=== PATIENT | male | born 1965 | race Caucasian/White ===

== ENCOUNTER 2017-04-27 14:34 | Inpatient (IN) | payer OTHER ==
[~2017-04-27] VITALS: Ht 170.2 cm; Wt 139.7 kg
--- NOTE | 2017-04-27 14:49 | NUR ---
51 Y/O MALE C/O 2-3 WEEK HISTORY OF N/V AND INABILITY TO TOLERATE AN PO INTAKE. STATES HE CANNOT KEEP ANY FOOD OR LIQUIDS DOWN. DENIES ABDOMINAL PAIN. DENIES CHEST PAIN OR SOB. STATES HE HAS INTERMITTENT DIZZINESS, DIFFICULTY STANDING DUE TO DIZZINESS AT TIMES. STATES HIS B/P WAS LOW EARLIER TODAY, 121/70 IN TRIAGE. HOLDING CUP OF WATER, ADVISED TO REMAIN NPO UNTIL PROVIDED EVAL.
[2017-04-27 15:54] LABS: ABSOLUTE BASOPHIL COUNT 0 /CUMM (0.0-0.2); ABSOLUTE EOSINOPHIL COUNT 0.3 /CUMM (0.0-0.7); ABSOLUTE GRANULOCYTE CT 7.8 /CUMM (1.4-6.5); ABSOLUTE LYMPH COUNT 1.6 /CUMM (1.2-3.4); ABSOLUTE MONOCYTE COUNT 0.9 /CUMM (0.10-0.60); BASOPHIL % 0.4 % (0.0-2.0); EOSINOPHIL % 3.1 % (0-5); HEMATOCRIT 37.6 % (42-52); MEAN CORPUSCULAR HGB 30.5 PG (27.0-31.0); MEAN CORPUSCULAR HGB CONC 33.6 G/DL (33.0-37.0); MEAN CORPUSCULAR VOLUME 90.7 FL (80.0-94.0); MEAN PLATELET VOLUME 8.5 FL (7.4-10.4); PLATELET COUNT 345 /CUMM (130-400); RBC DISTRIBUTION WIDTH 13.7 % (11.5-14.5); RED BLOOD CELL CT 4.14 /CUMM (4.70-6.10); WHITE BLOOD CELL COUNT 10.6 /CUMM (4.8-10.8)
--- NOTE | 2017-04-27 16:30 | ED GENERAL ADULT ---
History of Present Illness General Chief Complaint: General Adult Stated Complaint: DIZZY, VOMITING, NAUSEA X FEW WEEKS Source: patient Exam Limitations: no limitations Vital Signs & Intake/Output Vital Signs & Intake/Output Vital Signs Date Time Temp Pulse Resp B/P B/P Pulse O2 O2 Flow FiO2 Mean Ox Delivery Rate 04/27 1902 98.9 90 20 152/83 95 04/27 1445 97.1 76 18 121/70 96 Room Air Allergies Coded Allergies: shellfish derived (SEAFOOD- NAUSEA AND DIZZINESS 04/27/17) Reconcile Medications Atorvastatin Calcium 40 MG TABLET 1 TAB PO DAILY CHOLESTEROL (Reported) Clonidine HCl 0.1 MG TABLET 1 TAB PO QHS BP (Reported) Dulaglutide (Trulicity) 1.5 MG/0.5 ML PEN.INJCTR 1.5 MG SC QMON DM (Reported) Ergocalciferol (Vitamin D2) (Vitamin D2) 50,000 UNIT CAPSULE 1 CAP PO QFRI SUPPLEMENT (Reported) Fenofibrate Nanocrystallized (Fenofibrate) 145 MG TABLET 1 TAB PO DAILY CHOLESTEROL/TRIGLYCERIDES (Reported) Glimepiride 2 MG TABLET 1 TAB PO BID DM (Reported) Hydrochlorothiazide 25 MG TABLET 1 TAB PO DAILY DIURETIC (Reported) Insulin Detemir (Levemir Flextouch) 100 UNIT/ML (3 ML) INSULN.PEN 50 UNITS SC 1500 DM (Reported) Insulin Lispro (Humalog Kwikpen U-100) 100 UNIT/ML INSULN.PEN DM (Reported) Levomefolate/B6/B12/Algal Oil (Metanx Capsule) 3 MG-35 MG-2 MG-90.314 MG CAPSULE 1 CAP PO BID FOOT NEUROPATHY (Reported) Lisinopril 40 MG TABLET 1 TAB PO DAILY BP (Reported) Tadalafil (Cialis) 5 MG TABLET 1 TAB PO DAILY ED (Reported) Tizanidine HCl 2 MG TABLET 1 TAB PO 4XDAILY MUSCLE RELAXER (Reported) Triage Note: 51 Y/O MALE C/O 2-3 WEEK HISTORY OF N/V AND INABILITY TO TOLERATE AN PO INTAKE. STATES HE CANNOT KEEP ANY FOOD OR LIQUIDS DOWN. DENIES ABDOMINAL PAIN. DENIES CHEST PAIN OR SOB. STATES HE HAS INTERMITTENT DIZZINESS, DIFFICULTY STANDING DUE TO DIZZINESS AT TIMES. STATES HIS B/P WAS LOW EARLIER TODAY, 121/70 IN TRIAGE. HOLDING CUP OF WATER, ADVISED TO REMAIN NPO UNTIL PROVIDED EVAL. Triage Nurses Notes Reviewed? yes HPI: Pt is coming in for >2 wks of N/V and limited intake of foods/water, and dizziness. His low appetite started abruptly around 3 weeks ago. Last monday during his visit to PCP, he noticed that his blood pressure DBP had dropped to 60-70mmhg compare to his normal DBP around 85. He felt lightheadedness and has limited intake of foods. He drank on average 6 600ml cups of water each day but stated that the more he drank the likey he wanted to vomit. He usually vomited by the end of a day, non-bloody. He denied any fever, CP, SOB, or ab pain. He is compliant with his medications, and last insulin shot was noon today with 25U humalog after a fingerstick glucose of 240s. He felt sick around 1330 today and collapsed without LOC after. Upon seeing the pt, he c/o of lightheadedness especially when sitting up and walk but relieved by lying down. He has otherwise no specific complaint. He denied recent liquor intake or any previous hx of liver disease. (TRE PALACIOS,MARIA ELENA WARD) Past History Travel History Traveled to [place] past 21 day No Medical History Any Pertinent Medical History? see below for history Neurological: NONE EENT: NONE Cardiovascular: hypertension Respiratory: NONE Gastrointestinal: NONE Hepatic: NONE Renal: NONE Musculoskeletal: NONE Psychiatric: NONE Endocrine: diabetes Blood Disorders: NONE Cancer(s): NONE FOOD SAFETY FIELD SPECIALIST/Reproductive: NONE Surgical History Surgical History: non-contributory Psychosocial History What is your primary language Bengali Tobacco Use: Quit >30 days ago Family History Hx Contributory? No (TRE PALACIOS,MARIA ELENA WARD) Review of Systems Review of Systems Constitutional: Reports: see HPI. Comments Constitutional: no significant weight gain or loss and no fever, night sweats, or exercise intolerance. Skin: no jaundice, hives, eczema, rashes, or abnormal moles. Respiratory: no cough, wheezing, shortness of breath, or coughing up blood. Cardiovascular: no SOB, no palpitations, chest pain, no arm pain on exertion, or leg swelling. Gastrointestinal: low appetite, daily vomiting and episodic constipation in last 2-3 wks, No abdominal pain, rectal bleeding. Genitourinary: no incontinence, hematuria, difficulty urinating, or increased frequency. Musculoskeletal: no muscle aches or weakness, no arthralgias/joint pain, and back pain; Neurologic: no weakness, numbness, seizures, or dizziness. Psych: no depression, anxiety, sleep disturbances, homicidal thoughts, or suicidal thoughts. (TRE PALACIOS,MARIA ELENA WARD) Physical Exam Physical Exam General Appearance: lethargic, mild distress, obese Comments: Head: normocephalic and atraumatic. Lungs: Respiratory effort: no dyspnea and good air movement. Auscultation: no wheezing, rales/crackles, or rhonchi and breath sounds normal and CTA except as noted. Cardiovascular: Apical Impulse: not displaced. normal S1 and S2; no murmurs, rubs, or gallops; and RRR. no carotid bruits. Abdomen: normal bowel sound. No masses, tenderness (no guarding, no rebound), or CVA tenderness and soft and non-distended. Liver: non-tender and no hepatomegaly. Musculoskeletal:: normal tone and strength (5/5 throughout) . Neurologic: normal gait and station. Skin: no rash, lesions, ulcer, induration, nodules, jaundice, or abnormal nevi and good turgor. Psychiatric: good judgement. Normal mood and affect and active and alert. Orientation to time, place, and person. Recent memory normal and remote memory normal. Core Measures ACS in differential dx? No CVA/TIA Diagnosis: No Severe Sepsis Present: No Septic Shock Present: No (TRE PALACIOS,MARIA ELENA WARD) Progress Differential Diagnoses I considered the following diagnoses in my evaluation of the patient: [CHANDANA, Dehydration, hepatorenal syndrome] Diagnostic Imaging: Discussed w/RAD: Radiology Read. Radiology Impression: no acute abnormality, PATIENT: HERNAN BUSH PRESENT AGE: 51 PATIENT ACCOUNT NO: [id number] : 67 LOCATION: [facility] ORDERING PHYSICIAN: MARIA ELENA TOLEDO MD SERVICE DATE: 04/27/17 EXAM TYPE: CAT - CT ABD & PELVIS W/O IV CONTRAS EXAMINATION: CT ABDOMEN AND PELVIS WITHOUT CONTRAST CLINICAL INFORMATION: Dehydration. Hypotension. COMPARISON: None. TECHNIQUE: Contiguous axial thin section helical images of the abdomen and pelvis were performed without oral or IV contrast. The data set was reformatted in the coronal and sagittal planes and reviewed on an independent workstation. DLP: 1579 mGy-cm. FINDINGS: The visualized lung bases are clear. The visualized portions of the heart are unremarkable. The liver is of normal size and attenuation without focal lesions nor intrahepatic biliary ductal dilation. A normal gallbladder is identified. There is no wall thickening or discernible pericholecystic fluid. The spleen, pancreas, adrenal glands are unremarkable. Both kidneys are of normal size and attenuation without hydronephrosis or nephrolithiasis. There is no abdominal free fluid. There is neither mesenteric nor retroperitoneal lymphadenopathy. Normal unopacified loops of small and large bowel are identified. A normal appendix is identified. There is no pelvic free fluid. The urinary bladder is only partially filled. There is moderate bladder wall thickening. There is neither pelvic nor inguinal lymphadenopathy. Bone windows: Neither sclerotic nor lytic bone lesions are identified. IMPRESSION: No evidence for acute abdominal or pelvic inflammatory or infectious processes. Partially filled urinary bladder with the appearance of moderate wall thickening. It is uncertain as to whether the appearance of wall thickening is solely related to bladder volume or there is underlying thickening. Correlate with physical exam and consider bladder ultrasound 18 clinically appropriate. DICTATED BY: LULY RADFORD MD DATE/TIME DICTATED:1811 TESTER ELECTRONIC SCALE:MARGARET DATE/TIME TRANSCRIBED:04/27/171811 CONFIDENTIAL, DO NOT COPY WITHOUT APPROPRIATE AUTHORIZATION. <Electronically signed in Other Vendor System> SIGNED BY: LULY RADFORD MD 04/27/171818 Initial ED EKG: none (TRE PALACIOS,MARAI ELENA WARD) Plan of Care: Orders Procedure Date/time Status Nothing by Mouth 04/27 D Active Admit to inpatient 04/27 1943 Active US-RENAL/KIDNEY 04/27 1909 Active Add-on Test (ER Only) 04/27 1909 Active PROSTATIC SPECIFIC ANTIGEN 04/27 190 Active Add-on Test (ER Only) 04/27 1730 Active ETHANOL 04/27 1541 Complete URINE DRUGS OF ABUSE 04/27 1508 Active URINALYSIS 04/27 1508 Active COMPREHENSIVE METABOLIC PANEL 04/27 1501 Complete CBC WITHOUT DIFFERENTIAL 04/27 1501 Complete Current Medications Sig/Buddy Start time Last Medication Dose Stop Time Status Admin Pantoprazole Sodium 40 MG ONCE ONE 04/27 2000 UNVr (Protonix) 04/27 2001 Promethazine HCl 25 MG ONCE ONE 04/27 2000 UNVr 04/27 (Phenergen) 04/27 Sodium Chloride 1,000 ML .Q5H 04/27 1915 UNVr 04/27 (Normal Saline 0.9%) 04/28 Ondansetron HCl 4 MG ONCE ONE 04/27 1845 CAN (Zofran) 04/27 1846 Laboratory Tests 04/27/17 1541: Anion Gap 10, Estimated GFR 11 L, BUN/Creatinine Ratio 10.9, Glucose 291 H, Calcium 9.3, Total Bilirubin 0.9, AST 400 H, ALT 712 H, Alkaline Phosphatase 85, Total Protein 6.1 L, Albumin 3.4 L, Globulin 2.7, Albumin/Globulin Ratio 1.3, CBC w Diff NO MAN DIFF REQ, RBC 4.14 L, MCV 90.7, MCH 30.5, RDW 13.7, MPV 8.5, Gran % 73.0, Lymphocytes % 15.1 L, Monocytes % 8.4, Eosinophils % 3.1, Basophils % 0.4, Absolute Granulocytes 7.8 H, Absolute Lymphocytes 1.6, Absolute Monocytes 0.9 H, Absolute Eosinophils 0.3, Absolute Basophils 0, PUBS MCHC 33.6, Serum Alcohol < 10.0 04/27/2017 1740 Pt's decreased renal function, and elevated BUN & Cr align with dehydration due to his recent low intake of foods/water and daily vomiting. We will rehydrate him and monitor. (TRE PALACIOS,MARIA ELENA WARD) Departure Departure Disposition: STILL A PATIENT Condition: Stable Clinical Impression Primary Impression: CHANDANA (acute kidney injury) Secondary Impressions: Dehydration, Elevated liver enzymes Referrals: TOLU HODGES MD (PCP/Family) Departure Forms: Customer Survey General Discharge Information Admission Note Spoke With: ESTELITA PALACIOS,SILVIA Box Documentation of Exam: Documentation of any treatments & extenuating circumstances including Concerns Regarding Discharge (functional status, medication knowledge or non-compliance, living conditions, etc.) that warrant an admission rather than observation: Pt came in today with signs of CHANDANA, dehydration with limited urine output, elevated liver enzymes, elevated blood glucose, and dizziness. He c/o 2-3 weeks of low appetite with limited intake of food/water, daily vomiting, w/o SOB/CP/Ab pain, or diarrhea. Pt is at risk of electrolyte disorders, hepatorenal syndrome, possible CHF, and acute renal failure. Pt is a poor candidate for outpatient management, and would likely return in worse clinical conditions. Pt should have renal and liver functions followed, IV fluids, renal consultation , GI consultation, and management of insulin-dependent diabetes (consider Endocrine consult). Given the number of acute medical problems, this patient will require multiple days of hospitalization. (TRE PALACIOS,MARIA ELENA WARD) Departure Additional Instructions: Please note that there might be incidental findings in your evaluation that are unrelated to the current emergency department visit. Please notify your primary care doctor about this emergency department visit in order to obtain and review all of the testing performed so that these incidental findings can be monitored as needed. If you had an x-ray performed, please understand that some fractures may not be seen on the initial set of x-rays. If your symptoms persist you might need a repeat set of x-rays to check for such a fracture. If you had a laceration evaluated, please understand that foreign bodies such as glass or wood may not be visible to the naked eye or on plain x-rays. If the wound becomes red, swollen, increasingly more painful or if there is any drainage from the wound, please have it reevaluated by a physician for the possibility of a retained foreign body. If you're unable to follow up as outlined in the discharge instructions please return to the emergency department. Thank you for choosing the [facility] Emergency Department for your care. It was a pleasure to serve you today. Olman Evangelista M.D. [facility] Admission Note Documentation of Exam: Documentation of any treatments & extenuating circumstances including Concerns Regarding Discharge (functional status, medication knowledge or non-compliance, living conditions, etc.) that warrant an admission rather than observation: (MANINDER PALACIOS,OLMAN Tamayo) Critical Care Note Critical Care Note Critical Care Time: non-applicable (TRE PALACIOS,MARIA ELENA WARD)
[2017-04-27] MEDS ORDERED: FENOFIBRATE145 M1 PO (16:46)
[2017-04-27] MEDS ORDERED: LISINOPRIL40 M1 PO (16:47)
[2017-04-27] MEDS ORDERED: CIALIS5 M1 PO (16:47)
[2017-04-27] MEDS ORDERED: CLONIDINE HCL0.1 MG PO (16:47)
[2017-04-27] MEDS ORDERED: HYDROCHLOROTHIA25 M1 PO (16:48)
[2017-04-27] MEDS ORDERED: TIZANIDINE HCL2 M1 PO (16:48)
[2017-04-27] MEDS ORDERED: VITAMIN D250000 UNIT PO (16:49)
[2017-04-27] MEDS ORDERED: LEVEMIR FL100 UNIT/1 SC (16:49)
[2017-04-27] MEDS ORDERED: ATORVASTATIN CA40 M1 PO (16:49)
[2017-04-27] MEDS ORDERED: GLIMEPIRIDE2 MG PO (16:50)
[2017-04-27] MEDS ORDERED: TRULICITY1.5 MG/0.5 SC (16:50)
[2017-04-27] MEDS ORDERED: HUMALOG KW100 UNIT/1 SC (16:51)
[2017-04-27] MEDS ORDERED: METANX CAPSULE1 EACH PO (16:52)
--- NOTE | 2017-04-27 17:16 | NUR ---
PT MOVED INTO ROOM 6 FOR EVAL RESIDENT AT THE BEDSIDE
--- NOTE | 2017-04-27 18:19 | CT SCAN REPORT ---
EXAMINATION: CT ABDOMEN AND PELVIS WITHOUT CONTRAST CLINICAL INFORMATION: Dehydration. Hypotension. COMPARISON: None. TECHNIQUE: Contiguous axial thin section helical images of the abdomen and pelvis were performed without oral or IV contrast. The data set was reformatted in the coronal and sagittal planes and reviewed on an independent workstation. DLP: 1579 mGy-cm. FINDINGS: The visualized lung bases are clear. The visualized portions of the heart are unremarkable. The liver is of normal size and attenuation without focal lesions nor intrahepatic biliary ductal dilation. A normal gallbladder is identified. There is no wall thickening or discernible pericholecystic fluid. The spleen, pancreas, adrenal glands are unremarkable. Both kidneys are of normal size and attenuation without hydronephrosis or nephrolithiasis. There is no abdominal free fluid. There is neither mesenteric nor retroperitoneal lymphadenopathy. Normal unopacified loops of small and large bowel are identified. A normal appendix is identified. There is no pelvic free fluid. The urinary bladder is only partially filled. There is moderate bladder wall thickening. There is neither pelvic nor inguinal lymphadenopathy. Bone windows: Neither sclerotic nor lytic bone lesions are identified. IMPRESSION: No evidence for acute abdominal or pelvic inflammatory or infectious processes. Partially filled urinary bladder with the appearance of moderate wall thickening. It is uncertain as to whether the appearance of wall thickening is solely related to bladder volume or there is underlying thickening. Correlate with physical exam and consider bladder ultrasound 18 clinically appropriate.
--- NOTE | 2017-04-27 18:32 | NUR ---
PT HAS BEEN TO/FROM CT SCAN NORMAL SALINE INFUSING AWAITING FURTHER DISPO
--- NOTE | 2017-04-27 18:44 | NUR ---
PT STATES HE WILL ATTEMPT TO VOID SHORTLY 2ND LITER INFUSING PER , 200 ML/HR. MED WITH LARRY PER MAR PT ASKING FOR WATER - PROVIDED WITH ICE CHIPS, OK WITH DR DICKENS.
--- NOTE | 2017-04-27 19:11 | NUR ---
REPORT GIVEN TO MILLICENT
--- NOTE | 2017-04-27 19:17 | NUR ---
PT TO XRAY VIA STRETCHER
--- NOTE | 2017-04-27 19:28 | NUR ---
PT RETURNED FROM XRAY. NOW TO US VIA STRETCHER.
--- NOTE | 2017-04-27 19:42 | RADIOLOGY REPORT ---
EXAMINATION: CHEST 2 VIEWS CLINICAL INFORMATION: Dizziness, vomiting. COMPARISON: None. TECHNIQUE: PA and lateral views of the chest were obtained. FINDINGS: The cardiac silhouette is not enlarged. The mediastinal and hilar contours are unremarkable. There are neither pleural effusions nor pneumothoraces. There are no consolidations. The osseous structures are unremarkable. IMPRESSION: No evidence for acute disease.
--- NOTE | 2017-04-27 19:54 | NUR ---
DR VICENTE AT BEDSIDE TO EVAL PT. PT ACTIVELY VOMITTING. MEDICATED WITH 25 MG PHENERGAN IV ORDERED
--- NOTE | 2017-04-27 20:02 | ULTRASOUND REPORT ---
EXAMINATION: US RETROPERITONEAL COMPLETE (RENAL) CLINICAL INFORMATION: CHANDANA, bladder obstruction COMPARISON: Renal ultrasound 10/28/2015. CT scan abdomen pelvis 04/27/2017 TECHNIQUE: Real-time imaging of the kidneys and bladder. Color Doppler exam utilized. FINDINGS: RIGHT KIDNEY: 11.6 x 7.4 x 6.2 cm (SAG x AP x TRV). The kidney is normal in size, contour, and echogenicity. Renal cortical thickness is normal. No calculi or focal parenchymal lesions. No hydronephrosis. LEFT KIDNEY: 12.9 x 7 x 6.2 cm (SAG x AP x TRV). The kidney is normal in size, contour, and echogenicity. Renal cortical thickness is normal. No calculi or focal parenchymal lesions. No hydronephrosis. BLADDER: Well-distended and normal. Bilateral ureteral jets are demonstrated. Prevoid bladder volume is 103 mL. IMPRESSION: Normal ultrasound of the kidneys..
--- NOTE | 2017-04-27 20:45 | NUR ---
PT EVALUATED BY HOUSE STAFF
--- NOTE | 2017-04-27 21:25 | NUR ---
EKG DONE AND SHOWN TO DR DEL RIO AND PLACED IN CHART FOR HOUSE STAFF. PT MEDICATED WITH 20 MG PEPCID IV ORDERED
--- NOTE | 2017-04-27 21:44 | NUR ---
PT HAS BED ASSIGNMENT [id number]
--- NOTE | 2017-04-27 22:02 | History & Physical ---
LUIS [place]ERNANDOGRI[place] 04/27/172200: General Information and HPI MD Statement: I have seen and personally examined HERNAN BUSH and documented this H&P. The patient is a 51 year old M who presented with a patient stated chief complaint of nausea, vomiting and lightheadedness for last 2 weeks. []. History of Present Illness: 51 YO M with PMH of uncontrolled type 2 DM with complications( retinopathy, neuropathy, CKD) on insulin, HTN, hyperlipidemia, H/o pelvic abscess( 2 years back) presented to ED with CC of nausea, vomiting, dry cough and light headedness for last 2-3 weeks. According to patient he was all right 3 weeks back when he started to cough that is dry cough in bouts 2-3 times a days along with that he noticed loss of appetite and feeling nauseaous. According to patient along with nausea he had vomiting mutiple times especially at the end of the day. The vomitus was watery, brownish in color, non bloody and non foul smelling. He tried to hydrate himself by drinking water but he couldn't hold it in. He also reported that he went to his pcp and he noted that his DBP was 60-70 -mmHg that was low for him. He also reported that he noticed that he sweat a lot after eating something. This afternoon around 13:30 he felt so sick that he collapsed without loss of consciousness. While interviewing the patient we noticed that he was continuously coughing and havig blood tinge in sputum. He vomited twice during the interview and that was brownish, watery and non bloody and non foul smelling. He also reported that his blood sugar level is always high especially in the evening its 400 and morning its 120-170. 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 He denied chest pain, palpitation, dyspnea, dysuria, headache, belly pain, rash, fever, joint pain,diarrhea and constipation. Examination: alert and oriented x3, obese patient HEENT atramatic, PERRLA, EOMI CVS: S1+S2+0 , R/R/R LUNGS: CTA Abdomen: soft, NBS, non tender Neurology:normal gait, normal speech, power 5/5 x B/L LABS: Creatinine 5.5 BUN 60, GLUCOSE 291, AST 400, ALT 712, ALP 85 URINE ANALYSIS URINE GLUCOSE >1000, URINE PROTEIN >300, AMYLASE 32, LIPASE 39 ASSESSMENT: NAUSEA AND VOMITING D/D Gastroenteritis CHANDANA GASTROPERESIS DKA PANCREATITIS H/O HTN H/O HYPERLIPIDEMIA H/O UNCINTROLLED DIABETES WITH COMPLICATION ACUTE ON CHRONIC CKD PLAN: Admit in tele NPO Iv ppi, zofran, consult GI consult Nephro Consult Endo BMP Amylase, lipase urine analysis Q6 accuchks EKG to check QCT Hold the oral meds. Full Code Allergies/Medications Allergies: Coded Allergies: shellfish derived (SEAFOOD- NAUSEA AND DIZZINESS 04/27/17) Home Med list Atorvastatin Calcium 40 MG TABLET 1 TAB PO DAILY CHOLESTEROL (Reported) Clonidine HCl 0.1 MG TABLET 1 TAB PO QHS BP (Reported) Dulaglutide (Trulicity) 1.5 MG/0.5 ML PEN.INJCTR 1.5 MG SC QMON DM (Reported) Ergocalciferol (Vitamin D2) (Vitamin D2) 50,000 UNIT CAPSULE 1 CAP PO QFRI SUPPLEMENT (Reported) Fenofibrate Nanocrystallized (Fenofibrate) 145 MG TABLET 1 TAB PO DAILY CHOLESTEROL/TRIGLYCERIDES (Reported) Glimepiride 2 MG TABLET 1 TAB PO BID DM (Reported) Hydrochlorothiazide 25 MG TABLET 1 TAB PO DAILY DIURETIC (Reported) Insulin Detemir (Levemir Flextouch) 100 UNIT/ML (3 ML) INSULN.PEN 50 UNITS SC 1500 DM (Reported) Insulin Lispro (Humalog Kwikpen U-100) 100 UNIT/ML INSULN.PEN DM (Reported) Levomefolate/B6/B12/Algal Oil (Metanx Capsule) 3 MG-35 MG-2 MG-90.314 MG CAPSULE 1 CAP PO BID FOOT NEUROPATHY (Reported) Lisinopril 40 MG TABLET 1 TAB PO DAILY BP (Reported) Tadalafil (Cialis) 5 MG TABLET 1 TAB PO DAILY ED (Reported) Tizanidine HCl 2 MG TABLET 1 TAB PO 4XDAILY MUSCLE RELAXER (Reported) Past History Travel History Traveled to [place] past 21 day No Medical History Neurological: NONE EENT: NONE Cardiovascular: hypertension Respiratory: NONE Gastrointestinal: NONE Hepatic: NONE Renal: NONE Musculoskeletal: NONE Psychiatric: NONE Endocrine: diabetes Blood Disorders: NONE Cancer(s): NONE [employer]/Reproductive: NONE Surgical History Surgical History: non-contributory Review of Systems Review of Systems Constitutional: Reports: no symptoms. EENTM: Reports: no symptoms. Cardiovascular: Reports: no symptoms. Respiratory: Reports: cough. GI: Reports: nausea, vomiting. Genitourinary: Reports: no symptoms. Musculoskeletal: Reports: no symptoms. Skin: Reports: no symptoms. Neurological/Psychological: Reports: no symptoms. Exam & Diagnostic Data Last 24 Hrs of Vital Signs/I&O Vital Signs Date Time Temp Pulse Resp B/P B/P Pulse O2 O2 Flow FiO2 Mean Ox Delivery Rate 04/27 2352 98.6 76 18 152/90 94 Room Air 04/27 2223 97.9 90 18 154/72 96 04/27 1902 98.9 90 20 152/83 95 04/27 1445 97.1 76 18 121/70 96 Room Air Intake & Output 04/28 0800 04/28 0000 04/27 1600 Intake Total 1000 Output Total 160 Balance 840 Intake, IV 1000 Output, Urine 160 Patient 308 lb Weight Weight Reported by Patient Measurement Method Physical Exam General Appearance Alert, Oriented X3, Cooperative, Mild Distress Skin No Rashes Skin Temp/Moisture Exam: Warm/Dry HEENT Atraumatic, PERRLA, EOMI Neck Supple Cardiovascular Regular Rate, Normal S1, Normal S2 Lungs Clear to Auscultation Abdomen Normal Bowel Sounds, Soft, No Tenderness Neurological Normal Gait, Normal Speech, Strength at 5/5 X4 Ext, Normal Tone Extremities No Clubbing Vascular Normal Pulses Assessment/Plan Assessment: ASSESSMENT: NAUSEA AND VOMITING D/D Gastroenteritis CHANDANA GASTROPERESIS DKA PANCREATITIS H/O HTN H/O HYPERLIPIDEMIA H/O UNCINTROLLED DIABETES WITH COMPLICATION ACUTE ON CHRONIC CKD PLAN: Admit in tele NPO Iv ppi, zofran, consult GI consult Nephro Consult Endo BMP Amylase, lipase urine analysis Q6 accuchks EKG to check QCT Hold the oral meds. Full Code Core Measures/Miscellaneous Acute Coronary Syndrome ACS Diagnosis: No Cerebrovascular Accident CVA/TIA Diagnosis: No Congestive Heart Failure CHF Diagnosis: No VTE (View Protocol) VTE Risk Factors: Age > 40 No [facility] VTE prophylaxis d/t: No contraindications No VTE Pharm Prophylaxis d/t: Medical contraindication (blood tinge vomit) VTE Diagnosis: No VTE Type: NONE VTE Confirmed by (Test): NONE Sepsis (View Protocol) Severe Sepsis Present: No Septic Shock Septic Shock Present: No Miscellaneous Documentation Attending Case Discussed With: ESTELITA PALACIOS,SILVIA NickJatinder PATIENCE,[facility] 04/27/17 5009: Assessment/Plan As Ranked By This Provider Problem List: 1. Elevated liver enzymes 2. CHANDANA (acute kidney injury) Core Measures/Miscellaneous Miscellaneous Documentation Primary Care Physician: TOLU TIJERINA MD Patient sees these Specialists dr burgess Level of Patient Care: Telemetry Resident Review Statement Resident Statement: examined this patient, discussed with international broadcast music librarian, agreed with international broadcast music librarian, discussed with family, amended to note Other Findings: 51-year-old gentleman with past medical history of diabetes type 2, on insulin, hypertension and hyperlipidemia, complication of diabetes with neuropathy and retinopathy and CKD, 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 Patient reports that he has been nauseous and had episode of vomiting for at least 2 weeks with solids and fluids which is getting worse during the day with episode of coughing accompanied with the vomiting. Patient does report that he has chest discomfort after the episode of vomiting but does not have any abdominal pain, fevers, chills, diarrhea, constipation, headaches, weakness, joint pain. She reports that he is trying to hydrate himself however according to patient life patient was audibly for couple of days and he fell down today. Patient last creatinine was 3.8 and he is being followed up with . Patient reports that he tries to hydrate himself by drinking a lot of water but sometimes he cannot hold it down to 2 vomiting. Patient's vomiting material was mostly nonbloody however during our conversation patient had another episode of vomiting which was blood tinged. According to patient patient saw Dr. Tijerina 1 week about his blood pressure at that time was 11 7/70 which is low for him. Patient is blood sugars in the morning on between 110 and 170 and sometimes at night are around 400. Patient has been following with Dr. hdz as well.as hemoglobin A1c 9.9 . Upon visiting patient vital signs were stable , alert and oriented 3 morbidly obese HEENT Atraumatic, PERRLA, EOMI Cardiovascular Regular Rate, Normal S1, Normal S2 Lungs mildly decreased breath sounds bilaterally, Normal Air Movement Abdomen Normal Bowel Sounds, Soft, distended with no tenderness Neurological Normal Gait, Normal Speech, Strength at 5/5 X4 Ext, Extremities No Clubbing, No Cyanosis, trace Edema,Normal Pulses Labs were significant for hg 12.6, Creatinine 5.5, BUN 60, glucose 291, Ast 400, ALT 712, ALP 85 UA and toxicology pending Abdominal CT was unremarkable for any acute pathology, chest x-ray was unremarkable, kidney ultrasound was unremarkable for any obstruction, but showed bladder wall thickening no EKG Assessment -Nausea vomiting: DDx gastroenteritis, gastroparesis due to diabetes, chronic pancreatitis, elevated BUN due to ATN secondary,Intermittent DKA due to poor controlled diabetes -History of hypertension -hx of hyperlipidemia -History of Dang's gangrene -Dibateic Neuropathy -CHANDANA on CKD -mild anemia Plan -Admit to telemetry and get EKG -The patient on IV PPI, NPO, GI consult for the morning, Check CBC in AM -Check hemoglobin A1c, NPO sliding scale insulin R, fluids of D5 normal saline 100 mL/h, check CBC BEP in the morning , Q6 accuchkes -Check amylase and lipase -Check UA and urine tox -Keep the patient on IV Zofran and check QTC -Hold off on any oral medication for now -Nephrology consult and endocrinology consult tomorrow -Full code, Tylenol when necessary for pain, NPO, DVT prophylaxis is GIOVANI CAPONE MD,[facility] 04/28/17 1344: Attending MD Review Statement Attending Statement Attending MD Statement: examined this patient, discuss w/resident/PA/LINEN MANAGER, agreed w/resident/PA/LINEN MANAGER, discussed with family, reviewed EMR data (avail), discussed with nursing, discussed with case mgmt, reviewed images, amended to note Attending Assessment/Plan: Seen and examined independently PT with CHANDANA with stage 4 ckd DM HTN Intractable vomiting Mild hemetemesis due to sig retching Dehydration stable VIt d def HTNsig REC Admit IVF Iv ppi GI and renal to see DC all po meds and resume slowly when stable WIll follow
--- NOTE | 2017-04-27 22:15 | NUR ---
PT VOIDED 160 CC'S CONCENTRATED URINE
--- NOTE | 2017-04-27 22:49 | NUR ---
ATTEMPTED TO CALL REPORT, RN WILL CALL BACK
--- NOTE | 2017-04-27 23:04 | NUR ---
REPORT GIVEN TO MANJINDER ELI.
[2017-04-27 23:52] VITALS: BP 152/90
[2017-04-28 07:38] VITALS: BP 152/78
--- NOTE | 2017-04-28 08:04 | Cons- Endocrinology ---
General Information and HPI Consulting Request Date of Consult: 04/28/17 Requested By: medical team Reason for Consult: Uncontrolled diabetes Source of Information: patient, old records Exam Limitations: no limitations History of Present Illness: This 51-year-old male has a past history of diabetes mellitus type 2 associated with morbid obesity. He has severe complications from his diabetes including retinopathy neuropathy and has chronic kidney disease. He has been seeing Maldonado Zambrano MD every 3 months. With regard to his diabetes the patient is on Trulicity 1.5 mg daily, glimeperide 2 mg twice a day, detemir 50 units daily and lispro before meals. The patient states that his usually gives him his medications. He thinks he took the Trulicity on Monday this week which is 3 days ago. The patient has been sick for about 3 weeks. He has had decreased appetite and nausea and vomiting. He eventually got so weak that he could not stand up and came to the emergency room. His labs show acute on chronic renal insufficiency with a creatinine now 5.5 and also elevated liver function tests. Allergies/Medications Allergies: Coded Allergies: shellfish derived (SEAFOOD- NAUSEA AND DIZZINESS 04/27/17) Home Med List: Atorvastatin Calcium 40 MG TABLET 1 TAB PO DAILY CHOLESTEROL (Reported) Clonidine HCl 0.1 MG TABLET 1 TAB PO QHS BP (Reported) Dulaglutide (Trulicity) 1.5 MG/0.5 ML PEN.INJCTR 1.5 MG SC QMON DM (Reported) Ergocalciferol (Vitamin D2) (Vitamin D2) 50,000 UNIT CAPSULE 1 CAP PO QFRI SUPPLEMENT (Reported) Fenofibrate Nanocrystallized (Fenofibrate) 145 MG TABLET 1 TAB PO DAILY CHOLESTEROL/TRIGLYCERIDES (Reported) Glimepiride 2 MG TABLET 1 TAB PO BID DM (Reported) Hydrochlorothiazide 25 MG TABLET 1 TAB PO DAILY DIURETIC (Reported) Insulin Detemir (Levemir Flextouch) 100 UNIT/ML (3 ML) INSULN.PEN 50 UNITS SC 1500 DM (Reported) Insulin Lispro (Humalog Kwikpen U-100) 100 UNIT/ML INSULN.PEN DM (Reported) Levomefolate/B6/B12/Algal Oil (Metanx Capsule) 3 MG-35 MG-2 MG-90.314 MG CAPSULE 1 CAP PO BID FOOT NEUROPATHY (Reported) Lisinopril 40 MG TABLET 1 TAB PO DAILY BP (Reported) Tadalafil (Cialis) 5 MG TABLET 1 TAB PO DAILY ED (Reported) Tizanidine HCl 2 MG TABLET 1 TAB PO 4XDAILY MUSCLE RELAXER (Reported) Review of Systems Review of Systems Constitutional: Reports: malaise, weakness. Denies: chills, fever. Cardiovascular: Denies: chest pain. Respiratory: Denies: short of breath. GI: Denies: nausea, vomiting. Genitourinary: Denies: dysuria. Skin: Reports: no symptoms. Past History Travel History Traveled to [place] past 21 day No Medical History Neurological: neuropathy EENT: NONE Cardiovascular: hypertension Respiratory: NONE Gastrointestinal: NONE Hepatic: NONE Renal: chronic kidney disease Musculoskeletal: NONE Psychiatric: NONE Endocrine: diabetes Blood Disorders: NONE Cancer(s): NONE PERSONAL FITNESS TRAINER/Reproductive: NONE Surgical History Surgical History: non-contributory Psychosocial History Where Do You Live? Home Smoking Status: Unknown If Ever Smoked Exam & Diagnostic Data Last 24 Hrs of Vital Signs/I&O Vital Signs Date Time Temp Pulse Resp B/P B/P Pulse O2 O2 Flow FiO2 Mean Ox Delivery Rate 04/28 1500 98.5 73 20 164/80 97 Room Air 04/28 0800 Room Air 04/28 0738 152/78 04/28 0718 98.6 61 20 94 Room Air 04/27 2352 98.6 76 18 152/90 94 Room Air 04/27 2223 97.9 90 18 154/72 96 04/27 1902 98.9 90 20 152/83 95 Intake & Output 04/28 1600 04/28 0800 04/28 0000 Intake Total 5605 189 5724 Output Total 850 160 Balance 714 700 840 Intake, IV 025 960 4416 Intake, Oral 744 Output, Urine 850 160 Vital Signs Date Time Temp Pulse Resp B/P B/P Pulse O2 O2 Flow FiO2 Mean Ox Delivery Rate 04/28 1500 98.5 73 20 164/80 97 Room Air 04/28 0800 Room Air 04/28 0738 152/78 04/28 0718 98.6 61 20 94 Room Air 04/27 2352 98.6 76 18 152/90 94 Room Air 04/27 2223 97.9 90 18 154/72 96 04/27 1902 98.9 90 20 152/83 95 Intake & Output 04/28 1600 04/28 0800 04/28 0000 Intake Total 2572 244 3525 Output Total 850 160 Balance 714 700 840 Intake, IV 740 698 2010 Intake, Oral 744 Output, Urine 850 160 Physical Exam General Appearance: alert, awake, lethargic Head: normal appearance Neck: normal inspection Respiratory: normal breath sounds Cardiovascular: regular rate/rhythm Gastrointestinal: normal bowel sounds, soft Extremities: normal inspection Labs/Haseeb Results: Laboratory Tests 04/28 04/27 04/27 0700 2220 2220 Chemistry Hemoglobin A1c Pending Urines Urinalysis LIGHT H Urine Color (YEL,AMB,STR) YEL Urine Clarity (CLEAR) HAZY H Urine pH (5.0 - 8.0) 6.0 Ur Specific [place] (1.001 - 1.035) 1.020 Urine Protein (NEG,<30 MG/DL) >=300 H Urine Ketones (NEG) NEG Urine Nitrite (NEG) NEG Urine Bilirubin (NEG) NEG Urine Urobilinogen (0.1 - 1.0 EU/dl) 0.2 Ur Leukocyte Esterase (NEG) NEG Ur Microscopic SEDIMENT EXAMINED Urine RBC (0 - 5 /HPF) 5-10 H Urine WBC (0 - 2 /HPF) 3-5 H Ur Epithelial Cells (NONE,FEW) FEW Urine Bacteria (NEG/NONE) MOD H Granular Casts (NONE /LPF) 5-10 H Urine Hemoglobin (NEG) LARGE H Ur Random Creatinine Cancelled Ur Random Sodium Cancelled Ur Random Potassium Cancelled Fraction Sodium Excret Cancelled Urine Glucose (N MG/DL) >=1000 H 04/27 04/27 04/27 2220 1909 1541 Chemistry Sodium (137 - 145 mmol/L) 135 L Potassium (3.5 - 5.1 mmol/L) 4.9 Chloride (98 - 107 mmol/L) 100 Carbon Dioxide (22 - 30 mmol/L) 24 Anion Gap (5 - 16) 10 BUN (9 - 20 mg/dL) 60 H Creatinine (0.7 - 1.2 mg/dL) 5.5 *H Estimated GFR (>60 ml/min) 11 L BUN/Creatinine Ratio (7 - 25 %) 10.9 Glucose (65 - 99 mg/dL) 291 H Calcium (8.4 - 10.2 mg/dL) 9.3 Total Bilirubin (0.2 - 1.3 mg/dL) 0.9 AST (17 - 59 U/L) 400 H ALT (21 - 72 U/L) 712 H Alkaline Phosphatase (< 127 U/L) 85 Total Protein (6.3 - 8.2 g/dL) 6.1 L Albumin (3.5 - 5.0 g/dL) 3.4 L Globulin (1.9 - 4.2 gm/dL) 2.7 Albumin/Globulin Ratio (1.1 - 2.2 %) 1.3 Amylase (30 - 110 U/L) 32 Lipase (23 - 300 U/L) 39 Total PSA (0.00 - 4.00 ng/mL) Cancelled 0.37 Hematology CBC w Diff NO MAN DIFF REQ WBC (4.8 - 10.8 /CUMM) 10.6 RBC (4.70 - 6.10 /CUMM) 4.14 L Hgb (14.0 - 18.0 G/DL) 12.6 L Hct (42 - 52 %) 37.6 L MCV (80.0 - 94.0 FL) 90.7 MCH (27.0 - 31.0 PG) 30.5 RDW (11.5 - 14.5 %) 13.7 Plt Count (130 - 400 /CUMM) 345 MPV (7.4 - 10.4 FL) 8.5 Gran % (42.2 - 75.2 %) 73.0 Lymphocytes % (20.5 - 51.1 %) 15.1 L Monocytes % (1.7 - 9.3 %) 8.4 Eosinophils % (0 - 5 %) 3.1 Basophils % (0.0 - 2.0 %) 0.4 Absolute Granulocytes (1.4 - 6.5 /CUMM) 7.8 H Absolute Lymphocytes (1.2 - 3.4 /CUMM) 1.6 Absolute Monocytes (0.10 - 0.60 /CUMM) 0.9 H Absolute Eosinophils (0.0 - 0.7 /CUMM) 0.3 Absolute Basophils (0.0 - 0.2 /CUMM) 0 PUBS MCHC (33.0 - 37.0 G/DL) 33.6 Toxicology Urine Opiates Screen (>2000 NG/ML) < 100.00 Methadone Screen (>300 NG/ML) < 40 Barbiturate Screen (>200 NG/ML) < 60 Ur Phencyclidine Scrn (>25 NG/ML) < 6.00 Amphetamines Screen (>1000 NG/ML) < 100 U Benzodiazepines Scrn (>200 NG/ML) < 85 Urine Cocaine Screen (>300 NG/ML) < 50 Urine Cannabis Screen (>50 NG/ML) < 5.00 Serum Alcohol (<10 MG/DL) < 10.0 Urines Ur Random Creatinine (mg/dL) 103.7 Ur Random Sodium (30 - 90 mmol/L) 33 Ur Random Potassium (mmol/L) 35.3 Fraction Sodium Excret (<1% %) 1.3 H Assessment/Plan Assessment/Plan This 51-year-old male has a known history of diabetes mellitus type 2 with severe complications. He has chronic kidney disease. He now presents with acute on chronic renal failure. He has had nausea and vomiting. He has been on multiple medications to control his diabetes including Trulicity. Trulicity can be a cause of nausea and vomiting. Of note however his liver function tests are also elevated. Studies so far reveal that his creatinine is elevated at 5.5 sodium 135 potassium 4.9. Liver functions revealed she'll T4 100 SGPT 712 with a normal bilirubin. The patient denies drinking alcohol or taking any drugs or even over -the-counter medications. Renal ultrasound reveals no obstruction. CT scan of the abdomen reveals a normal-looking liver and gallbladder without any dilatation of the bile ducts. With regard to the patient's present management I agree that he needs to be hydrated carefully. We should keep glucose in the IV. Today's labs are pending. Now that his blood pressure is improved we can probably change him to D5 half-normal saline at 100 mL per hour. The patient's blood sugars are in the 200s. We can place him on NovoLog coverage every 4 hours. NovoLog coverage every 4 hours should be less than 150 give no insulin, 151-200 give 4 units NovoLog, 201-250 give 6 units NovoLog, 251 -300 give 7 units NovoLog, 301-350 give 8 units NovoLog, 351-400 give 9 units NovoLog. I would not give any basal insulin for now. Renal consult to be obtained. Consult Acknowledgment - Thank you for your consult request.
--- NOTE | 2017-04-28 08:06 | Cons- Gastroenterology ---
General Information and HPI Consulting Request Date of Consult: 04/28/17 Requested By: ESTELITA PALACIOS,SILVIA Box Reason for Consult: Nausea and vomiting/hematemesis; increased LFTs. Source of Information: patient Exam Limitations: no limitations History of Present Illness: Mr. Viera is a 51 year old with a PMH of uncontrolled DM, HTN, inc chol, and CRI who presented to yesterday for nausea and vomiting that he has been having for the past 3 weeks. The patient notes that he has had a dry cough and after coughing he will develop some bilious vomiting. He had similar symptoms one year ago that he didn't seek medical attention and the symptoms ultimately resolved on it's own. He is currently without any abdominal pain with eating, heartburn or dysphagia. Last night he noted some blood streaks in his vomitus which he hadn't previously had. He has not vomited up any clots. He has normal bowel movements without any brbpr, melena, diarrhea or constipation. He has not tried anything at home for the vomiting such as an antacid. He has also note been taking tylenol or nsaids. He ultimately came to the ED last night because he was not able to hold down any PO intake and he was feeling dizzy. In the ED he was found to be in acute renal failure and also to have a moderate transaminitis in the 4-500 range. He denies any jaundice, lena colored stool or dark urine and he is without any significant RUQ pain after eating. He had a non-contrast ct scan of the abd/pelvis which was unremarkable. He was given IV protonix and IV zofran in the ED with some improvement in his vomiting and he was admitted to the medical service for further management. Today he was able to eat lunch without any signficant vomiting and he has been hemodynamically stable and afebrile since admission. Allergies/Medications Allergies: Coded Allergies: shellfish derived (SEAFOOD- NAUSEA AND DIZZINESS 04/27/17) Home Med List: Clonidine HCl 0.1 MG TABLET 1 TAB PO QHS BP (Reported) Dulaglutide (Trulicity) 1.5 MG/0.5 ML PEN.INJCTR 1.5 MG SC QMON DM (Reported) Ergocalciferol (Vitamin D2) (Vitamin D2) 50,000 UNIT CAPSULE 1 CAP PO QFRI SUPPLEMENT (Reported) Fenofibrate Nanocrystallized (Fenofibrate) 145 MG TABLET 1 TAB PO DAILY CHOLESTEROL/TRIGLYCERIDES (Reported) Hydrochlorothiazide 25 MG TABLET 1 TAB PO DAILY DIURETIC (Reported) Insulin Aspart (Novolog) 100 UNIT/ML VIAL 1 UNIT SC AC & AT BEDTIME DM Insulin Detemir (Levemir Flextouch) 100 UNIT/ML (3 ML) INSULN.PEN 18 UNITS SC DAILY PRN DM Levomefolate/B6/B12/Algal Oil (Metanx Capsule) 3 MG-35 MG-2 MG-90.314 MG CAPSULE 1 CAP PO BID FOOT NEUROPATHY (Reported) Lisinopril 40 MG TABLET 1 TAB PO DAILY BP (Reported) Tadalafil (Cialis) 5 MG TABLET 1 TAB PO DAILY ED (Reported) Tizanidine HCl 2 MG TABLET 1 TAB PO 4XDAILY MUSCLE RELAXER (Reported) Current Medications: Current Medications Sig/Buddy Start time Last Medication Dose Route Stop Time Status Admin Acetaminophen 650 MG Q6P PRN 04/27 2115 AC PO Dextrose/Sodium 1,000 ML Q10H 04/27 2130 AC 04/28 Chloride IV 0000 Ergocalciferol 50,000 IU QFRI 04/28 0700 CAN PO Famotidine 20 MG BID 04/27 220 DC 04/27 IV 04/29 1001 2123 Famotidine 0 .STK-MED ONE 04/27 2129 DC IV Insulin Human Regular 0 Q6 04/27 2359 AC 04/28 SC 0600 Ondansetron HCl 4 MG Q6P PRN 04/27 2200 DC IV Ondansetron HCl 0 .STK-MED ONE 04/27 2048 DC .ROUTE Ondansetron HCl 4 MG ONCE ONE 04/27 2045 DC 04/27 IV 04/27 2046 204 Ondansetron HCl 4 MG ONCE ONE 04/27 1900 DC 04/27 IV 04/27 190 1856 Ondansetron HCl 0 .STK-MED ONE 04/27 184 DC .ROUTE Ondansetron HCl 4 MG ONCE ONE 04/27 1845 CAN PO 04/27 184 Pantoprazole Sodium 40 MG BID 04/28 1000 AC IV 04/28 1001 Pantoprazole Sodium 40 MG ONCE ONE 04/27 2000 DC IV 04/27 2001 Promethazine HCl 25 MG ONCE ONE 04/27 2000 DC 04/27 IV 04/27 Promethazine HCl 0 .STK-MED ONE 04/27 1955 DC .ROUTE Sodium Chloride 1,000 ML .Q5H 04/27 1915 DC 04/27 IV 04/28 Sodium Chloride 1,000 ML BOLUS ONE 04/27 1730 DC 04/27 IV 04/27 1829 1829 Trimethobenzamide HCl 200 MG 4 TIMES/DAY PRN 04/27 2330 AC IM Past History Travel History Traveled to [place] past 21 day No Medical History Neurological: neuropathy EENT: NONE Cardiovascular: hypertension Respiratory: NONE Gastrointestinal: NONE Hepatic: NONE Renal: chronic kidney disease Musculoskeletal: NONE Psychiatric: NONE Endocrine: diabetes Blood Disorders: NONE Cancer(s): NONE WATCH COMMANDER/Reproductive: NONE Surgical History Surgical History: non-contributory Psychosocial History Where Do You Live? Home Smoking Status: Unknown If Ever Smoked Review of Systems Review of Systems Constitutional: Reports: malaise, weakness. Denies: chills, diaphoresis, fever, unexplained weight loss. EENTM: Denies: no symptoms. Cardiovascular: Denies: no symptoms. Respiratory: Reports: cough. Denies: hemoptysis, orthopnea, short of breath. GI: Reports: see HPI. Genitourinary: Denies: no symptoms. Musculoskeletal: Denies: joint pain, joint swelling, muscle pain. Skin: Denies: no symptoms. Neurological/Psychological: Reports: headache, other (dizzyness). Hematologic/Endocrine: Reports: bleeding. Immunologic/Allergic: Denies: no symptoms. All Other Systems: Reviewed and Negative Exam & Diagnostic Data Vital Signs and I&O Vital Signs Date Time Temp Pulse Resp B/P B/P Pulse O2 O2 Flow FiO2 Mean Ox Delivery Rate 04/28 0738 152/78 04/28 0718 98.6 61 20 94 Room Air 04/27 2352 98.6 76 18 152/90 94 Room Air 04/27 2223 97.9 90 18 154/72 96 04/27 1902 98.9 90 20 152/83 95 04/27 1445 97.1 76 18 121/70 96 Room Air Intake & Output 04/28 1600 04/28 0400 04/27 1600 04/27 0400 04/26 1600 04/26 0400 Intake Total 1000 Output Total 160 Balance 840 Intake, IV 1000 Output, Urine 160 Patient 308 lb Weight Weight Reported by Patient Measurement Method Physical Exam General Appearance: well developed/nourished, no apparent distress, alert, awake , comfortable, obese Head: atraumatic, normal appearance Eyes: Bilateral: normal appearance. Ears, Nose, Throat: normal pharynx, normal ENT inspection, hearing grossly normal Neck: normal inspection, supple, full range of motion Respiratory: normal breath sounds, chest non-tender, no respiratory distress Cardiovascular: regular rate/rhythm Gastrointestinal: normal bowel sounds, soft, non-tender, no organomegaly Rectal: deferred Back: normal inspection Extremities: normal inspection, normal range of motion, no edema Neurologic/Psych: no motor/sensory deficits, awake, alert, oriented x 3 Skin: intact, normal color, warm/dry Results Pertinent Lab Results: Laboratory Tests 04/28 04/27 04/27 0700 222 222 Chemistry Hemoglobin A1c Pending Urines Urinalysis LIGHT H Urine Color (YEL,AMB,STR) YEL Urine Clarity (CLEAR) HAZY H Urine pH (5.0 - 8.0) 6.0 Ur Specific [place] (1.001 - 1.035) 1.020 Urine Protein (NEG,<30 MG/DL) >=300 H Urine Ketones (NEG) NEG Urine Nitrite (NEG) NEG Urine Bilirubin (NEG) NEG Urine Urobilinogen (0.1 - 1.0 EU/dl) 0.2 Ur Leukocyte Esterase (NEG) NEG Ur Microscopic SEDIMENT EXAMINED Urine RBC (0 - 5 /HPF) 5-10 H Urine WBC (0 - 2 /HPF) 3-5 H Ur Epithelial Cells (NONE,FEW) FEW Urine Bacteria (NEG/NONE) MOD H Granular Casts (NONE /LPF) 5-10 H Urine Hemoglobin (NEG) LARGE H Ur Random Creatinine Cancelled Ur Random Sodium Cancelled Ur Random Potassium Cancelled Fraction Sodium Excret Cancelled Urine Glucose (N MG/DL) >=1000 H 04/27 04/27 04/27 2220 1909 1541 Chemistry Sodium (137 - 145 mmol/L) 135 L Potassium (3.5 - 5.1 mmol/L) 4.9 Chloride (98 - 107 mmol/L) 100 Carbon Dioxide (22 - 30 mmol/L) 24 Anion Gap (5 - 16) 10 BUN (9 - 20 mg/dL) 60 H Creatinine (0.7 - 1.2 mg/dL) 5.5 *H Estimated GFR (>60 ml/min) 11 L BUN/Creatinine Ratio (7 - 25 %) 10.9 Glucose (65 - 99 mg/dL) 291 H Calcium (8.4 - 10.2 mg/dL) 9.3 Total Bilirubin (0.2 - 1.3 mg/dL) 0.9 AST (17 - 59 U/L) 400 H ALT (21 - 72 U/L) 712 H Alkaline Phosphatase (< 127 U/L) 85 Total Protein (6.3 - 8.2 g/dL) 6.1 L Albumin (3.5 - 5.0 g/dL) 3.4 L Globulin (1.9 - 4.2 gm/dL) 2.7 Albumin/Globulin Ratio (1.1 - 2.2 %) 1.3 Amylase (30 - 110 U/L) 32 Lipase (23 - 300 U/L) 39 Total PSA (0.00 - 4.00 ng/mL) Cancelled 0.37 Hematology CBC w Diff NO MAN DIFF REQ WBC (4.8 - 10.8 /CUMM) 10.6 RBC (4.70 - 6.10 /CUMM) 4.14 L Hgb (14.0 - 18.0 G/DL) 12.6 L Hct (42 - 52 %) 37.6 L MCV (80.0 - 94.0 FL) 90.7 MCH (27.0 - 31.0 PG) 30.5 RDW (11.5 - 14.5 %) 13.7 Plt Count (130 - 400 /CUMM) 345 MPV (7.4 - 10.4 FL) 8.5 Gran % (42.2 - 75.2 %) 73.0 Lymphocytes % (20.5 - 51.1 %) 15.1 L Monocytes % (1.7 - 9.3 %) 8.4 Eosinophils % (0 - 5 %) 3.1 Basophils % (0.0 - 2.0 %) 0.4 Absolute Granulocytes (1.4 - 6.5 /CUMM) 7.8 H Absolute Lymphocytes (1.2 - 3.4 /CUMM) 1.6 Absolute Monocytes (0.10 - 0.60 /CUMM) 0.9 H Absolute Eosinophils (0.0 - 0.7 /CUMM) 0.3 Absolute Basophils (0.0 - 0.2 /CUMM) 0 PUBS MCHC (33.0 - 37.0 G/DL) 33.6 Toxicology Urine Opiates Screen (>2000 NG/ML) < 100.00 Methadone Screen (>300 NG/ML) < 40 Barbiturate Screen (>200 NG/ML) < 60 Ur Phencyclidine Scrn (>25 NG/ML) < 6.00 Amphetamines Screen (>1000 NG/ML) < 100 U Benzodiazepines Scrn (>200 NG/ML) < 85 Urine Cocaine Screen (>300 NG/ML) < 50 Urine Cannabis Screen (>50 NG/ML) < 5.00 Serum Alcohol (<10 MG/DL) < 10.0 Urines Ur Random Creatinine (mg/dL) 103.7 Ur Random Sodium (30 - 90 mmol/L) 33 Ur Random Potassium (mmol/L) 35.3 Fraction Sodium Excret (<1% %) 1.3 H Imaging/Other Studies: SERVICE DATE: 04/27/17 EXAM TYPE: CAT - CT ABD & PELVIS W/O IV CONTRAS EXAMINATION: CT ABDOMEN AND PELVIS WITHOUT CONTRAST CLINICAL INFORMATION: Dehydration. Hypotension. COMPARISON: None. TECHNIQUE: Contiguous axial thin section helical images of the abdomen and pelvis were performed without oral or IV contrast. The data set was reformatted in the coronal and sagittal planes and reviewed on an independent workstation. DLP: 1579 mGy-cm. FINDINGS: The visualized lung bases are clear. The visualized portions of the heart are unremarkable. The liver is of normal size and attenuation without focal lesions nor intrahepatic biliary ductal dilation. A normal gallbladder is identified. There is no wall thickening or discernible pericholecystic fluid. The spleen, pancreas, adrenal glands are unremarkable. Both kidneys are of normal size and attenuation without hydronephrosis or nephrolithiasis. There is no abdominal free fluid. There is neither mesenteric nor retroperitoneal lymphadenopathy. Normal unopacified loops of small and large bowel are identified. A normal appendix is identified. There is no pelvic free fluid. The urinary bladder is only partially filled. There is moderate bladder wall thickening. There is neither pelvic nor inguinal lymphadenopathy. Bone windows: Neither sclerotic nor lytic bone lesions are identified. IMPRESSION: No evidence for acute abdominal or pelvic inflammatory or infectious processes. Partially filled urinary bladder with the appearance of moderate wall thickening. It is uncertain as to whether the appearance of wall thickening is solely related to bladder volume or there is underlying thickening. Correlate with physical exam and consider bladder ultrasound 18 clinically appropriate. Assessment/Plan Assessment/Recommendations: Assessment: Mr. Viera is a 51 year old male with a history of poorly controlled DM, HTN and renal insufficiency who presents with intractable nausea and vomiting with a scant amount of hematemesis, worsening renal failure and increased LFTs of uncertain etiology. His vomiting is post tussive so it may be related to a URI, but it is also possible he could have GERD and while he doesn' t have typical reflux symptoms the non-productive cough may be a manifiestation of that. His vomiting may also be related to worsening uremia or underlying PUD , albeit he doesn't have any dyspeptic symptoms to sugget PUD. Considering the amount of vomiting he has been having the hematemesis is likely secondary to a eric garcia tear and while an EGD will ultimately be helpful diagnostically it isn't urgent as he is without ongoing GI blood loss/bleeding (no melena, hgb stable). I am uncertain if his increased transaminases, which is new from a year and a half ago, are related to his current symptoms. As only his transaminases are elevated it suggests some type of toxic injury such as a drug reaction (tylenol or a statin if this is new). It is also possible he could have underlying/worsenign fatty liver disease although I wouldn't of expected his LFTs to be normal a year ago if it was from [facility]. Viral hepatitis is also possible as are other causes of liver disease such as hemochrmoatosis, auto- immune liver disease, PBC/PSC (very unlikely with normal bili and alk phos), alpha 1 anti trypsin def etc. He is without evidence of liver failure or cirrhosis(nl bili and albumin) so if necessary further work up of this can be pursued as an outpatient if they don't normalize with supportive care. Etoh induced transaminitis is unlikely based on the ast/alt ratio and he also denies etoh abuse. Ischemic hepatitis is also possible considering the dehyration, but this generally gives lfts elevations to a much higher level. Recommendations: 1. Advance diet as tolearted 2. Follow up viral hepatitis profile, but would hold off on checking other serologies for now as it will not change acute management and I don't feel they are necessary if the LFTs improve 3. Hold atorvastatin and would not give tylenol for now either 4. Administer anti-emetics as needed 5. Follow daily LFTs for now 6. Follow up renal recommendations 7. Notify GI for signs of hemodynamically significant overt GI bleeding. 8. If his diet is not able to be advanced consideration will be given for an inpatient EGD otherwise will plan to pursue it as an outpatient. 9. If he is tolerating oral intake would change the PPI to oral once a day dosing. 10. Would check a RUQ US of the liver which can also be pursued as an outpatient if US is not available over the weekend. I will continue to follow this patient and make further recommendations based on his clinical course and results of repeat blood work. Problem List: 1. Elevated liver enzymes 2. Dehydration 3. Nausea & vomiting Copies To: ESTELITA PALACIOS,SILVIA Box; TRACIE PALACIOS,TOLU Consult Acknowledgment - Thank you for your consult request. - Thank you for your consult request.
--- NOTE | 2017-04-28 09:21 | PN- Housestaff ---
DAVID PALACIOS,AGGIE 04/28/17 0916: Subjective Follow-up For: NAUSEA, VOMITING CHANDANA ON CKD DM Complaints: NAUSEAS AND VOMITING Tele-Events Since Last Visit: NSR, 65-74 QTc 469 Subjective: I have personally examined the patient at bedside and he was lying down comfortably in no acute distress breathing room air, he reported feeling nauseous. Review of Systems Constitutional: Denies: see HPI. EENTM: Denies: no symptoms. Cardiovascular: Denies: no symptoms. Respiratory: Denies: no symptoms. Gastrointestinal: Reports: nausea, vomiting. Genitourinary: Denies: no symptoms. Objective Last 24 Hrs of Vital Signs/I&O Vital Signs Date Time Temp Pulse Resp B/P B/P Pulse O2 O2 Flow FiO2 Mean Ox Delivery Rate 04/28 0738 152/78 04/28 0718 98.6 61 20 94 Room Air 04/27 2352 98.6 76 18 152/90 94 Room Air 04/27 2223 97.9 90 18 154/72 96 04/27 1902 98.9 90 20 152/83 95 04/27 1445 97.1 76 18 121/70 96 Room Air Intake & Output 04/28 1600 04/28 0800 04/28 0000 Intake Total 700 1000 Output Total 160 Balance 700 840 Intake, IV 700 1000 Output, Urine 160 Physical Exam General Appearance: Alert, Oriented X3, Cooperative, No Acute Distress Skin: No Rashes, No Breakdown, No Significant Lesion Skin Temp/Moisture Exam: Warm/Dry Sepsis Skin Exam (color): Normal for Ethnicity HEENT: Atraumatic, PERRLA, EOMI, Mucous Membr. moist/pink Neck: Supple, No JVD Cardiovascular: Regular Rate, Normal S1, Normal S2, No Murmurs Lungs: Clear to Auscultation, Normal Air Movement Abdomen: Normal Bowel Sounds, Soft, No Tenderness Neurological: Normal Speech, Strength at 5/5 X4 Ext, Normal Tone, Sensation Intact Extremities: No Clubbing, No Cyanosis, No Edema Current Medications: Current Medications Sig/Buddy Start time Last Medication Dose Route Stop Time Status Admin Acetaminophen 650 MG Q6P PRN 04/27 2115 AC PO Dextrose/Sodium 1,000 ML Q10H 04/27 2130 AC 04/28 Chloride IV 0000 Ergocalciferol 50,000 IU QFRI 04/28 0700 CAN PO Famotidine 20 MG BID 04/27 2200 DC 04/27 IV 04/29 1001 2124 Famotidine 0 .STK-MED ONE 04/27 2129 DC IV Insulin Aspart 0 Q4 04/28 1000 AC SC Insulin Human Regular 0 Q4 04/28 1000 CAN SC Insulin Human Regular 0 Q6 04/27 2359 DC 04/28 SC 0600 Ondansetron HCl 4 MG Q6P PRN 04/27 2200 DC IV Ondansetron HCl 0 .STK-MED ONE 04/27 204 DC .ROUTE Ondansetron HCl 4 MG ONCE ONE 04/27 2045 DC 04/27 IV 04/27 Ondansetron HCl 4 MG ONCE ONE 04/27 1900 DC 04/27 IV 04/27 190 1856 Ondansetron HCl 0 .STK-MED ONE 04/27 184 DC .ROUTE Ondansetron HCl 4 MG ONCE ONE 04/27 1845 CAN PO 04/27 184 Pantoprazole Sodium 40 MG BID 04/28 1000 AC IV 04/28 1001 Pantoprazole Sodium 40 MG ONCE ONE 04/27 2000 DC IV 04/27 2001 Promethazine HCl 25 MG ONCE ONE 04/27 2000 DC 04/27 IV 04/27 Promethazine HCl 0 .STK-MED ONE 04/27 1955 DC .ROUTE Sodium Chloride 1,000 ML .Q5H 04/27 1915 DC 04/27 IV 04/28 0014 1915 Sodium Chloride 1,000 ML BOLUS ONE 04/27 1730 DC 04/27 IV 04/27 1829 1829 Trimethobenzamide HCl 200 MG 4 TIMES/DAY PRN 04/27 2330 AC IM Last 24 Hrs of Lab/Haseeb Results Last 24 Hrs of Labs/Mics: Laboratory Tests 04/28/17 0700: Hemoglobin A1c 9.5 H 04/27/17 2220: Urinalysis LIGHT H, Urine Color YEL, Urine Clarity HAZY H, Urine pH 6.0, Ur Specific [place] 1.020, Urine Protein >=300 H, Urine Ketones NEG, Urine Nitrite NEG, Urine Bilirubin NEG, Urine Urobilinogen 0.2, Ur Leukocyte Esterase NEG, Ur Microscopic SEDIMENT EXAMINED, Urine RBC 5-10 H, Urine WBC 3-5 H, Ur Epithelial Cells FEW, Urine Bacteria MOD H, Granular Casts 5-10 H, Urine Hemoglobin LARGE H, Urine Glucose >=1000 H 04/27/172219: Ur Random Creatinine Cancelled, Ur Random Sodium Cancelled, Ur Random Potassium Cancelled, Fraction Sodium Excret Cancelled 04/27/172219: Urine Opiates Screen < 100.00, Methadone Screen < 40, Barbiturate Screen < 60, Ur Phencyclidine Scrn < 6.00, Amphetamines Screen < 100, U Benzodiazepines Scrn < 85, Urine Cocaine Screen < 50, Urine Cannabis Screen < 5.00, Ur Random Creatinine 103.7, Ur Random Sodium 33, Ur Random Potassium 35.3, Fraction Sodium Excret 1.3 H 04/27/17 190: Total PSA Cancelled 04/27/17 1541: Anion Gap 10, Estimated GFR 11 L, BUN/Creatinine Ratio 10.9, Glucose 291 H, Calcium 9.3, Total Bilirubin 0.9, AST 400 H, ALT 712 H, Alkaline Phosphatase 85, Total Protein 6.1 L, Albumin 3.4 L, Globulin 2.7, Albumin/Globulin Ratio 1.3, Amylase 32, Lipase 39, Total PSA 0.37, CBC w Diff NO MAN DIFF REQ, RBC 4.14 L, MCV 90.7, MCH 30.5, RDW 13.7, MPV 8.5, Gran % 73.0, Lymphocytes % 15.1 L, Monocytes % 8.4, Eosinophils % 3.1, Basophils % 0.4, Absolute Granulocytes 7.8 H, Absolute Lymphocytes 1.6, Absolute Monocytes 0.9 H, Absolute Eosinophils 0.3 , Absolute Basophils 0, PUBS MCHC 33.6, Serum Alcohol < 10.0 Orders Radiology Findings: CT ABDOMEN: No evidence for acute abdominal or pelvic inflammatory or infectious processes. Partially filled urinary bladder with the appearance of moderate wall thickening. It is uncertain as to whether the appearance of wall thickening is solely related to bladder volume or there is underlying thickening. Correlate with physical exam and consider bladder ultrasound 18 clinically appropriate. Assessment/Plan Assessment: 51-year-old male with PMH of DM type II, treated with insulin, complicated with neuropathy, retinopathy and CKD, HTN, HLD, DINORA gangrene 2 years ago. He presents to the ED complaining of nausea and vomiting for 3 weeks. The patient had multiple episodes of vomiting for the past 2 weeks it was nonbloody, worse during the day, sometimes provoked by coughing. It was associated with nausea, and some chest discomfort. The patient denies any abdominal pain, fever, diarrhea, constipation, weakness or headaches. He reports trying to rehydrate himself by drinking water but he was not able to keep it down due to the vomiting. Yesterday in the ED he had an episode of vomiting which was blood tinged. The patient has chronic kidney disease and has been following with , also he is following with Dr. Menon for his blood pressure. Vitals on admission temperature 98.6, pulse 76, RR 18, BP 152/90. Labs were significant for hg 12.6, Creatinine 5.5, BUN 60, glucose 291, Ast 400, ALT 712, ALP 85 UA and toxicology pending Abdominal CT: was unremarkable for any acute pathology, chest x-ray was unremarkable, kidney ultrasound was unremarkable for any obstruction, but showed bladder wall thickening. # Nausea and vomiting: -Might be secondary to gastroenteritis versus gastroparesis due to diabetes versus chronic pancreatitis. - continue IV PPI, nothing by mouth. -Check amylase and lipase -Continue IV Zofran and check QTC (this morning QTC= 469) -GIT consult -Hold off any oral medications for now -Continue to monitor on telemetry #CHANDANA ON CKD: -Patient has long history of renal impairment most likely due to diabetes complication -Nephrology consult -Avoid nephrotoxic medications -Continue D5 normal saline -Monitor BEP -I's and O's and daily weights #Diabetes mellitus type 2 -Continue NovoLog scale every [address] Harman's recommendation -Accu-Chek -Dr Harman onboard Full code DVT prophylaxis: Mechanical Diet: Nothing by mouth Problem List: 1. Elevated liver enzymes 2. Dehydration 3. Diabetes mellitus 4. Nausea & vomiting Pain Ratin Pain Location: N/A Pain Goal: Remain pain free Pain Plan: TYLENOL Tomorrow's Labs & Rationales: BEP DVT/Prophylaxis: mechanical ESTELITA PALACIOS,[facility] 04/28/17 1347: Attending MD Review Statement Attending Statement Attending MD Statement: examined this patient, discuss w/resident/PA/INCOME AUDITOR, agreed w/resident/PA/INCOME AUDITOR, discussed with family, reviewed EMR data (avail), discussed with nursing, discussed with case mgmt, reviewed images, amended to note Attending Assessment/Plan: Seen and examined independently PT with CHANDANA with stage 4 ckd due to multiple factors - vomiting dehdration with meds causing some effects DM HTN Intractable vomiting Mild hemetemesis due to sig retching Dehydration stable VIt d def HTNsig REC IVF Iv ppi GI and renal to follow DC all po meds and resume slowly when stable WIll follow
--- NOTE | 2017-04-28 11:29 | Cons- Nephrology ---
General Information and HPI Consulting Request Date of Consult: 04/28/17 Requested By: ESTELITA PALACIOS,SILVIA Box Reason for Consult: Acute kidney injury superimposed upon chronic kidney disease Source of Information: patient, old records Exam Limitations: no limitations History of Present Illness: This 51-year-old gentleman has a history of diabetes, hypertension, and chronic kidney disease. He is followed by Dr. Zambrano for his chronic kidney disease. He had seen Dr. Zambrano on 03/22/2017. At that time, he was on a medication called tizanidine and had clonidine, at the dose of 0.1 mg at daily at bedtime. 3 weeks ago he developed dizziness and lightheadedness particularly when standing. He had called Dr. Lancaster who was covering in Maldonado Zambrano MD's absence. At that time, both the clonidine and tizanidine were stopped. In spite of that he has had persistence of his nausea vomiting and dizziness. He had obtained a home blood pressure machine his blood pressure was ranging 110 to 1:30 systolic. He was to check it when he was dizzy. Otherwise, he is a history of chronic kidney disease which was proteinuric in nature and attributed to his long-standing diabetes. His diabetes was diagnosed in 1998. Upon admission, his creatinine was 5.5. He has not been on any new medications. He' s not changed any medications aside from the 2 which were stopped. He has been vomiting 3-4 times a week in complaining of persistent nausea. He feels better having received some fluids. Allergies/Medications Allergies: Coded Allergies: shellfish derived (SEAFOOD- NAUSEA AND DIZZINESS 04/27/17) Home Med List: Atorvastatin Calcium 40 MG TABLET 1 TAB PO DAILY CHOLESTEROL (Reported) Clonidine HCl 0.1 MG TABLET 1 TAB PO QHS BP (Reported) Dulaglutide (Trulicity) 1.5 MG/0.5 ML PEN.INJCTR 1.5 MG SC QMON DM (Reported) Ergocalciferol (Vitamin D2) (Vitamin D2) 50,000 UNIT CAPSULE 1 CAP PO QFRI SUPPLEMENT (Reported) Fenofibrate Nanocrystallized (Fenofibrate) 145 MG TABLET 1 TAB PO DAILY CHOLESTEROL/TRIGLYCERIDES (Reported) Glimepiride 2 MG TABLET 1 TAB PO BID DM (Reported) Hydrochlorothiazide 25 MG TABLET 1 TAB PO DAILY DIURETIC (Reported) Insulin Detemir (Levemir Flextouch) 100 UNIT/ML (3 ML) INSULN.PEN 50 UNITS SC 1500 DM (Reported) Insulin Lispro (Humalog Kwikpen U-100) 100 UNIT/ML INSULN.PEN DM (Reported) Levomefolate/B6/B12/Algal Oil (Metanx Capsule) 3 MG-35 MG-2 MG-90.314 MG CAPSULE 1 CAP PO BID FOOT NEUROPATHY (Reported) Lisinopril 40 MG TABLET 1 TAB PO DAILY BP (Reported) Tadalafil (Cialis) 5 MG TABLET 1 TAB PO DAILY ED (Reported) Tizanidine HCl 2 MG TABLET 1 TAB PO 4XDAILY MUSCLE RELAXER (Reported) Current Medications: Current Medications Sig/Buddy Start time Last Medication Dose Route Stop Time Status Admin Acetaminophen 650 MG Q6P PRN 04/27 211 AC PO Dextrose/Sodium 1,000 ML Q10H 04/27 2130 AC 04/28 Chloride IV 0000 Ergocalciferol 50,000 IU QFRI 04/28 0700 CAN PO Famotidine 20 MG BID 04/27 220 DC 04/27 IV 04/29 1001 2124 Famotidine 0 .STK-MED ONE 04/27 2129 DC IV Insulin Aspart 0 Q4 04/28 1000 AC SC Insulin Human Regular 0 Q4 04/28 1000 CAN SC Insulin Human Regular 0 Q6 04/27 2359 DC 04/28 SC 0600 Ondansetron HCl 4 MG Q6P PRN 04/27 2200 DC IV Ondansetron HCl 0 .STK-MED ONE 04/27 2048 DC .ROUTE Ondansetron HCl 4 MG ONCE ONE 04/27 2045 DC 04/27 IV 04/276 2044 Ondansetron HCl 4 MG ONCE ONE 04/27 1900 DC 04/27 IV 04/27 1901 1856 Ondansetron HCl 0 .STK-MED ONE 04/27 1847 DC .ROUTE Ondansetron HCl 4 MG ONCE ONE 04/27 184 CAN PO 04/27 184 Pantoprazole Sodium 40 MG BID 04/28 1000 DC 04/28 IV 04/28 1001 1039 Pantoprazole Sodium 40 MG ONCE ONE 04/27 2000 DC IV 04/27 2001 Promethazine HCl 25 MG ONCE ONE 04/27 2000 DC 04/27 IV 07/20 2001 1953 Promethazine HCl 0 .STK-MED ONE 04/27 1955 DC .ROUTE Sodium Chloride 1,000 ML .Q5H 04/27 1915 DC 04/27 IV 04/28 Sodium Chloride 1,000 ML BOLUS ONE 04/27 1730 DC 04/27 IV 04/27 1829 1829 Trimethobenzamide HCl 200 MG 4 TIMES/DAY PRN 04/27 2330 AC IM Review of Systems Review of Systems Constitutional: Reports: malaise, weakness. Denies: chills, diaphoresis, fever. EENTM: Reports: blurred vision, epistaxis (with vomiting). Denies: double vision. Cardiovascular: Denies: chest pain, edema, orthopena, palpitations. GI: Reports: vomiting. Denies: bloating, constipation, diarrhea, distention, bowel incontinence, melena. Genitourinary: Denies: discharge, dysuria, frequency, hematuria, hesitation. Musculoskeletal: Denies: back pain, joint pain, joint swelling, muscle pain, muscle stiffness. Neurological/Psychological: Reports: paresthesia. Denies: anxiety, headache. Hematologic/Endocrine: Denies: bruising, bleeding, polyuria. Past History Travel History Traveled to [place] past 21 day No Medical History Neurological: neuropathy EENT: NONE Cardiovascular: hypertension Respiratory: NONE Gastrointestinal: NONE Hepatic: NONE Renal: chronic kidney disease Musculoskeletal: NONE Psychiatric: NONE Endocrine: diabetes Blood Disorders: NONE Cancer(s): NONE BIOLOGICAL SCIENCE TECHNICIAN/Reproductive: NONE Surgical History Surgical History: non-contributory Psychosocial History Where Do You Live? Home Smoking Status: Unknown If Ever Smoked Exam & Diagnostic Data Vital Signs and I&O Vital Signs Date Time Temp Pulse Resp B/P B/P Pulse O2 O2 Flow FiO2 Mean Ox Delivery Rate 04/28 0800 Room Air 04/28 0738 152/78 04/28 0718 98.6 61 20 94 Room Air 04/27 2352 98.6 76 18 152/90 94 Room Air 04/27 2223 97.9 90 18 154/72 96 04/27 1902 98.9 90 20 152/83 95 04/27 1445 97.1 76 18 121/70 96 Room Air Intake & Output 04/28 1600 04/28 0400 04/27 1600 04/27 0400 04/26 1600 04/26 0400 Intake Total 700 1000 Output Total 160 Balance 700 840 Intake, IV 700 1000 Output, Urine 160 Patient 308 lb Weight Weight Reported by Patient Measurement Method Physical Exam General Appearance: well developed/nourished, no apparent distress, alert, awake , comfortable, obese Head: atraumatic, normal appearance, active bleeding Eyes: Bilateral: normal appearance, PERRL, EOMI. Ears, Nose, Throat: normal pharynx, normal ENT inspection, hearing grossly normal Neck: normal inspection, supple, full range of motion, trachea mid line, no midline tenderness Respiratory: normal breath sounds, chest non-tender, no respiratory distress, lungs clear Cardiovascular: regular rate/rhythm, norml femoral pulses equa Peripheral Pulses: 3+ popliteal (R), 3+ popliteal (L), 3+ tibialis posterior (R), 3+ tibialis posterior (L), 3+ dorsalis pedis (R), 3+ dorsalis pedis (L) Gastrointestinal: normal bowel sounds, soft, non-tender, no organomegaly, no bruits Back: normal inspection, no vertebral or CVA tenderness Extremities: normal inspection, normal capillary refill, normal range of motion Neurologic/Psych: no motor/sensory deficits, awake, alert, oriented x 3 Cranial Nerves: normal hearing, normal speech, PERRL, grossly intact Skin: intact, normal color, warm/dry Results Pertinent Lab Results: Laboratory Tests 04/28 04/27 04/27 0700 2220 2220 Chemistry Hemoglobin A1c (4.2 - 5.8 %) 9.5 H Urines Urinalysis LIGHT H Urine Color (YEL,AMB,STR) YEL Urine Clarity (CLEAR) HAZY H Urine pH (5.0 - 8.0) 6.0 Ur Specific [place] (1.001 - 1.035) 1.020 Urine Protein (NEG,<30 MG/DL) >=300 H Urine Ketones (NEG) NEG Urine Nitrite (NEG) NEG Urine Bilirubin (NEG) NEG Urine Urobilinogen (0.1 - 1.0 EU/dl) 0.2 Ur Leukocyte Esterase (NEG) NEG Ur Microscopic SEDIMENT EXAMINED Urine RBC (0 - 5 /HPF) 5-10 H Urine WBC (0 - 2 /HPF) 3-5 H Ur Epithelial Cells (NONE,FEW) FEW Urine Bacteria (NEG/NONE) MOD H Granular Casts (NONE /LPF) 5-10 H Urine Hemoglobin (NEG) LARGE H Ur Random Creatinine Cancelled Ur Random Sodium Cancelled Ur Random Potassium Cancelled Fraction Sodium Excret Cancelled Urine Glucose (N MG/DL) >=1000 H 04/27 04/27 04/27 2220 1909 1541 Chemistry Sodium (137 - 145 mmol/L) 135 L Potassium (3.5 - 5.1 mmol/L) 4.9 Chloride (98 - 107 mmol/L) 100 Carbon Dioxide (22 - 30 mmol/L) 24 Anion Gap (5 - 16) 10 BUN (9 - 20 mg/dL) 60 H Creatinine (0.7 - 1.2 mg/dL) 5.5 *H Estimated GFR (>60 ml/min) 11 L BUN/Creatinine Ratio (7 - 25 %) 10.9 Glucose (65 - 99 mg/dL) 291 H Calcium (8.4 - 10.2 mg/dL) 9.3 Total Bilirubin (0.2 - 1.3 mg/dL) 0.9 AST (17 - 59 U/L) 400 H ALT (21 - 72 U/L) 712 H Alkaline Phosphatase (< 127 U/L) 85 Total Protein (6.3 - 8.2 g/dL) 6.1 L Albumin (3.5 - 5.0 g/dL) 3.4 L Globulin (1.9 - 4.2 gm/dL) 2.7 Albumin/Globulin Ratio (1.1 - 2.2 %) 1.3 Amylase (30 - 110 U/L) 32 Lipase (23 - 300 U/L) 39 Total PSA (0.00 - 4.00 ng/mL) Cancelled 0.37 Hematology CBC w Diff NO MAN DIFF REQ WBC (4.8 - 10.8 /CUMM) 10.6 RBC (4.70 - 6.10 /CUMM) 4.14 L Hgb (14.0 - 18.0 G/DL) 12.6 L Hct (42 - 52 %) 37.6 L MCV (80.0 - 94.0 FL) 90.7 MCH (27.0 - 31.0 PG) 30.5 RDW (11.5 - 14.5 %) 13.7 Plt Count (130 - 400 /CUMM) 345 MPV (7.4 - 10.4 FL) 8.5 Gran % (42.2 - 75.2 %) 73.0 Lymphocytes % (20.5 - 51.1 %) 15.1 L Monocytes % (1.7 - 9.3 %) 8.4 Eosinophils % (0 - 5 %) 3.1 Basophils % (0.0 - 2.0 %) 0.4 Absolute Granulocytes (1.4 - 6.5 /CUMM) 7.8 H Absolute Lymphocytes (1.2 - 3.4 /CUMM) 1.6 Absolute Monocytes (0.10 - 0.60 /CUMM) 0.9 H Absolute Eosinophils (0.0 - 0.7 /CUMM) 0.3 Absolute Basophils (0.0 - 0.2 /CUMM) 0 PUBS MCHC (33.0 - 37.0 G/DL) 33.6 Toxicology Urine Opiates Screen (>2000 NG/ML) < 100.00 Methadone Screen (>300 NG/ML) < 40 Barbiturate Screen (>200 NG/ML) < 60 Ur Phencyclidine Scrn (>25 NG/ML) < 6.00 Amphetamines Screen (>1000 NG/ML) < 100 U Benzodiazepines Scrn (>200 NG/ML) < 85 Urine Cocaine Screen (>300 NG/ML) < 50 Urine Cannabis Screen (>50 NG/ML) < 5.00 Serum Alcohol (<10 MG/DL) < 10.0 Urines Ur Random Creatinine (mg/dL) 103.7 Ur Random Sodium (30 - 90 mmol/L) 33 Ur Random Potassium (mmol/L) 35.3 Fraction Sodium Excret (<1% %) 1.3 H Assessment/Plan Assessment/Recommendations Assessment: 1. Acute kidney injury?. This seems to be a volume related pain. He gives a history of taking hydrochlorothiazide coupled with poor intake. He was taking his hydrochlorothiazide through this episode. Otherwise is no history of any contrast or any other issues. He does feel better with a little bit of fluid administered. 2. Chronic kidney disease. Be very unusual to see his creatinine go from 4- 5.52-3 weeks. This points to an acute component of his current situation which may be reversible. I did not discuss dialysis or dialysis options. It is hoped that with the administration of fluids to creatinine will be better and the concern would not be as great. 3. Diabetes mellitus. He's had diabetes since 1998. He likewise has had a detached retina is mention in the records of his having undergone laser therapy for proliferative diabetic retinopathy 5. Vitamin D deficiency 6. History of metabolic acidosis 7. Hypertension. Maldonado Zambrano MD mentions that the patient's blood pressure control has been variable. Recommendations: 1. Continue with daily labs 2. Strict intakes and outputs and daily weights 3. Continue with IV fluids. 4. I do not see any urgent dialytic need. 5. With blood work tomorrow, it may be helpful to obtain a hepatitis B surface antigen and antibody as well as a hepatitis C. The hepatitis B studies are necessary if the patient requires dialytic intervention on this hospital stay. 6. Note well, I did not discuss the possibility of dialysis with the patient yet.
[2017-04-28 11:50] LABS: ABSOLUTE BASOPHIL COUNT 0 /CUMM (0.0-0.2); ABSOLUTE EOSINOPHIL COUNT 0.5 /CUMM (0.0-0.7); ABSOLUTE MONOCYTE COUNT 0.8 /CUMM (0.10-0.60); BASOPHIL % 0.5 % (0.0-2.0); EOSINOPHIL % 5.7 % (0-5); GRANULOCYTE % 60.3 % (42.2-75.2); HEMATOCRIT 33.9 % (42-52); MEAN CORPUSCULAR HGB 30.4 PG (27.0-31.0); MEAN CORPUSCULAR HGB CONC 33.3 G/DL (33.0-37.0); MEAN CORPUSCULAR VOLUME 91.1 FL (80.0-94.0); MEAN PLATELET VOLUME 8.1 FL (7.4-10.4); PLATELET COUNT 236 /CUMM (130-400); RBC DISTRIBUTION WIDTH 13.9 % (11.5-14.5); RED BLOOD CELL CT 3.72 /CUMM (4.70-6.10); WHITE BLOOD CELL COUNT 8.3 /CUMM (4.8-10.8)
[2017-04-28 15:00] VITALS: BP 164/80
--- NOTE | 2017-04-28 18:30 | Patient Discharge Instructions ---
Discharge Instructions General Discharge Information You were seen/treated for: 1-NAUSEA, VOMITING 2-CHANDANA ON CKD 3-DM Special Instructions: 1-Please follow-up with your PCP in 1 week of discharge sign 2please follow-up with your methods study analyst in 1 week of discharge 3-please follow-up with your motor vehicle dispatcher in 1 week of discharge Diet Continue normal diet: Yes Recommended Diet: Diabetic, Renal Non Dialysis Activity Full Activity/No Limits: Yes Acute Coronary Syndrome Inclusion Criteria At DC or during hospital stay patient has or had the following: ACS DIAGNOSIS No Discharge Core Measures Meds if any: Prescribed or Continued at Discharge Meds if any: NOT Prescribed or Continued at Discharge Congestive Heart Failure Inclusion Criteria At DC or during hospital stay patient has or had the following: CHF DIAGNOSIS No Discharge Core Measures Meds if any: Prescribed or Continued at Discharge Meds if any: NOT Prescribed or Continued at Discharge Cerebrovascular accident Inclusion Criteria At DC or during hospital stay patient has or had the following: CVA/TIA Diagnosis No Discharge Core Measures Meds if any: Prescribed or Continued at Discharge Meds if any: NOT Prescribed or Continued at Discharge Venous thromboembolism Inclusion Criteria VTE Diagnosis No VTE Type NONE VTE Confirmed by (Test) NONE Discharge Core Measures - Per Current guidelines, there needs to be overlap - treatment for the first 5 days of Warfarin therapy. - If discharged on Warfarin prior to 5 days of - overlap therapy, the patient will need to be - assessed for post discharge needs including - *Post discharge parental anticoagulation - *Warfarin and/or parental anticoagulation education - *Follow up date to check INR post discharge At least 5 days overlap therapy as Inpatient No Meds if any: Prescribed or Continued at Discharge Note: Overlap Therapy is Warfarin and Anticoagulant Meds if any: NOT Prescribed or Continued at Discharge
--- NOTE | 2017-04-28 18:33 | Discharge Summary ---
Visit Information Visit Dates Admission Date: 04/27/17 Discharge Date: 05/01/17 Hospital Course Course Attending Physician: ESTELITA PALACIOS,SILVIA Box Primary Care Physician: TRACIE PALACIOS,[place] Hospital Course: 51-year-old male with PMH of DM type II, treated with insulin, complicated with neuropathy, retinopathy and CKD, HTN, HLD, DINORA gangrene 2 years ago. He presents to the ED complaining of nausea and vomiting for 3 weeks. The patient had multiple episodes of vomiting for the past 2 weeks it was nonbloody, worse during the day, sometimes provoked by coughing. Vitals on admission temperature 98.6, pulse 76, RR 18, BP 152/90. Labs were significant for hg 12.6, Creatinine 5.5, BUN 60, glucose 291, Ast 400, ALT 712, ALP 85 UA and toxicology pending. Abdominal CT: was unremarkable for any acute pathology, chest x-ray was unremarkable, kidney ultrasound was unremarkable for any obstruction, but showed bladder wall thickening. # Nausea and vomiting: Most likely secondary to gastroenteritis with the possibility of gastroparesis due to diabetes. The patient was treated with IV PPI, nothing by mouth, And IV Zofran .GIT was on board.He was monitor on telemetry #CHANDANA ON CKD: -Patient had long history of renal impairment most likely due to diabetes complication -Nephrology consult -Avoid nephrotoxic medications -Continue D5 normal saline -Monitor BEP -I's and O's and daily weights #Diabetes mellitus type 2 -Continue NovoLog scale every [address] Harman's recommendation -Accu-Chek -Dr Harman onboard Full code DVT prophylaxis: Mechanical Diet: Nothing by mouth Allergies: Coded Allergies: shellfish derived (SEAFOOD- NAUSEA AND DIZZINESS 04/27/17) Disposition Summary Disposition Principal Diagnosis: -Nausea and vomiting -CHANDANA ON CKD Additional Diagnosis: -DM Discharge Disposition: home or self care Discharge Instructions General Discharge Information Code Status: Full Code Patient's Diet: Consistent carbohydrate Patient's Activity: As tolerated Follow-Up Instructions/Appts: 1-Please follow-up with your PCP in 1 week of discharge sign 2please follow-up with your neurological physiotherapist in 1 week of discharge 3-please follow-up with your cash applications analyst in 1 week of discharge Medications at Discharge Discharge Medications: Stop taking the following medications: Atorvastatin Calcium (Atorvastatin Calcium) 40 MG TABLET ORAL DAILY Qty = 90 Insulin Detemir (Levemir Flextouch) 100 UNIT/ML (3 ML) INSULN.PEN Inject into fatty tissue 1500 Qty = 30 Glimepiride (Glimepiride) 2 MG TABLET ORAL TWICE DAILY Qty = 180 Insulin Lispro (Humalog Kwikpen U-100) 100 UNIT/ML INSULN.PEN Inject into fatty tissue TWICE DAILY as needed for DM Qty = 45 Continue taking these medications: Fenofibrate Nanocrystallized (Fenofibrate) 145 MG TABLET 1 Tablet ORAL DAILY Qty = 30 Comments: NOT GIVEN IN HOSPITAL Clonidine HCl (Clonidine HCl) 0.1 MG TABLET 1 Tablet ORAL TAKE AT BEDTIME Qty = 30 Comments: NOT GIVEN IN HOSPITAL Lisinopril (Lisinopril) 40 MG TABLET 1 Tablet ORAL DAILY Qty = 30 Comments: NOT GIVEN IN HOSPITAL Tadalafil (Cialis) 5 MG TABLET 1 Tablet ORAL DAILY Qty = 30 Comments: NOT GIVEN Tizanidine HCl (Tizanidine HCl) 2 MG TABLET 1 Tablet ORAL 4XDAILY Qty = 120 Comments: NOT GIVEN Hydrochlorothiazide (Hydrochlorothiazide) 25 MG TABLET 1 Tablet ORAL DAILY Qty = 30 Comments: NOT GIVEN IN HOSPITAL Ergocalciferol (Vitamin D2) (Vitamin D2) 50,000 UNIT CAPSULE 1 Capsule ORAL EVERY MONDAY Qty = 12 Comments: NOT GIVEN IN HOSPITAL Dulaglutide (Trulicity) 1.5 MG/0.5 ML PEN.INJCTR 1.5 Milligram Inject into fatty tissue EVERY MONDAY Qty = 4 Comments: NOT GIVEN IN HOSPITAL Levomefolate/B6/B12/Algal Oil (Metanx Capsule) 3 MG-35 MG-2 MG-90.314 MG CAPSULE 1 Capsule ORAL TWICE DAILY Comments: NOT GIVEN IN HOSPITAL Start taking the following new medications: Insulin Detemir (Levemir Flextouch) 100 UNIT/ML (3 ML) INSULN.PEN 18 Units Inject into fatty tissue DAILY as needed for DM Qty = 1 No Refills Comments: PLEASE TAKE 18 UNITS SC AT BED TIME Insulin Aspart (Novolog) 100 UNIT/ML VIAL 1 Unit Inject into fatty tissue BEFORE MEALS AND AT BEDTIME Qty = 1 No Refills Comments: BLOOD SUGAT < 80 MG INITIATE HYPOGLYCEMIA REGIMN BLOOD SUGAR 80-150 PLEASE GIVE 7 UNITS SC BLOOD SUGER 151-200 PLEASE TAKE 9 UNITS SC BLOOD SUGAT 201-250 PLEASE TAKE 11 UNITS SC BLOOD SUGAR 251-300 PLEASE TAKE 13 UNITS SC BLOOD SUGAR 301-350 PLEASE TAKE 14 UNITS BLOOD SUGAR 351-400 PLEASE TAKE 15 UNITS BLOOD SUGAR MORE THAN 400 PLEASE TAKE 16 UNITS AND CALL MD Copies To: TRACIE PALACIOS,[place]
[2017-04-28 22:44] VITALS: BP 152/68
[2017-04-29 07:21] VITALS: BP 132/78
--- NOTE | 2017-04-29 12:28 | PN- Att Addend ---
Attending Addendum Attending Brief Note Mr. Viera was interviewed, examined, and his EHR chart reviewed. His spouse was present. His most prominent complaint is that of increased symptoms from his peripheral neuropathy now that his maintenance vitamin preparation is not being given. He is afebrile with stable vital signs specifically with maximum systolic BPs in the low 150s. His Accu-Cheks are consistently above the 200. His physical exam is benign. Renal function is essentially unchanged to minimally improved today with a creatinine of 5.4. I have discussed management of his diabetes with Dr. hdz and at this time he will be restarted on a long-acting insulin and continued on sliding scale coverage. He has been changed from D5 half-normal saline to normal saline for his IV fluids and we will continue to monitor his renal function. At this point it is reasonable to continue to withhold his lisinopril as his blood pressure is at reasonable levels. We should allow him to bring in his Metanx(vitamin supplement for his peripheral neuropathy) from home and allow it to be given here.
--- NOTE | 2017-04-29 13:16 | PN- Diabetes ---
Assessment/Plan Assessment: 51-year-old male has a known history of diabetes mellitus type 2 with chronic kidney disease. He was admitted for nausea, vomiting and acute on chronic renal failure. Nausea and vomiting resolved. He is on NS at 100 ml/hour. He was put on Novolog coverage every 4 hours and his FSGs were 259, 199, 347, 322, 227 and 254. Am lab Cr was 5.4. Plan: 1. start Levemir 15 units daily at bedtime (snack if FSG is less than 150 at bedtime); 2. stop Novolog coverage every 4 hours; 3. start Novolog coverage before meals and Novolog coverage at bedtime---detail see the inpatient DM orders; 4. monitor FSGs. will follow. Inpatient Diabetes Orders Before Each Meal: Bolus Insulin: Novolog < 80 mg/dl: no coverage 80-100 mg/dl: 4 units 101-120 mg/dl: 4 units 121-150 mg/dl: 4 units 151-200 mg/dl: 6 units 201-250 mg/dl: 8 units 251-300 mg/dl: 10 units 301-350 mg/dl: 12 units 351-400 mg/dl: 14 units > 400 mg/dl: 15 units Bedtime: Bolus Insulin: Novolog < 80 mg/dl: no coverage 80-100 mg/dl: no coverage 101-120 mg/dl: no coverage 121-150 mg/dl: no coverage 151-200 mg/dl: no coverage 201-250 mg/dl: no coverage 251-300 mg/dl: no coverage 301-350 mg/dl: 3 units 351-400 mg/dl: 4 units > 400 mg/dl: 5 units Subjective Subjective: He feels better this morning and has tolerated meals. Objective Last 24 Hrs of Vital Signs/I&O Vital Signs Date Time Temp Pulse Resp B/P B/P Pulse O2 O2 Flow FiO2 Mean Ox Delivery Rate 04/29 0721 98.2 67 18 132/78 94 Room Air 04/28 2244 98.1 70 18 152/68 96 Room Air 04/28 1500 98.5 73 20 164/80 97 Room Air Intake & Output 04/29 1600 04/29 0800 04/29 0000 Intake Total 1050 844 Output Total 1350 300 Balance -300 544 Intake, IV 800 400 Intake, Oral 250 444 Output, Urine 1350 300 Findings Pertinent Lab/Haseeb Results: Laboratory Tests 04/29 0655 Chemistry Sodium (137 - 145 mmol/L) 139 Potassium (3.5 - 5.1 mmol/L) 4.1 Chloride (98 - 107 mmol/L) 109 H Carbon Dioxide (22 - 30 mmol/L) 21 L Anion Gap (5 - 16) 9 BUN (9 - 20 mg/dL) 54 H Creatinine (0.7 - 1.2 mg/dL) 5.4 *H Estimated GFR (>60 ml/min) 11 L BUN/Creatinine Ratio (7 - 25 %) 10.0 Total Bilirubin (0.2 - 1.3 mg/dL) 0.7 Direct Bilirubin (< 0.4 mg/dL) 0.5 H AST (17 - 59 U/L) 193 H ALT (21 - 72 U/L) 441 H Alkaline Phosphatase (< 127 U/L) 70 Total Protein (6.3 - 8.2 g/dL) 5.0 L Albumin (3.5 - 5.0 g/dL) 2.5 L
[2017-04-29 14:58] VITALS: BP 150/92
--- NOTE | 2017-04-29 15:28 | PN- Housestaff ---
Subjective Follow-up For: NAUSEA, VOMITING CHANDANA ON CKD DM Subjective: Patient has no complaints. No acute event ovrnight Review of Systems Constitutional: Reports: see HPI. Objective Last 24 Hrs of Vital Signs/I&O Vital Signs Date Time Temp Pulse Resp B/P B/P Pulse O2 O2 Flow FiO2 Mean Ox Delivery Rate 04/29 1458 98.3 76 18 150/92 97 Room Air 04/29 0721 98.2 67 18 132/78 94 Room Air 04/28 2244 98.1 70 18 152/68 96 Room Air Intake & Output 04/29 1600 04/29 0800 04/29 0000 Intake Total 1440 1050 844 Output Total 1200 1350 300 Balance 240 -300 544 Intake, IV 800 800 400 Intake, Oral 640 250 444 Output, Urine 1200 1350 300 Physical Exam General Appearance: Alert, Oriented X3, Cooperative, No Acute Distress HEENT: Atraumatic, PERRLA Cardiovascular: Regular Rate, Normal S1, Normal S2 Lungs: Clear to Auscultation, Normal Air Movement Abdomen: Normal Bowel Sounds, Soft, No Tenderness Extremities: No Cyanosis, No Edema, No Tenderness/Swelling Current Medications: Current Medications Sig/Buddy Start time Last Medication Dose Route Stop Time Status Admin Acetaminophen 650 MG Q6P PRN 04/27 2115 AC PO Dextrose/Sodium 1,000 ML Q10H 04/28 1530 DC 04/29 Chloride IV 0218 Insulin Aspart 0 AC & AT BEDTIME 04/29 1700 AC SC Insulin Aspart 0 Q4 04/28 1000 DC 04/29 SC 1039 Insulin Detemir 15 UNITS AT BEDTIME 04/29 2200 AC SC Omeprazole 40 MG DAILY 04/29 1000 AC 04/29 PO 1040 Sodium Chloride 1,000 ML Q10H 04/29 1045 AC 04/29 IV 1037 Trimethobenzamide HCl 200 MG 4 TIMES/DAY PRN 04/27 2330 AC IM Last 24 Hrs of Lab/Haseeb Results Last 24 Hrs of Labs/Mics: Laboratory Tests 04/29/17 0655: Anion Gap 9, Estimated GFR 11 L, BUN/Creatinine Ratio 10.0, Total Bilirubin 0.7 , Direct Bilirubin 0.5 H, AST 193 H, ALT 441 H, Alkaline Phosphatase 70, Total Protein 5.0 L, Albumin 2.5 L Assessment/Plan Assessment: 51-year-old male with PMH of DM type II, treated with insulin, complicated with neuropathy, retinopathy and CKD, HTN, HLD, DINORA gangrene 2 years ago. He presents to the ED complaining of nausea and vomiting for 3 weeks. The patient had multiple episodes of vomiting for the past 2 weeks it was nonbloody, worse during the day, sometimes provoked by coughing. It was associated with nausea, and some chest discomfort. The patient denies any abdominal pain, fever, diarrhea, constipation, weakness or headaches. He reports trying to rehydrate himself by drinking water but he was not able to keep it down due to the vomiting. Yesterday in the ED he had an episode of vomiting which was blood tinged. The patient has chronic kidney disease and has been following with , also he is following with Dr. Menon for his blood pressure. Vitals on admission temperature 98.6, pulse 76, RR 18, BP 152/90. Labs were significant for hg 12.6, Creatinine 5.5, BUN 60, glucose 291, Ast 400, ALT 712, ALP 85 UA and toxicology pending Abdominal CT: was unremarkable for any acute pathology, chest x-ray was unremarkable, kidney ultrasound was unremarkable for any obstruction, but showed bladder wall thickening. # Nausea and vomiting: -Might be secondary to gastroenteritis versus gastroparesis due to diabetes versus chronic pancreatitis. - continue IV PPI, nothing by mouth. -Check amylase and lipase -Continue IV Zofran and check QTC (this morning QTC= 469) -GIT consult -Hold off any oral medications for now -Continue to monitor on telemetry -Cleared from GI 04/29 #CHANDANA ON CKD: -Patient has long history of renal impairment most likely due to diabetes complication -Nephrology consult -Avoid nephrotoxic medications -Continue D5 normal saline -Monitor BEP -I's and O's and daily weights #Diabetes mellitus type 2 -Discontinued NovoLog scale every [address] Harman's recommendation, started Novolog SC AC & HS -Started Levemir 15U daily AC (snack if FSG is less than 150 at bedtime) -Accu-Chek -Dr Harman onboard Full code DVT prophylaxis: Mechanical Diet: Nothing by mouth Problem List: 1. Diabetes mellitus 2. Nausea & vomiting 3. Dehydration 4. Elevated liver enzymes 5. CHANDANA (acute kidney injury) Pain Ratin Pain Location: N/A Pain Goal: Remain pain free Pain Plan: N/A Tomorrow's Labs & Rationales: CBC BEP
[2017-04-29 22:44] VITALS: BP 162/90
[2017-04-30 06:49] VITALS: BP 142/64
[2017-04-30 08:29] LABS: ABSOLUTE BASOPHIL COUNT 0 /CUMM (0.0-0.2); ABSOLUTE EOSINOPHIL COUNT 0.7 /CUMM (0.0-0.7); ABSOLUTE GRANULOCYTE CT 3.5 /CUMM (1.4-6.5); ABSOLUTE LYMPH COUNT 2.2 /CUMM (1.2-3.4); ABSOLUTE MONOCYTE COUNT 0.6 /CUMM (0.10-0.60); BASOPHIL % 0.6 % (0.0-2.0); EOSINOPHIL % 10.2 % (0-5); GRANULOCYTE % 49.8 % (42.2-75.2); HEMATOCRIT 32.2 % (42-52); MEAN CORPUSCULAR HGB 30.5 PG (27.0-31.0); MEAN CORPUSCULAR HGB CONC 33.5 G/DL (33.0-37.0); MEAN CORPUSCULAR VOLUME 91.2 FL (80.0-94.0); MEAN PLATELET VOLUME 8.4 FL (7.4-10.4); PLATELET COUNT 196 /CUMM (130-400); RED BLOOD CELL CT 3.54 /CUMM (4.70-6.10); WHITE BLOOD CELL COUNT 6.9 /CUMM (4.8-10.8)
--- NOTE | 2017-04-30 10:00 | PN- Housestaff ---
DAVID PALACIOS,AGGIE 04/30/17 0959: Subjective Follow-up For: NAUSEA, VOMITING CHANDANA ON CKD DM Complaints: no complaints Subjective: Have personally examined the patient at bedside he is lying comfortably on bed in no acute distress and has no complaints Review of Systems Constitutional: Denies: no symptoms. EENTM: Denies: no symptoms. Cardiovascular: Denies: no symptoms. Respiratory: Reports: cough. Denies: short of breath, sputum production. Gastrointestinal: Denies: no symptoms. Genitourinary: Denies: no symptoms. Objective Last 24 Hrs of Vital Signs/I&O Vital Signs Date Time Temp Pulse Resp B/P B/P Pulse O2 O2 Flow FiO2 Mean Ox Delivery Rate 04/30 1433 98.0 82 20 144/80 97 04/30 0649 98.5 64 18 142/64 96 Room Air 04/29 2244 97.9 76 18 162/90 97 Room Air 04/29 2206 Room Air Intake & Output 04/30 1600 04/30 0800 04/30 0000 Intake Total 1250 420 Output Total 1250 700 Balance 0 -280 Intake, IV 800 300 Intake, Oral 450 120 Output, Urine 1250 700 Physical Exam General Appearance: Alert, Oriented X3, Cooperative, No Acute Distress Skin: No Rashes, No Breakdown, No Significant Lesion Skin Temp/Moisture Exam: Warm/Dry Sepsis Skin Exam (color): Normal for Ethnicity HEENT: Atraumatic, PERRLA, EOMI, Mucous Membr. moist/pink Neck: Supple, No JVD Cardiovascular: Regular Rate, Normal S1, Normal S2, No Murmurs Lungs: Clear to Auscultation, Normal Air Movement Abdomen: Normal Bowel Sounds, Soft, No Tenderness Neurological: Normal Speech, Strength at 5/5 X4 Ext, Normal Tone, Sensation Intact, Cranial Nerves 3-12 NL Extremities: BILATERAL 2 + EDEMA Vascular: Normal Pulses, Pulses Symmetrical Assessment/Plan Assessment: 51-year-old male with PMH of DM type II, treated with insulin, complicated with neuropathy, retinopathy and CKD, HTN, HLD, DINORA gangrene 2 years ago. He presents to the ED complaining of nausea and vomiting for 3 weeks. The patient had multiple episodes of vomiting for the past 2 weeks it was nonbloody, worse during the day, sometimes provoked by coughing. It was associated with nausea, and some chest discomfort. The patient denies any abdominal pain, fever, diarrhea, constipation, weakness or headaches. He reports trying to rehydrate himself by drinking water but he was not able to keep it down due to the vomiting. Yesterday in the ED he had an episode of vomiting which was blood tinged. The patient has chronic kidney disease and has been following with , also he is following with Dr. Menon for his blood pressure. Vitals on admission temperature 98.6, pulse 76, RR 18, BP 152/90. Labs were significant for hg 12.6, Creatinine 5.5, BUN 60, glucose 291, Ast 400, ALT 712, ALP 85 UA and toxicology pending Abdominal CT: was unremarkable for any acute pathology, chest x-ray was unremarkable, kidney ultrasound was unremarkable for any obstruction, but showed bladder wall thickening. # Nausea and vomiting: -Might be secondary to gastroenteritis versus gastroparesis due to diabetes versus chronic pancreatitis. - continue IV PPI, nothing by mouth. -Check amylase and lipase -Continue IV Zofran and check QTC (this morning QTC= 469) -GIT consult -Hold off any oral medications for now -Continue to monitor on telemetry -Cleared from GI 04/29 #CHANDANA ON CKD: cR DECREASED TO 4.6 TODAY -Patient has long history of renal impairment most likely due to diabetes complication -Nephrology consult -Avoid nephrotoxic medications -Continue D5 normal saline -Monitor BEP -I's and O's and daily weights #Diabetes mellitus type 2 -adjust Novolog coverage before meals--detail see the inpatient DM orders 5. continue the current Novolog coverage at bedtime; -Started Levemir 18U daily AC (snack if FSG is less than 150 at bedtime) -Accu-Chek -Dr GARCIA onboard Full code DVT prophylaxis: Mechanical Diet: Nothing by mouth Problem List: 1. CHANDANA (acute kidney injury) 2. Diabetes mellitus 3. Elevated liver enzymes 4. Dehydration 5. Nausea & vomiting Pain Ratin Pain Location: N/A Pain Goal: Remain pain free Pain Plan: N/A Tomorrow's Labs & Rationales: CBC BEP AST, ALT DVT/Prophylaxis: ANGELICA Ramos MD 04/30/17 1156: Attending Review Statement Attending Statement Attending MD Statement: examined this patient, discuss w/resident/PA/SCREED OPERATOR, discussed with family, reviewed EMR data (avail), discussed with nursing, amended to note Attending Assessment/Plan: Mr. Viera appears comfortable today. He does note some discomfort at the site had IV catheter. He denies further nausea and vomiting. He states his peripheral neuropathy is improved as he has been restarted on his maintenance medication. He is afebrile with stable vital signs. His physical exam is benign. His creatinine has decreased to 4.6 today. His liver functions have also continued to decrease. Accu-Chek this morning was 189. We are continuing to treat his acute on chronic renal failure with intravenous normal saline solution. We are monitoring his renal function on a daily basis. Adjustments have been made to his insulin regimen with a goal of achieving Accu- Cheks of less than 150 chronically. There continuing to monitor his liver functions as they continue to improve.
--- NOTE | 2017-04-30 11:50 | PN- Diabetes ---
Assessment/Plan Assessment: 51-year-old male has a known history of diabetes mellitus type 2 with chronic kidney disease. He was admitted for nausea, vomiting and acute on chronic renal failure. Nausea and vomiting resolved. He is on NS at 100 ml/hour. He was put on Levemir 15 units daily at bedtime, Novolog coverage before meals and Novolog coverage at bedtime. His FSGs were 254, 313, 304 and 189. Am lab showed Cr was 4.6 which is improving. Plan: 1. continue NS 100 ml/hour for now; 2. I will recommend keeping patient today and monitoring his renal function tomorrow morning ( his baseline creaninine level was in the 3s); 3. increase Levemir to 18 units daily at bedtime; 4. adjust Novolog coverage before meals--detail see the inpatient DM orders 5. continue the current Novolog coverage at bedtime; 6. monitor FSGs. will follow. Inpatient Diabetes Orders Before Each Meal: Bolus Insulin: Novolog < 80 mg/dl: no coverage 80-100 mg/dl: 7 units 101-120 mg/dl: 7 units 121-150 mg/dl: 7 units 151-200 mg/dl: 9 units 201-250 mg/dl: 11 units 251-300 mg/dl: 13 units 301-350 mg/dl: 14 units 351-400 mg/dl: 15 units > 400 mg/dl: 16 units Subjective Subjective: clinically he has been feeling better. Objective Last 24 Hrs of Vital Signs/I&O Vital Signs Date Time Temp Pulse Resp B/P B/P Pulse O2 O2 Flow FiO2 Mean Ox Delivery Rate 04/30 0649 98.5 64 18 142/64 96 Room Air 04/29 2244 97.9 76 18 162/90 97 Room Air 04/29 2206 Room Air 04/29 1458 98.3 76 18 150/92 97 Room Air Intake & Output 04/30 1600 04/30 0800 04/30 0000 Intake Total 1250 420 Output Total 1250 700 Balance 0 -280 Intake, IV 800 300 Intake, Oral 450 120 Output, Urine 1250 700 Findings Pertinent Lab/Haseeb Results: Laboratory Tests 04/30 0635 Chemistry Sodium (137 - 145 mmol/L) 137 Potassium (3.5 - 5.1 mmol/L) 4.3 Chloride (98 - 107 mmol/L) 109 H Carbon Dioxide (22 - 30 mmol/L) 20 L Anion Gap (5 - 16) 8 BUN (9 - 20 mg/dL) 51 H Creatinine (0.7 - 1.2 mg/dL) 4.6 H Estimated GFR (>60 ml/min) 14 L BUN/Creatinine Ratio (7 - 25 %) 11.1 Hematology CBC w Diff NO MAN DIFF REQ WBC (4.8 - 10.8 /CUMM) 6.9 RBC (4.70 - 6.10 /CUMM) 3.54 L Hgb (14.0 - 18.0 G/DL) 10.8 L Hct (42 - 52 %) 32.2 L MCV (80.0 - 94.0 FL) 91.2 MCH (27.0 - 31.0 PG) 30.5 RDW (11.5 - 14.5 %) 14.0 Plt Count (130 - 400 /CUMM) 196 MPV (7.4 - 10.4 FL) 8.4 Gran % (42.2 - 75.2 %) 49.8 Lymphocytes % (20.5 - 51.1 %) 31.2 Monocytes % (1.7 - 9.3 %) 8.2 Eosinophils % (0 - 5 %) 10.2 H Basophils % (0.0 - 2.0 %) 0.6 Absolute Granulocytes (1.4 - 6.5 /CUMM) 3.5 Absolute Lymphocytes (1.2 - 3.4 /CUMM) 2.2 Absolute Monocytes (0.10 - 0.60 /CUMM) 0.6 Absolute Eosinophils (0.0 - 0.7 /CUMM) 0.7 Absolute Basophils (0.0 - 0.2 /CUMM) 0 PUBS MCHC (33.0 - 37.0 G/DL) 33.5
[2017-04-30 14:33] VITALS: BP 144/80
[2017-04-30 23:09] VITALS: BP 150/80
[2017-05-01 06:51] VITALS: BP 150/90
--- NOTE | 2017-05-01 08:01 | PN- Diabetes ---
Assessment/Plan Assessment: 51-year-old male has a known history of diabetes mellitus type 2 with chronic kidney disease. He was admitted for nausea, vomiting and acute on chronic renal failure. Nausea and vomiting resolved. He is on NS at 100 ml/hour. The patient is on Levemir 18 units at bedtime. His NovoLog sliding scale was adjusted late in the day yesterday. Fingerstick blood sugars yesterday were 189 fasting to 234 before lunch, 289 before dinner, and 289 at bedtime. The patient's renal function is improving slowly. Plan: Suggest continue the present insulin. The NovoLog sliding scale was adjusted late in the day yesterday. We will see the effects of this adjustment today Subjective Subjective: Feels okay Review of Systems Constitutional: Denies: chills, fever. Cardiovascular: Denies: chest pain. Respiratory: Denies: cough, short of breath. Gastrointestinal: Denies: abdominal pain. Skin: Reports: no symptoms. Objective Last 24 Hrs of Vital Signs/I&O Vital Signs Date Time Temp Pulse Resp B/P B/P Pulse O2 O2 Flow FiO2 Mean Ox Delivery Rate 05/01 0651 97.8 74 20 150/90 96 Room Air 04/30 2309 98.9 74 20 150/80 95 04/30 1433 98.0 82 20 144/80 97 Intake & Output 05/01 0805/01 0000 04/30 1600 Intake Total 1280 700 Output Total 1350 1850 Balance -70 -1150 Intake, IV 800 Intake, Oral 480 700 Output, Urine 1350 1850 Vital Signs Date Time Temp Pulse Resp B/P B/P Pulse O2 O2 Flow FiO2 Mean Ox Delivery Rate 05/01 0651 97.8 74 20 150/90 96 Room Air 04/30 2309 98.9 74 20 150/80 95 04/30 1433 98.0 82 20 144/80 97 Intake & Output 05/01 0000 04/30 1600 Intake Total 1280 700 Output Total 1350 1850 Balance -70 -1150 Intake, IV 800 Intake, Oral 480 700 Output, Urine 1350 1850 Physical Exam General Appearance: alert, awake, comfortable Head: normal appearance Respiratory: normal breath sounds Cardiovascular: regular rate/rhythm Abdomen: normal bowel sounds Current Medications: Current Medications Sig/Buddy Start time Last Medication Dose Route Stop Time Status Admin Acetaminophen 650 MG Q6P PRN 04/27 2115 AC PO Insulin Aspart 0 AC & AT BEDTIME 04/29 1700 AC 04/30 SC 1716 Insulin Detemir 18 UNITS AT BEDTIME 04/30 2200 AC 04/30 SC 2226 Insulin Detemir 15 UNITS AT BEDTIME 04/29 2200 DC 04/29 DE 2113 Omeprazole 40 MG DAILY 04/29 1000 AC 04/30 PO 0818 Sodium Chloride 1,000 ML Q10H 04/29 1045 AC 05/01 IV 0522 Trimethobenzamide HCl 200 MG 4 TIMES/DAY PRN 04/27 2330 AC IM Findings Pertinent Lab/Haseeb Results: Laboratory Tests 05/01 04/30 0700 UNK Chemistry Sodium Pending Potassium Pending Chloride Pending Carbon Dioxide Pending Anion Gap Pending BUN Pending Creatinine Pending BUN/Creatinine Ratio Pending Total Bilirubin Pending Direct Bilirubin Pending AST Pending Cancelled ALT Pending Cancelled Alkaline Phosphatase Pending Total Protein Pending Albumin Pending Hematology CBC w Diff Pending WBC Pending RBC Pending Hgb Pending Hct Pending MCV Pending MCH Pending RDW Pending Plt Count Pending MPV Pending PUBS MCHC Pending
[2017-05-01 08:34] LABS: ABSOLUTE BASOPHIL COUNT 0.1 /CUMM (0.0-0.2); ABSOLUTE EOSINOPHIL COUNT 0.8 /CUMM (0.0-0.7); ABSOLUTE LYMPH COUNT 1.8 /CUMM (1.2-3.4); ABSOLUTE MONOCYTE COUNT 0.6 /CUMM (0.10-0.60); BASOPHIL % 0.8 % (0.0-2.0); EOSINOPHIL % 9.1 % (0-5); GRANULOCYTE % 60.3 % (42.2-75.2); HEMATOCRIT 33.2 % (42-52); MEAN CORPUSCULAR HGB 30.4 PG (27.0-31.0); MEAN CORPUSCULAR HGB CONC 33.2 G/DL (33.0-37.0); MEAN CORPUSCULAR VOLUME 91.4 FL (80.0-94.0); MEAN PLATELET VOLUME 8.6 FL (7.4-10.4); PLATELET COUNT 204 /CUMM (130-400); RED BLOOD CELL CT 3.64 /CUMM (4.70-6.10); WHITE BLOOD CELL COUNT 8.3 /CUMM (4.8-10.8)
--- NOTE | 2017-05-01 08:46 | PN- Housestaff ---
Subjective Follow-up For: 1-nausea and vomiting. 2-CHANDANA on CKD 3-DM type 2 Complaints: no complaints Subjective: I have personally examined the patient at bedside , he was sittnig comfortable in bed in no acute distress, no complains Review of Systems Constitutional: Denies: see HPI. Cardiovascular: Denies: no symptoms. Respiratory: Denies: no symptoms. Gastrointestinal: Denies: no symptoms. Skin: Denies: no symptoms. Objective Physical Exam General Appearance: Alert, Oriented X3, Cooperative, No Acute Distress Skin: No Rashes, No Breakdown, No Significant Lesion Skin Temp/Moisture Exam: Warm/Dry Sepsis Skin Exam (color): Normal for Ethnicity HEENT: Atraumatic, PERRLA, EOMI, Mucous Membr. moist/pink Neck: Supple, No JVD Cardiovascular: Regular Rate, Normal S1, Normal S2, No Murmurs Lungs: Clear to Auscultation, Normal Air Movement Abdomen: Normal Bowel Sounds, Soft Neurological: Normal Speech, Strength at 5/5 X4 Ext, Normal Tone Extremities: bilateral pitting edema in LL Vascular: Normal Pulses, Pulses Symmetrical Assessment/Plan Assessment: 51-year-old male with PMH of DM type II, treated with insulin, complicated with neuropathy, retinopathy and CKD, HTN, HLD, DINORA gangrene 2 years ago. He presents to the ED complaining of nausea and vomiting for 3 weeks. The patient had multiple episodes of vomiting for the past 2 weeks it was nonbloody, worse during the day, sometimes provoked by coughing. It was associated with nausea, and some chest discomfort. The patient denies any abdominal pain, fever, diarrhea, constipation, weakness or headaches. He reports trying to rehydrate himself by drinking water but he was not able to keep it down due to the vomiting. Yesterday in the ED he had an episode of vomiting which was blood tinged. The patient has chronic kidney disease and has been following with , also he is following with Dr. Menon for his blood pressure. Vitals on admission temperature 98.6, pulse 76, RR 18, BP 152/90. Labs were significant for hg 12.6, Creatinine 5.5, BUN 60, glucose 291, Ast 400, ALT 712, ALP 85 UA and toxicology pending Abdominal CT: was unremarkable for any acute pathology, chest x-ray was unremarkable, kidney ultrasound was unremarkable for any obstruction, but showed bladder wall thickening. # Nausea and vomiting: -Might be secondary to gastroenteritis versus gastroparesis due to diabetes versus chronic pancreatitis. - continue IV PPI, nothing by mouth. -Check amylase and lipase -Continue IV Zofran and check QTC (this morning QTC= 469) -Hold off any oral medications for now -Continue to monitor on telemetry -Cleared from GI 04/29 #CHANDANA ON CKD: Cr DECREASED -Patient has long history of renal impairment most likely due to diabetes complication -Nephrology consult -Avoid nephrotoxic medications -Continue D5 normal saline -Monitor BEP -I's and O's and daily weights #Diabetes mellitus type 2 -adjust Novolog coverage before meals--detail see the inpatient DM orders 5. continue the current Novolog coverage at bedtime; -Started Levemir 18U daily AC (snack if FSG is less than 150 at bedtime) -Accu-Chek -Dr GARCIA onboard the patient is stable for discharge today Full code DVT prophylaxis: Mechanical Diet: Nothing by mouth Problem List: 1. CKD (chronic kidney disease) 2. Nausea & vomiting 3. CHANDANA (acute kidney injury) 4. Diabetes mellitus 5. Elevated liver enzymes 6. Dehydration Pain Ratin Pain Location: n/a Pain Goal: Remain pain free Pain Plan: n/a Tomorrow's Labs & Rationales: n/a DVT/Prophylaxis: pharmacological
[2017-05-01] MEDS ORDERED: NOVOLOG100 UNIT/2 SC (12:25)
[2017-05-01] MEDS ORDERED: LEVEMIR FL100 UNIT/1 SC (12:25)
== END 2017-05-01 12:22 | DRG 683 ==
LOC: ERH 14:34 → 1NO 19:43 → ERHI 19:43 → ENRESERV 21:36 → 1NO 23:13 → ENPENDDIS 05-01 11:34 → 1NO 05-01 12:22
PROVIDERS: Emergency Medicine; Internal Medicine; ADMIT Internal Medicine Pulmonary Disease
DX: N17.9 Acute kidney failure, unspecified (principal); K92.0 Hematemesis; K86.1 Other chronic pancreatitis; E11.22 Type 2 diabetes mellitus with diabetic chronic kidney disease; E11.43 Type 2 diabetes mellitus with diabetic autonomic (poly)neuropathy; E11.42 Type 2 diabetes mellitus with diabetic polyneuropathy; E11.3599 Type 2 diabetes mellitus with proliferative diabetic retinopathy without macular edema, unspecified eye; K31.84 Gastroparesis; E66.01 Morbid (severe) obesity due to excess calories; E11.65 Type 2 diabetes mellitus with hyperglycemia; I12.9 Hypertensive chronic kidney disease with stage 1 through stage 4 chronic kidney disease, or unspecified chronic kidney disease; N18.4 Chronic kidney disease, stage 4 (severe); K52.9 Noninfective gastroenteritis and colitis, unspecified; D64.9 Anemia, unspecified; E86.0 Dehydration; E55.9 Vitamin D deficiency, unspecified; E78.5 Hyperlipidemia, unspecified; Z79.4 Long term (current) use of insulin
CPT/HCPCS: 1NSP; 84133; 84300; 36415; 74176; 76775; 80307; 81001; 82436; 82570; 86803; 93005; 93010; G0480; J2405; J2550; J7042

== ENCOUNTER 2017-11-29 16:40 | Inpatient (IN) | payer OTHER ==
[~2017-11-29] VITALS: Ht 170.2 cm; Wt 138.3 kg
[~2017-11-29 16:40] MED LIST: ATORVASTATIN CA40 M1 PO; CIALIS5 M1 PO; CLONIDINE HCL0.1 MG PO; FENOFIBRATE145 M1 PO; GLIMEPIRIDE2 MG PO; HUMALOG KW100 UNIT/1 SC; HYDROCHLOROTHIA25 M1 PO; LEVEMIR FL100 UNIT/1 SC; LISINOPRIL40 M1 PO; METANX CAPSULE1 EACH PO; NOVOLOG100 UNIT/2 SC; TIZANIDINE HCL2 M1 PO; TRULICITY1.5 MG/0.5 SC; VITAMIN D250000 UNIT PO
[2017-11-29 17:07] LABS: ABSOLUTE BASOPHIL COUNT 0.1 /CUMM (0.0-0.2); ABSOLUTE EOSINOPHIL COUNT 0.7 /CUMM (0.0-0.7); ABSOLUTE GRANULOCYTE CT 11.1 /CUMM (1.4-6.5); ABSOLUTE LYMPH COUNT 1.5 /CUMM (1.2-3.4); ABSOLUTE MONOCYTE COUNT 0.8 /CUMM (0.10-0.60); BASOPHIL % 0.8 % (0.0-2.0); EOSINOPHIL % 5.1 % (0-5); GRANULOCYTE % 78.3 % (42.2-75.2); HEMATOCRIT 35.2 % (42-52); MEAN CORPUSCULAR HGB 30.1 PG (27.0-31.0); MEAN CORPUSCULAR HGB CONC 33.2 G/DL (33.0-37.0); MEAN CORPUSCULAR VOLUME 90.7 FL (80.0-94.0); MEAN PLATELET VOLUME 6.5 FL (7.4-10.4); PLATELET COUNT 408 /CUMM (130-400); RBC DISTRIBUTION WIDTH 14.3 % (11.5-14.5); RED BLOOD CELL CT 3.88 /CUMM (4.70-6.10); WHITE BLOOD CELL COUNT 14.2 /CUMM (4.8-10.8)
--- NOTE | 2017-11-29 18:35 | ED GENERAL ADULT ---
History of Present Illness General Chief Complaint: General Adult Stated Complaint: DEHYRDATION Source: patient, family, old records, PCP Exam Limitations: no limitations Vital Signs & Intake/Output Vital Signs & Intake/Output Vital Signs Date Time Temp Pulse Resp B/P B/P Pulse O2 O2 Flow FiO2 Mean Ox Delivery Rate 11/29 1858 Room Air Room Air 11/29 1645 98.6 78 18 123/70 98 Room Air Allergies Coded Allergies: shellfish derived (SEAFOOD- NAUSEA AND DIZZINESS 04/27/17) Reconcile Medications Clonidine HCl 0.1 MG TABLET 1 TAB PO QHS BP (Reported) Ergocalciferol (Vitamin D2) (Vitamin D2) 50,000 UNIT CAPSULE 1 CAP PO QFRI SUPPLEMENT (Reported) Fenofibrate Nanocrystallized (Fenofibrate) 145 MG TABLET 1 TAB PO DAILY CHOLESTEROL/TRIGLYCERIDES (Reported) Insulin Detemir (Levemir) 100 UNIT/ML VIAL 40 UNITS SC QHS DM (Reported) Insulin Lispro (Humalog Kwikpen U-100) 100 UNIT/ML INSULN.PEN DM (Reported) Levothyroxine Sodium 50 MCG TABLET 1 TAB PO DAILY THYROID (Reported) Lisinopril 40 MG TABLET 1 TAB PO DAILY BP (Reported) Moxifloxacin Hydrochloride (Vigamox) 0.5 % DROPS 1 GTT OS 4XDAILY LEFT EYE ( Reported) Prednisolone Acetate 1 % DROPS.SUSP 1 GTT OS 4 TIMES/DAY LEFT EYE (Reported) Rosuvastatin Calcium (Crestor) 5 MG TABLET 1 TAB PO Monday CHOLESTEROL (Reported) Tadalafil (Cialis) 5 MG TABLET 1 TAB PO DAILY ED (Reported) Triage Note: 52 YO MALE SENT TO ER FOR DEHYDRATION. PMH OF DIABETES, CKD. 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 STATES HE HASNT BEEN EATING WELL OR DRINKING. DENIES PAIN. Triage Nurses Notes Reviewed? yes HPI: Patient sent in by his web consultant for evaluation of acute on chronic renal failure. Patient states that he has been having nausea with intermittent vomiting over the past few weeks and has had a decreased appetite. Patient has been having increasing weakness and fatigue. He denies any chest pain or palpitations. There is no shortness of breath. There is no fevers or chills. Patient was found to be dehydrated and in acute on chronic renal failure. Past History Travel History Traveled to [place] past 21 day No Medical History Any Pertinent Medical History? 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 No Review of Systems Review of Systems Constitutional: Reports: see HPI, weakness. EENTM: Reports: no symptoms. Respiratory: Reports: no symptoms. Cardiovascular: Reports: no symptoms. GI: Reports: see HPI, nausea, vomiting. Genitourinary: Reports: no symptoms. Musculoskeletal: Reports: no symptoms. Skin: Reports: no symptoms. Neurological/Psychological: Reports: no symptoms. Hematologic/Endocrine: Reports: no symptoms. Immunologic/Allergic: Reports: no symptoms. All Other Systems: Reviewed and Negative Physical Exam Physical Exam General Appearance: well developed/nourished, alert, awake, anxious, moderate distress Head: atraumatic, normal appearance Eyes: Bilateral: PERRL, EOMI. Ears, Nose, Throat: normal pharynx, DRY MUCOSA Neck: normal inspection, supple, full range of motion Respiratory: normal breath sounds, chest non-tender, no respiratory distress, lungs clear Cardiovascular: regular rate/rhythm, normal peripheral pulses Gastrointestinal: normal bowel sounds, soft, non-tender, no organomegaly Back: normal inspection, normal range of motion Extremities: normal inspection, no edema Neurologic/Psych: no motor/sensory deficits, awake, alert, oriented x 3, normal mood/affect Skin: intact, normal color, warm/dry Lymphatic: no anterior cervical sahil Core Measures ACS in differential dx? No CVA/TIA Diagnosis: No Sepsis Present: No Sepsis Focused Exam Completed? No Progress Differential Diagnoses I considered the following diagnoses in my evaluation of the patient: [ARF, ELECTROLYTE ABNORMALITY] Plan of Care: Orders Procedure Date/time Status Heart Healthy Diet 11/30 B Active Intake & Output 11/29 185 Active EKG 11/29 184 Active Patient Data 11/29 184 Active ED Holding Orders 11/29 183 Active Admit to inpatient 11/29 183 Active Vital Signs 11/29 183 Active Code Status 11/29 183 Active FingerStick- Glucose 11/29 165 Active URINALYSIS 11/29 164 Active TROPONIN LEVEL 11/29 164 Complete COMPREHENSIVE METABOLIC PANEL 11/29 164 Complete CBC WITHOUT DIFFERENTIAL 11/29 164 Complete Current Medications Sig/Buddy Start time Last Medication Dose Stop Time Status Admin Ofloxacin 1 GTT Q4 11/29 2199 UNVr (Ocuflox) Prednisolone 1 GTT 4 TIMES/DAY 11/29 2199 UNVr (Pred Forte) Sodium Chloride 1,000 ML BOLUS ONE 11/29 1829 AC 11/29 (Normal Saline 0.9%) 11/29 1928 185 Sodium Chloride 1,000 ML BOLUS ONE 11/29 1829 AC (Normal Saline 0.9%) 11/29 1928 Laboratory Tests 11/29/17 1654: Anion Gap 12, Estimated GFR 9 L, BUN/Creatinine Ratio 6.6 L, Glucose 257 H, Calcium 7.2 L, Total Bilirubin 0.2, AST 22, ALT 26, Alkaline Phosphatase 142 H , Troponin I 0.04, Total Protein 5.0 L, Albumin 2.2 L, Globulin 2.8, Albumin/ Globulin Ratio 0.8 L, CBC w Diff NO MAN DIFF REQ, RBC 3.88 L, MCV 90.7, MCH 30.1, MCHC 33.2, RDW 14.3, MPV 6.5 L, Gran % 78.3 H, Lymphocytes % 10.4 L, Monocytes % 5.4, Eosinophils % 5.1 H, Basophils % 0.8, Absolute Granulocytes 11.1 H, Absolute Lymphocytes 1.5, Absolute Monocytes 0.8 H, Absolute Eosinophils 0.7, Absolute Basophils 0.1 Initial ED EKG: PENDING Departure Departure Disposition: STILL A PATIENT Condition: Stable Clinical Impression Primary Impression: Acute on chronic renal failure Secondary Impressions: Dehydration Referrals: Ar Tijerina MD (PCP/Family) Departure Forms: Customer Survey General Discharge Information Admission Note Spoke With: Ar Tijerina MD Documentation of Exam: Documentation of any treatments & extenuating circumstances including Concerns Regarding Discharge (functional status, medication knowledge or non-compliance, living conditions, etc.) that warrant an admission rather than observation: [IV FLUIDFS, NEPHROLOGY CONSULTATION, MAY REQUIRE DAILYSIS] Critical Care Note Critical Care Note Critical Care Time: non-applicable
[2017-11-29] MEDS ORDERED: VIGAMOX3 ML OS (18:43)
[2017-11-29] MEDS ORDERED: PREDNISOLONE ACE5 ML OS (18:44)
[2017-11-29] MEDS ORDERED: LEVOTHYROXINE50 MCG PO (18:44)
[2017-11-29] MEDS ORDERED: CRESTOR5 M1 PO (18:45)
[2017-11-29] MEDS ORDERED: HUMALOG KW100 UNIT/1 SC (18:45)
--- NOTE | 2017-11-29 18:57 | Admission Certification ---
Admission Certification Certification Statement - As attending physician, I certify that at the time of - admission, based on clinical presentation, severity of - symptoms, need for further diagnostic testing and - therapeutic interventions, and risk of adverse outcomes - without in-hospital treatment, in my clinical assessment, - this patient requires an acute hospital stay for a minimum - of two nights or longer. I have also considered psychsocial - factors such as support system, advanced age, financial - issues, cognitive issues, and failed out-patient treatments, - past re-admission history, safety of patient, and lack of - compliance as applicable. Specific rationale supporting this admission is: dehydration, weakness acute renal insuficiency on chronic renal failure, uncontrolled diabetes.
--- NOTE | 2017-11-29 19:01 | PN- Att Addend ---
Attending Addendum Attending Brief Note 52 year old male with diabetes CRF followed by endocrine and neprology has not been feeling well for days weak nausea vomiting low sugars in Am, had blood work and saw Dr Zambrano who found him dehydrated with worsening renal function, Sent in for IV fluids and monitoring labs also to be followed by nephrology and endocrine Dr. Lewis. Laboratory Tests 11/29/17 1654: Anion Gap 12, Estimated GFR 9 L, BUN/Creatinine Ratio 6.6 L, Glucose 257 H, Calcium 7.2 L, Total Bilirubin 0.2, AST 22, ALT 26, Alkaline Phosphatase 142 H , Troponin I 0.04, Total Protein 5.0 L, Albumin 2.2 L, Globulin 2.8, Albumin/ Globulin Ratio 0.8 L, CBC w Diff NO MAN DIFF REQ, RBC 3.88 L, MCV 90.7, MCH 30.1, MCHC 33.2, RDW 14.3, MPV 6.5 L, Gran % 78.3 H, Lymphocytes % 10.4 L, Monocytes % 5.4, Eosinophils % 5.1 H, Basophils % 0.8, Absolute Granulocytes 11.1 H, Absolute Lymphocytes 1.5, Absolute Monocytes 0.8 H, Absolute Eosinophils 0.7, Absolute Basophils 0.1 Vital Signs Date Time Temp Pulse Resp B/P B/P Pulse O2 O2 Flow FiO2 Mean Ox Delivery Rate 11/29 1858 Room Air Room Air 11/29 1645 98.6 78 18 123/70 98 Room Air also continue special eye drops after recent eye surgery.
[2017-11-29 23:01] VITALS: BP 140/80
--- NOTE | 2017-11-29 23:22 | History & Physical ---
See Addendum Autumn Dye MD 11/29/17 2321: General Information and HPI MD Statement: I have seen and personally examined HERNAN BUSH and documented this H&P. The patient is a 52 year old M who presented with a patient stated chief complaint of [weakness, elevated creatinine and dehydration]. Source of Information: patient, family, old records Exam Limitations: no limitations History of Present Illness: 52 years old male with past medical history of uncontrolled type 2 DM with complications( retinopathy, neuropathy, CKD) on insulin, HTN, hyperlipidemia, H/ o pelvic abscess( 2 years back) presented to ED with CC of dehydration, weakness , vomiting several times of nonbloody contents almost once every week for the past a few weeks, diarrhea almost 3 episodes of loose bowel movement every week for the past 3 weeks ,body aches which started back on October. The patient was in an regular visit to Dr. Andujar office today when he was found to have increased the creatinine and was advised to come to the ED. Patient also noticed mild intermittent swelling of his left lower extremity for the past few months. He also reports having shooting pain feet due to diabetic neuropathy. Patient measured his blood sugar at home and noticed that it's very low in the morning and arrange for 40 and he had to stop taking Levemir at night for that. In addition the patient reports having a nonproductive cough for the past few days, denies fever, chills, shortness of breath, chest pain. He has a history CKD and didn't have any Hemodialysis in the past, patient denies any recent changes in his urine output or the color of urine, he also denies any dysuria, hesitancy, nocturia. Denies recent travel or sick contacts, occasional alcohol use, no smoking or recreational drug use, who lives at home with his who helps him with his activities of daily living ED course: Blood pressure 194/81, pulse 71, respiratory rate 18, temperature 97.9, pulse ox 96 on room air labs pertinent for: WBC 14.2, no bands, hemoglobin 11.7, MCV 90.7, platelets 408 , sodium 138, potassium 3.5, BUN 43, creatinine 6.5, glucose 257, calcium 7.2, alkaline phosphatase 142 Allergies/Medications Allergies: Coded Allergies: shellfish derived (SEAFOOD- NAUSEA AND DIZZINESS 04/27/17) Home Med list Clonidine HCl 0.1 MG TABLET 1 TAB PO QHS BP (Reported) Ergocalciferol (Vitamin D2) (Vitamin D2) 50,000 UNIT CAPSULE 1 CAP PO QFRI SUPPLEMENT (Reported) Fenofibrate Nanocrystallized (Fenofibrate) 145 MG TABLET 1 TAB PO DAILY CHOLESTEROL/TRIGLYCERIDES (Reported) Insulin Detemir (Levemir) 100 UNIT/ML VIAL 40 UNITS SC QHS DM (Reported) Insulin Lispro (Humalog Kwikpen U-100) 100 UNIT/ML INSULN.PEN DM (Reported) Levothyroxine Sodium 50 MCG TABLET 1 TAB PO DAILY THYROID (Reported) Lisinopril 40 MG TABLET 1 TAB PO DAILY BP (Reported) Moxifloxacin Hydrochloride (Vigamox) 0.5 % DROPS 1 GTT OS 4XDAILY LEFT EYE ( Reported) Prednisolone Acetate 1 % DROPS.SUSP 1 GTT OS 4 TIMES/DAY LEFT EYE (Reported) Rosuvastatin Calcium (Crestor) 5 MG TABLET 1 TAB PO Monday CHOLESTEROL (Reported) Tadalafil (Cialis) 5 MG TABLET 1 TAB PO DAILY ED (Reported) Past History Travel History Traveled to [place] past 21 day No Medical History Blood Transfusion Hx: No Neurological: neuropathy EENT: NONE Cardiovascular: hypertension Respiratory: NONE Gastrointestinal: NONE Hepatic: NONE Renal: chronic kidney disease Musculoskeletal: NONE Psychiatric: NONE Endocrine: diabetes Blood Disorders: NONE Cancer(s): NONE 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 Home Services at Home: None Smoking Status: Never Smoked ETOH Use: denies use Illicit Drug Use: denies illicit drug use Review of Systems Review of Systems Constitutional: Reports: malaise, weakness. Denies: chills, diaphoresis, fever. Cardiovascular: Reports: edema, peripheral edema. Denies: chest pain, orthopena, palpitations. Respiratory: Reports: cough. Denies: hemoptysis, orthopnea, short of breath, sputum production. GI: Reports: diarrhea, nausea, vomiting. Denies: abdominal pain, bloating, constipation, distention, bloody stool. Genitourinary: Denies: discharge, dysuria, frequency, hematuria, hesitation, nocturia. Musculoskeletal: Denies: no symptoms. Skin: Denies: no symptoms. Exam & Diagnostic Data Last 24 Hrs of Vital Signs/I&O Vital Signs Date Time Temp Pulse Resp B/P B/P Pulse O2 O2 Flow FiO2 Mean Ox Delivery Rate 11/29 2301 97.4 80 18 140/80 95 Room Air 11/29 2236 97.9 80 18 152/90 95 Room Air 11/29 1938 71 18 194/81 96 11/29 1858 Room Air Room Air 11/29 1645 98.6 78 18 123/70 98 Room Air Intake & Output 11/30 0800 11/30 0000 11/29 1600 Intake Total 1000 Output Total Balance 1000 Intake, IV 1000 Intake, Oral 0 Patient 284 lb Weight Weight Reported by Patient Measurement Method Physical Exam General Appearance Alert, Oriented X3, Cooperative, No Acute Distress, Pale and tired Skin No Rashes, No Breakdown, No Significant Lesion HEENT Atraumatic, PERRLA, EOMI, pale MM Neck Supple, No JVD, No thryomegaly Cardiovascular Normal S1, Normal S2, No Murmurs Lungs Clear to Auscultation Abdomen Normal Bowel Sounds, Soft, No Tenderness Neurological Normal Speech, Strength at 5/5 X4 Ext, Normal Tone Extremities Bilateral 2 + pitting edema Vascular Normal Pulses Last 24 Hrs of Labs/Haseeb: Laboratory Tests 11/29/17 1654: Anion Gap 12, Estimated GFR 9 L, BUN/Creatinine Ratio 6.6 L, Glucose 257 H, Calcium 7.2 L, Total Bilirubin 0.2, AST 22, ALT 26, Alkaline Phosphatase 142 H , Troponin I 0.04, Total Protein 5.0 L, Albumin 2.2 L, Globulin 2.8, Albumin/ Globulin Ratio 0.8 L, CBC w Diff NO MAN DIFF REQ, RBC 3.88 L, MCV 90.7, MCH 30.1, MCHC 33.2, RDW 14.3, MPV 6.5 L, Gran % 78.3 H, Lymphocytes % 10.4 L, Monocytes % 5.4, Eosinophils % 5.1 H, Basophils % 0.8, Absolute Granulocytes 11.1 H, Absolute Lymphocytes 1.5, Absolute Monocytes 0.8 H, Absolute Eosinophils 0.7, Absolute Basophils 0.1 Assessment/Plan Assessment: 2 years old male with past medical history of uncontrolled type 2 DM with complications( retinopathy, neuropathy, CKD) on insulin, HTN, hyperlipidemia, H/ o pelvic abscess( 2 years back) presented to ED with CC of dehydration, weakness , nausea, vomiting, elevated creatinine #CHANDANA on CKD/dehydration Most likely due to high dehydration secondary to nausea and vomiting Admit to general medicine floor Nephrology consult appreciated Gentle IV hydration with normal saline 100 mL/h Close monitoring of renal functions Avoid nephrotoxic Vital signs every Shift #Nausea and vomiting Differential diagnosis includes diabetic gastroparesis,CKD Zofran when necessary for nausea Gentle IV hydration #History of diabetes, diabetic neuropathy Accu-Cheks Insulin sliding scale #Mild anemia Most likely secondary to CKD Monitor CBC #History of hypertension and hyperlipidemia Continue home meds Full code Consistent carbohydrate diet. DVT prophylaxis with subcutaneous heparin As Ranked By This Provider Problem List: 1. Acute on chronic renal failure 2. Nausea & vomiting 3. Diabetes mellitus Core Measures/Misc (06/25) Acute Coronary Syndrome ACS Diagnosis: No Congestive Heart Failure Congestive Heart Failure Diagnosis No Cerebrovascular Accident CVA/TIA Diagnosis: No VTE (View Protocol) VTE Risk Factors Age>40 No Mechanical VTE Prophylaxis d/t N/A MechProphylax Ordered No VTE Pharm Prophylaxis d/t NA PharmProphylax ordered Sepsis (View protocol) Sepsis Present: No Chalo Ramirez 11/30/17 0245: Resident Review Statement Resident Statement: examined this patient, discussed with editing internship, agreed with editing internship, discussed with family, reviewed EMR data (avail), discussed with nursing , discussed with case mgmt, reviewed images, amended to note Other Findings: This is 52 years old male with medical history of uncontrolled type 2 DM with complications( retinopathy, neuropathy, CKD stage IV) on insulin, HTN, hyperlipidemia, H/o pelvic abscess. He presented to ED after been send by Dr. Andujar from the office today due to worsen renal function. He stated that he feel tired, fatigued and weak. Also he report vomiting several times almost once every week for the past a few weeks that is also associated with diarrhea almost 3 episodes of loose bowel movement every week for the past 3 weeks. Patient stated that he stated making urine, he denies any hematuria, dysuria, hesitancy, frequency. He denies any chest pain or palpitations. There is no shortness of breath. There is no fevers or chills. Physical examination, lab and imaging as above. Problem list: -CHANDANA on CKD stage IV most likely secondary to dehydration. -Leukocytosis -Generalized weakness -Hyperglycemia Plan: -Admit patient to general medicine floor -Vitals every shift -Gentle IV fluid hydration of normal saline at 75 mL per hour -Nephrology consultation in a.m. -Repeat CBC and basic electrolyte in a.m. -Endocrinology consultation in a.m. -Carbohydrate consistent diet, insulin sliding scale -Hold of home medication off lisinopril, continue REST of home medication. -Pain pathway -DVT prophylaxis subcutaneous heparin -Full code
[2017-11-30 07:12] VITALS: BP 180/100
[2017-11-30 07:20] VITALS: BP 218/110
--- NOTE | 2017-11-30 07:34 | PN- Housestaff ---
Subjective Follow-up For: Weakness AK I Subjective: Patient visited today, was lying in bed comfortably in no acute distress, was alert and oriented. reported to still have weakness. No fever or chills, no shortness of breathing, no chest pain, no other events. Review of Systems Constitutional: Reports: see HPI. Objective Last 24 Hrs of Vital Signs/I&O Vital Signs Date Time Temp Pulse Resp B/P B/P Pulse O2 O2 Flow FiO2 Mean Ox Delivery Rate 11/30 1354 97.8 74 20 142/60 97 Room Air 11/30 1033 170/80 11/30 0922 74 200/98 11/30 0915 200/98 11/30 0800 Room Air 11/30 0720 218/110 11/30 0712 98.1 74 20 180/100 95 Room Air 11/29 2301 97.4 80 18 140/80 95 Room Air 11/29 2236 97.9 80 18 152/90 95 Room Air 11/29 1938 71 18 194/81 96 11/29 1858 Room Air Room Air 11/29 1645 98.6 78 18 123/70 98 Room Air Intake & Output 11/30 1600 11/30 0800 11/30 0000 Intake Total 1280 1280 1000 Output Total 1000 730 Balance 390 430 3672 Intake, IV 073 128 0146 Intake, Oral 480 480 0 Number 0 Bowel Movements Output, Urine 1000 730 Patient 284 lb Weight Weight Reported by Patient Measurement Method Physical Exam General Appearance: Alert, Oriented X3, Cooperative, No Acute Distress Skin: No Significant Lesion Skin Temp/Moisture Exam: Warm/Dry Sepsis Skin Exam (color): Normal for Ethnicity HEENT: Atraumatic, EOMI, Mucous Membr. moist/pink Cardiovascular: Normal S1, Normal S2 Lungs: Clear to Auscultation Abdomen: Soft, No Tenderness Neurological: Normal Speech Extremities: +1-2 edema bilateral Current Medications: Current Medications Sig/Buddy Start time Last Medication Dose Route Stop Time Status Admin Acetaminophen 650 MG Q6P PRN 11/29 2144 AC PO Amlodipine Besylate 2.5 MG ONCE ONE 11/30 0645 DC 11/30 PO 11/30 0646 0922 Atorvastatin Calcium 20 MG 1700 11/30 1700 AC PO Clonidine 0 .STK-MED ONE 11/294 DC PO Clonidine 0.1 MG AT BEDTIME 11/29 2199 AC 11/29 PO 2243 Fenofibrate 145 MG DAILY 11/30 1000 AC 11/30 PO 0917 Heparin Sodium 0 .STK-MED ONE 11/29 2244 DC (Porcine) .ROUTE Heparin Sodium 5,000 UNIT Q8 11/29 2200 AC 11/30 (Porcine) SC 1405 Hydrocodone Bitart/ 1 TAB Q6P PRN 11/29 2145 AC Acetaminophen PO Insulin Aspart 0 TIDAC 11/30 0800 DC SC Insulin Aspart 0 TIDAC 11/30 0245 AC 11/30 SC 1405 Insulin Detemir 40 UNITS AT BEDTIME 11/30 2200 CAN SC Levothyroxine Sodium 0.05 MG DAILY AC 11/30 0700 AC 11/30 PO 0610 Ofloxacin 1 GTT 4 TIMES/DAY 11/30 1000 AC 11/30 OPH 1406 Ofloxacin 1 GTT Q4 11/29 2200 DC 11/29 OPH 2244 Oxycodone/ 2 TAB Q6P PRN 11/29 2145 AC Acetaminophen PO Patient Medication 1 ED ONE ONE 11/30 1000 NH 11/30 Teaching ED 11/30 1001 1406 Prednisolone 1 GTT 4 TIMES/DAY 11/29 2200 AC 11/30 OPH 1406 Sodium Bicarbonate 650 MG TID 11/30 1600 AC PO Sodium Chloride 1,000 ML Q10H 11/29 2300 AC 11/30 IV 1126 Sodium Chloride 1,000 ML Q10H 11/29 2145 CAN IV Sodium Chloride 1,000 ML BOLUS ONE 11/29 1830 DC 11/29 IV 11/29 192 1859 Sodium Chloride 1,000 ML BOLUS ONE 11/29 1830 DC 11/29 IV 11/29 [id number] Last 24 Hrs of Lab/Haseeb Results Last 24 Hrs of Labs/Mics: Laboratory Tests 11/30/17 0735: Anion Gap 11, Estimated GFR 9 L, BUN/Creatinine Ratio 6.8 L, TSH 1.660, Thyroxine (T4) 5.2, CBC w Diff NO MAN DIFF REQ, RBC 3.83 L, MCV 90.1, MCH 30.3, MCHC 33.7, RDW 14.1, MPV 7.2 L, Gran % 72.4, Lymphocytes % 14.9 L, Monocytes % 6.8, Eosinophils % 5.2 H, Basophils % 0.7, Absolute Granulocytes 9.7 H, Absolute Lymphocytes 2.0, Absolute Monocytes 0.9 H, Absolute Eosinophils 0.7, Absolute Basophils 0.1 11/30/17 0620: Urinalysis MANY H, Urine Color YEL, Urine Clarity HAZY H, Urine pH 6.0, Ur Specific [place] 1.020, Urine Protein >=300 H, Urine Ketones NEG, Urine Nitrite POS H, Urine Bilirubin NEG, Urine Urobilinogen 0.2, Ur Leukocyte Esterase SMALL H, Ur Microscopic SEDIMENT EXAMINED, Urine RBC 15-25 H, Urine WBC > 75 H, Ur Epithelial Cells FEW, Hyaline Casts 5-10 H, Urine Mucus FEW, Urine Hemoglobin MOD H, Urine Glucose >=1000 H 11/30/17 0620: Ur Random Creatinine 52.2, Ur Random Sodium 49, Ur Random Potassium 14.3, Fraction Sodium Excret 4.4 H 11/29/17 1654: Anion Gap 12, Estimated GFR 9 L, BUN/Creatinine Ratio 6.6 L, Glucose 257 H, Calcium 7.2 L, Total Bilirubin 0.2, AST 22, ALT 26, Alkaline Phosphatase 142 H , Troponin I 0.04, Total Protein 5.0 L, Albumin 2.2 L, Globulin 2.8, Albumin/ Globulin Ratio 0.8 L, CBC w Diff NO MAN DIFF REQ, RBC 3.88 L, MCV 90.7, MCH 30.1, MCHC 33.2, RDW 14.3, MPV 6.5 L, Gran % 78.3 H, Lymphocytes % 10.4 L, Monocytes % 5.4, Eosinophils % 5.1 H, Basophils % 0.8, Absolute Granulocytes 11.1 H, Absolute Lymphocytes 1.5, Absolute Monocytes 0.8 H, Absolute Eosinophils 0.7, Absolute Basophils 0.1 Assessment/Plan Assessment: 52 years old male with referred from Dr Zambrano's office complaints of: weakness, vomiting several times of nonbloody contents almost once every week for the past a few weeks, diarrhea almost 3 episodes of loose bowel movement every week for the past 3 weeks ,body aches which started back on October PMH: uncontrolled type 2 DM with complications( retinopathy, neuropathy, CKD) on insulin, HTN, hyperlipidemia, H/o pelvic abscess( 2 years back) VS, Ph Ex at admission: Blood pressure 194/81, pulse 71, respiratory rate 18, temperature 97.9, pulse ox 96 on room air Labs at admission: WBC 14.2, no bands, hemoglobin 11.7, MCV 90.7, platelets 408, sodium 138, potassium 3.5, BUN 43, creatinine 6.5, glucose 257, calcium 7.2, alkaline phosphatase 142 Imagings at admission: No imaging, CXR ordered #CHANDANA on CKD/dehydration Most likely due to high dehydration secondary to nausea and vomiting - Admit to general medicine floor - added Nahco3 PO TID - follow Nephrology - continue Gentle IV hydration with normal saline 100 mL/h - Close monitoring of renal functions - Avoid nephrotoxic - Vital signs every Shift #Nausea and vomiting Differential diagnosis includes diabetic gastroparesis,CKD - Zofran when necessary for nausea - Gentle IV hydration #History of diabetes, diabetic neuropathy - Accu-Cheks - Insulin sliding scale #Mild anemia Most likely secondary to CKD Monitor CBC #History of hypertension and hyperlipidemia Continue home meds Full code Consistent carbohydrate diet. DVT prophylaxis with subcutaneous heparin Patient was admitted to GM floor for management of following conditions: Problem List: 1. CKD (chronic kidney disease) 2. CHANDANA (acute kidney injury) Pain Ratin Pain Location: None Pain Goal: Pain 4 or less Pain Plan: Continue current plan Tomorrow's Labs & Rationales: CBC BEP
[2017-11-30 08:44] LABS: ABSOLUTE BASOPHIL COUNT 0.1 /CUMM (0.0-0.2); ABSOLUTE EOSINOPHIL COUNT 0.7 /CUMM (0.0-0.7); ABSOLUTE GRANULOCYTE CT 9.7 /CUMM (1.4-6.5); ABSOLUTE MONOCYTE COUNT 0.9 /CUMM (0.10-0.60); BASOPHIL % 0.7 % (0.0-2.0); EOSINOPHIL % 5.2 % (0-5); GRANULOCYTE % 72.4 % (42.2-75.2); HEMATOCRIT 34.5 % (42-52); MEAN CORPUSCULAR HGB 30.3 PG (27.0-31.0); MEAN CORPUSCULAR HGB CONC 33.7 G/DL (33.0-37.0); MEAN CORPUSCULAR VOLUME 90.1 FL (80.0-94.0); MEAN PLATELET VOLUME 7.2 FL (7.4-10.4); PLATELET COUNT 377 /CUMM (130-400); RBC DISTRIBUTION WIDTH 14.1 % (11.5-14.5); RED BLOOD CELL CT 3.83 /CUMM (4.70-6.10); WHITE BLOOD CELL COUNT 13.3 /CUMM (4.8-10.8)
[2017-11-30 09:15] VITALS: BP 200/98
--- NOTE | 2017-11-30 10:11 | Cons- Nephrology ---
General Information and HPI Consulting Request Date of Consult: 11/30/17 Requested By: Ar Tijerina MD History of Present Illness: 52 yo male with DM, htn , ckd with baseline creatiine in the 4s. He may have gastroparesis but this is unclear. He states for the past few weeks he had had diarrhea. He also has had a chronic cough and vomting, although he states no vomiting in the last few days. He follow with Dr. Pedraza in office and although approaching ESRD he has not yet made a modality decision. He has been taking lisinopril, and continued to take it despite diarrhea. Yesterday in office it was noted his creatinin was in 6s, he appeared volume depleted and was sent to ED. PMH: DM2, diabetic foot ulcers, retinopahty, neuropathy, hypertension, hyperlipidemia, pelvic abcess FH: Positive for DM. Negative for ESRD. SH: No excessive EtOH, never smoked. No longer working. Allergies/Medications Allergies: Coded Allergies: shellfish derived (SEAFOOD- NAUSEA AND DIZZINESS 04/27/17) Home Med List: Clonidine HCl 0.1 MG TABLET 1 TAB PO QHS BP (Reported) Ergocalciferol (Vitamin D2) (Vitamin D2) 50,000 UNIT CAPSULE 1 CAP PO QFRI SUPPLEMENT (Reported) Fenofibrate Nanocrystallized (Fenofibrate) 145 MG TABLET 1 TAB PO DAILY CHOLESTEROL/TRIGLYCERIDES (Reported) Insulin Detemir (Levemir) 100 UNIT/ML VIAL 40 UNITS SC QHS DM (Reported) Insulin Lispro (Humalog Kwikpen U-100) 100 UNIT/ML INSULN.PEN DM (Reported) Levothyroxine Sodium 50 MCG TABLET 1 TAB PO DAILY THYROID (Reported) Lisinopril 40 MG TABLET 1 TAB PO DAILY BP (Reported) Moxifloxacin Hydrochloride (Vigamox) 0.5 % DROPS 1 GTT OS 4XDAILY LEFT EYE ( Reported) Prednisolone Acetate 1 % DROPS.SUSP 1 GTT OS 4 TIMES/DAY LEFT EYE (Reported) Rosuvastatin Calcium (Crestor) 5 MG TABLET 1 TAB PO Monday CHOLESTEROL (Reported) Tadalafil (Cialis) 5 MG TABLET 1 TAB PO DAILY ED (Reported) Current Medications: Current Medications Sig/Buddy Start time Last Medication Dose Route Stop Time Status Admin Acetaminophen 650 MG Q6P PRN 11/29 2145 AC PO Amlodipine Besylate 2.5 MG ONCE ONE 11/30 0645 DC 11/30 PO 11/30 0646 0922 Atorvastatin Calcium 20 MG 1700 11/30 1700 AC PO Clonidine 0 .STK-MED ONE 11/29 2244 DC PO Clonidine 0.1 MG AT BEDTIME 11/29 2200 AC 11/29 PO 2243 Fenofibrate 145 MG DAILY 11/30 1000 AC 11/30 PO 0917 Heparin Sodium 0 .STK-MED ONE 11/29 2244 DC (Porcine) .ROUTE Heparin Sodium 5,000 UNIT Q8 11/29 2200 AC 11/30 (Porcine) SC 0609 Hydrocodone Bitart/ 1 TAB Q6P PRN 11/29 2145 AC Acetaminophen PO Insulin Aspart 0 TIDAC 11/30 0800 DC SC Insulin Aspart 0 TIDAC 11/30 0245 AC 11/30 SC 0916 Insulin Detemir 40 UNITS AT BEDTIME 11/300 AC SC Levothyroxine Sodium 0.05 MG DAILY AC 11/30 0700 AC 11/30 PO 0610 Ofloxacin 1 GTT 4 TIMES/DAY 11/30 1000 AC 11/30 OPH 0623 Ofloxacin 1 GTT Q4 11/29 2200 DC 11/29 OPH 2244 Oxycodone/ 2 TAB Q6P PRN 11/29 2145 AC Acetaminophen PO Patient Medication 1 ED ONE ONE 11/30 1000 Teaching ED 11/30 1001 Prednisolone 1 GTT 4 TIMES/DAY 11/29 2200 AC 11/30 OPH 0922 Sodium Chloride 1,000 ML Q10H 11/29 2300 AC 11/30 IV 0113 Sodium Chloride 1,000 ML Q10H 11/29 2145 CAN IV Sodium Chloride 1,000 ML BOLUS ONE 11/29 1830 DC 11/29 IV 11/29 192 1859 Sodium Chloride 1,000 ML BOLUS ONE 11/29 1830 DC 11/29 IV 11/29 Review of Systems Review of Systems: Negative except as noted above. 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 Home Services at Home: None Smoking Status: Never Smoked ETOH Use: denies use Illicit Drug Use: denies illicit drug use Exam & Diagnostic Data Vital Signs and I&O Vital Signs Date Time Temp Pulse Resp B/P B/P Pulse O2 O2 Flow FiO2 Mean Ox Delivery Rate 11/30 09 74 200/98 11/30 0720 218/110 11/30 0712 98.1 74 20 180/100 95 Room Air 11/29 2301 97.4 80 18 140/80 95 Room Air 11/29 2236 97.9 80 18 152/90 95 Room Air 11/29 1938 71 18 194/81 96 11/29 1858 Room Air Room Air 11/29 1645 98.6 78 18 123/70 98 Room Air Intake & Output 11/30 1600 11/30 0400 11/29 1600 11/29 0400 11/28 1600 11/28 0400 Intake Total 1280 1000 Output Total 730 Balance 550 1000 Intake, IV 800 1000 Intake, Oral 480 0 Output, Urine 730 Patient 284 lb Weight Weight Reported by Patient Measurement Method Physical Exam: NAD VS as above. Eyes: anicteric, PERRLA Neck: no mass or thryomegaly Nodes: negative cervical/inguinal Skin: no rash or induration Lungs: clear P&A CV: no rub or murmur Abd: nontender, bs positive no organomegaly Exts:trace edema , absent pedal pulses Neuro: A&O, no asterixis. Results Pertinent Lab Results: Laboratory Tests 11/30 11/30 0735 0620 Chemistry Sodium (137 - 145 mmol/L) 139 Potassium (3.5 - 5.1 mmol/L) 3.3 L Chloride (98 - 107 mmol/L) 111 H Carbon Dioxide (22 - 30 mmol/L) 17 L Anion Gap (5 - 16) 11 BUN (9 - 20 mg/dL) 43 H Creatinine (0.7 - 1.2 mg/dL) 6.3 *H Estimated GFR (>60 ml/min) 9 L BUN/Creatinine Ratio (7 - 25 %) 6.8 L Hematology CBC w Diff NO MAN DIFF REQ WBC (4.8 - 10.8 /CUMM) 13.3 H RBC (4.70 - 6.10 /CUMM) 3.83 L Hgb (14.0 - 18.0 G/DL) 11.6 L Hct (42 - 52 %) 34.5 L MCV (80.0 - 94.0 FL) 90.1 MCH (27.0 - 31.0 PG) 30.3 MCHC (33.0 - 37.0 G/DL) 33.7 RDW (11.5 - 14.5 %) 14.1 Plt Count (130 - 400 /CUMM) 377 MPV (7.4 - 10.4 FL) 7.2 L Gran % (42.2 - 75.2 %) 72.4 Lymphocytes % (20.5 - 51.1 %) 14.9 L Monocytes % (1.7 - 9.3 %) 6.8 Eosinophils % (0 - 5 %) 5.2 H Basophils % (0.0 - 2.0 %) 0.7 Absolute Granulocytes (1.4 - 6.5 /CUMM) 9.7 H Absolute Lymphocytes (1.2 - 3.4 /CUMM) 2.0 Absolute Monocytes (0.10 - 0.60 /CUMM) 0.9 H Absolute Eosinophils (0.0 - 0.7 /CUMM) 0.7 Absolute Basophils (0.0 - 0.2 /CUMM) 0.1 Urines Urinalysis MANY H Urine Color (YEL,AMB,STR) YEL Urine Clarity (CLEAR) HAZY H Urine pH (5.0 - 8.0) 6.0 Ur Specific [place] (1.001 - 1.035) 1.020 Urine Protein (NEG,<30 MG/DL) >=300 H Urine Ketones (NEG) NEG Urine Nitrite (NEG) POS H Urine Bilirubin (NEG) NEG Urine Urobilinogen (0.1 - 1.0 EU/dl) 0.2 Ur Leukocyte Esterase (NEG) SMALL H Ur Microscopic SEDIMENT EXAMINED Urine RBC (0 - 5 /HPF) 15-25 H Urine WBC (0 - 2 /HPF) > 75 H Ur Epithelial Cells (NONE,FEW) FEW Hyaline Casts (0/LPF) 5-10 H Urine Mucus (FEW,NONE) FEW Urine Hemoglobin (NEG) MOD H Urine Glucose (N MG/DL) >=1000 H 11/30 11/29 0620 1654 Chemistry Sodium (137 - 145 mmol/L) 138 Potassium (3.5 - 5.1 mmol/L) 3.5 Chloride (98 - 107 mmol/L) 107 Carbon Dioxide (22 - 30 mmol/L) 19 L Anion Gap (5 - 16) 12 BUN (9 - 20 mg/dL) 43 H Creatinine (0.7 - 1.2 mg/dL) 6.5 *H Estimated GFR (>60 ml/min) 9 L BUN/Creatinine Ratio (7 - 25 %) 6.6 L Glucose (65 - 99 mg/dL) 257 H Calcium (8.4 - 10.2 mg/dL) 7.2 L Total Bilirubin (0.2 - 1.3 mg/dL) 0.2 AST (17 - 59 U/L) 22 ALT (21 - 72 U/L) 26 Alkaline Phosphatase (< 127 U/L) 142 H Troponin I (<0.11 ng/ml) 0.04 Total Protein (6.3 - 8.2 g/dL) 5.0 L Albumin (3.5 - 5.0 g/dL) 2.2 L Globulin (1.9 - 4.2 gm/dL) 2.8 Albumin/Globulin Ratio (1.1 - 2.2 %) 0.8 L Hematology CBC w Diff NO MAN DIFF REQ WBC (4.8 - 10.8 /CUMM) 14.2 H RBC (4.70 - 6.10 /CUMM) 3.88 L Hgb (14.0 - 18.0 G/DL) 11.7 L Hct (42 - 52 %) 35.2 L MCV (80.0 - 94.0 FL) 90.7 MCH (27.0 - 31.0 PG) 30.1 MCHC (33.0 - 37.0 G/DL) 33.2 RDW (11.5 - 14.5 %) 14.3 Plt Count (130 - 400 /CUMM) 408 H MPV (7.4 - 10.4 FL) 6.5 L Gran % (42.2 - 75.2 %) 78.3 H Lymphocytes % (20.5 - 51.1 %) 10.4 L Monocytes % (1.7 - 9.3 %) 5.4 Eosinophils % (0 - 5 %) 5.1 H Basophils % (0.0 - 2.0 %) 0.8 Absolute Granulocytes (1.4 - 6.5 /CUMM) 11.1 H Absolute Lymphocytes (1.2 - 3.4 /CUMM) 1.5 Absolute Monocytes (0.10 - 0.60 /CUMM) 0.8 H Absolute Eosinophils (0.0 - 0.7 /CUMM) 0.7 Absolute Basophils (0.0 - 0.2 /CUMM) 0.1 Urines Ur Random Creatinine (mg/dL) 52.2 Ur Random Sodium (30 - 90 mmol/L) 49 Ur Random Potassium (mmol/L) 14.3 Fraction Sodium Excret (<1% %) 4.4 H Assessment/Plan Assessment/Recommendations Assessment: CHANDANA from volume depletion superimposed on RAAS inhibition. He has stage IV ckd and unclear how much of rise is due to progression of disease. No uremic symptoms and cause of diarrhea unclear. He has a chronic cough which he states triggers his vomiting and possible this is due to ACEI. Recommendations: Would continue NS for now to see how good renal function can get. Would start NaHCO3 650 mg tabs, 2 tid for worsening metabolic acidosis. Keep him off lisinopril for now. Once renal function reaches baseline would restart ARB and see if this improves cough. He does need a CXR as I don't see a recent one on chart. Discussed dialysis options with patient but he is still considering them.
[2017-11-30 10:33] VITALS: BP 170/80
--- NOTE | 2017-11-30 12:54 | Cons- Endocrinology ---
General Information and HPI Consulting Request Date of Consult: 11/30/17 Requested By: MEDICAL TEAM Reason for Consult: UNCONTROLLED DIABETES Source of Information: patient, old records Exam Limitations: no limitations History of Present Illness: This 52-year-old male has a known history of diabetes mellitus type 2 associated with morbid obesity. He also has chronic kidney disease stage IV. He came into the hospital with diarrhea and dehydration. He has developed worsening of his creatinine. In speaking with the patient he had one time was on 40 units of Levemir at bedtime. However at home he noticed he was able to eliminate the insulin and his sugars stayed in a good range. When he took the Levemir he was getting hypoglycemia. The patient also tapered himself off the female fast acting insulin. In the hospital the patient's blood sugar this morning was 164 and he did not receive Levemir last night and before lunch it is now 212. Yesterday his sugars were higher at 313 and 263. Allergies/Medications Allergies: Coded Allergies: shellfish derived (SEAFOOD- NAUSEA AND DIZZINESS 04/27/17) Home Med List: Clonidine HCl 0.1 MG TABLET 1 TAB PO QHS BP (Reported) Ergocalciferol (Vitamin D2) (Vitamin D2) 50,000 UNIT CAPSULE 1 CAP PO QFRI SUPPLEMENT (Reported) Fenofibrate Nanocrystallized (Fenofibrate) 145 MG TABLET 1 TAB PO DAILY CHOLESTEROL/TRIGLYCERIDES (Reported) Insulin Detemir (Levemir) 100 UNIT/ML VIAL 40 UNITS SC QHS DM (Reported) Insulin Lispro (Humalog Kwikpen U-100) 100 UNIT/ML INSULN.PEN DM (Reported) Levothyroxine Sodium 50 MCG TABLET 1 TAB PO DAILY THYROID (Reported) Lisinopril 40 MG TABLET 1 TAB PO DAILY BP (Reported) Moxifloxacin Hydrochloride (Vigamox) 0.5 % DROPS 1 GTT OS 4XDAILY LEFT EYE ( Reported) Prednisolone Acetate 1 % DROPS.SUSP 1 GTT OS 4 TIMES/DAY LEFT EYE (Reported) Rosuvastatin Calcium (Crestor) 5 MG TABLET 1 TAB PO Monday CHOLESTEROL (Reported) Tadalafil (Cialis) 5 MG TABLET 1 TAB PO DAILY ED (Reported) Current Medications: Current Medications Sig/Buddy Start time Last Medication Dose Route Stop Time Status Admin Acetaminophen 650 MG Q6P PRN 11/29 2145 AC PO Amlodipine Besylate 2.5 MG ONCE ONE 11/30 0645 DC 11/30 PO 11/30 0646 0922 Atorvastatin Calcium 20 MG 1700 11/30 1700 AC PO Clonidine 0 .STK-MED ONE 11/29 2244 DC PO Clonidine 0.1 MG AT BEDTIME 11/29 2200 AC 11/29 PO 2243 Fenofibrate 145 MG DAILY 11/30 1000 AC 11/30 PO 0917 Heparin Sodium 0 .STK-MED ONE 11/29 2244 DC (Porcine) .ROUTE Heparin Sodium 5,000 UNIT Q8 11/29 2200 AC 11/30 (Porcine) SC 0609 Hydrocodone Bitart/ 1 TAB Q6P PRN 11/29 2145 AC Acetaminophen PO Insulin Aspart 0 TIDAC 11/30 0800 DC SC Insulin Aspart 0 TIDAC 11/30 0245 AC 11/30 SC 0916 Insulin Detemir 40 UNITS AT BEDTIME 11/30 2200 AC SC Levothyroxine Sodium 0.05 MG DAILY AC 11/30 0700 AC 11/30 PO 0610 Ofloxacin 1 GTT 4 TIMES/DAY 11/30 1000 AC 11/30 OPH 0623 Ofloxacin 1 GTT Q4 11/29 2200 DC 11/29 OPH 2244 Oxycodone/ 2 TAB Q6P PRN 11/29 2145 AC Acetaminophen PO Patient Medication 1 ED ONE ONE 11/30 1000 DC Teaching ED 11/30 1001 Prednisolone 1 GTT 4 TIMES/DAY 11/29 2200 AC 11/30 OPH 0922 Sodium Chloride 1,000 ML Q10H 11/29 2300 AC 11/30 IV 1126 Sodium Chloride 1,000 ML Q10H 11/29 2145 CAN IV Sodium Chloride 1,000 ML BOLUS ONE 11/29 1830 DC 11/29 IV 11/29 1928 1859 Sodium Chloride 1,000 ML BOLUS ONE 11/29 1830 DC 11/29 IV 11/29 Past History Travel History Traveled to [place] past 21 day No Medical History Blood Transfusion Hx: No Neurological: neuropathy EENT: NONE Cardiovascular: hypertension Respiratory: NONE Gastrointestinal: NONE Hepatic: NONE Renal: chronic kidney disease Musculoskeletal: NONE Psychiatric: NONE Endocrine: diabetes Blood Disorders: NONE Cancer(s): NONE SERVICE MANAGER/Reproductive: NONE Surgical History Surgical History: non-contributory Family History Relations & Conditions If Any: Relation not specified for: *No pertinent family history Psychosocial History Where Do You Live? Home Services at Home: None Smoking Status: Never Smoked ETOH Use: denies use Illicit Drug Use: denies illicit drug use Exam & Diagnostic Data Last 24 Hrs of Vital Signs/I&O Vital Signs Date Time Temp Pulse Resp B/P B/P Pulse O2 O2 Flow FiO2 Mean Ox Delivery Rate 11/30 1033 170/80 11/30 0922 74 200/98 11/30 0915 200/98 11/30 0800 Room Air 11/30 0720 218/110 11/30 0712 98.1 74 20 180/100 95 Room Air 11/29 2301 97.4 80 18 140/80 95 Room Air 11/29 2236 97.9 80 18 152/90 95 Room Air 11/29 1938 71 18 194/81 96 11/29 1858 Room Air Room Air 11/29 1645 98.6 78 18 123/70 98 Room Air Intake & Output 11/30 1600 11/30 0800 11/30 0000 Intake Total 1280 1000 Output Total 400 730 Balance -250 576 3892 Intake, IV 800 1000 Intake, Oral 480 0 Output, Urine 400 730 Patient 284 lb Weight Weight Reported by Patient Measurement Method Vital Signs Date Time Temp Pulse Resp B/P B/P Pulse O2 O2 Flow FiO2 Mean Ox Delivery Rate 11/30 1033 170/80 11/30 0922 74 200/98 11/30 0915 200/98 11/30 0800 Room Air 11/30 0720 218/110 11/30 0712 98.1 74 20 180/100 95 Room Air 11/29 2301 97.4 80 18 140/80 95 Room Air 11/29 2236 97.9 80 18 152/90 95 Room Air 11/29 1938 71 18 194/81 96 11/29 1858 Room Air Room Air 11/29 1645 98.6 78 18 123/70 98 Room Air Intake & Output 11/30 1600 11/30 0800 11/30 0000 Intake Total 1280 1000 Output Total 400 730 Balance -870 019 7369 Intake, IV 800 1000 Intake, Oral 480 0 Output, Urine 400 730 Patient 284 lb Weight Weight Reported by Patient Measurement Method Physical Exam General Appearance: alert, awake, comfortable Head: normal appearance Neck: normal inspection Cardiovascular: regular rate/rhythm Gastrointestinal: normal bowel sounds Extremities: normal inspection Labs/Haseeb Results: Laboratory Tests 11/30 11/30 0735 0620 Chemistry Sodium (137 - 145 mmol/L) 139 Potassium (3.5 - 5.1 mmol/L) 3.3 L Chloride (98 - 107 mmol/L) 111 H Carbon Dioxide (22 - 30 mmol/L) 17 L Anion Gap (5 - 16) 11 BUN (9 - 20 mg/dL) 43 H Creatinine (0.7 - 1.2 mg/dL) 6.3 *H Estimated GFR (>60 ml/min) 9 L BUN/Creatinine Ratio (7 - 25 %) 6.8 L Hematology CBC w Diff NO MAN DIFF REQ WBC (4.8 - 10.8 /CUMM) 13.3 H RBC (4.70 - 6.10 /CUMM) 3.83 L Hgb (14.0 - 18.0 G/DL) 11.6 L Hct (42 - 52 %) 34.5 L MCV (80.0 - 94.0 FL) 90.1 MCH (27.0 - 31.0 PG) 30.3 MCHC (33.0 - 37.0 G/DL) 33.7 RDW (11.5 - 14.5 %) 14.1 Plt Count (130 - 400 /CUMM) 377 MPV (7.4 - 10.4 FL) 7.2 L Gran % (42.2 - 75.2 %) 72.4 Lymphocytes % (20.5 - 51.1 %) 14.9 L Monocytes % (1.7 - 9.3 %) 6.8 Eosinophils % (0 - 5 %) 5.2 H Basophils % (0.0 - 2.0 %) 0.7 Absolute Granulocytes (1.4 - 6.5 /CUMM) 9.7 H Absolute Lymphocytes (1.2 - 3.4 /CUMM) 2.0 Absolute Monocytes (0.10 - 0.60 /CUMM) 0.9 H Absolute Eosinophils (0.0 - 0.7 /CUMM) 0.7 Absolute Basophils (0.0 - 0.2 /CUMM) 0.1 Urines Urinalysis MANY H Urine Color (YEL,AMB,STR) YEL Urine Clarity (CLEAR) HAZY H Urine pH (5.0 - 8.0) 6.0 Ur Specific [place] (1.001 - 1.035) 1.020 Urine Protein (NEG,<30 MG/DL) >=300 H Urine Ketones (NEG) NEG Urine Nitrite (NEG) POS H Urine Bilirubin (NEG) NEG Urine Urobilinogen (0.1 - 1.0 EU/dl) 0.2 Ur Leukocyte Esterase (NEG) SMALL H Ur Microscopic SEDIMENT EXAMINED Urine RBC (0 - 5 /HPF) 15-25 H Urine WBC (0 - 2 /HPF) > 75 H Ur Epithelial Cells (NONE,FEW) FEW Hyaline Casts (0/LPF) 5-10 H Urine Mucus (FEW,NONE) FEW Urine Hemoglobin (NEG) MOD H Urine Glucose (N MG/DL) >=1000 H 11/30 11/29 0620 1654 Chemistry Sodium (137 - 145 mmol/L) 138 Potassium (3.5 - 5.1 mmol/L) 3.5 Chloride (98 - 107 mmol/L) 107 Carbon Dioxide (22 - 30 mmol/L) 19 L Anion Gap (5 - 16) 12 BUN (9 - 20 mg/dL) 43 H Creatinine (0.7 - 1.2 mg/dL) 6.5 *H Estimated GFR (>60 ml/min) 9 L BUN/Creatinine Ratio (7 - 25 %) 6.6 L Glucose (65 - 99 mg/dL) 257 H Calcium (8.4 - 10.2 mg/dL) 7.2 L Total Bilirubin (0.2 - 1.3 mg/dL) 0.2 AST (17 - 59 U/L) 22 ALT (21 - 72 U/L) 26 Alkaline Phosphatase (< 127 U/L) 142 H Troponin I (<0.11 ng/ml) 0.04 Total Protein (6.3 - 8.2 g/dL) 5.0 L Albumin (3.5 - 5.0 g/dL) 2.2 L Globulin (1.9 - 4.2 gm/dL) 2.8 Albumin/Globulin Ratio (1.1 - 2.2 %) 0.8 L Hematology CBC w Diff NO MAN DIFF REQ WBC (4.8 - 10.8 /CUMM) 14.2 H RBC (4.70 - 6.10 /CUMM) 3.88 L Hgb (14.0 - 18.0 G/DL) 11.7 L Hct (42 - 52 %) 35.2 L MCV (80.0 - 94.0 FL) 90.7 MCH (27.0 - 31.0 PG) 30.1 MCHC (33.0 - 37.0 G/DL) 33.2 RDW (11.5 - 14.5 %) 14.3 Plt Count (130 - 400 /CUMM) 408 H MPV (7.4 - 10.4 FL) 6.5 L Gran % (42.2 - 75.2 %) 78.3 H Lymphocytes % (20.5 - 51.1 %) 10.4 L Monocytes % (1.7 - 9.3 %) 5.4 Eosinophils % (0 - 5 %) 5.1 H Basophils % (0.0 - 2.0 %) 0.8 Absolute Granulocytes (1.4 - 6.5 /CUMM) 11.1 H Absolute Lymphocytes (1.2 - 3.4 /CUMM) 1.5 Absolute Monocytes (0.10 - 0.60 /CUMM) 0.8 H Absolute Eosinophils (0.0 - 0.7 /CUMM) 0.7 Absolute Basophils (0.0 - 0.2 /CUMM) 0.1 Urines Ur Random Creatinine (mg/dL) 52.2 Ur Random Sodium (30 - 90 mmol/L) 49 Ur Random Potassium (mmol/L) 14.3 Fraction Sodium Excret (<1% %) 4.4 H Assessment/Plan Assessment/Plan This 52-year-old male has a known history of diabetes mellitus type 2 uncontrolled associated with molrbid obesity. The patient states he essentially eliminated the Levemir at home because of hypoglycemia during the night whenever he took his Levemir. He was taking only small doses of fast acting insulin before meals. The patient also has evidence of acute kidney injury. He is being hydrated with saline. This morning before breakfast the patient sugar was 164. Suggest we can discontinue the Levemir. We will adjust his sliding scale NovoLog before meals. Sliding scale NovoLog before meals should be 80-150 give 4 units NovoLog, 151-200 give 5 units NovoLog , 201-250 give 6 units NovoLog, 251-300 give 7 units NovoLog, 301-350 give 8 units NovoLog, 351-400 give 9 units NovoLog. We should continue to check his fingerstick blood sugars 4 times a day. In addition we shall order a thyroid function tests including a free T4 and TSH as the patient has a previous history of hypothyroidism and is presently on levothyroxine 50 mcg daily. Further management of his kidney disease as per the renal fitness consultant. Consult Acknowledgment - Thank you for your consult request.
--- NOTE | 2017-11-30 13:05 | PN- Att Addend ---
Attending Addendum Attending Brief Note No new complaints blood pressure little bit higher after hydration. No other changes. Monitoring blood work carefully Paddy Harman MD saw the patient to regulate his blood sugars the patient was having low sugars so the Levemir was put on hold and he will be on insulin coverage with meals and also will continue carefully monitoring his kidney function and follow Dr. Anderson recommendations. 24 TOTALS 11/30 0000 11/29 0000 Intake Total 1000 Output Total Balance 1000 Intake, IV 1000 Intake, Oral 0 Patient 284 lb Weight Weight Reported by Patient Measurement Method Current Medications Sig/Buddy Start time Last Medication Dose Route Stop Time Status Admin Acetaminophen 650 MG Q6P PRN 11/29 2145 AC PO Amlodipine Besylate 2.5 MG ONCE ONE 11/30 0645 DC 11/30 PO 11/30 0646 0922 Atorvastatin Calcium 20 MG 1700 11/30 1700 AC PO Clonidine 0 .STK-MED ONE 11/29 2244 DC PO Clonidine 0.1 MG AT BEDTIME 11/29 2200 AC 11/29 PO 2243 Fenofibrate 145 MG DAILY 11/30 1000 AC 11/30 PO 0917 Heparin Sodium 0 .STK-MED ONE 11/29 2244 DC (Porcine) .ROUTE Heparin Sodium 5,000 UNIT Q8 11/29 2200 AC 11/30 (Porcine) SC 0609 Hydrocodone Bitart/ 1 TAB Q6P PRN 11/29 2145 AC Acetaminophen PO Insulin Aspart 0 TIDAC 11/30 0800 DC SC Insulin Aspart 0 TIDAC 11/30 0245 AC 11/30 SC 0916 Insulin Detemir 40 UNITS AT BEDTIME 11/30 2200 AC SC Levothyroxine Sodium 0.05 MG DAILY AC 11/30 0700 AC 11/30 PO 0610 Ofloxacin 1 GTT 4 TIMES/DAY 11/30 1000 AC 11/30 OPH 0623 Ofloxacin 1 GTT Q4 11/29 2200 DC 11/29 OPH 2244 Oxycodone/ 2 TAB Q6P PRN 11/29 2145 AC Acetaminophen PO Patient Medication 1 ED ONE ONE 11/30 1000 DC Teaching ED 11/30 1001 Prednisolone 1 GTT 4 TIMES/DAY 11/29 2200 AC 11/30 OPH 0922 Sodium Chloride 1,000 ML Q10H 11/29 2300 AC 11/30 IV 1126 Sodium Chloride 1,000 ML Q10H 11/29 2145 CAN IV Sodium Chloride 1,000 ML BOLUS ONE 11/29 183 DC 11/29 IV 11/29 1928 185 Sodium Chloride 1,000 ML BOLUS ONE 11/29 183 DC 11/29 IV 11/29 Laboratory Tests 11/30/17 0735: Anion Gap 11, Estimated GFR 9 L, BUN/Creatinine Ratio 6.8 L, CBC w Diff NO MAN DIFF REQ, RBC 3.83 L, MCV 90.1, MCH 30.3, MCHC 33.7, RDW 14.1, MPV 7.2 L, Gran % 72.4, Lymphocytes % 14.9 L, Monocytes % 6.8, Eosinophils % 5.2 H, Basophils % 0.7, Absolute Granulocytes 9.7 H, Absolute Lymphocytes 2.0, Absolute Monocytes 0.9 H, Absolute Eosinophils 0.7, Absolute Basophils 0.1 11/30/17 0620: Urinalysis MANY H, Urine Color YEL, Urine Clarity HAZY H, Urine pH 6.0, Ur Specific [place] 1.020, Urine Protein >=300 H, Urine Ketones NEG, Urine Nitrite POS H, Urine Bilirubin NEG, Urine Urobilinogen 0.2, Ur Leukocyte Esterase SMALL H, Ur Microscopic SEDIMENT EXAMINED, Urine RBC 15-25 H, Urine WBC > 75 H, Ur Epithelial Cells FEW, Hyaline Casts 5-10 H, Urine Mucus FEW, Urine Hemoglobin MOD H, Urine Glucose >=1000 H 11/30/17 0620: Ur Random Creatinine 52.2, Ur Random Sodium 49, Ur Random Potassium 14.3, Fraction Sodium Excret 4.4 H 11/29/17 1654: Anion Gap 12, Estimated GFR 9 L, BUN/Creatinine Ratio 6.6 L, Glucose 257 H, Calcium 7.2 L, Total Bilirubin 0.2, AST 22, ALT 26, Alkaline Phosphatase 142 H , Troponin I 0.04, Total Protein 5.0 L, Albumin 2.2 L, Globulin 2.8, Albumin/ Globulin Ratio 0.8 L, CBC w Diff NO MAN DIFF REQ, RBC 3.88 L, MCV 90.7, MCH 30.1, MCHC 33.2, RDW 14.3, MPV 6.5 L, Gran % 78.3 H, Lymphocytes % 10.4 L, Monocytes % 5.4, Eosinophils % 5.1 H, Basophils % 0.8, Absolute Granulocytes 11.1 H, Absolute Lymphocytes 1.5, Absolute Monocytes 0.8 H, Absolute Eosinophils 0.7, Absolute Basophils 0.1 Vital Signs Date Time Temp Pulse Resp B/P B/P Pulse O2 O2 Flow FiO2 Mean Ox Delivery Rate 11/30 1033 170/80 11/30 0922 74 200/98 11/30 0915 200/98 11/30 0800 Room Air 11/30 0720 218/110 11/30 0712 98.1 74 20 180/100 95 Room Air 11/29 2301 97.4 80 18 140/80 95 Room Air 11/29 2236 97.9 80 18 152/90 95 Room Air 11/29 1938 71 18 194/81 96 11/29 1858 Room Air Room Air 11/29 1645 98.6 78 18 123/70 98 Room Air
[2017-11-30 13:54] VITALS: BP 142/60
--- NOTE | 2017-11-30 15:48 | RADIOLOGY REPORT ---
EXAMINATION: XR PORTABLE CHEST CLINICAL INFORMATION: Follow-up, no acute symptoms. COMPARISON: Chest x-ray dated 04/27/2017. TECHNIQUE: Portable frontal view of the chest was obtained. FINDINGS: The lung volumes are low bilaterally. No focal areas of airspace opacification are noted. There is no evidence of pleural effusion or pneumothorax. The cardiac silhouette is not enlarged. Stable appearance of the bony structures and soft tissues. IMPRESSION: No acute cardiopulmonary findings.
[2017-11-30 22:21] VITALS: BP 180/98
[2017-12-01 06:58] VITALS: BP 140/80
--- NOTE | 2017-12-01 07:48 | PN- Diabetes ---
Assessment/Plan Diabetes Assessment: This patient has type 2 diabetes associated with morbid obesity. He was complaining of low blood sugars during the night when he was taking Levemir at home. Yesterday we stopped his Levemir and placed him just on sliding scale NovoLog before meals. Yesterday his blood sugar was 175 before dinner and 147 at bedtime. His blood sugar this morning is 195. Plan: Suggest resume Levemir at a dosage of 10 units at bedtime daily. Continue present sliding scale NovoLog. Patient is continuing hydration in view of his renal disease. Further management as per renal consult. Subjective Subjective: Has no appetite Review of Systems Constitutional: Denies: chills, fever. Cardiovascular: Denies: chest pain. Respiratory: Denies: cough, short of breath. Gastrointestinal: Denies: abdominal pain, vomiting. Skin: Reports: no symptoms. Objective Last 24 Hrs of Vital Signs/I&O Vital Signs Date Time Temp Pulse Resp B/P B/P Pulse O2 O2 Flow FiO2 Mean Ox Delivery Rate 12/01 0658 98.4 74 20 140/80 96 Room Air 11/30 2220 98.6 74 20 180/98 96 Room Air 11/30 180/98 11/30 1354 97.8 74 20 142/60 97 Room Air 11/30 1033 170/80 11/30 09 74 200/98 11/30 0915 200/98 11/30 0800 Room Air Intake & Output 12/01 0000 11/30 1600 Intake Total 1080 1280 Output Total 0101 928 5483 Balance -1125 580 280 Intake, IV 800 800 Intake, Oral 280 480 Number 0 Bowel Movements Output, Urine 8395 026 2107 Vital Signs Date Time Temp Pulse Resp B/P B/P Pulse O2 O2 Flow FiO2 Mean Ox Delivery Rate 12/01 0658 98.4 74 20 140/80 96 Room Air 11/301 98.6 74 20 180/98 96 Room Air 11/30 180/98 11/30 1354 97.8 74 20 142/60 97 Room Air 11/30 1033 170/80 11/30 0922 74 200/98 11/30 0915 200/98 11/30 0800 Room Air Intake & Output 12/01 0800 12/01 0000 11/30 1600 Intake Total 1080 1280 Output Total 6025 039 2781 Balance -1125 580 280 Intake, IV 800 800 Intake, Oral 280 480 Number 0 Bowel Movements Output, Urine 8420 543 5451 Physical Exam General Appearance: alert, awake, comfortable Head: normal appearance Neck: normal inspection Respiratory: normal breath sounds Cardiovascular: regular rate/rhythm Abdomen: normal bowel sounds, soft Extremities: normal inspection Current Medications: Current Medications Sig/Buddy Start time Last Medication Dose Route Stop Time Status Admin Acetaminophen 650 MG Q6P PRN 11/29 2145 AC PO Atorvastatin Calcium 20 MG 1700 11/30 1700 AC 11/30 PO 1724 Benzonatate 100 MG TID PRN 11/30 2100 AC PO Clonidine 0.1 MG AT BEDTIME 11/29 2200 AC 11/30 PO 2011 Fenofibrate 145 MG DAILY 11/30 1000 AC 11/30 PO 0917 Heparin Sodium 5,000 UNIT Q8 11/29 2200 AC 12/01 (Porcine) SC 0607 Hydrocodone Bitart/ 1 TAB Q6P PRN 11/29 2145 AC Acetaminophen PO Insulin Aspart 0 TIDAC 11/30 0245 AC 11/30 SC 1723 Insulin Detemir 40 UNITS AT BEDTIME 11/30 2200 CAN SC Levothyroxine Sodium 0.05 MG DAILY AC 11/30 0700 AC 12/01 PO 0607 Ofloxacin 1 GTT 4 TIMES/DAY 11/30 1000 AC 11/30 OPH 2011 Oxycodone/ 2 TAB Q6P PRN 11/29 2145 AC Acetaminophen PO Patient Medication 1 ED ONE ONE 11/30 1000 DC 11/30 Teaching ED 11/30 1001 1406 Prednisolone 1 GTT 4 TIMES/DAY 11/29 2200 AC 11/30 OPH 2012 Sodium Bicarbonate 650 MG TID 11/30 1600 AC 11/30 PO 2012 Sodium Chloride 1,000 ML Q10H 11/29 2300 AC 12/01 IV 0614
[2017-12-01 08:58] LABS: ABSOLUTE BASOPHIL COUNT 0.1 /CUMM (0.0-0.2); ABSOLUTE EOSINOPHIL COUNT 0.7 /CUMM (0.0-0.7); ABSOLUTE GRANULOCYTE CT 8.5 /CUMM (1.4-6.5); ABSOLUTE LYMPH COUNT 2.2 /CUMM (1.2-3.4); ABSOLUTE MONOCYTE COUNT 0.9 /CUMM (0.10-0.60); BASOPHIL % 0.5 % (0.0-2.0); EOSINOPHIL % 5.8 % (0-5); GRANULOCYTE % 69.1 % (42.2-75.2); HEMATOCRIT 34.7 % (42-52); MEAN CORPUSCULAR HGB 30.7 PG (27.0-31.0); MEAN CORPUSCULAR HGB CONC 34.1 G/DL (33.0-37.0); MEAN CORPUSCULAR VOLUME 90.1 FL (80.0-94.0); MEAN PLATELET VOLUME 7.2 FL (7.4-10.4); PLATELET COUNT 410 /CUMM (130-400); RBC DISTRIBUTION WIDTH 14.4 % (11.5-14.5); RED BLOOD CELL CT 3.84 /CUMM (4.70-6.10); WHITE BLOOD CELL COUNT 12.4 /CUMM (4.8-10.8)
--- NOTE | 2017-12-01 10:48 | PN- Att Addend ---
Attending Addendum Attending Brief Note Patient feeling a little better sitting in the chair still getting IV fluids. Systolic blood pressure was 170 diastolic was okay. No new changes on physical and appreciate endocrinology and nephrology inputs and recommendations. His BUN has been 55, 43, 43 and 40. Creatinines of 6.5 , 6.3 , and 6.0 potassium was 3.5 will continue treatment as per consultants recommendations. Intake & Output 12/01 1600 12/01 0400 11/30 1600 11/30 0400 11/29 1600 11/29 0400 Intake Total 1300 1080 2560 1000 Output Total 5851 760 5553 Balance -125 758 039 0547 Intake, IV 869 527 8051 1000 Intake, Oral 500 280 960 0 Number 0 Bowel Movements Output, Urine 0392 210 0983 Patient 284 lb Weight Weight Reported by Patient Measurement Method Current Medications Sig/Buddy Start time Last Medication Dose Route Stop Time Status Admin Acetaminophen 650 MG Q6P PRN 11/29 214 AC PO Atorvastatin Calcium 20 MG 1700 11/30 1700 AC 11/30 PO 1724 Benzonatate 100 MG TID PRN 11/30 2100 AC PO Clonidine 0.1 MG AT BEDTIME 11/29 220 AC 11/30 PO 2011 Fenofibrate 145 MG DAILY 11/30 1000 AC 12/01 PO 1004 Heparin Sodium 5,000 UNIT Q8 11/29 2199 AC 12/01 (Porcine) SC 0607 Hydrocodone Bitart/ 1 TAB Q6P PRN 11/29 214 AC Acetaminophen PO Insulin Aspart 0 TIDAC 11/30 0245 AC 12/01 SC 0815 Insulin Detemir 40 UNITS AT BEDTIME 11/30 2199 CAN SC Levothyroxine Sodium 0.05 MG DAILY AC 11/30 0700 AC 12/01 PO 0607 Ofloxacin 1 GTT 4 TIMES/DAY 11/30 1000 AC 12/01 OPH 1005 Oxycodone/ 2 TAB Q6P PRN 11/29 214 AC Acetaminophen PO Prednisolone 1 GTT 4 TIMES/DAY 11/29 2199 AC 12/01 OPH 1005 Sodium Bicarbonate 650 MG TID 11/30 1600 AC 12/01 PO 1003 Sodium Chloride 1,000 ML Q10H 11/29 2300 AC 12/01 IV 0614 Laboratory Tests 12/01/17 0756: Anion Gap 11, Estimated GFR 9 L, BUN/Creatinine Ratio 6.3 L, CBC w Diff NO MAN DIFF REQ, RBC 3.84 L, MCV 90.1, MCH 30.7, MCHC 34.1, RDW 14.4, MPV 7.2 L, Gran % 69.1, Lymphocytes % 17.7 L, Monocytes % 6.9, Eosinophils % 5.8 H, Basophils % 0.5, Absolute Granulocytes 8.5 H, Absolute Lymphocytes 2.2, Absolute Monocytes 0.9 H, Absolute Eosinophils 0.7, Absolute Basophils 0.1 11/30/17 0735: Anion Gap 11, Estimated GFR 9 L, BUN/Creatinine Ratio 6.8 L, TSH 1.660, Thyroxine (T4) 5.2, CBC w Diff NO MAN DIFF REQ, RBC 3.83 L, MCV 90.1, MCH 30.3, MCHC 33.7, RDW 14.1, MPV 7.2 L, Gran % 72.4, Lymphocytes % 14.9 L, Monocytes % 6.8, Eosinophils % 5.2 H, Basophils % 0.7, Absolute Granulocytes 9.7 H, Absolute Lymphocytes 2.0, Absolute Monocytes 0.9 H, Absolute Eosinophils 0.7, Absolute Basophils 0.1 11/30/17 0620: Urinalysis MANY H, Urine Color YEL, Urine Clarity HAZY H, Urine pH 6.0, Ur Specific [place] 1.020, Urine Protein >=300 H, Urine Ketones NEG, Urine Nitrite POS H, Urine Bilirubin NEG, Urine Urobilinogen 0.2, Ur Leukocyte Esterase SMALL H, Ur Microscopic SEDIMENT EXAMINED, Urine RBC 15-25 H, Urine WBC > 75 H, Ur Epithelial Cells FEW, Hyaline Casts 5-10 H, Urine Mucus FEW, Urine Hemoglobin MOD H, Urine Glucose >=1000 H 11/30/17 0620: Ur Random Creatinine 52.2, Ur Random Sodium 49, Ur Random Potassium 14.3, Fraction Sodium Excret 4.4 H 11/29/17 1654: Anion Gap 12, Estimated GFR 9 L, BUN/Creatinine Ratio 6.6 L, Glucose 257 H, Calcium 7.2 L, Total Bilirubin 0.2, AST 22, ALT 26, Alkaline Phosphatase 142 H , Troponin I 0.04, Total Protein 5.0 L, Albumin 2.2 L, Globulin 2.8, Albumin/ Globulin Ratio 0.8 L, CBC w Diff NO MAN DIFF REQ, RBC 3.88 L, MCV 90.7, MCH 30.1, MCHC 33.2, RDW 14.3, MPV 6.5 L, Gran % 78.3 H, Lymphocytes % 10.4 L, Monocytes % 5.4, Eosinophils % 5.1 H, Basophils % 0.8, Absolute Granulocytes 11.1 H, Absolute Lymphocytes 1.5, Absolute Monocytes 0.8 H, Absolute Eosinophils 0.7, Absolute Basophils 0.1 Vital Signs Date Time Temp Pulse Resp B/P B/P Pulse O2 O2 Flow FiO2 Mean Ox Delivery Rate 12/01 0658 98.4 74 20 140/80 96 Room Air 11/30 2221 98.6 74 20 180/98 96 Room Air 11/30 2010 88 180/98 11/30 1354 97.8 74 20 142/60 97 Room Air
--- NOTE | 2017-12-01 11:04 | PN- Housestaff ---
Subjective Follow-up For: weakness, N and V CHANDANA on CKD Review of Systems Constitutional: Reports: see HPI. Objective Last 24 Hrs of Vital Signs/I&O Vital Signs Date Time Temp Pulse Resp B/P B/P Pulse O2 O2 Flow FiO2 Mean Ox Delivery Rate 12/01 0658 98.4 74 20 140/80 96 Room Air 11/30 2221 98.6 74 20 180/98 96 Room Air 11/30 2010 88 180/98 11/30 1354 97.8 74 20 142/60 97 Room Air Intake & Output 12/01 1600 12/01 0800 12/01 0000 Intake Total 1300 1080 Output Total 700 1125 500 Balance -700 175 580 Intake, IV 800 800 Intake, Oral 500 280 Output, Urine 700 1125 500 Physical Exam General Appearance: Alert, Oriented X3, Cooperative, No Acute Distress Skin: No Significant Lesion Skin Temp/Moisture Exam: Warm/Dry Sepsis Skin Exam (color): Normal for Ethnicity HEENT: Atraumatic, EOMI, Mucous Membr. moist/pink Cardiovascular: Normal S1, Normal S2 Lungs: Normal Air Movement Abdomen: Soft, No Tenderness Neurological: Normal Speech Extremities: +1-2 edema Current Medications: Current Medications Sig/Buddy Start time Last Medication Dose Route Stop Time Status Admin Acetaminophen 650 MG Q6P PRN 11/29 2144 AC PO Atorvastatin Calcium 20 MG 1700 11/30 1700 AC 11/30 PO 1724 Benzonatate 100 MG TID PRN 11/30 2100 AC PO Clonidine 0.1 MG AT BEDTIME 11/29 2199 AC 11/30 PO 2011 Fenofibrate 145 MG DAILY 11/30 1000 AC 12/01 PO 1004 Heparin Sodium 5,000 UNIT Q8 11/29 2200 AC 12/01 (Porcine) SC 0607 Hydrocodone Bitart/ 1 TAB Q6P PRN 11/29 2144 AC Acetaminophen PO Insulin Aspart 0 TIDAC 11/30 0245 AC 12/01 SC 1210 Insulin Detemir 40 UNITS AT BEDTIME 11/30 2199 CAN SC Levothyroxine Sodium 0.05 MG DAILY AC 11/30 0700 AC 12/01 PO 0607 Ofloxacin 1 GTT 4 TIMES/DAY 11/30 1000 AC 12/01 OPH 1005 Oxycodone/ 2 TAB Q6P PRN 11/29 2144 AC Acetaminophen PO Prednisolone 1 GTT 4 TIMES/DAY 11/290 AC 12/01 OPH 1005 Sodium Bicarbonate 650 MG TID 11/30 1600 AC 12/01 PO 1003 Sodium Chloride 1,000 ML Q10H 11/29 2300 AC 12/01 IV 0614 Last 24 Hrs of Lab/Haseeb Results Last 24 Hrs of Labs/Mics: Laboratory Tests 12/01/17 0756: Anion Gap 11, Estimated GFR 9 L, BUN/Creatinine Ratio 6.3 L, CBC w Diff NO MAN DIFF REQ, RBC 3.84 L, MCV 90.1, MCH 30.7, MCHC 34.1, RDW 14.4, MPV 7.2 L, Gran % 69.1, Lymphocytes % 17.7 L, Monocytes % 6.9, Eosinophils % 5.8 H, Basophils % 0.5, Absolute Granulocytes 8.5 H, Absolute Lymphocytes 2.2, Absolute Monocytes 0.9 H, Absolute Eosinophils 0.7, Absolute Basophils 0.1 Assessment/Plan Assessment: 52 years old male with referred from Dr Zambrano's office complaints of: weakness, vomiting several times of nonbloody contents almost once every week for the past a few weeks, diarrhea almost 3 episodes of loose bowel movement every week for the past 3 weeks ,body aches which started back on October PMH: uncontrolled type 2 DM with complications( retinopathy, neuropathy, CKD) on insulin, HTN, hyperlipidemia, H/o pelvic abscess( 2 years back) VS, Ph Ex at admission: Blood pressure 194/81, pulse 71, respiratory rate 18, temperature 97.9, pulse ox 96 on room air Labs at admission: WBC 14.2, no bands, hemoglobin 11.7, MCV 90.7, platelets 408, sodium 138, potassium 3.5, BUN 43, creatinine 6.5, glucose 257, calcium 7.2, alkaline phosphatase 142 Imagings at admission: No imaging, CXR ordered Patient was admitted to GM floor for management of following conditions: #CHANDANA on CKD/dehydration Most likely due to high dehydration secondary to nausea and vomiting Cr today 6.3, comparable to yesterday Patient is a candidate for dialysis, nephro disscussed options. - Admit to general medicine floor - added Nahco3 PO TID - follow Nephrology - we will continue Gentle IV hydration with normal saline 100 mL/h - Close monitoring of renal functions over weekend - Avoid nephrotoxic - Vital signs every Shift #Nausea and vomiting Differential diagnosis includes diabetic gastroparesis,CKD - Zofran when necessary for nausea - Gentle IV hydration #History of diabetes, diabetic neuropathy - Accu-Cheks - Insulin sliding scale #Mild anemia Most likely secondary to CKD Monitor CBC #History of hypertension and hyperlipidemia Continue home meds Full code Consistent carbohydrate diet. DVT prophylaxis with subcutaneous heparin Problem List: 1. Acute on chronic renal failure 2. CKD (chronic kidney disease) 3. Nausea & vomiting Pain Ratin Pain Location: None Pain Goal: Pain 4 or less Pain Plan: Continue current plan Tomorrow's Labs & Rationales: CBC, BEP
--- NOTE | 2017-12-01 13:06 | PN- Nephrology ---
Assessment/Plan Nephrology Assessment: CHANDANA from volume depletion, advanced CKD. So far not much improvment in creatinine with volume expansion. Suggestion: Continue IV saline for now. Discussed dialysis options with patient again but he is going to need more information for decision. Recheck creatinine over weekend. May need pulmonary evaluation for chronic cough as cxr negative. Subjective Subjective: Patient still complains of cough. He denies vomiting, diarrhea. Objective Vital Signs and I&Os Vital Signs Date Time Temp Pulse Resp B/P B/P Pulse O2 O2 Flow FiO2 Mean Ox Delivery Rate 12/01 0658 98.4 74 20 140/80 96 Room Air 11/30 2221 98.6 74 20 180/98 96 Room Air 11/30 2010 88 180/98 11/30 1354 97.8 74 20 142/60 97 Room Air Intake & Output 12/01 1600 12/01 0400 11/30 1600 11/30 0400 11/29 1600 11/29 0400 Intake Total 1300 1080 2560 1000 Output Total 6162 251 9500 Balance -525 723 025 8608 Intake, IV 539 009 8396 1000 Intake, Oral 500 280 960 0 Number 0 Bowel Movements Output, Urine [phone] Patient 284 lb Weight Weight Reported by Patient Measurement Method Physical Exam: NAD VS as above Lungs: clear CV: no rub Abd: nontender Exts: no edema Neuro : A&O Current Medications: Current Medications Sig/Buddy Start time Last Medication Dose Route Stop Time Status Admin Acetaminophen 650 MG Q6P PRN 11/29 2145 AC PO Atorvastatin Calcium 20 MG 1700 11/30 1700 AC 11/30 PO 1724 Benzonatate 100 MG TID PRN 11/30 2100 AC PO Clonidine 0.1 MG AT BEDTIME 11/29 2200 AC 11/30 PO 2011 Fenofibrate 145 MG DAILY 11/30 1000 AC 12/01 PO 1004 Heparin Sodium 5,000 UNIT Q8 11/29 2200 AC 12/01 (Porcine) SC 0607 Hydrocodone Bitart/ 1 TAB Q6P PRN 11/29 2145 AC Acetaminophen PO Insulin Aspart 0 TIDAC 11/30 0245 AC 12/01 SC 1210 Insulin Detemir 40 UNITS AT BEDTIME 11/30 2200 CAN SC Levothyroxine Sodium 0.05 MG DAILY AC 11/30 0700 AC 12/01 PO 0607 Ofloxacin 1 GTT 4 TIMES/DAY 11/30 1000 AC 12/01 OPH 1005 Oxycodone/ 2 TAB Q6P PRN 11/29 2145 AC Acetaminophen PO Prednisolone 1 GTT 4 TIMES/DAY 11/29 2200 AC 12/01 OPH 1005 Sodium Bicarbonate 650 MG TID 11/30 1600 AC 12/01 PO 1003 Sodium Chloride 1,000 ML Q10H 11/29 2300 AC 12/01 IV 0614 Results Pertinent Lab Results: Laboratory Tests 12/01 11/30 0756 0735 Chemistry Sodium (137 - 145 mmol/L) 139 139 Potassium (3.5 - 5.1 mmol/L) 3.5 3.3 L Chloride (98 - 107 mmol/L) 110 H 111 H Carbon Dioxide (22 - 30 mmol/L) 18 L 17 L Anion Gap (5 - 16) 11 11 BUN (9 - 20 mg/dL) 40 H 43 H Creatinine (0.7 - 1.2 mg/dL) 6.3 *H 6.3 *H Estimated GFR (>60 ml/min) 9 L 9 L BUN/Creatinine Ratio (7 - 25 %) 6.3 L 6.8 L TSH (0.270 - 4.200 uIU/mL) 1.660 Thyroxine (T4) (4.5 - 10.9 ug/dL) 5.2 Hematology CBC w Diff NO MAN DIFF REQ NO MAN DIFF REQ WBC (4.8 - 10.8 /CUMM) 12.4 H 13.3 H RBC (4.70 - 6.10 /CUMM) 3.84 L 3.83 L Hgb (14.0 - 18.0 G/DL) 11.8 L 11.6 L Hct (42 - 52 %) 34.7 L 34.5 L MCV (80.0 - 94.0 FL) 90.1 90.1 MCH (27.0 - 31.0 PG) 30.7 30.3 MCHC (33.0 - 37.0 G/DL) 34.1 33.7 RDW (11.5 - 14.5 %) 14.4 14.1 Plt Count (130 - 400 /CUMM) 410 H 377 MPV (7.4 - 10.4 FL) 7.2 L 7.2 L Gran % (42.2 - 75.2 %) 69.1 72.4 Lymphocytes % (20.5 - 51.1 %) 17.7 L 14.9 L Monocytes % (1.7 - 9.3 %) 6.9 6.8 Eosinophils % (0 - 5 %) 5.8 H 5.2 H Basophils % (0.0 - 2.0 %) 0.5 0.7 Absolute Granulocytes (1.4 - 6.5 /CUMM) 8.5 H 9.7 H Absolute Lymphocytes (1.2 - 3.4 /CUMM) 2.2 2.0 Absolute Monocytes (0.10 - 0.60 /CUMM) 0.9 H 0.9 H Absolute Eosinophils (0.0 - 0.7 /CUMM) 0.7 0.7 Absolute Basophils (0.0 - 0.2 /CUMM) 0.1 0.1 11/30 11/30 0620 0620 Urines Urinalysis MANY H Urine Color (YEL,AMB,STR) YEL Urine Clarity (CLEAR) HAZY H Urine pH (5.0 - 8.0) 6.0 Ur Specific [place] (1.001 - 1.035) 1.020 Urine Protein (NEG,<30 MG/DL) >=300 H Urine Ketones (NEG) NEG Urine Nitrite (NEG) POS H Urine Bilirubin (NEG) NEG Urine Urobilinogen (0.1 - 1.0 EU/dl) 0.2 Ur Leukocyte Esterase (NEG) SMALL H Ur Microscopic SEDIMENT EXAMINED Urine RBC (0 - 5 /HPF) 15-25 H Urine WBC (0 - 2 /HPF) > 75 H Ur Epithelial Cells (NONE,FEW) FEW Hyaline Casts (0/LPF) 5-10 H Urine Mucus (FEW,NONE) FEW Urine Hemoglobin (NEG) MOD H Ur Random Creatinine (mg/dL) 52.2 Ur Random Sodium (30 - 90 mmol/L) 49 Ur Random Potassium (mmol/L) 14.3 Fraction Sodium Excret (<1% %) 4.4 H Urine Glucose (N MG/DL) >=1000 H 11/29 1654 Chemistry Sodium (137 - 145 mmol/L) 138 Potassium (3.5 - 5.1 mmol/L) 3.5 Chloride (98 - 107 mmol/L) 107 Carbon Dioxide (22 - 30 mmol/L) 19 L Anion Gap (5 - 16) 12 BUN (9 - 20 mg/dL) 43 H Creatinine (0.7 - 1.2 mg/dL) 6.5 *H Estimated GFR (>60 ml/min) 9 L BUN/Creatinine Ratio (7 - 25 %) 6.6 L Glucose (65 - 99 mg/dL) 257 H Calcium (8.4 - 10.2 mg/dL) 7.2 L Total Bilirubin (0.2 - 1.3 mg/dL) 0.2 AST (17 - 59 U/L) 22 ALT (21 - 72 U/L) 26 Alkaline Phosphatase (< 127 U/L) 142 H Troponin I (<0.11 ng/ml) 0.04 Total Protein (6.3 - 8.2 g/dL) 5.0 L Albumin (3.5 - 5.0 g/dL) 2.2 L Globulin (1.9 - 4.2 gm/dL) 2.8 Albumin/Globulin Ratio (1.1 - 2.2 %) 0.8 L Hematology CBC w Diff NO MAN DIFF REQ WBC (4.8 - 10.8 /CUMM) 14.2 H RBC (4.70 - 6.10 /CUMM) 3.88 L Hgb (14.0 - 18.0 G/DL) 11.7 L Hct (42 - 52 %) 35.2 L MCV (80.0 - 94.0 FL) 90.7 MCH (27.0 - 31.0 PG) 30.1 MCHC (33.0 - 37.0 G/DL) 33.2 RDW (11.5 - 14.5 %) 14.3 Plt Count (130 - 400 /CUMM) 408 H MPV (7.4 - 10.4 FL) 6.5 L Gran % (42.2 - 75.2 %) 78.3 H Lymphocytes % (20.5 - 51.1 %) 10.4 L Monocytes % (1.7 - 9.3 %) 5.4 Eosinophils % (0 - 5 %) 5.1 H Basophils % (0.0 - 2.0 %) 0.8 Absolute Granulocytes (1.4 - 6.5 /CUMM) 11.1 H Absolute Lymphocytes (1.2 - 3.4 /CUMM) 1.5 Absolute Monocytes (0.10 - 0.60 /CUMM) 0.8 H Absolute Eosinophils (0.0 - 0.7 /CUMM) 0.7 Absolute Basophils (0.0 - 0.2 /CUMM) 0.1
[2017-12-01 14:06] VITALS: BP 140/90
[2017-12-01 21:40] VITALS: BP 174/100
[2017-12-01 22:17] VITALS: BP 160/70
[2017-12-01 23:54] VITALS: BP 156/78
--- NOTE | 2017-12-02 01:24 | PN- Housestaff ---
See Addendum Subjective Follow-up For: weakness, N and V CHANDANA on CKD Subjective: Patient visited today, was lying in bed comfortably in no acute distress, was alert and oriented. No fever or chills, no shortness of breathing, no chest pain. Patient was consulted regarding HD management Ovenight Bp was high and one dose amlodipine was administered. Insuling dosing were updated per Dr Lewis. Review of Systems Constitutional: Reports: see HPI. Objective Last 24 Hrs of Vital Signs/I&O Vital Signs Date Time Temp Pulse Resp B/P B/P Pulse O2 O2 Flow FiO2 Mean Ox Delivery Rate 12/01 2354 72 156/78 12/01 2258 82 174/100 12/01 2217 97.9 74 20 160/70 95 Room Air 12/01 2139 82 174/100 94 Room Air 12/01 2125 82 174/100 12/01 1406 97.9 79 20 140/90 965 Room Air 12/01 0658 98.4 74 20 140/80 96 Room Air Intake & Output 12/02 0800 12/02 0000 12/01 1600 Intake Total 540 1600 Output Total 731 050 8096 Balance -425 140 300 Intake, IV 300 800 Intake, Oral 240 800 Output, Urine 630 448 5017 Physical Exam General Appearance: Alert, Oriented X3, Cooperative, No Acute Distress Skin Temp/Moisture Exam: Warm/Dry Sepsis Skin Exam (color): Normal for Ethnicity HEENT: Atraumatic, EOMI, Mucous Membr. moist/pink Cardiovascular: Normal S1, Normal S2 Lungs: Normal Air Movement Abdomen: Soft, No Tenderness Neurological: Normal Speech Extremities: edema Current Medications: Current Medications Sig/Buddy Start time Last Medication Dose Route Stop Time Status Admin Acetaminophen 650 MG Q6P PRN 11/29 2144 AC PO Amlodipine Besylate 5 MG ONCE ONE 12/01 2214 DC 12/01 PO 12/01 2215 225 Atorvastatin Calcium 20 MG 1700 11/30 1700 AC 12/01 PO 1642 Benzonatate 100 MG TID PRN 11/30 2100 AC 12/01 PO 1430 Clonidine 0.1 MG AT BEDTIME 11/29 2199 AC 12/01 PO 2126 Fenofibrate 145 MG DAILY 11/30 1000 AC 12/01 PO 1004 Heparin Sodium 5,000 UNIT Q8 11/29 2199 AC 12/01 (Porcine) SC 2127 Hydrocodone Bitart/ 1 TAB Q6P PRN 11/29 2145 AC Acetaminophen PO Insulin Aspart 0 TIDAC 11/30 0245 AC 12/01 SC 1746 Insulin Detemir 10 UNITS AT BEDTIME 12/01 220 AC 12/01 SC 2127 Levothyroxine Sodium 0.05 MG DAILY AC 11/30 0700 AC 12/01 PO 0607 Ofloxacin 1 GTT 4 TIMES/DAY 11/30 1000 AC 12/01 OPH 2127 Oxycodone/ 2 TAB Q6P PRN 11/29 2145 AC Acetaminophen PO Patient Medication 1 ED ONE ONE 12/01 1645 DC 12/01 Teaching ED 12/01 1646 1642 Prednisolone 1 GTT 4 TIMES/DAY 11/29 220 AC 12/01 OPH 2127 Sodium Bicarbonate 650 MG TID 11/30 1600 AC 12/01 PO 2126 Sodium Chloride 1,000 ML Q10H 11/29 2300 AC 12/01 IV 1642 Last 24 Hrs of Lab/Haseeb Results Last 24 Hrs of Labs/Mics: Laboratory Tests 12/01/17 0756: Anion Gap 11, Estimated GFR 9 L, BUN/Creatinine Ratio 6.3 L, CBC w Diff NO MAN DIFF REQ, RBC 3.84 L, MCV 90.1, MCH 30.7, MCHC 34.1, RDW 14.4, MPV 7.2 L, Gran % 69.1, Lymphocytes % 17.7 L, Monocytes % 6.9, Eosinophils % 5.8 H, Basophils % 0.5, Absolute Granulocytes 8.5 H, Absolute Lymphocytes 2.2, Absolute Monocytes 0.9 H, Absolute Eosinophils 0.7, Absolute Basophils 0.1 Assessment/Plan Assessment: 52 years old male with referred from Dr Zambrano's office complaints of: weakness, vomiting several times of nonbloody contents almost once every week for the past a few weeks, diarrhea almost 3 episodes of loose bowel movement every week for the past 3 weeks ,body aches which started back on OctoberH: uncontrolled type 2 DM with complications( retinopathy, neuropathy, CKD) on insulin, HTN, hyperlipidemia, H/o pelvic abscess( 2 years back) VS, Ph Ex at admission: Blood pressure 194/81, pulse 71, respiratory rate 18, temperature 97.9, pulse ox 96 on room air Labs at admission: WBC 14.2, no bands, hemoglobin 11.7, MCV 90.7, platelets 408, sodium 138, potassium 3.5, BUN 43, creatinine 6.5, glucose 257, calcium 7.2, alkaline phosphatase 142 Imagings at admission: No imaging, CXR ordered Patient was admitted to GM floor for management of following conditions: #CHANDANA on CKD/dehydration Most likely due to high dehydration secondary to nausea and vomiting Cr today 6.3, comparable to yesterday Patient is a candidate for dialysis, nephro disscussed options. - Admit to general medicine floor - added Nahco3 PO TID - follow Nephrology - we will continue Gentle IV hydration with normal saline 100 mL/h - Close monitoring of renal functions over weekend - Avoid nephrotoxic - Vital signs every Shift #Nausea and vomiting Differential diagnosis includes diabetic gastroparesis,CKD - Zofran when necessary for nausea - Gentle IV hydration #History of diabetes, diabetic neuropathy - Accu-Cheks - Insulin sliding scale #Mild anemia Most likely secondary to CKD Monitor CBC #History of hypertension and hyperlipidemia Continue home meds Full code Consistent carbohydrate diet. DVT prophylaxis with subcutaneous heparin Problem List: 1. Acute on chronic renal failure Pain Ratin Pain Location: None Pain Goal: Pain 4 or less Pain Plan: continue current plan Tomorrow's Labs & Rationales: CBC BEP
[2017-12-02 06:58] VITALS: BP 180/100
[2017-12-02 08:32] VITALS: BP 150/88
[2017-12-02 09:29] LABS: ABSOLUTE BASOPHIL COUNT 0.1 /CUMM (0.0-0.2); ABSOLUTE EOSINOPHIL COUNT 0.7 /CUMM (0.0-0.7); ABSOLUTE GRANULOCYTE CT 7.2 /CUMM (1.4-6.5); ABSOLUTE LYMPH COUNT 1.9 /CUMM (1.2-3.4); ABSOLUTE MONOCYTE COUNT 0.6 /CUMM (0.10-0.60); BASOPHIL % 0.5 % (0.0-2.0); EOSINOPHIL % 6.9 % (0-5); GRANULOCYTE % 68.1 % (42.2-75.2); HEMATOCRIT 31.7 % (42-52); MEAN CORPUSCULAR HGB 30.7 PG (27.0-31.0); MEAN CORPUSCULAR HGB CONC 34.1 G/DL (33.0-37.0); MEAN PLATELET VOLUME 7.2 FL (7.4-10.4); PLATELET COUNT 358 /CUMM (130-400); RBC DISTRIBUTION WIDTH 14.2 % (11.5-14.5); RED BLOOD CELL CT 3.53 /CUMM (4.70-6.10); WHITE BLOOD CELL COUNT 10.5 /CUMM (4.8-10.8)
--- NOTE | 2017-12-02 13:20 | PN- Diabetes ---
Assessment/Plan Diabetes Assessment: 52 y/o male has type 2 diabetes associated with morbid obesity which is complicated with proteinuria and chronic renal insufficiency. He was admitted for nausea and vomiting. His Cr was found to be 6.5. In addition, he has had hypoglycemia at home lately. In hospital, he was put on Levemir 10 units at bedtime daily and Novolog coverage before meals. His FSGs were 195, 240, 235, 169 and 137. He is receiving NS at 100 ml/hour. Plan: 1. continue Levemir 10 units daily; 2. adjust Novolog coverage before meals; detail see the inpatient DM order; 3. monitor FSGs and renal function. will follow. Inpatient Diabetes Orders Before Each Meal: Bolus Insulin: Novolog < 80 mg/dl: no coverage 80-100 mg/dl: 6 units 101-120 mg/dl: 6 units 121-150 mg/dl: 6 units 151-200 mg/dl: 7 units 201-250 mg/dl: 8 units 251-300 mg/dl: 9 units 301-350 mg/dl: 10 units 351-400 mg/dl: 11 units > 400 mg/dl: 12 units Subjective Subjective: He still has dry cough. Lisinopril was discontinued on 11/29/2017. Objective Last 24 Hrs of Vital Signs/I&O Vital Signs Date Time Temp Pulse Resp B/P B/P Pulse O2 O2 Flow FiO2 Mean Ox Delivery Rate 12/02 0832 150/88 12/02 0658 98.0 74 20 180/100 94 Room Air 12/01 2354 72 156/78 12/01 2259 82 174/100 12/01 2217 97.9 74 20 160/70 95 Room Air 12/01 2140 82 174/100 94 Room Air 12/01 2126 82 174/100 12/01 1406 97.9 79 20 140/90 965 Room Air Intake & Output 12/02 1600 12/02 0800 12/02 0000 Intake Total 1120 540 Output Total 1675 400 Balance -555 140 Intake, IV 800 300 Intake, Oral 320 240 Number 0 Bowel Movements Output, Urine 1675 400 Findings Pertinent Lab/Haseeb Results: Laboratory Tests 12/02 0740 Chemistry Sodium (137 - 145 mmol/L) 138 Potassium (3.5 - 5.1 mmol/L) 3.5 Chloride (98 - 107 mmol/L) 111 H Carbon Dioxide (22 - 30 mmol/L) 17 L Anion Gap (5 - 16) 10 BUN (9 - 20 mg/dL) 38 H Creatinine (0.7 - 1.2 mg/dL) 5.8 *H Estimated GFR (>60 ml/min) 10 L BUN/Creatinine Ratio (7 - 25 %) 6.6 L Hematology CBC w Diff NO MAN DIFF REQ WBC (4.8 - 10.8 /CUMM) 10.5 RBC (4.70 - 6.10 /CUMM) 3.53 L Hgb (14.0 - 18.0 G/DL) 10.8 L Hct (42 - 52 %) 31.7 L MCV (80.0 - 94.0 FL) 90.0 MCH (27.0 - 31.0 PG) 30.7 MCHC (33.0 - 37.0 G/DL) 34.1 RDW (11.5 - 14.5 %) 14.2 Plt Count (130 - 400 /CUMM) 358 MPV (7.4 - 10.4 FL) 7.2 L Gran % (42.2 - 75.2 %) 68.1 Lymphocytes % (20.5 - 51.1 %) 18.3 L Monocytes % (1.7 - 9.3 %) 6.2 Eosinophils % (0 - 5 %) 6.9 H Basophils % (0.0 - 2.0 %) 0.5 Absolute Granulocytes (1.4 - 6.5 /CUMM) 7.2 H Absolute Lymphocytes (1.2 - 3.4 /CUMM) 1.9 Absolute Monocytes (0.10 - 0.60 /CUMM) 0.6 Absolute Eosinophils (0.0 - 0.7 /CUMM) 0.7 Absolute Basophils (0.0 - 0.2 /CUMM) 0.1
[2017-12-02 14:38] VITALS: BP 174/90
--- NOTE | 2017-12-02 15:22 | PN- Nephrology ---
Assessment/Plan Nephrology Assessment: 1. Acute on chronic kidney disease. His serum creatinine is finally coming down. He reminds me that he had a 20 pound weight loss between his visit with Dr. Tijerina and Maldonado Zambrano MD. This presentation is similar to that which he had during the summer. The possibility of imminent dialysis has been a cause of grave concern and worry for this gentleman. This is understandable. 2. Cough. He reports a cough all day after eating. The explanation of this is not obvious. His chest x-ray upon admission was clear. Likewise, his exam is unremarkable. 3. Diabetes mellitus 4. Known chronic kidney disease stage IV 5. Diarrhea leading to hypovolemia. Cause not clear. Suggestion: 1. Continue with IV fluids. 2. No urgent dialytic need. Subjective Subjective: Patient is only complaining of a cough after eating. He eats at the side of the bed sitting up for erect. Apparently this is been happening even at home. He says that since he has been sitting here being appropriately concerned about the imminent need dialytic intervention, he has been focusing on the symptoms. He apparently had episodes of sweating after eating. This became less after Dr. hdz had adjusted the timing of his insulin. Objective Vital Signs and I&Os Vital Signs Date Time Temp Pulse Resp B/P B/P Pulse O2 O2 Flow FiO2 Mean Ox Delivery Rate 12/02 1438 98.6 77 20 174/90 97 12/02 0832 150/88 12/02 0658 98.0 74 20 180/100 94 Room Air 12/01 2354 72 156/78 12/01 2259 82 174/100 12/01 2217 97.9 74 20 160/70 95 Room Air 12/01 2140 82 174/100 94 Room Air 12/01 2126 82 174/100 Intake & Output 12/02 1600 12/02 0400 12/01 1600 12/01 0400 11/30 1600 11/30 0400 Intake Total 3120 540 2900 1080 2560 1000 Output Total 3075 1300 2425 500 1730 Balance 45 -760 475 492 732 8370 Intake, IV 1001 761 0202 800 1600 1000 Intake, Oral 7653 095 5188 280 960 0 Number 0 0 Bowel Movements Output, Urine 3075 1300 2425 500 1730 Patient 284 lb Weight Weight Reported by Patient Measurement Method Physical Exam General Appearance: well developed/nourished, no apparent distress, alert, awake , obese Head: atraumatic, normal appearance Ears, Nose, Throat: normal pharynx, normal ENT inspection Neck: normal inspection, supple, trachea mid line Respiratory: normal breath sounds, chest non-tender, no respiratory distress, lungs clear Cardiovascular: regular rate/rhythm, edema Abdomen: normal bowel sounds, soft, non-tender, no organomegaly Back: normal inspection, normal range of motion, no vertebral tenderness Extremities: normal inspection, positive edema Neurologic/Psychiatric: no motor/sensory deficits, awake, alert, oriented x 3 Skin: intact, normal color, warm/dry Current Medications: Current Medications Sig/Buddy Start time Last Medication Dose Route Stop Time Status Admin Acetaminophen 650 MG Q6P PRN 11/29 214 AC PO Amlodipine Besylate 5 MG ONCE ONE 12/01 2214 DC 12/01 PO 12/01 221 2259 Atorvastatin Calcium 20 MG 1700 11/30 1700 AC 12/01 PO 1642 Benzonatate 100 MG TID PRN 11/30 2100 AC 12/02 PO 1414 Clonidine 0.1 MG AT BEDTIME 11/29 2200 AC 12/01 PO 2126 Fenofibrate 145 MG DAILY 11/30 1000 AC 12/02 PO 0828 Heparin Sodium 5,000 UNIT Q8 11/29 2199 AC 12/02 (Porcine) SC 1349 Hydrocodone Bitart/ 1 TAB Q6P PRN 11/29 2145 AC Acetaminophen PO Insulin Aspart 0 TIDAC 11/30 0245 AC 12/02 SC 1202 Insulin Detemir 10 UNITS AT BEDTIME 12/01 2200 AC 12/01 SC 2127 Levothyroxine Sodium 0.05 MG DAILY AC 11/30 0700 AC 12/02 PO 0616 Ofloxacin 1 GTT 4 TIMES/DAY 11/30 1000 AC 12/02 OPH 1349 Oxycodone/ 2 TAB Q6P PRN 11/29 2145 AC Acetaminophen PO Patient Medication 1 ED ONE ONE 12/01 1645 DC 12/01 Teaching ED 12/01 1646 1642 Prednisolone 1 GTT 4 TIMES/DAY 11/29 220 AC 12/02 OPH 1348 Sodium Bicarbonate 650 MG TID 11/30 1600 AC 12/02 PO 0828 Sodium Chloride 1,000 ML Q10H 11/29 2300 AC 12/02 IV 1351 Results Pertinent Lab Results: Laboratory Tests 12/02 12/01 0740 0756 Chemistry Sodium (137 - 145 mmol/L) 138 139 Potassium (3.5 - 5.1 mmol/L) 3.5 3.5 Chloride (98 - 107 mmol/L) 111 H 110 H Carbon Dioxide (22 - 30 mmol/L) 17 L 18 L Anion Gap (5 - 16) 10 11 BUN (9 - 20 mg/dL) 38 H 40 H Creatinine (0.7 - 1.2 mg/dL) 5.8 *H 6.3 *H Estimated GFR (>60 ml/min) 10 L 9 L BUN/Creatinine Ratio (7 - 25 %) 6.6 L 6.3 L Hematology CBC w Diff NO MAN DIFF REQ NO MAN DIFF REQ WBC (4.8 - 10.8 /CUMM) 10.5 12.4 H RBC (4.70 - 6.10 /CUMM) 3.53 L 3.84 L Hgb (14.0 - 18.0 G/DL) 10.8 L 11.8 L Hct (42 - 52 %) 31.7 L 34.7 L MCV (80.0 - 94.0 FL) 90.0 90.1 MCH (27.0 - 31.0 PG) 30.7 30.7 MCHC (33.0 - 37.0 G/DL) 34.1 34.1 RDW (11.5 - 14.5 %) 14.2 14.4 Plt Count (130 - 400 /CUMM) 358 410 H MPV (7.4 - 10.4 FL) 7.2 L 7.2 L Gran % (42.2 - 75.2 %) 68.1 69.1 Lymphocytes % (20.5 - 51.1 %) 18.3 L 17.7 L Monocytes % (1.7 - 9.3 %) 6.2 6.9 Eosinophils % (0 - 5 %) 6.9 H 5.8 H Basophils % (0.0 - 2.0 %) 0.5 0.5 Absolute Granulocytes (1.4 - 6.5 /CUMM) 7.2 H 8.5 H Absolute Lymphocytes (1.2 - 3.4 /CUMM) 1.9 2.2 Absolute Monocytes (0.10 - 0.60 /CUMM) 0.6 0.9 H Absolute Eosinophils (0.0 - 0.7 /CUMM) 0.7 0.7 Absolute Basophils (0.0 - 0.2 /CUMM) 0.1 0.1 11/30 11/30 0735 0620 Chemistry Sodium (137 - 145 mmol/L) 139 Potassium (3.5 - 5.1 mmol/L) 3.3 L Chloride (98 - 107 mmol/L) 111 H Carbon Dioxide (22 - 30 mmol/L) 17 L Anion Gap (5 - 16) 11 BUN (9 - 20 mg/dL) 43 H Creatinine (0.7 - 1.2 mg/dL) 6.3 *H Estimated GFR (>60 ml/min) 9 L BUN/Creatinine Ratio (7 - 25 %) 6.8 L TSH (0.270 - 4.200 uIU/mL) 1.660 Thyroxine (T4) (4.5 - 10.9 ug/dL) 5.2 Hematology CBC w Diff NO MAN DIFF REQ WBC (4.8 - 10.8 /CUMM) 13.3 H RBC (4.70 - 6.10 /CUMM) 3.83 L Hgb (14.0 - 18.0 G/DL) 11.6 L Hct (42 - 52 %) 34.5 L MCV (80.0 - 94.0 FL) 90.1 MCH (27.0 - 31.0 PG) 30.3 MCHC (33.0 - 37.0 G/DL) 33.7 RDW (11.5 - 14.5 %) 14.1 Plt Count (130 - 400 /CUMM) 377 MPV (7.4 - 10.4 FL) 7.2 L Gran % (42.2 - 75.2 %) 72.4 Lymphocytes % (20.5 - 51.1 %) 14.9 L Monocytes % (1.7 - 9.3 %) 6.8 Eosinophils % (0 - 5 %) 5.2 H Basophils % (0.0 - 2.0 %) 0.7 Absolute Granulocytes (1.4 - 6.5 /CUMM) 9.7 H Absolute Lymphocytes (1.2 - 3.4 /CUMM) 2.0 Absolute Monocytes (0.10 - 0.60 /CUMM) 0.9 H Absolute Eosinophils (0.0 - 0.7 /CUMM) 0.7 Absolute Basophils (0.0 - 0.2 /CUMM) 0.1 Urines Urinalysis MANY H Urine Color (YEL,AMB,STR) YEL Urine Clarity (CLEAR) HAZY H Urine pH (5.0 - 8.0) 6.0 Ur Specific [place] (1.001 - 1.035) 1.020 Urine Protein (NEG,<30 MG/DL) >=300 H Urine Ketones (NEG) NEG Urine Nitrite (NEG) POS H Urine Bilirubin (NEG) NEG Urine Urobilinogen (0.1 - 1.0 EU/dl) 0.2 Ur Leukocyte Esterase (NEG) SMALL H Ur Microscopic SEDIMENT EXAMINED Urine RBC (0 - 5 /HPF) 15-25 H Urine WBC (0 - 2 /HPF) > 75 H Ur Epithelial Cells (NONE,FEW) FEW Hyaline Casts (0/LPF) 5-10 H Urine Mucus (FEW,NONE) FEW Urine Hemoglobin (NEG) MOD H Urine Glucose (N MG/DL) >=1000 H 11/30 11/29 0620 1654 Chemistry Sodium (137 - 145 mmol/L) 138 Potassium (3.5 - 5.1 mmol/L) 3.5 Chloride (98 - 107 mmol/L) 107 Carbon Dioxide (22 - 30 mmol/L) 19 L Anion Gap (5 - 16) 12 BUN (9 - 20 mg/dL) 43 H Creatinine (0.7 - 1.2 mg/dL) 6.5 *H Estimated GFR (>60 ml/min) 9 L BUN/Creatinine Ratio (7 - 25 %) 6.6 L Glucose (65 - 99 mg/dL) 257 H Calcium (8.4 - 10.2 mg/dL) 7.2 L Total Bilirubin (0.2 - 1.3 mg/dL) 0.2 AST (17 - 59 U/L) 22 ALT (21 - 72 U/L) 26 Alkaline Phosphatase (< 127 U/L) 142 H Troponin I (<0.11 ng/ml) 0.04 Total Protein (6.3 - 8.2 g/dL) 5.0 L Albumin (3.5 - 5.0 g/dL) 2.2 L Globulin (1.9 - 4.2 gm/dL) 2.8 Albumin/Globulin Ratio (1.1 - 2.2 %) 0.8 L Hematology CBC w Diff NO MAN DIFF REQ WBC (4.8 - 10.8 /CUMM) 14.2 H RBC (4.70 - 6.10 /CUMM) 3.88 L Hgb (14.0 - 18.0 G/DL) 11.7 L Hct (42 - 52 %) 35.2 L MCV (80.0 - 94.0 FL) 90.7 MCH (27.0 - 31.0 PG) 30.1 MCHC (33.0 - 37.0 G/DL) 33.2 RDW (11.5 - 14.5 %) 14.3 Plt Count (130 - 400 /CUMM) 408 H MPV (7.4 - 10.4 FL) 6.5 L Gran % (42.2 - 75.2 %) 78.3 H Lymphocytes % (20.5 - 51.1 %) 10.4 L Monocytes % (1.7 - 9.3 %) 5.4 Eosinophils % (0 - 5 %) 5.1 H Basophils % (0.0 - 2.0 %) 0.8 Absolute Granulocytes (1.4 - 6.5 /CUMM) 11.1 H Absolute Lymphocytes (1.2 - 3.4 /CUMM) 1.5 Absolute Monocytes (0.10 - 0.60 /CUMM) 0.8 H Absolute Eosinophils (0.0 - 0.7 /CUMM) 0.7 Absolute Basophils (0.0 - 0.2 /CUMM) 0.1 Urines Ur Random Creatinine (mg/dL) 52.2 Ur Random Sodium (30 - 90 mmol/L) 49 Ur Random Potassium (mmol/L) 14.3 Fraction Sodium Excret (<1% %) 4.4 H
--- NOTE | 2017-12-02 17:26 | PN- Att Addend ---
Attending Addendum Attending Brief Note 62-year-old white male in bed, still complaining of cough after eating despite negative chest x-rays. Vital signs are stable no fever. Patient states he has gained some weight still on IV fluids appreciate nephrology and the criminologist consult patient's Levemir insulin is now 10 units a day at the NovoLog insulin was adjusted before meals kidney function continues to be monitored closely the creatinine finally started coming down a little Intake & Output 12/02 1600 12/02 0400 12/01 1600 12/01 0400 11/30 1600 11/30 0400 Intake Total 3120 540 2900 1080 2560 1000 Output Total 3075 1300 2425 500 1730 Balance 45 -760 475 856 018 5481 Intake, IV 2992 590 1550 800 1600 1000 Intake, Oral 6576 493 7340 280 960 0 Number 0 0 Bowel Movements Output, Urine 3075 1300 2425 500 1730 Patient 295 lb 284 lb Weight Weight Reported by Patient Measurement Method Current Medications Sig/Buddy Start time Last Medication Dose Route Stop Time Status Admin Acetaminophen 650 MG Q6P PRN 11/29 2144 AC PO Amlodipine Besylate 5 MG DAILY 12/02 1615 AC 12/02 PO 1724 Amlodipine Besylate 5 MG ONCE ONE 12/01 2214 DC 12/01 PO 12/01 221 2259 Atorvastatin Calcium 20 MG 1700 11/30 1700 AC 12/02 PO 1624 Benzonatate 100 MG TID PRN 11/30 2100 AC 12/02 PO 1414 Clonidine 0.1 MG AT BEDTIME 11/29 220 AC 12/01 PO 2126 Fenofibrate 145 MG DAILY 11/30 1000 AC 12/02 PO 0828 Heparin Sodium 5,000 UNIT Q8 11/29 2199 AC 12/02 (Porcine) SC 1349 Hydrocodone Bitart/ 1 TAB Q6P PRN 11/29 2144 AC Acetaminophen PO Insulin Aspart 0 TIDAC 11/30 0245 AC 12/02 SC 1700 Insulin Detemir 10 UNITS AT BEDTIME 12/01 2199 AC 12/01 SC 2127 Levothyroxine Sodium 0.05 MG DAILY AC 11/30 0700 AC 12/02 PO 0616 Ofloxacin 1 GTT 4 TIMES/DAY 11/30 1000 AC 12/02 OPH 1724 Oxycodone/ 2 TAB Q6P PRN 11/29 2144 AC Acetaminophen PO Prednisolone 1 GTT 4 TIMES/DAY 11/29 2199 AC 12/02 OPH 1724 Sodium Bicarbonate 650 MG TID 11/30 1600 AC 12/02 PO 1624 Sodium Chloride 1,000 ML Q10H 11/29 2300 AC 12/02 IV 1351 Laboratory Tests 12/02/17 0740: Anion Gap 10, Estimated GFR 10 L, BUN/Creatinine Ratio 6.6 L, CBC w Diff NO MAN DIFF REQ, RBC 3.53 L, MCV 90.0, MCH 30.7, MCHC 34.1, RDW 14.2, MPV 7.2 L, Gran % 68.1, Lymphocytes % 18.3 L, Monocytes % 6.2, Eosinophils % 6.9 H, Basophils % 0.5, Absolute Granulocytes 7.2 H, Absolute Lymphocytes 1.9, Absolute Monocytes 0.6, Absolute Eosinophils 0.7, Absolute Basophils 0.1 12/01/17 0756: Anion Gap 11, Estimated GFR 9 L, BUN/Creatinine Ratio 6.3 L, CBC w Diff NO MAN DIFF REQ, RBC 3.84 L, MCV 90.1, MCH 30.7, MCHC 34.1, RDW 14.4, MPV 7.2 L, Gran % 69.1, Lymphocytes % 17.7 L, Monocytes % 6.9, Eosinophils % 5.8 H, Basophils % 0.5, Absolute Granulocytes 8.5 H, Absolute Lymphocytes 2.2, Absolute Monocytes 0.9 H, Absolute Eosinophils 0.7, Absolute Basophils 0.1 11/30/17 0735: Anion Gap 11, Estimated GFR 9 L, BUN/Creatinine Ratio 6.8 L, TSH 1.660, Thyroxine (T4) 5.2, CBC w Diff NO MAN DIFF REQ, RBC 3.83 L, MCV 90.1, MCH 30.3, MCHC 33.7, RDW 14.1, MPV 7.2 L, Gran % 72.4, Lymphocytes % 14.9 L, Monocytes % 6.8, Eosinophils % 5.2 H, Basophils % 0.7, Absolute Granulocytes 9.7 H, Absolute Lymphocytes 2.0, Absolute Monocytes 0.9 H, Absolute Eosinophils 0.7, Absolute Basophils 0.1 11/30/17 0620: Urinalysis MANY H, Urine Color YEL, Urine Clarity HAZY H, Urine pH 6.0, Ur Specific [place] 1.020, Urine Protein >=300 H, Urine Ketones NEG, Urine Nitrite POS H, Urine Bilirubin NEG, Urine Urobilinogen 0.2, Ur Leukocyte Esterase SMALL H, Ur Microscopic SEDIMENT EXAMINED, Urine RBC 15-25 H, Urine WBC > 75 H, Ur Epithelial Cells FEW, Hyaline Casts 5-10 H, Urine Mucus FEW, Urine Hemoglobin MOD H, Urine Glucose >=1000 H 11/30/17 0620: Ur Random Creatinine 52.2, Ur Random Sodium 49, Ur Random Potassium 14.3, Fraction Sodium Excret 4.4 H Vital Signs Date Time Temp Pulse Resp B/P B/P Pulse O2 O2 Flow FiO2 Mean Ox Delivery Rate 12/02 1724 90 174/80 12/02 1600 Room Air 12/02 1438 98.6 77 20 174/90 97 12/02 0832 150/88 12/02 0658 98.0 74 20 180/100 94 Room Air 12/01 2354 72 156/78 12/01 2259 82 174/100 12/01 2217 97.9 74 20 160/70 95 Room Air 12/01 2140 82 174/100 94 Room Air 12/01 2126 82 174/100
[2017-12-02 22:07] VITALS: BP 168/92
[2017-12-03 06:33] VITALS: BP 164/88
[2017-12-03 08:17] LABS: ABSOLUTE BASOPHIL COUNT 0.1 /CUMM (0.0-0.2); ABSOLUTE EOSINOPHIL COUNT 0.8 /CUMM (0.0-0.7); ABSOLUTE GRANULOCYTE CT 8.5 /CUMM (1.4-6.5); ABSOLUTE LYMPH COUNT 1.6 /CUMM (1.2-3.4); ABSOLUTE MONOCYTE COUNT 0.7 /CUMM (0.10-0.60); BASOPHIL % 0.8 % (0.0-2.0); EOSINOPHIL % 6.6 % (0-5); GRANULOCYTE % 72.8 % (42.2-75.2); MEAN CORPUSCULAR HGB 30.5 PG (27.0-31.0); MEAN CORPUSCULAR HGB CONC 33.6 G/DL (33.0-37.0); MEAN CORPUSCULAR VOLUME 90.6 FL (80.0-94.0); PLATELET COUNT 407 /CUMM (130-400); RBC DISTRIBUTION WIDTH 14.1 % (11.5-14.5); RED BLOOD CELL CT 3.64 /CUMM (4.70-6.10); WHITE BLOOD CELL COUNT 11.6 /CUMM (4.8-10.8)
--- NOTE | 2017-12-03 08:19 | PN- Housestaff ---
Subjective Follow-up For: weakness, N and V CHANDANA on CKD Subjective: Patient visited today, was lying in bed comfortably in no acute distress, was alert and oriented. No fever or chills, no shortness of breathing, no chest pain. Patient was consulted regarding HD management which is currently concerning for him. Was coplaining of cough after food, started on PPI after confirming with attending and pharmacy. Insuling dosing were updated per [employer]. Review of Systems Constitutional: Reports: see HPI. Objective Last 24 Hrs of Vital Signs/I&O Vital Signs Date Time Temp Pulse Resp B/P B/P Pulse O2 O2 Flow FiO2 Mean Ox Delivery Rate 12/030 98.2 80 20 184/80 96 Room Air 12/03 2116 88 180/70 12/03 1600 Room Air 12/03 1400 98.1 71 20 160/95 94 Room Air 12/03 0810 84 164/88 12/03 0800 Room Air 12/03 0633 97.8 84 18 164/88 95 Room Air Intake & Output 12/04 0800 12/04 0000 12/03 1600 Intake Total 1080 1600 Output Total 500 450 Balance 580 1150 Intake, IV 800 800 Intake, Oral 280 800 Number 1 Bowel Movements Output, Urine 500 450 Physical Exam General Appearance: Alert, Oriented X3, Cooperative, No Acute Distress Skin: No Significant Lesion Skin Temp/Moisture Exam: Warm/Dry Sepsis Skin Exam (color): Normal for Ethnicity HEENT: Atraumatic, EOMI, Mucous Membr. moist/pink Cardiovascular: Normal S1, Normal S2 Lungs: Clear to Auscultation, Normal Air Movement Abdomen: Soft, No Tenderness Extremities: improved edema Current Medications: Current Medications Sig/Buddy Start time Last Medication Dose Route Stop Time Status Admin Acetaminophen 650 MG Q6P PRN 11/295 AC PO Amlodipine Besylate 5 MG DAILY 12/02 1615 AC 12/03 PO 0810 Atorvastatin Calcium 20 MG 1700 11/30 1700 AC 12/03 PO 1649 Benzonatate 100 MG TID PRN 11/30 2100 AC 12/03 PO 1653 Clonidine 0.1 MG AT BEDTIME 11/29 2199 AC 12/03 PO 211 Fenofibrate 145 MG DAILY 11/30 1000 AC 12/03 PO 0810 Guaifenesin 600 MG Q12 12/02 2199 AC 12/03 PO 211 Heparin Sodium 5,000 UNIT Q8 11/29 2199 AC 12/03 (Porcine) SC 2114 Hydrocodone Bitart/ 1 TAB Q6P PRN 11/29 2144 AC Acetaminophen PO Insulin Aspart 0 TIDAC 11/30 0245 AC 12/03 SC 1649 Insulin Detemir 10 UNITS AT BEDTIME 12/01 2199 AC 12/03 SC 211 Levothyroxine Sodium 0.05 MG DAILY AC 11/30 0700 AC 12/03 PO 0537 Ofloxacin 1 GTT 4 TIMES/DAY 11/30 1000 AC 12/03 OPH 2116 Omeprazole 20 MG DAILY AC 12/03 1515 AC 12/03 PO 1648 Oxycodone/ 2 TAB Q6P PRN 11/29 2144 AC Acetaminophen PO Prednisolone 1 GTT 4 TIMES/DAY 11/29 2199 AC 12/03 OPH 211 Sodium Bicarbonate 650 MG TID 11/30 1600 AC 12/03 PO 2117 Sodium Chloride 1,000 ML Q10H 11/29 230 AC 12/03 IV 211 Last 24 Hrs of Lab/Haseeb Results Last 24 Hrs of Labs/Mics: Laboratory Tests 12/03/17 0705: Anion Gap 11, Estimated GFR 10 L, BUN/Creatinine Ratio 7.1, CBC w Diff NO MAN DIFF REQ, RBC 3.64 L, MCV 90.6, MCH 30.5, MCHC 33.6, RDW 14.1, MPV 7.0 L, Gran % 72.8, Lymphocytes % 13.9 L, Monocytes % 5.9, Eosinophils % 6.6 H, Basophils % 0.8, Absolute Granulocytes 8.5 H, Absolute Lymphocytes 1.6, Absolute Monocytes 0.7 H, Absolute Eosinophils 0.8, Absolute Basophils 0.1 Assessment/Plan Assessment: 52 years old male with referred from Dr Zambrano's office complaints of: weakness, vomiting several times of nonbloody contents almost once every week for the past a few weeks, diarrhea almost 3 episodes of loose bowel movement every week for the past 3 weeks ,body aches which started back on OctoberH: uncontrolled type 2 DM with complications( retinopathy, neuropathy, CKD) on insulin, HTN, hyperlipidemia, H/o pelvic abscess( 2 years back) VS, Ph Ex at admission: Blood pressure 194/81, pulse 71, respiratory rate 18, temperature 97.9, pulse ox 96 on room air Labs at admission: WBC 14.2, no bands, hemoglobin 11.7, MCV 90.7, platelets 408, sodium 138, potassium 3.5, BUN 43, creatinine 6.5, glucose 257, calcium 7.2, alkaline phosphatase 142 Imagings at admission: No imaging, CXR ordered Patient was admitted to [facility] floor for management of following conditions: #CHANDANA on CKD/dehydration Most likely due to high dehydration secondary to nausea and vomiting Cr today 6.3, comparable to yesterday Patient is a candidate for dialysis, nephro disscussed options. - Admit to general medicine floor - added Nahco3 PO TID - follow Nephrology - we will continue Gentle IV hydration with normal saline 100 mL/h - Close monitoring of renal functions over weekend - Avoid nephrotoxic - Vital signs every Shift #Nausea and vomiting Differential diagnosis includes diabetic gastroparesis,CKD - Zofran when necessary for nausea - Gentle IV hydration #History of diabetes, diabetic neuropathy - Accu-Cheks - Insulin sliding scale #Mild anemia Most likely secondary to CKD Monitor CBC #History of hypertension and hyperlipidemia Continue home meds # Cough happens after cough started on PPI Full code Consistent carbohydrate diet. DVT prophylaxis with subcutaneous heparin Problem List: 1. CHANDANA (acute kidney injury) 2. Acute on chronic renal failure Pain Ratin Pain Location: nONE Pain Goal: Pain 4 or less Pain Plan: cONTINUE CURRENT PLAN Tomorrow's Labs & Rationales: cbc bep
[2017-12-03 14:00] VITALS: BP 160/95
--- NOTE | 2017-12-03 14:05 | PN- Diabetes ---
Assessment/Plan Diabetes Assessment: 52 y/o male has type 2 diabetes associated with morbid obesity which is complicated with proteinuria and chronic renal insufficiency. He was admitted for nausea and vomiting. His Cr was found to be 6.5. In addition, he has had hypoglycemia at home lately. In hospital, he was put on Levemir 10 units at bedtime daily. Novolog coverage before meals was adjustedon 12/02/2017. His FSGs were 137, 200, 189, 105 and 153. He is still receiving NS at 100 ml/hour. Repeat Cr 5.9. Plan: 1. continue Levemir 10 units daily; 2. continue Novolog coverage before meals 3. monitor FSGs and renal function. will follow. Plan: detail see the above. Subjective Subjective: He still has cough after eating food which might be related GERD. Objective Last 24 Hrs of Vital Signs/I&O Vital Signs Date Time Temp Pulse Resp B/P B/P Pulse O2 O2 Flow FiO2 Mean Ox Delivery Rate 12/03 0810 84 164/88 12/03 0800 Room Air 12/03 0633 97.8 84 18 164/88 95 Room Air 12/03 0000 Room Air 12/02 2207 97.7 80 24 168/92 95 Room Air 12/02 2043 168/92 12/02 1724 90 174/80 12/02 1600 Room Air 12/02 1438 98.6 77 20 174/90 97 Intake & Output 12/03 1600 12/03 0800 12/03 0000 Intake Total 1400 900 Output Total 1025 1250 Balance 375 -350 Intake, IV 800 300 Intake, Oral 600 600 Output, Urine 1025 1250 Patient 296 lb Weight Weight Bed scale Measurement Method Findings Pertinent Lab/Haseeb Results: Laboratory Tests 12/03 0705 Chemistry Sodium (137 - 145 mmol/L) 140 Potassium (3.5 - 5.1 mmol/L) 3.6 Chloride (98 - 107 mmol/L) 113 H Carbon Dioxide (22 - 30 mmol/L) 16 L Anion Gap (5 - 16) 11 BUN (9 - 20 mg/dL) 42 H Creatinine (0.7 - 1.2 mg/dL) 5.9 *H Estimated GFR (>60 ml/min) 10 L BUN/Creatinine Ratio (7 - 25 %) 7.1 Hematology CBC w Diff NO MAN DIFF REQ WBC (4.8 - 10.8 /CUMM) 11.6 H RBC (4.70 - 6.10 /CUMM) 3.64 L Hgb (14.0 - 18.0 G/DL) 11.1 L Hct (42 - 52 %) 33.0 L MCV (80.0 - 94.0 FL) 90.6 MCH (27.0 - 31.0 PG) 30.5 MCHC (33.0 - 37.0 G/DL) 33.6 RDW (11.5 - 14.5 %) 14.1 Plt Count (130 - 400 /CUMM) 407 H MPV (7.4 - 10.4 FL) 7.0 L Gran % (42.2 - 75.2 %) 72.8 Lymphocytes % (20.5 - 51.1 %) 13.9 L Monocytes % (1.7 - 9.3 %) 5.9 Eosinophils % (0 - 5 %) 6.6 H Basophils % (0.0 - 2.0 %) 0.8 Absolute Granulocytes (1.4 - 6.5 /CUMM) 8.5 H Absolute Lymphocytes (1.2 - 3.4 /CUMM) 1.6 Absolute Monocytes (0.10 - 0.60 /CUMM) 0.7 H Absolute Eosinophils (0.0 - 0.7 /CUMM) 0.8 Absolute Basophils (0.0 - 0.2 /CUMM) 0.1
--- NOTE | 2017-12-03 16:07 | PN- Att Addend ---
Attending Addendum Attending Brief Note Patient sitting at the bedside with the visiting no new complaints there has had cough after eating, possible reflux which check with pharmacy to see which agent can be use Edward compromise with his kidney abnormalities Vital signs are stable, blood pressure little bit on the high side. No changes on physical. BUN today 42, creatinine 5.9, potassium 3.6 which check with nephrology see what the next step is to continue following the labs closely and make sure patient is hydrated Intake & Output 12/03 1600 12/03 0400 12/02 1600 12/02 04012/01 1600 12/01 040 Intake Total 3000 900 3120 540 2900 1080 Output Total 750 1974 3075 1300 2425 500 Balance 2250 -1075 45 -760 475 580 Intake, IV 0893 760 6578 300 1600 800 Intake, Oral 6959 919 2315 240 1300 280 Number 1 0 Bowel Movements Output, Urine 750 1974 3075 1300 2425 500 Patient 296 lb 295 lb Weight Weight Bed scale Measurement Method Current Medications Sig/Buddy Start time Last Medication Dose Route Stop Time Status Admin Acetaminophen 650 MG Q6P PRN 11/29 2144 AC PO Amlodipine Besylate 5 MG DAILY 12/02 1615 AC 12/03 PO 0810 Atorvastatin Calcium 20 MG 1700 11/30 1700 12/02 PO 1624 Benzonatate 100 MG TID PRN 11/30 2100 AC 12/02 PO 1414 Clonidine 0.1 MG AT BEDTIME 11/29 2199 AC 12/02 PO 2043 Fenofibrate 145 MG DAILY 11/30 1000 AC 12/03 PO 0810 Guaifenesin 600 MG Q12 12/02 220 AC 12/03 PO 0810 Heparin Sodium 5,000 UNIT Q8 11/29 220 AC 12/03 (Porcine) SC 1334 Hydrocodone Bitart/ 1 TAB Q6P PRN 11/29 2144 AC Acetaminophen PO Insulin Aspart 0 TIDAC 11/30 0245 AC 12/03 SC 1205 Insulin Detemir 10 UNITS AT BEDTIME 12/01 2199 AC 12/02 SC 2046 Levothyroxine Sodium 0.05 MG DAILY AC 11/30 0700 AC 12/03 PO 0537 Ofloxacin 1 GTT 4 TIMES/DAY 11/30 1000 AC 12/03 OPH 1334 Omeprazole 20 MG DAILY AC 12/03 1515 AC PO Oxycodone/ 2 TAB Q6P PRN 11/29 2144 AC Acetaminophen PO Prednisolone 1 GTT 4 TIMES/DAY 11/29 2199 AC 12/03 OPH 1334 Sodium Bicarbonate 650 MG TID 11/30 1600 AC 12/03 PO 0810 Sodium Chloride 1,000 ML Q10H 11/29 2300 AC 12/03 IV 1022 Laboratory Tests 12/03/17 0705: Anion Gap 11, Estimated GFR 10 L, BUN/Creatinine Ratio 7.1, CBC w Diff NO MAN DIFF REQ, RBC 3.64 L, MCV 90.6, MCH 30.5, MCHC 33.6, RDW 14.1, MPV 7.0 L, Gran % 72.8, Lymphocytes % 13.9 L, Monocytes % 5.9, Eosinophils % 6.6 H, Basophils % 0.8, Absolute Granulocytes 8.5 H, Absolute Lymphocytes 1.6, Absolute Monocytes 0.7 H, Absolute Eosinophils 0.8, Absolute Basophils 0.1 12/02/17 0740: Anion Gap 10, Estimated GFR 10 L, BUN/Creatinine Ratio 6.6 L, CBC w Diff NO MAN DIFF REQ, RBC 3.53 L, MCV 90.0, MCH 30.7, MCHC 34.1, RDW 14.2, MPV 7.2 L, Gran % 68.1, Lymphocytes % 18.3 L, Monocytes % 6.2, Eosinophils % 6.9 H, Basophils % 0.5, Absolute Granulocytes 7.2 H, Absolute Lymphocytes 1.9, Absolute Monocytes 0.6, Absolute Eosinophils 0.7, Absolute Basophils 0.1 12/01/17 0756: Anion Gap 11, Estimated GFR 9 L, BUN/Creatinine Ratio 6.3 L, CBC w Diff NO MAN DIFF REQ, RBC 3.84 L, MCV 90.1, MCH 30.7, MCHC 34.1, RDW 14.4, MPV 7.2 L, Gran % 69.1, Lymphocytes % 17.7 L, Monocytes % 6.9, Eosinophils % 5.8 H, Basophils % 0.5, Absolute Granulocytes 8.5 H, Absolute Lymphocytes 2.2, Absolute Monocytes 0.9 H, Absolute Eosinophils 0.7, Absolute Basophils 0.1 Vital Signs Date Time Temp Pulse Resp B/P B/P Pulse O2 O2 Flow FiO2 Mean Ox Delivery Rate 12/03 1400 98.1 71 20 160/95 94 Room Air 12/03 0810 84 164/88 12/03 0800 Room Air 12/03 0633 97.8 84 18 164/88 95 Room Air 12/03 0000 Room Air 12/02 2207 97.7 80 24 168/ 95 Room Air 12/02 2043 168/92 12/02 1724 90 174/80
[2017-12-03 22:30] VITALS: BP 184/80
--- NOTE | 2017-12-04 06:38 | PN- Housestaff ---
Subjective Follow-up For: CHANDANA and CK D Chronic cough Subjective: Patient visited today, was lying in bed comfortably in no acute distress, was alert and oriented. Reported improve cough after taking PPI. Cr level decreased to 5.4 today, still continuing IV fluids. No fever or chills, no shortness of breathing, no chest pain, no other events. Review of Systems Constitutional: Reports: see HPI. Objective Last 24 Hrs of Vital Signs/I&O Vital Signs Date Time Temp Pulse Resp B/P B/P Pulse O2 O2 Flow FiO2 Mean Ox Delivery Rate 12/04 1427 98.1 79 20 150/90 95 Room Air 12/04 1046 75 157/70 12/04 0800 Room Air 12/04 0704 97.6 75 20 157/70 95 12/04 0000 96 Room Air 12/03 2230 98.2 80 20 184/80 96 Room Air 12/03 2116 88 180/70 Intake & Output 12/04 1600 12/04 0800 12/04 0000 Intake Total 1160 1400 1080 Output Total 1250 425 900 Balance -90 975 180 Intake, IV 800 800 800 Intake, Oral 360 600 280 Number 0 0 0 Bowel Movements Output, Urine 1250 425 900 Patient 301 lb 303 lb Weight Weight Standing Scale Measurement Method Physical Exam General Appearance: Alert, Oriented X3, Cooperative, No Acute Distress Skin: No Significant Lesion Skin Temp/Moisture Exam: Warm/Dry HEENT: Atraumatic, EOMI, Mucous Membr. moist/pink Cardiovascular: Regular Rate, Normal S1, Normal S2 Lungs: Normal Air Movement Abdomen: Soft, No Tenderness Extremities: edema +2 Current Medications: Current Medications Sig/Buddy Start time Last Medication Dose Route Stop Time Status Admin Acetaminophen 650 MG Q6P PRN 11/29 2145 AC PO Amlodipine Besylate 5 MG DAILY 12/02 1615 AC 12/04 PO 1046 Atorvastatin Calcium 20 MG 1700 11/30 1700 AC 12/04 PO 1627 Benzonatate 100 MG TID PRN 11/30 2100 12/04 PO 1415 Clonidine 0.1 MG AT BEDTIME 11/29 2199 AC 12/03 PO 211 Fenofibrate 145 MG DAILY 11/30 1000 AC 12/04 PO 1046 Guaifenesin 600 MG Q12 12/020 AC 12/03 PO 211 Heparin Sodium 5,000 UNIT Q8 11/29 2199 AC 12/04 (Porcine) SC 1413 Hydrocodone Bitart/ 1 TAB Q6P PRN 11/29 2145 AC Acetaminophen PO Insulin Aspart 0 TIDAC 11/30 0245 AC 12/04 SC 1706 Insulin Detemir 10 UNITS AT BEDTIME 12/01 220 AC 12/03 SC 2116 Levothyroxine Sodium 0.05 MG DAILY AC 11/30 0700 AC 12/04 PO 0625 Ofloxacin 1 GTT 4 TIMES/DAY 11/30 1000 AC 12/04 OPH 1706 Omeprazole 20 MG DAILY AC 12/03 1515 AC 12/04 PO 0625 Oxycodone/ 2 TAB Q6P PRN 11/29 2145 AC Acetaminophen PO Prednisolone 1 GTT 4 TIMES/DAY 11/29 220 AC 12/04 OPH 1706 Sodium Bicarbonate 650 MG TID 11/30 1600 AC 12/04 PO 1627 Sodium Chloride 1,000 ML Q10H 11/29 2300 AC 12/04 IV 0630 Last 24 Hrs of Lab/Haseeb Results Last 24 Hrs of Labs/Mics: Laboratory Tests 12/04/17 0852: Anion Gap 8, Estimated GFR 11 L, BUN/Creatinine Ratio 7.2 Assessment/Plan Assessment: 52 years old male with referred from Dr Zambrano's office complaints of: weakness, vomiting several times of nonbloody contents almost once every week for the past a few weeks, diarrhea almost 3 episodes of loose bowel movement every week for the past 3 weeks ,body aches which started back on October PMH: uncontrolled type 2 DM with complications( retinopathy, neuropathy, CKD) on insulin, HTN, hyperlipidemia, H/o pelvic abscess( 2 years back) VS, Ph Ex at admission: Blood pressure 194/81, pulse 71, respiratory rate 18, temperature 97.9, pulse ox 96 on room air Labs at admission: WBC 14.2, no bands, hemoglobin 11.7, MCV 90.7, platelets 408, sodium 138, potassium 3.5, BUN 43, creatinine 6.5, glucose 257, calcium 7.2, alkaline phosphatase 142 Imagings at admission: No imaging, CXR ordered Patient was admitted to [facility] floor for management of following conditions: #CHANDANA on CKD/dehydration Most likely due to high dehydration secondary to nausea and vomiting Cr today 6.3, comparable to yesterday Patient is a candidate for dialysis, nephro disscussed options. - Admit to general medicine floor - added Nahco3 PO TID - follow Nephrology - we will continue Gentle IV hydration with normal saline 100 mL/h - Close monitoring of renal functions over weekend - Avoid nephrotoxic - Vital signs every Shift - continue hydration and will follow Cr with target of 5 before discharge #Nausea and vomiting Differential diagnosis includes diabetic gastroparesis,CKD - Zofran when necessary for nausea - Gentle IV hydration #History of diabetes, diabetic neuropathy - Accu-Cheks - Insulin sliding scale #Mild anemia Most likely secondary to CKD Monitor CBC #History of hypertension and hyperlipidemia Continue home meds # Cough happens after food, responded well to trial of PPI, most likely related to atypical presnetation of GERD - Continue PPI Full code Consistent carbohydrate diet. DVT prophylaxis with subcutaneous heparin Problem List: 1. Acute on chronic renal failure Pain Ratin Pain Location: None Pain Goal: Pain 4 or less Pain Plan: Continue Tomorrow's Labs & Rationales: CBC BEP
[2017-12-04 07:04] VITALS: BP 157/70
--- NOTE | 2017-12-04 07:41 | PN- Diabetes ---
Assessment/Plan Diabetes Assessment: The patient states his appetite is improved. He does not like the diet in the hospital because he wants more carbohydrate. The patient's fasting blood sugar this morning by fingerstick is 123. His sugars were good yesterday. His creatinine is still 5.9 as of yesterday. Plan: Suggest continue the present insulin. The patient needs to maintain a careful diet. Await today's labs. Renal consult to see again. Subjective Subjective: Feels a little better Review of Systems Constitutional: Denies: chills, fever. Cardiovascular: Denies: chest pain. Respiratory: Denies: cough, short of breath. Gastrointestinal: Denies: abdominal pain, vomiting. Skin: Reports: no symptoms. Objective Last 24 Hrs of Vital Signs/I&O Vital Signs Date Time Temp Pulse Resp B/P B/P Pulse O2 O2 Flow FiO2 Mean Ox Delivery Rate 12/04 0704 97.6 75 20 157/70 12/03 2230 98.2 80 20 184/80 96 Room Air 12/03 180/12/03 1600 Room Air 12/03 1400 98.1 71 20 160/95 94 Room Air 12/03 0810 84 164/12/03 0800 Room Air Intake & Output 12/04 0000 12/03 1600 Intake Total 1080 1600 Output Total 500 450 Balance 580 1150 Intake, IV 800 800 Intake, Oral 280 800 Number 1 Bowel Movements Output, Urine 500 450 Patient 303 lb Weight Weight Standing Scale Measurement Method Vital Signs Date Time Temp Pulse Resp B/P B/P Pulse O2 O2 Flow FiO2 Mean Ox Delivery Rate 12/04 0704 97.6 75 20 157/70 95 12/03 2230 98.2 80 20 184/80 96 Room Air 12/03 2115 88 180/12/03 1600 Room Air 12/03 1400 98.1 71 20 160/95 94 Room Air 12/03 0810 84 164/12/03 0800 Room Air Intake & Output 12/04 0812/04 0000 12/03 1600 Intake Total 1080 1600 Output Total 500 450 Balance 580 1150 Intake, IV 800 800 Intake, Oral 280 800 Number 1 Bowel Movements Output, Urine 500 450 Patient 303 lb Weight Weight Standing Scale Measurement Method Physical Exam General Appearance: alert, awake, comfortable Head: normal appearance Respiratory: normal breath sounds Cardiovascular: regular rate/rhythm Abdomen: normal bowel sounds Current Medications: Current Medications Sig/Buddy Start time Last Medication Dose Route Stop Time Status Admin Acetaminophen 650 MG Q6P PRN 11/29 214 AC PO Amlodipine Besylate 5 MG DAILY 12/02 1615 AC 12/03 PO 0810 Atorvastatin Calcium 20 MG 1700 11/30 1700 AC 12/03 PO 1649 Benzonatate 100 MG TID PRN 11/30 2100 AC 12/03 PO 1653 Clonidine 0.1 MG AT BEDTIME 11/29 220 AC 12/03 PO 2116 Fenofibrate 145 MG DAILY 11/30 1000 AC 12/03 PO 0810 Guaifenesin 600 MG Q12 12/02 220 AC 12/03 PO 2116 Heparin Sodium 5,000 UNIT Q8 11/29 2199 AC 12/04 (Porcine) SC 0625 Hydrocodone Bitart/ 1 TAB Q6P PRN 11/29 2144 AC Acetaminophen PO Insulin Aspart 0 TIDAC 11/30 0245 AC 12/04 SC 0738 Insulin Detemir 10 UNITS AT BEDTIME 12/01 2199 AC 12/03 SC 2116 Levothyroxine Sodium 0.05 MG DAILY AC 11/30 0700 AC 12/04 PO 0625 Ofloxacin 1 GTT 4 TIMES/DAY 11/30 1000 AC 12/03 OPH 2116 Omeprazole 20 MG DAILY AC 12/03 1515 AC 12/04 PO 0625 Oxycodone/ 2 TAB Q6P PRN 11/29 2144 AC Acetaminophen PO Prednisolone 1 GTT 4 TIMES/DAY 11/29 2199 AC 12/03 OPH 2116 Sodium Bicarbonate 650 MG TID 11/30 1600 AC 12/03 PO 2117 Sodium Chloride 1,000 ML Q10H 11/29 2300 AC 12/04 IV 0630
--- NOTE | 2017-12-04 10:37 | PN- Nephrology ---
Assessment/Plan Nephrology Assessment: 1. Acute on chronic kidney disease. Patient's serum creatinine is now 5.4. He is on IV fluids. I do not think that he will require dialytic intervention on this admission. It may be better as the patient would prefer to wait until tomorrow if his creatinine is finally less than 5.0. That is before considering discharge 2. Cough. I am told that with his dose of Prilosec the cough abated 3. Diabetes mellitus 4. Known chronic kidney disease stage IV Suggestion: 1. Continue IV fluids. 2. Consider discharge only if the serum creatinine is less than 5.0 tomorrow Subjective Subjective: Patient feels better. A bit anxious about leaving the hospital. We did not discuss specifics with regards to renal replacement therapy. He remains completely without uremic symptoms. Objective Vital Signs and I&Os Vital Signs Date Time Temp Pulse Resp B/P B/P Pulse O2 O2 Flow FiO2 Mean Ox Delivery Rate 12/04 0704 97.6 75 20 157/70 95 12/03 2230 98.2 80 20 184/80 96 Room Air 12/03 2116 88 180/70 12/03 1600 Room Air 12/03 1400 98.1 71 20 160/95 94 Room Air Intake & Output 12/04 1600 12/04 0400 12/03 1600 12/03 0400 12/02 1600 12/02 0400 Intake Total 1400 1080 3000 900 3120 540 Output Total 600 5690 895 8374 3075 1300 Balance 800 -245 2250 -1075 45 -760 Intake, IV 796 348 7987 300 1800 300 Intake, Oral 495 297 4520 600 1320 240 Number 0 0 1 0 Bowel Movements Output, Urine 600 3544 109 7529 307 1300 Patient 303 lb 296 lb 295 lb Weight Weight Standing Scale Bed scale Measurement Method Physical Exam: General Appearance: well developed/nourished, no apparent distress, alert, awake , obese Head: atraumatic, normal appearance Ears, Nose, Throat: normal pharynx, normal ENT inspection Neck: normal inspection, supple, trachea mid line Respiratory: normal breath sounds, chest non-tender, no respiratory distress, lungs clear Cardiovascular: regular rate/rhythm, edema Abdomen: normal bowel sounds, soft, non-tender, no organomegaly Back: normal inspection, normal range of motion, no vertebral tenderness Extremities: normal inspection, positive edema Neurologic/Psychiatric: no motor/sensory deficits, awake, alert, oriented x 3 Skin: intact, normal color, warm/dry Current Medications: Current Medications Sig/Buddy Start time Last Medication Dose Route Stop Time Status Admin Acetaminophen 650 MG Q6P PRN 11/29 214 AC PO Amlodipine Besylate 5 MG DAILY 12/02 1615 AC 12/03 PO 0810 Atorvastatin Calcium 20 MG 1700 11/30 1700 AC 12/03 PO 1649 Benzonatate 100 MG TID PRN 11/30 2100 AC 12/03 PO 1653 Clonidine 0.1 MG AT BEDTIME 11/29 220 AC 12/03 PO 2116 Fenofibrate 145 MG DAILY 11/30 1000 AC 12/03 PO 0810 Guaifenesin 600 MG Q12 12/02 2200 AC 12/03 PO 2116 Heparin Sodium 5,000 UNIT Q8 11/29 2199 AC 12/04 (Porcine) SC 0625 Hydrocodone Bitart/ 1 TAB Q6P PRN 11/29 2144 AC Acetaminophen PO Insulin Aspart 0 TIDAC 11/30 0245 AC 12/04 SC 0738 Insulin Detemir 10 UNITS AT BEDTIME 12/01 2199 AC 12/03 SC 2116 Levothyroxine Sodium 0.05 MG DAILY AC 11/30 0700 AC 12/04 PO 0625 Ofloxacin 1 GTT 4 TIMES/DAY 11/30 1000 AC 12/03 OPH 2116 Omeprazole 20 MG DAILY AC 12/03 1515 AC 12/04 PO 0625 Oxycodone/ 2 TAB Q6P PRN 11/29 2144 AC Acetaminophen PO Prednisolone 1 GTT 4 TIMES/DAY 11/29 2199 AC 12/03 OPH 2116 Sodium Bicarbonate 650 MG TID 11/30 1600 AC 12/03 PO 2117 Sodium Chloride 1,000 ML Q10H 11/29 2300 AC 12/04 IV 0630 Results Pertinent Lab Results: Laboratory Tests 12/04 12/03 0852 0705 Chemistry Sodium (137 - 145 mmol/L) 139 140 Potassium (3.5 - 5.1 mmol/L) 3.5 3.6 Chloride (98 - 107 mmol/L) 114 H 113 H Carbon Dioxide (22 - 30 mmol/L) 17 L 16 L Anion Gap (5 - 16) 8 11 BUN (9 - 20 mg/dL) 39 H 42 H Creatinine (0.7 - 1.2 mg/dL) 5.4 *H 5.9 *H Estimated GFR (>60 ml/min) 11 L 10 L BUN/Creatinine Ratio (7 - 25 %) 7.2 7.1 Hematology CBC w Diff NO MAN DIFF REQ WBC (4.8 - 10.8 /CUMM) 11.6 H RBC (4.70 - 6.10 /CUMM) 3.64 L Hgb (14.0 - 18.0 G/DL) 11.1 L Hct (42 - 52 %) 33.0 L MCV (80.0 - 94.0 FL) 90.6 MCH (27.0 - 31.0 PG) 30.5 MCHC (33.0 - 37.0 G/DL) 33.6 RDW (11.5 - 14.5 %) 14.1 Plt Count (130 - 400 /CUMM) 407 H MPV (7.4 - 10.4 FL) 7.0 L Gran % (42.2 - 75.2 %) 72.8 Lymphocytes % (20.5 - 51.1 %) 13.9 L Monocytes % (1.7 - 9.3 %) 5.9 Eosinophils % (0 - 5 %) 6.6 H Basophils % (0.0 - 2.0 %) 0.8 Absolute Granulocytes (1.4 - 6.5 /CUMM) 8.5 H Absolute Lymphocytes (1.2 - 3.4 /CUMM) 1.6 Absolute Monocytes (0.10 - 0.60 /CUMM) 0.7 H Absolute Eosinophils (0.0 - 0.7 /CUMM) 0.8 Absolute Basophils (0.0 - 0.2 /CUMM) 0.1 12/02 0740 Chemistry Sodium (137 - 145 mmol/L) 138 Potassium (3.5 - 5.1 mmol/L) 3.5 Chloride (98 - 107 mmol/L) 111 H Carbon Dioxide (22 - 30 mmol/L) 17 L Anion Gap (5 - 16) 10 BUN (9 - 20 mg/dL) 38 H Creatinine (0.7 - 1.2 mg/dL) 5.8 *H Estimated GFR (>60 ml/min) 10 L BUN/Creatinine Ratio (7 - 25 %) 6.6 L Hematology CBC w Diff NO MAN DIFF REQ WBC (4.8 - 10.8 /CUMM) 10.5 RBC (4.70 - 6.10 /CUMM) 3.53 L Hgb (14.0 - 18.0 G/DL) 10.8 L Hct (42 - 52 %) 31.7 L MCV (80.0 - 94.0 FL) 90.0 MCH (27.0 - 31.0 PG) 30.7 MCHC (33.0 - 37.0 G/DL) 34.1 RDW (11.5 - 14.5 %) 14.2 Plt Count (130 - 400 /CUMM) 358 MPV (7.4 - 10.4 FL) 7.2 L Gran % (42.2 - 75.2 %) 68.1 Lymphocytes % (20.5 - 51.1 %) 18.3 L Monocytes % (1.7 - 9.3 %) 6.2 Eosinophils % (0 - 5 %) 6.9 H Basophils % (0.0 - 2.0 %) 0.5 Absolute Granulocytes (1.4 - 6.5 /CUMM) 7.2 H Absolute Lymphocytes (1.2 - 3.4 /CUMM) 1.9 Absolute Monocytes (0.10 - 0.60 /CUMM) 0.6 Absolute Eosinophils (0.0 - 0.7 /CUMM) 0.7 Absolute Basophils (0.0 - 0.2 /CUMM) 0.1
--- NOTE | 2017-12-04 10:57 | PN- Att Addend ---
Attending Addendum Attending Brief Note Patient feeling better. After the antireflux medication was started the cough diminished Vital signs are stable no fever. He has a little trace edema in his lower extremities are major changes and his BUN today is 39 creatinine 5.4, potassium 3.5 will check with nephrology to see if we can start disposition plans for the patient to go home continue to be monitored as an outpatient. Also follow endocrine recommendations. Intake & Output 12/04 1600 12/04 0400 12/03 1600 12/03 0400 12/02 1600 12/02 0400 Intake Total 1400 1080 3000 900 3120 540 Output Total 600 9101 952 6080 307 1300 Balance 800 -245 2250 -1075 45 -760 Intake, IV 893 457 1341 300 1800 300 Intake, Oral 185 952 0715 600 1320 240 Number 0 0 1 0 Bowel Movements Output, Urine 600 0379 324 9705 3075 1300 Patient 303 lb 296 lb 295 lb Weight Weight Standing Scale Bed scale Measurement Method Current Medications Sig/Buddy Start time Last Medication Dose Route Stop Time Status Admin Acetaminophen 650 MG Q6P PRN 11/29 2144 AC PO Amlodipine Besylate 5 MG DAILY 12/02 1615 12/04 PO 1046 Atorvastatin Calcium 20 MG 1700 11/30 1700 AC 12/03 PO 1649 Benzonatate 100 MG TID PRN 11/30 2100 AC 12/03 PO 1653 Clonidine 0.1 MG AT BEDTIME 11/29 2199 AC 12/03 PO 2116 Fenofibrate 145 MG DAILY 11/30 1000 AC 12/04 PO 1046 Guaifenesin 600 MG Q12 12/02 2200 AC 12/03 PO 2116 Heparin Sodium 5,000 UNIT Q8 11/29 220 AC 12/04 (Porcine) SC 0625 Hydrocodone Bitart/ 1 TAB Q6P PRN 11/29 2144 AC Acetaminophen PO Insulin Aspart 0 TIDAC 11/30 0245 AC 12/04 SC 0738 Insulin Detemir 10 UNITS AT BEDTIME 12/01 220 AC 12/03 SC 2116 Levothyroxine Sodium 0.05 MG DAILY AC 11/30 0700 AC 12/04 PO 0625 Ofloxacin 1 GTT 4 TIMES/DAY 11/30 1000 AC 12/04 OPH 1047 Omeprazole 20 MG DAILY AC 12/03 1515 12/04 PO 0625 Oxycodone/ 2 TAB Q6P PRN 11/29 2144 AC Acetaminophen PO Prednisolone 1 GTT 4 TIMES/DAY 11/29 2199 AC 12/04 OPH 1046 Sodium Bicarbonate 650 MG TID 11/30 1599 AC 12/04 PO 1046 Sodium Chloride 1,000 ML Q10H 11/29 2299 AC 12/04 IV 0630 Laboratory Tests 12/04/17 0852: Anion Gap 8, Estimated GFR 11 L, BUN/Creatinine Ratio 7.2 12/03/17 0705: Anion Gap 11, Estimated GFR 10 L, BUN/Creatinine Ratio 7.1, CBC w Diff NO MAN DIFF REQ, RBC 3.64 L, MCV 90.6, MCH 30.5, MCHC 33.6, RDW 14.1, MPV 7.0 L, Gran % 72.8, Lymphocytes % 13.9 L, Monocytes % 5.9, Eosinophils % 6.6 H, Basophils % 0.8, Absolute Granulocytes 8.5 H, Absolute Lymphocytes 1.6, Absolute Monocytes 0.7 H, Absolute Eosinophils 0.8, Absolute Basophils 0.1 12/02/17 0740: Anion Gap 10, Estimated GFR 10 L, BUN/Creatinine Ratio 6.6 L, CBC w Diff NO MAN DIFF REQ, RBC 3.53 L, MCV 90.0, MCH 30.7, MCHC 34.1, RDW 14.2, MPV 7.2 L, Gran % 68.1, Lymphocytes % 18.3 L, Monocytes % 6.2, Eosinophils % 6.9 H, Basophils % 0.5, Absolute Granulocytes 7.2 H, Absolute Lymphocytes 1.9, Absolute Monocytes 0.6, Absolute Eosinophils 0.7, Absolute Basophils 0.1 Vital Signs Date Time Temp Pulse Resp B/P B/P Pulse O2 O2 Flow FiO2 Mean Ox Delivery Rate 12/04 1046 75 157/70 12/04 0704 97.6 75 20 157/70 95 12/04 0000 96 Room Air 12/03 2230 98.2 80 20 184/80 96 Room Air 12/03 2116 88 180/70 12/03 1600 Room Air 12/03 1400 98.1 71 20 160/95 94 Room Air
[2017-12-04 14:27] VITALS: BP 150/90
[2017-12-04 22:21] VITALS: BP 144/90
[2017-12-05 07:15] VITALS: BP 174/94
[2017-12-05 07:57] VITALS: BP 166/88
--- NOTE | 2017-12-05 07:57 | PN- Diabetes ---
Assessment/Plan Diabetes Assessment: The patient feels improved. His creatinine was down to 5.4 yesterday. He states he is going to be going home today after the results of his this morning' s blood work. The patient fingerstick sugar this morning is 117. Blood sugars yesterday were 123 before breakfast, 161 before lunch, 179 before dinner, and 125 at bedtime. Plan: Suggest that if the patient goes home today he can go home on his present insulin regimen. He should check his sugars 4 times a day at home. If he begins to get any low sugars he should call the office for further adjustment of his insulin regimen. Subjective Subjective: Feels improved Review of Systems Constitutional: Denies: chills, fever. Cardiovascular: Denies: chest pain. Respiratory: Denies: cough, short of breath. Gastrointestinal: Denies: abdominal pain, nausea. Skin: Reports: no symptoms. Objective Last 24 Hrs of Vital Signs/I&O Vital Signs Date Time Temp Pulse Resp B/P B/P Pulse O2 O2 Flow FiO2 Mean Ox Delivery Rate 12/05 0615 97.5 82 18 174/94 94 Room Air 12/04 2221 97.9 78 18 144/90 95 Room Air 12/04 2153 78 144/90 12/04 1427 98.1 79 20 150/90 95 Room Air 12/04 1046 75 157/70 12/04 0800 Room Air Intake & Output 12/05 0812/05 0000 12/04 1600 Intake Total 3046 246 3183 Output Total 650 1250 Balance 350 500 -90 Intake, IV 800 400 800 Intake, Oral 200 100 360 Number 0 Bowel Movements Output, Urine 650 1250 Patient 305 lb 301 lb Weight Vital Signs Date Time Temp Pulse Resp B/P B/P Pulse O2 O2 Flow FiO2 Mean Ox Delivery Rate 12/05 0615 97.5 82 18 174/94 94 Room Air 12/04 2221 97.9 78 18 144/90 95 Room Air 12/04 2153 78 144/12/04 1427 98.1 79 20 150/90 95 Room Air 12/04 1046 75 157/70 12/04 0800 Room Air Intake & Output 12/05 0800 12/05 0000 12/04 1600 Intake Total 4712 758 7046 Output Total 650 1250 Balance 350 500 -90 Intake, IV 800 400 800 Intake, Oral 200 100 360 Number 0 Bowel Movements Output, Urine 650 1250 Patient 305 lb 301 lb Weight Physical Exam General Appearance: alert, awake, comfortable Head: normal appearance Neck: normal inspection Respiratory: lungs clear Abdomen: normal bowel sounds Current Medications: Current Medications Sig/Buddy Start time Last Medication Dose Route Stop Time Status Admin Acetaminophen 650 MG Q6P PRN 11/29 2145 AC PO Amlodipine Besylate 5 MG DAILY 12/02 1615 AC 12/04 PO 1046 Atorvastatin Calcium 20 MG 1700 11/30 1700 AC 12/04 PO 1627 Benzonatate 100 MG TID PRN 11/30 2100 AC 12/04 PO 1415 Clonidine 0.1 MG AT BEDTIME 11/29 2200 AC 12/04 PO 2153 Fenofibrate 145 MG DAILY 11/30 1000 AC 12/04 PO 1046 Guaifenesin 600 MG Q12 12/02 2200 AC 12/04 PO 2153 Heparin Sodium 5,000 UNIT Q8 11/29 2200 AC 12/05 (Porcine) SC 0537 Hydrocodone Bitart/ 1 TAB Q6P PRN 11/29 214 AC Acetaminophen PO Insulin Aspart 0 TIDAC 11/30 0245 AC 12/04 SC 1706 Insulin Detemir 10 UNITS AT BEDTIME 12/01 2200 AC 12/04 SC 2200 Levothyroxine Sodium 0.05 MG DAILY AC 11/30 0700 AC 12/05 PO 0537 Ofloxacin 1 GTT 4 TIMES/DAY 11/30 1000 AC 12/04 OPH 2153 Omeprazole 20 MG DAILY AC 12/03 1515 AC 12/05 PO 0537 Oxycodone/ 2 TAB Q6P PRN 11/29 214 AC Acetaminophen PO Prednisolone 1 GTT 4 TIMES/DAY 11/29 2200 AC 12/04 OPH 2153 Sodium Bicarbonate 650 MG TID 11/30 1600 AC 12/04 PO 2153 Sodium Chloride 1,000 ML Q10H 11/29 2300 AC 12/05 IV 0252 Findings Pertinent Lab/Haseeb Results: Laboratory Tests 12/05 12/04 0710 0852 Chemistry Sodium (137 - 145 mmol/L) Pending 139 Potassium (3.5 - 5.1 mmol/L) Pending 3.5 Chloride (98 - 107 mmol/L) Pending 114 H Carbon Dioxide (22 - 30 mmol/L) Pending 17 L Anion Gap (5 - 16) Pending 8 BUN (9 - 20 mg/dL) Pending 39 H Creatinine (0.7 - 1.2 mg/dL) Pending 5.4 *H Estimated GFR (>60 ml/min) 11 L BUN/Creatinine Ratio (7 - 25 %) Pending 7.2
[2017-12-05 07:59] VITALS: BP 166/88
--- NOTE | 2017-12-05 08:02 | PN- Housestaff ---
Subjective Follow-up For: CHANDANA on CKD cough Subjective: Patient visited today, was lying in bed comfortably in no acute distress, was alert and oriented. reported improved cough. Was requesting to be discharged. No fever or chills, no shortness of breathing, no chest pain, no other events. Communicated with Dr. Mccoy director of communications, noted to stop lisinopril, continue amlodipine, and also bicarbonate. Patient is to follow with Maldonado Zambrano MD on December 19. Patient is stable to be discharged Review of Systems Constitutional: Reports: see HPI. Objective Last 24 Hrs of Vital Signs/I&O Vital Signs Date Time Temp Pulse Resp B/P B/P Pulse O2 O2 Flow FiO2 Mean Ox Delivery Rate 12/05 0759 82 166/88 12/05 0757 16612/05 0715 97.5 82 18 174/94 94 Room Air 12/04 2221 97.9 78 18 144/90 95 Room Air 12/04 2153 78 144/90 12/04 1427 98.1 79 20 150/90 95 Room Air Intake & Output 12/05 1600 12/05 0800 12/05 0000 Intake Total 1000 500 Output Total 650 Balance 350 500 Intake, IV 800 400 Intake, Oral 200 100 Output, Urine 650 Patient 305 lb Weight Physical Exam General Appearance: Alert, Oriented X3, Cooperative, No Acute Distress Skin: No Significant Lesion Skin Temp/Moisture Exam: Warm/Dry Sepsis Skin Exam (color): Normal for Ethnicity HEENT: Atraumatic, EOMI, Mucous Membr. moist/pink Cardiovascular: Normal S1, Normal S2 Lungs: Clear to Auscultation, Normal Air Movement Abdomen: Soft, No Tenderness Neurological: Normal Speech Extremities: edema Current Medications: Current Medications Sig/Buddy Start time Last Medication Dose Route Stop Time Status Admin Acetaminophen 650 MG Q6P PRN 11/29 2145 AC PO Amlodipine Besylate 5 MG DAILY 12/02 1615 AC 12/05 PO 0759 Atorvastatin Calcium 20 MG 1700 11/30 1700 AC 12/04 PO 1627 Benzonatate 100 MG TID PRN 11/30 2100 AC 12/04 PO 1415 Clonidine 0.1 MG AT BEDTIME 11/29 2200 AC 12/04 PO 2153 Fenofibrate 145 MG DAILY 11/30 1000 AC 12/05 PO 0759 Guaifenesin 600 MG Q12 12/02 2200 AC 12/04 PO 2153 Heparin Sodium 5,000 UNIT Q8 11/29 220 AC 12/05 (Porcine) SC 0537 Hydrocodone Bitart/ 1 TAB Q6P PRN 11/29 2145 AC Acetaminophen PO Insulin Aspart 0 TIDAC 11/30 0245 AC 12/05 SC 1154 Insulin Detemir 10 UNITS AT BEDTIME 12/01 2199 AC 12/04 SC 2200 Levothyroxine Sodium 0.05 MG DAILY AC 11/30 0700 AC 12/05 PO 0537 Ofloxacin 1 GTT 4 TIMES/DAY 11/30 1000 AC 12/05 OPH 1306 Omeprazole 20 MG DAILY AC 12/03 1515 AC 12/05 PO 0537 Oxycodone/ 2 TAB Q6P PRN 11/29 214 AC Acetaminophen PO Prednisolone 1 GTT 4 TIMES/DAY 11/29 2199 AC 12/05 OPH 1305 Sodium Bicarbonate 650 MG TID 11/30 1600 AC 12/05 PO 0759 Sodium Chloride 1,000 ML Q10H 11/29 2300 AC 12/05 IV 0252 Last 24 Hrs of Lab/Haseeb Results Last 24 Hrs of Labs/Mics: Laboratory Tests 12/05/17 0710: Anion Gap 8, Estimated GFR 11 L, BUN/Creatinine Ratio 7.3 Assessment/Plan Assessment: 52 years old male with referred from Dr Zambrano's office complaints of: weakness, vomiting several times of nonbloody contents almost once every week for the past a few weeks, diarrhea almost 3 episodes of loose bowel movement every week for the past 3 weeks ,body aches which started back on OctoberH: uncontrolled type 2 DM with complications( retinopathy, neuropathy, CKD) on insulin, HTN, hyperlipidemia, H/o pelvic abscess( 2 years back) VS, Ph Ex at admission: Blood pressure 194/81, pulse 71, respiratory rate 18, temperature 97.9, pulse ox 96 on room air Labs at admission: WBC 14.2, no bands, hemoglobin 11.7, MCV 90.7, platelets 408, sodium 138, potassium 3.5, BUN 43, creatinine 6.5, glucose 257, calcium 7.2, alkaline phosphatase 142 Imagings at admission: No imaging, CXR ordered Patient was admitted to floor for management of following conditions: #CHANDANA on CKD/dehydration Most likely due to high dehydration secondary to nausea and vomiting. During the admission patient recieved NS. - added Nahco3 PO TID - continued Gentle IV hydration with normal saline 100 mL/h - Avoid nephrotoxic - Vital signs every Shift with improvement of Cr patient requested to be discharged. #Nausea and vomiting Differential diagnosis includes diabetic gastroparesis,CKD - Zofran when necessary for nausea - Gentle IV hydration #History of diabetes, diabetic neuropathy - Accu-Cheks - Insulin sliding scale #Mild anemia Most likely secondary to CKD Monitor CBC #History of hypertension and hyperlipidemia Continue home meds # Cough happens after food, responded well to trial of PPI, most likely related to atypical presnetation of GERD - Continue PPI Full code Consistent carbohydrate diet. DVT prophylaxis with subcutaneous heparin Problem List: 1. Acute on chronic renal failure Pain Ratin Pain Location: None Pain Goal: Pain 4 or less Pain Plan: Continue current plan Tomorrow's Labs & Rationales: NA, patient would be discharged. Discharge Plan Discharge Disposition: home Stable for Discharge? Yes
--- NOTE | 2017-12-05 09:04 | Patient Discharge Instructions ---
Discharge Instructions General Discharge Information You were seen/treated for: CHANDANA on CKD Chronic cough You had these procedures: Severe weakness, swelling, shortness of breathing, chest pain, palpitation or for worsening of any other symptoms. Special Instructions: Please follow-up with your PCP within one week of discharge. Please do your blood work before going to PCP. Please follow with your insurance advisor on 19 December. Please follow with enterprise infrastructure architect, Dr. Wang regarding your chronic cough. Please take your medications as ordered. Please come back to hospital if symptoms worsen. Please note several of your medications changed, you would need to follow with your nephorologist regarding the update on the schedualed date. Diet Continue normal diet: No Recommended Diet: Diabetic Activity Full Activity/No Limits: No Activity Self Limited: Yes Acute Coronary Syndrome Inclusion Criteria At DC or during hospital stay patient has or had the following: ACS DIAGNOSIS No Discharge Core Measures Meds if any: Prescribed or Continued at Discharge Meds if any: NOT Prescribed or Continued at Discharge Congestive Heart Failure Inclusion Criteria At DC or during hospital stay patient has or had the following: CHF DIAGNOSIS No Discharge Core Measures Meds if any: Prescribed or Continued at Discharge Meds if any: NOT Prescribed or Continued at Discharge Cerebrovascular accident Inclusion Criteria At DC or during hospital stay patient has or had the following: CVA/TIA Diagnosis No Discharge Core Measures Meds if any: Prescribed or Continued at Discharge Meds if any: NOT Prescribed or Continued at Discharge Venous thromboembolism Inclusion Criteria VTE Diagnosis No VTE Type NONE VTE Confirmed by (Test) NONE Discharge Core Measures - Per Current guidelines, there needs to be overlap - treatment for the first 5 days of Warfarin therapy. - If discharged on Warfarin prior to 5 days of - overlap therapy, the patient will need to be - assessed for post discharge needs including - *Post discharge parental anticoagulation - *Warfarin and/or parental anticoagulation education - *Follow up date to check INR post discharge At least 5 days overlap therapy as Inpatient No Meds if any: Prescribed or Continued at Discharge Note: Overlap Therapy is Warfarin and Anticoagulant Meds if any: NOT Prescribed or Continued at Discharge
--- NOTE | 2017-12-05 10:09 | PN- Att Addend ---
Attending Addendum Attending Brief Note No new issues. Patient hydrating himself patient is afebrile his vital signs are stable and will check his kidney function today if it continues to slowly decline to his baseline then will check with nephrology to see if we can discharge the patient to be followed closely as an outpatient. Intake & Output 12/05 1600 12/05 0400 12/04 1600 12/04 0400 12/03 1600 12/03 0400 Intake Total 6261 638 7260 1080 3000 900 Output Total 650 1250 9127 344 6380 Balance 112 287 8635 -245 2250 -1075 Intake, IV 666 782 4203 800 1600 300 Intake, Oral 200 100 523 113 6255 600 Number 0 0 1 Bowel Movements Output, Urine 650 1250 3243 461 0662 Patient 305 lb 301 lb 296 lb Weight Weight Standing Scale Bed scale Measurement Method Current Medications Sig/Buddy Start time Last Medication Dose Route Stop Time Status Admin Acetaminophen 650 MG Q6P PRN 11/29 2144 AC PO Amlodipine Besylate 5 MG DAILY 12/02 1615 AC 12/05 PO 0759 Atorvastatin Calcium 20 MG 1700 11/30 1700 AC 12/04 PO 1627 Benzonatate 100 MG TID PRN 11/30 2100 AC 12/04 PO 1415 Clonidine 0.1 MG AT BEDTIME 11/29 2200 AC 12/04 PO 2153 Fenofibrate 145 MG DAILY 11/30 1000 AC 12/05 PO 0759 Guaifenesin 600 MG Q12 12/02 2200 AC 12/04 PO 2153 Heparin Sodium 5,000 UNIT Q8 11/29 2199 AC 12/05 (Porcine) SC 0537 Hydrocodone Bitart/ 1 TAB Q6P PRN 11/29 2144 AC Acetaminophen PO Insulin Aspart 0 TIDAC 11/30 0245 AC 12/05 SC 0800 Insulin Detemir 10 UNITS AT BEDTIME 12/01 2200 AC 12/04 SC 2200 Levothyroxine Sodium 0.05 MG DAILY AC 11/30 0700 AC 12/05 PO 0537 Ofloxacin 1 GTT 4 TIMES/DAY 11/30 1000 AC 12/05 OPH 0800 Omeprazole 20 MG DAILY AC 12/03 1515 AC 12/05 PO 0537 Oxycodone/ 2 TAB Q6P PRN 11/29 2144 AC Acetaminophen PO Prednisolone 1 GTT 4 TIMES/DAY 11/29 2200 AC 12/05 OPH 0800 Sodium Bicarbonate 650 MG TID 11/30 1600 AC 12/05 PO 0759 Sodium Chloride 1,000 ML Q10H 11/29 2300 AC 12/05 IV 0252 Laboratory Tests 12/05/17 0710: Anion Gap 8, Estimated GFR 11 L, BUN/Creatinine Ratio 7.3 12/04/17 0852: Anion Gap 8, Estimated GFR 11 L, BUN/Creatinine Ratio 7.2 12/03/17 0705: Anion Gap 11, Estimated GFR 10 L, BUN/Creatinine Ratio 7.1, CBC w Diff NO MAN DIFF REQ, RBC 3.64 L, MCV 90.6, MCH 30.5, MCHC 33.6, RDW 14.1, MPV 7.0 L, Gran % 72.8, Lymphocytes % 13.9 L, Monocytes % 5.9, Eosinophils % 6.6 H, Basophils % 0.8, Absolute Granulocytes 8.5 H, Absolute Lymphocytes 1.6, Absolute Monocytes 0.7 H, Absolute Eosinophils 0.8, Absolute Basophils 0.1 Vital Signs Date Time Temp Pulse Resp B/P B/P Pulse O2 O2 Flow FiO2 Mean Ox Delivery Rate 12/05 0759 82 166/88 12/05 0757 166/88 12/05 0715 97.5 82 18 174/94 94 Room Air 12/04 2221 97.9 78 18 144/90 95 Room Air 12/04 2153 78 144/90 12/04 1427 98.1 79 20 150/90 95 Room Air 12/04 1046 75 157/70
[2017-12-05] MEDS ORDERED: AMLODIPINE BESYL5 M1 PO ×2 (13:12→13:39)
--- NOTE | 2017-12-05 13:15 | PN- Nephrology ---
Assessment/Plan Nephrology Assessment: 1. Acute on chronic kidney disease. Patient's serum creatinine is now 5.6. In terms of discharge planning, he has an appointment this afternoon at 4:00. I do not see any further benefit to be derived by remaining here. Discussed with housestaff, on a separate conversation, will hold the AMADA inhibitor for now 2. Cough. 3. Diabetes mellitus 4. Known chronic kidney disease stage IV Suggestion: 1. patient is safe for discharge 2. He has an appointment with Maldonado Zambrano MD at [address] [place] [address], [address], [place], [place]. The appointment is 12/19/2017 at 10:30 AM Subjective Subjective: Patient feels well anxious to go home. Objective Vital Signs and I&Os Vital Signs Date Time Temp Pulse Resp B/P B/P Pulse O2 O2 Flow FiO2 Mean Ox Delivery Rate 12/05 0759 82 166/88 12/05 0757 166/88 12/05 0715 97.5 82 18 174/94 94 Room Air 12/04 2221 97.9 78 18 144/90 95 Room Air 12/04 2153 78 144/90 Intake & Output 12/05 1600 12/05 0400 12/04 1600 12/04 0400 12/03 1600 12/03 0400 Intake Total 2040 500 2560 1080 3000 900 Output Total 650 1250 1251 629 6800 Balance 2184 502 0862 -245 2250 -1075 Intake, IV 7826 775 6249 800 1600 300 Intake, Oral 440 100 975 646 0324 600 Number 0 0 1 Bowel Movements Output, Urine 650 1250 8237 686 2260 Patient 305 lb 301 lb 296 lb Weight Weight Standing Scale Bed scale Measurement Method Physical Exam: General Appearance: well developed/nourished, no apparent distress, alert, awake , obese Head: atraumatic, normal appearance Neck: normal inspection, supple, trachea mid line Respiratory: normal breath sounds, chest non-tender, no respiratory distress, lungs clear Cardiovascular: regular rate/rhythm, edema Abdomen: normal bowel sounds, soft, non-tender, no organomegaly Back: normal inspection, normal range of motion, no vertebral tenderness Extremities: normal inspection, positive edema Neurologic/Psychiatric: no motor/sensory deficits, awake, alert, oriented x 3 Skin: intact, normal color, warm/dry Results Pertinent Lab Results: Laboratory Tests 12/05 12/04 12/03 0710 0852 0705 Chemistry Sodium (137 - 145 mmol/L) 139 139 140 Potassium (3.5 - 5.1 mmol/L) 3.8 3.5 3.6 Chloride (98 - 107 mmol/L) 114 H 114 H 113 H Carbon Dioxide (22 - 30 mmol/L) 18 L 17 L 16 L Anion Gap (5 - 16) 8 8 11 BUN (9 - 20 mg/dL) 41 H 39 H 42 H Creatinine (0.7 - 1.2 mg/dL) 5.6 *H 5.4 *H 5.9 *H Estimated GFR (>60 ml/min) 11 L 11 L 10 L BUN/Creatinine Ratio (7 - 25 %) 7.3 7.2 7.1 Hematology CBC w Diff NO MAN DIFF REQ WBC (4.8 - 10.8 /CUMM) 11.6 H RBC (4.70 - 6.10 /CUMM) 3.64 L Hgb (14.0 - 18.0 G/DL) 11.1 L Hct (42 - 52 %) 33.0 L MCV (80.0 - 94.0 FL) 90.6 MCH (27.0 - 31.0 PG) 30.5 MCHC (33.0 - 37.0 G/DL) 33.6 RDW (11.5 - 14.5 %) 14.1 Plt Count (130 - 400 /CUMM) 407 H MPV (7.4 - 10.4 FL) 7.0 L Gran % (42.2 - 75.2 %) 72.8 Lymphocytes % (20.5 - 51.1 %) 13.9 L Monocytes % (1.7 - 9.3 %) 5.9 Eosinophils % (0 - 5 %) 6.6 H Basophils % (0.0 - 2.0 %) 0.8 Absolute Granulocytes (1.4 - 6.5 /CUMM) 8.5 H Absolute Lymphocytes (1.2 - 3.4 /CUMM) 1.6 Absolute Monocytes (0.10 - 0.60 /CUMM) 0.7 H Absolute Eosinophils (0.0 - 0.7 /CUMM) 0.8 Absolute Basophils (0.0 - 0.2 /CUMM) 0.1
[2017-12-05] MEDS ORDERED: OMEPRAZOLE20 M2 PO (13:39)
[2017-12-05] MEDS ORDERED: LEVEMIR100 UNIT/1 SC ×2 (13:39→14:09)
[2017-12-05] MEDS ORDERED: NOVOLOG100 UNIT/2 SC (13:39)
[2017-12-05] MEDS ORDERED: SODIUM BICARBO325 M1 PO (13:39)
== END 2017-12-05 15:00 | DRG 683 ==
LOC: ERH 16:40 → 2NA 18:34 → ERHI 18:34 → ENRESERV 22:07 → ENTRNSPT 22:32 → EDTRNSPTSTS 22:38 → CMPTRNSPT 22:55 → 2NA 22:57 → ENPENDDIS 12-05 13:44 → 2NA 12-05 15:00
PROVIDERS: Internal Medicine Hematology & Oncology; Physician Assistant Medical; Radiology Vascular & Interventional Radiology
DX: N17.9 Acute kidney failure, unspecified (principal); Z68.41 Body mass index [BMI] 40.0-44.9, adult; E11.40 Type 2 diabetes mellitus with diabetic neuropathy, unspecified; E11.319 Type 2 diabetes mellitus with unspecified diabetic retinopathy without macular edema; E11.621 Type 2 diabetes mellitus with foot ulcer; I12.9 Hypertensive chronic kidney disease with stage 1 through stage 4 chronic kidney disease, or unspecified chronic kidney disease; N18.4 Chronic kidney disease, stage 4 (severe); E11.65 Type 2 diabetes mellitus with hyperglycemia; Z79.4 Long term (current) use of insulin; E78.5 Hyperlipidemia, unspecified; E86.0 Dehydration; D64.9 Anemia, unspecified; D72.829 Elevated white blood cell count, unspecified; R19.7 Diarrhea, unspecified; E66.01 Morbid (severe) obesity due to excess calories; R05 Cough; E86.1 Hypovolemia; K21.9 Gastro-esophageal reflux disease without esophagitis
CPT/HCPCS: 2NASP; 84133; 84300; 36415; 36592; 71045; 81001; 82436; 82570; 93005; 93010; 96360; 96361; J1644

== ENCOUNTER 2017-12-21 13:08 | Inpatient (IN) | payer OTHER ==
[~2017-12-21] VITALS: Ht 172.7 cm; Wt 115.2 kg
[~2017-12-21 13:08] MED LIST changes: +AMLODIPINE BESYL5 M1 PO; +CRESTOR5 M1 PO; +LEVEMIR100 UNIT/1 SC; +LEVOTHYROXINE50 MCG PO; +OMEPRAZOLE20 M2 PO; +PREDNISOLONE ACE5 ML OS; +SODIUM BICARBO325 M1 PO; +VIGAMOX3 ML OS
--- NOTE | 2017-12-21 13:51 | ED GENERAL ADULT ---
History of Present Illness General Chief Complaint: Upper Extremity Problem Stated Complaint: RIGHT ARM SWELLING Source: patient, family, old records Exam Limitations: no limitations Vital Signs & Intake/Output Vital Signs & Intake/Output Vital Signs Date Time Temp Pulse Resp B/P B/P Pulse O2 O2 Flow FiO2 Mean Ox Delivery Rate 12/23 1600 97.9 80 20 148/88 95 Room Air 12/23 1250 78 163/90 12/23 1240 98.9 78 20 163/90 95 Room Air 12/23 0600 98.0 77 20 164/80 91 12/22 2350 142/70 12/22 2204 97.8 80 20 186/95 93 Room Air 12/22 2156 80 171/106 ED Intake and Output 12/23 0000 12/22 1200 Intake Total 380 60 Output Total Balance 380 60 Intake, IV 0 Intake, Oral 380 60 Number 0 Bowel Movements Patient 316 lb Weight Weight Bed scale Measurement Method Allergies Coded Allergies: shellfish derived (SEAFOOD- NAUSEA AND DIZZINESS 04/27/17) Triage Nurses Notes Reviewed? 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 he had blood work performed week and since then has had swelling to his right arm where the blood was drawn from. Patient also reports 2 recent weight gain, he denies chest pain shortness of breath fever chills. He noticed small area of erythema at the site of the blood draw however denies any streaking up the skin and no fever no chills (Reagan Godinez) Reconcile Medications Amlodipine Besylate 5 MG TABLET 1 TAB PO DAILY HTN . Clonidine HCl 0.1 MG TABLET 1 TAB PO QHS BP (Reported) Ergocalciferol (Vitamin D2) (Vitamin D2) 50,000 UNIT CAPSULE 1 CAP PO QFRI SUPPLEMENT (Reported) Fenofibrate Nanocrystallized (Fenofibrate) 145 MG TABLET 1 TAB PO DAILY CHOLESTEROL/TRIGLYCERIDES (Reported) Insulin Aspart (Novolog) 100 UNIT/ML VIAL 0 UNITS SC TIDAC BLOOD SUGAR PLEASE TAKE FOLLOW: BLOOD SUGAR 80-150 MG/DL: 6 UNITS 151-200 MG/DL: 7 UNITS 201-250 MG/DL: 8 UNITS 251-300 MG/DL: 9 UNITS 301-350 MG/DL: 10 UNITS 351-400 MG/DL: 11 UNITS MORE THAN 400 MG/DL: 12 UNITS, CALL Insulin Detemir (Levemir) 100 UNIT/ML VIAL 10 UNITS SC QHS DM (Reported) Levothyroxine Sodium 50 MCG TABLET 1 TAB PO DAILY THYROID (Reported) Omeprazole 20 MG CAPSULE.DR 20 MG PO DAILY AC STOMACH HEALTH Rosuvastatin Calcium (Crestor) 5 MG TABLET 1 TAB PO Monday CHOLESTEROL (Reported) Sodium Bicarbonate 325 MG TABLET 650 MG PO TID BONE STRENGTH Tadalafil (Cialis) 5 MG TABLET 1 TAB PO DAILY ED (Reported) (Rebeca PALACIOS,Paddy Aguila) Past History Travel History Traveled to [place] past 21 day No Medical History Any Pertinent Medical History? 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 No (Reagan Godinez) Review of Systems Review of Systems Constitutional: Reports: see HPI. Comments Review of systems: See HPI, All other systems negativeg general: no fever HEENT: no sore throat no congestion, no ear pain Cardiovascular: No chest pain , no palpitation Skin: no rashes, no change in skin Respiratory: No dyspnea no cough no sputum GI: No nausea no vomiting, no diarrhea, no bloating/constipation : No dysuria No hematuria, no frequency Muscle skeletal: No joint pain, no back pain, Neurologic: , no headache Heme/endocrine: No bruising Immunology: No lymphadenopathy (Reagan Godinez) Physical Exam Physical Exam General Appearance: well developed/nourished Comments: Well-developed well-nourished person in no acute distress HEENT: Normal EENT exam; PERRL, EOMI. HEAD is atraumatic. moist mucous membranes. Neck: normal range of motion Back: Full range of motion Cardiovascular: Regular rate and rhythms no murmurs rubs Respiratory: No respiratory distress. Patient speaking in full complete sentences. Breath sounds clear to auscultation bilaterally: NO W/R/R Abdomen: Soft, nontender nondistended, no appreciable organomegaly. Normal bowel sounds. No rebound/guarding, No appreciable enlargement of the abdominal aorta, No ascites. Extremity: 2+ edema to b/l le and right UE, there is no streaking up the arm or erythema noted to the AC joint, full range of motion of extremities, normal and equal pulses bilaterally, 5 out of 5 strength noted to bilateral upper extremities Neuro: Alert oriented x3, motor sensory normal, There were no obvious focal neurologic abnormalities. Skin: No appreciable rash on exposed skin, skin is warm and dry. Psych: Mood and affect is normal, memory and judgment is normal. Core Measures ACS in differential dx? No CVA/TIA Diagnosis: No Sepsis Present: No Sepsis Focused Exam Completed? No (Reagan Godinez) Progress Differential Diagnoses I considered the following diagnoses in my evaluation of the patient: CHANDANA, CKI, ELECTROLYTE ABNROMALITY, DVT, SUPERFICIAL THROMBOPHLEBITIS, COMPARTMENT SYNDROME , CHF Plan of Care: Orders Procedure Date/time Status CBC WITHOUT DIFFERENTIAL 12/24 0600 Active BASIC ELECTROLYTES PLUS BUN&CR 12/24 0600 Active GLUCOSE 12/23 0831 Complete CBC WITHOUT DIFFERENTIAL 12/23 0831 Complete CALCIUM 12/23 0831 Complete BASIC ELECTROLYTES PLUS BUN&CR 12/23 0831 Complete PHOSPHORUS 12/23 0735 Complete Lab Add-on Test 12/23 UNK Active Current Medications Sig/Buddy Start time Last Medication Dose Stop Time Status Admin Sevelamer Carbonate 1,600 MG WM 12/23 1200 AC 12/23 (Renvela) 1849 Amlodipine Besylate 5 MG DAILY 12/22 1000 AC 12/23 (Norvasc) 1250 Atorvastatin Calcium 20 MG 12/22 1000 AC 12/22 (Lipitor) 0919 Fenofibrate 145 MG DAILY 12/22 1000 AC 12/23 (Tricor) 1250 Insulin Aspart 0 TIDAC 12/22 0800 AC 12/23 (NovoLOG) 1255 Ergocalciferol 50,000 IU QFRI 12/22 0700 AC 12/22 (Drisdol) 0919 Levothyroxine Sodium 0.05 MG DAILY AC 12/22 0700 AC 12/23 (Synthroid) 0616 Omeprazole 20 MG DAILY AC 12/22 0700 AC 12/23 (Prilosec) 0616 Clonidine 0.1 MG AT BEDTIME 12/21 2200 AC 12/22 (Catapres) 2156 Heparin Sodium 5,000 UNIT Q8 12/21 2200 AC 12/23 (Porcine) 1252 Insulin Detemir 10 UNITS AT BEDTIME 12/21 2200 AC 12/22 (Levemir) 2157 Acetaminophen 650 MG Q6P PRN 12/21 2030 AC (Tylenol) Laboratory Tests 12/23/17 0735: Anion Gap 8, Estimated GFR 11 L, BUN/Creatinine Ratio 7.7, Glucose 120 H, Calcium 7.6 L, Phosphorus 6.8 H, CBC w Diff NO MAN DIFF REQ, RBC 3.39 L, MCV 91.3, MCH 30.1, MCHC 33.0, RDW 14.6 H, MPV 6.8 L, Gran % 63.6, Lymphocytes % 20.2 L, Monocytes % 6.8, Eosinophils % 8.7 H, Basophils % 0.7, Absolute Granulocytes 5.9, Absolute Lymphocytes 1.9, Absolute Monocytes 0.6, Absolute Eosinophils 0.8, Absolute Basophils 0.1 12/23/17 0705: Anion Gap 7, Estimated GFR 11 L, BUN/Creatinine Ratio 7.7, CBC w Diff NO MAN DIFF REQ, RBC 3.27 L, MCV 91.3, MCH 30.3, MCHC 33.2, RDW 14.5, MPV 6.8 L, Gran % 64.0, Lymphocytes % 19.8 L, Monocytes % 7.3, Eosinophils % 8.1 H, Basophils % 0.8, Absolute Granulocytes 5.4, Absolute Lymphocytes 1.7, Absolute Monocytes 0.6, Absolute Eosinophils 0.7, Absolute Basophils 0.1 I spoke with IR who will touch base with renal for jose raul cath placement. Discussed with Dr. Jose agrees with plan I discussed with patient at length all his lab results and need for admission which she is in agreement with. Case discussed with Dr. Tijerina will admit Diagnostic Imaging: Viewed by Me: Radiology Read. Discussed w/RAD: Radiology Read. Radiology Impression: PATIENT: EATON,HERNAN PRESENT AGE: 52 PATIENT ACCOUNT NO: [id number] : 69 LOCATION: [facility] ORDERING PHYSICIAN: Reagan DAVE SERVICE DATE: 12/21/17 EXAM TYPE: RAD - XRY- PORTABLE CHEST XRAY EXAMINATION: XR PORTABLE CHEST CLINICAL INFORMATION: Renal failure COMPARISON: 11/30/2017 TECHNIQUE: Portable frontal view of the chest was obtained. FINDINGS: The lungs are hypoinflated with central vascular congestion and probable small right pleural effusion. Interstitial markings are slightly prominent. Stable cardiac silhouette which is partially obscured. IMPRESSION: Hypoinflation with probable mild CHF and a small right pleural effusion. DICTATED BY: Ned Fox MD DATE/TIME DICTATED:12/21/171423 AIRCRAFT INSTRUMENT MECHANIC:MARGARET DATE/TIME TRANSCRIBED:12/21/171423 CONFIDENTIAL, DO NOT COPY WITHOUT APPROPRIATE AUTHORIZATION. <Electronically signed in Other Vendor System> SIGNED BY: Ned Fox MD 12/21/17 142, PATIENT: HERNAN BUSH PRESENT AGE: 52 PATIENT ACCOUNT NO: [id number] : 69 LOCATION: [facility] ORDERING PHYSICIAN: Reagan DAVE SERVICE DATE: 12/21/17 EXAM TYPE: US - US-UNILATERAL VENOUS DOPPLER EXAMINATION: US TRIPLEX LOWER EXTREMITY, RIGHT CLINICAL INFORMATION: Rule out right upper extremity DVT. Right arm swelling and pain COMPARISON: None TECHNIQUE: Color-flow triplex imaging with spectral analysis and compression Doppler were performed on the lower extremity. FINDINGS: Respiratory variation, normal compression and augmented flow are noted throughout the lower extremity. The visualized common femoral vein, superficial femoral vein, profunda femoral vein, popliteal vein and midcalf peroneal and posterior tibial venous segments show no evidence of deep venous thrombosis. There is no Lindquist's cyst. IMPRESSION : Normal triplex scan without evidence of deep venous thrombosis involving the lower extremity. DICTATED BY: Jean Marie No MD DATE/TIME DICTATED:12/21/171647 AIRCRAFT INSTRUMENT MECHANIC:MARGARET DATE/TIME TRANSCRIBED:12/21/171647 CONFIDENTIAL, DO NOT COPY WITHOUT APPROPRIATE AUTHORIZATION. <Electronically signed in Other Vendor System> SIGNED BY: Jean Marie No MD 12/21/17 1652 Initial ED EKG: normal intervals, normal p-waves, normal QRS complex, normal sinus rhythm Prior EKG: unchanged (Reagan Godinez) Departure Departure Disposition: STILL A PATIENT Condition: Stable Clinical Impression Primary Impression: Acute on chronic renal insufficiency Referrals: Ar Tijerina MD (PCP/Family) Departure Forms: Customer Survey General Discharge Information Admission Note Spoke With: Ar Tijerina MD Documentation of Exam: Documentation of any treatments & extenuating circumstances including Concerns Regarding Discharge (functional status, medication knowledge or non-compliance, living conditions, etc.) that warrant an admission rather than observation: IR CONSULT FOR JOSE RAUL CATH PLACEMENT, DIALYSIS TOMORROW, NEPHROLOGY CONSULT, PREMATURE DISCHARGE WOULD BE MEDICALLY HARMFUL (Reagan Godinez) PA/ROTARY DRIER FEEDER Co-Sign Statement Statement: ED Attending supervision documentation- [X] I saw and evaluated the patient. I have also reviewed all the pertinent lab results and diagnostic results. I agree with the findings and the plan of care as documented in the PA's/ROTARY DRIER FEEDER's documentation. [X] I have reviewed the ED Record and agree with the PA's/ROTARY DRIER FEEDER's documentation. [] Additions or exceptions (if any) to the PAs/ROTARY DRIER FEEDER's note and plan are summarized below: [Patient to be admitted for AN JOSE RAUL catheter and then will require dialysis.] (Rebeca PALACIOS,Paddy Aguila) Critical Care Note Critical Care Note Critical Care Time: non-applicable (Reagan Godinez) [X] I saw and evaluated the patient. I have also reviewed all the pertinent lab results and diagnostic results. I agree with the findings and the plan of care as documented in the PA's/ROTARY DRIER FEEDER's documentation. [X] I have reviewed the ED Record and agree with the PA's/ROTARY DRIER FEEDER's documentation. [] Additions or exceptions (if any) to the PAs/ROTARY DRIER FEEDER's note and plan are summarized below: [Patient to be admitted for AN JOSE RAUL catheter and then will require dialysis.] (Paddy Jose MD) Critical Care Note Critical Care Note Critical Care Time: non-applicable (Reagan Godinez)
--- NOTE | 2017-12-21 14:29 | RADIOLOGY REPORT ---
EXAMINATION: XR PORTABLE CHEST CLINICAL INFORMATION: Renal failure COMPARISON: 11/30/2017 TECHNIQUE: Portable frontal view of the chest was obtained. FINDINGS: The lungs are hypoinflated with central vascular congestion and probable small right pleural effusion. Interstitial markings are slightly prominent. Stable cardiac silhouette which is partially obscured. IMPRESSION: Hypoinflation with probable mild CHF and a small right pleural effusion.
[2017-12-21 15:05] LABS: ABSOLUTE BASOPHIL COUNT 0.1 /CUMM (0.0-0.2); ABSOLUTE EOSINOPHIL COUNT 0.7 /CUMM (0.0-0.7); ABSOLUTE GRANULOCYTE CT 8.8 /CUMM (1.4-6.5); ABSOLUTE LYMPH COUNT 1.5 /CUMM (1.2-3.4); ABSOLUTE MONOCYTE COUNT 0.7 /CUMM (0.10-0.60); BASOPHIL % 0.7 % (0.0-2.0); EOSINOPHIL % 6.3 % (0-5); GRANULOCYTE % 74.8 % (42.2-75.2); HEMATOCRIT 33.3 % (42-52); MEAN CORPUSCULAR HGB CONC 33.9 G/DL (33.0-37.0); MEAN CORPUSCULAR VOLUME 91.6 FL (80.0-94.0); MEAN PLATELET VOLUME 6.5 FL (7.4-10.4); PLATELET COUNT 469 /CUMM (130-400); RED BLOOD CELL CT 3.64 /CUMM (4.70-6.10); WHITE BLOOD CELL COUNT 11.8 /CUMM (4.8-10.8)
[2017-12-21 15:12] LABS: PT 11.7 SEC (9.4-12.5); PTT 34 SEC (25-37)
--- NOTE | 2017-12-21 16:52 | ULTRASOUND REPORT ---
EXAMINATION: US TRIPLEX LOWER EXTREMITY, RIGHT CLINICAL INFORMATION: Rule out right upper extremity DVT. Right arm swelling and pain COMPARISON: None TECHNIQUE: Color-flow triplex imaging with spectral analysis and compression Doppler were performed on the lower extremity. FINDINGS: Respiratory variation, normal compression and augmented flow are noted throughout the lower extremity. The visualized common femoral vein, superficial femoral vein, profunda femoral vein, popliteal vein and midcalf peroneal and posterior tibial venous segments show no evidence of deep venous thrombosis. There is no Lindquist's cyst. IMPRESSION: Normal triplex scan without evidence of deep venous thrombosis involving the lower extremity.
--- NOTE | 2017-12-21 17:19 | Cons- Nephrology ---
General Information and HPI Consulting Request Date of Consult: 12/21/17 Requested By: ED Reason for Consult: Stage V CKD with uremia Source of Information: patient, old records Exam Limitations: no limitations History of Present Illness: Pt is a 52 y/o man with a hx of Stage V CKD with a baseline SCr in the 5's - has refused HD planning, DM - 19 year history, HTN who presents from Dr. Zambrano's office with fluid gain, continued nausea, poor appetite, and fatigue. The patient had been admitted to [place] 11/29-12/05 for what had been thought to be intravascular volume depletion for which he was given IVF with some improvement in his SCr which had increased to the 6's prior to coming back down to the 5's. The patient was in the office with Dr. Zambrnao today and in the setting of having continued fatigue, malaise, dry heaves, nausea, poor appetite - along with the fluid gain - he was agreeable to be admitted to the hospital with plans to initiate dialysis. Should also note that the patient had his blood drawn last week and developed significant RUE swelling along with tenderness around the site of the blood draw. Allergies/Medications Allergies: Coded Allergies: shellfish derived (SEAFOOD- NAUSEA AND DIZZINESS 04/27/17) Home Med List: Amlodipine Besylate 5 MG TABLET 1 TAB PO DAILY HTN . Clonidine HCl 0.1 MG TABLET 1 TAB PO QHS BP (Reported) Ergocalciferol (Vitamin D2) (Vitamin D2) 50,000 UNIT CAPSULE 1 CAP PO QFRI SUPPLEMENT (Reported) Fenofibrate Nanocrystallized (Fenofibrate) 145 MG TABLET 1 TAB PO DAILY CHOLESTEROL/TRIGLYCERIDES (Reported) Insulin Aspart (Novolog) 100 UNIT/ML VIAL 0 UNITS SC TIDAC BLOOD SUGAR PLEASE TAKE FOLLOW: BLOOD SUGAR 80-150 MG/DL: 6 UNITS 151-200 MG/DL: 7 UNITS 201-250 MG/DL: 8 UNITS 251-300 MG/DL: 9 UNITS 301-350 MG/DL: 10 UNITS 351-400 MG/DL: 11 UNITS MORE THAN 400 MG/DL: 12 UNITS, CALL Insulin Detemir (Levemir) 100 UNIT/ML VIAL 10 UNITS SC QHS DM (Reported) Levothyroxine Sodium 50 MCG TABLET 1 TAB PO DAILY THYROID (Reported) Omeprazole 20 MG CAPSULE. 20 MG PO DAILY AC STOMACH HEALTH Rosuvastatin Calcium (Crestor) 5 MG TABLET 1 TAB PO Monday CHOLESTEROL (Reported) Sodium Bicarbonate 325 MG TABLET 650 MG PO TID BONE STRENGTH Tadalafil (Cialis) 5 MG TABLET 1 TAB PO DAILY ED (Reported) Current Medications: To be admitted Review of Systems Review of Systems: Complete 14 point ROS neg except as per HPI Past History Travel History Traveled to [place] past 21 day No Medical History Neurological: neuropathy EENT: NONE Cardiovascular: hypertension Respiratory: NONE Gastrointestinal: NONE Hepatic: NONE Renal: chronic kidney disease Musculoskeletal: NONE Psychiatric: NONE Endocrine: diabetes Blood Disorders: NONE Cancer(s): NONE 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 Surgical History Surgical History: non-contributory Family History Relations & Conditions If Any: Relation not specified for: *No pertinent family history Psychosocial History Services at Home: None Exam & Diagnostic Data Vital Signs and I&O Vital Signs Date Time Temp Pulse Resp B/P B/P Pulse O2 O2 Flow FiO2 Mean Ox Delivery Rate 12/21 1620 96 Room Air 12/21 1436 97.9 76 18 154/80 95 Room Air Intake & Output 12/21 1600 12/21 0400 12/20 1600 12/20 0400 12/19 1600 12/19 0400 Intake Total Output Total Balance Patient 311 lb Weight Weight Estimated Measurement Method Physical Exam: Gen - ok appearing Head - NCAT Eyes - anicteric sclera, EOMI Neck - supple, no LAD CV - RRR, no m/r/g Chest - decreased BS bases, no wheezes/rales/rhonchi Abd - morbidly obese, soft, NTND Upper ext - RUE with ++edema and tenderness around antecubital fossa Lower ext - ++edema to thighs, warm Skin - no rash or jaundice Neuro - AOX3, grossly nonfocal Results Pertinent Lab Results: Laboratory Tests 12/21 1454 Chemistry Sodium (137 - 145 mmol/L) 141 Potassium (3.5 - 5.1 mmol/L) 4.4 Chloride (98 - 107 mmol/L) 112 H Carbon Dioxide (22 - 30 mmol/L) 18 L Anion Gap (5 - 16) 11 BUN (9 - 20 mg/dL) 50 H Creatinine (0.7 - 1.2 mg/dL) 6.2 *H Estimated GFR (>60 ml/min) 10 L BUN/Creatinine Ratio (7 - 25 %) 8.1 Glucose (65 - 99 mg/dL) 177 H Calcium (8.4 - 10.2 mg/dL) 8.1 L Phosphorus (2.5 - 4.5 mg/dL) 7.4 H Magnesium (1.6 - 2.3 mg/dL) 1.4 L Total Bilirubin (0.2 - 1.3 mg/dL) 0.2 AST (17 - 59 U/L) 31 ALT (21 - 72 U/L) 29 Alkaline Phosphatase (< 127 U/L) 136 H Troponin I (<0.11 ng/ml) 0.03 Total Protein (6.3 - 8.2 g/dL) 5.3 L Albumin (3.5 - 5.0 g/dL) 2.5 L Globulin (1.9 - 4.2 gm/dL) 2.8 Albumin/Globulin Ratio (1.1 - 2.2 %) 0.9 L Coagulation PT (9.4 - 12.5 SEC) 11.7 INR (0.90 - 1.17) 1.07 APTT (25 - 37 SEC) 34 Hematology CBC w Diff NO MAN DIFF REQ WBC (4.8 - 10.8 /CUMM) 11.8 H RBC (4.70 - 6.10 /CUMM) 3.64 L Hgb (14.0 - 18.0 G/DL) 11.3 L Hct (42 - 52 %) 33.3 L MCV (80.0 - 94.0 FL) 91.6 MCH (27.0 - 31.0 PG) 31.0 MCHC (33.0 - 37.0 G/DL) 33.9 RDW (11.5 - 14.5 %) 15.0 H Plt Count (130 - 400 /CUMM) 469 H MPV (7.4 - 10.4 FL) 6.5 L Gran % (42.2 - 75.2 %) 74.8 Lymphocytes % (20.5 - 51.1 %) 12.6 L Monocytes % (1.7 - 9.3 %) 5.6 Eosinophils % (0 - 5 %) 6.3 H Basophils % (0.0 - 2.0 %) 0.7 Absolute Granulocytes (1.4 - 6.5 /CUMM) 8.8 H Absolute Lymphocytes (1.2 - 3.4 /CUMM) 1.5 Absolute Monocytes (0.10 - 0.60 /CUMM) 0.7 H Absolute Eosinophils (0.0 - 0.7 /CUMM) 0.7 Absolute Basophils (0.0 - 0.2 /CUMM) 0.1 Imaging/Other Studies: EXAM TYPE: US - US-UNILATERAL VENOUS DOPPLER EXAMINATION: US TRIPLEX LOWER EXTREMITY, RIGHT CLINICAL INFORMATION: Rule out right upper extremity DVT. Right arm swelling and pain COMPARISON: None TECHNIQUE: Color-flow triplex imaging with spectral analysis and compression Doppler were performed on the lower extremity. FINDINGS: Respiratory variation, normal compression and augmented flow are noted throughout the lower extremity. The visualized common femoral vein, superficial femoral vein, profunda femoral vein, popliteal vein and midcalf peroneal and posterior tibial venous segments show no evidence of deep venous thrombosis. There is no Lindquist's cyst. IMPRESSION: Normal triplex scan without evidence of deep venous thrombosis involving the lower extremity. EXAM TYPE: RAD - XRY-PORTABLE CHEST XRAY EXAMINATION: XR PORTABLE CHEST CLINICAL INFORMATION: Renal failure COMPARISON: 11/30/2017 TECHNIQUE: Portable frontal view of the chest was obtained. FINDINGS: The lungs are hypoinflated with central vascular congestion and probable small right pleural effusion. Interstitial markings are slightly prominent. Stable cardiac silhouette which is partially obscured. IMPRESSION: Hypoinflation with probable mild CHF and a small right pleural effusion. Assessment/Plan Assessment/Recommendations Assessment: Stage V CKD - Symptomatically uremic. Agreeable to initiation of dialysis. Given that he has no access, will need a tunneled KENNEDI to be placed tomorrow by IR. The patient and his have expressed an interest in discussing PD further so will need to discuss more tomorrow - if he decides on hemodialysis, will need vascular evaluation for AVF as soon as possible. R Upper arm swelling - Vascular US done although not clear that it was done on his arm - if so, no DVT, otherwise would need one done. Clinically appears to have tenderness c/w thrombophlebitis although with current situation, not a great candidate for NSAID's. Hyperphos - Above goal. Needs Phos restriction in diet as well as phos binder. Met acidosis - Will be corrected with dialysis - can stop sodium bicarb after 2nd treatment. Recommendations: -Admit with plans for dialysis tomorrow -Needs Hepatitis B SAg, SAb, cAb to be sent -Consult IR for KENNEDI placment in AM -Low phos diet - start sevelamer 1 tab TIDWM -Check PTH -Can stop supplemental sodium bicarb after 2nd HD treatment Please call [phone] with ?'s
--- NOTE | 2017-12-21 17:24 | History & Physical ---
See Addendum Fernie PALACIOS,Renay 12/21/17 2613: General Information and HPI MD Statement: I have seen and personally examined HERNAN BUSH and documented this H&P. The patient is a 52 year old M who presented with a patient stated chief complaint of [sent by his open hearth furnace operator helper for hemodialysis]. Source of Information: patient, old records Exam Limitations: no limitations History of Present Illness: 52 yo M with PMH of CKD Stage 5, hypertension, hyperlipidemia, diabetes complicated with retinopathy and neuropathy, is sent to the ED by his open hearth furnace operator helper for placement of dialysis catheter and hemodialysis. The patient is a poor historian. He has non specific complains of chronic dry cough going on for the past 9 months, worse with lying down. He also has been feeling more fatigue and experiencing a poor appetite. He does feel short of breath. He was recently discharged from [facility] last month; he was admitted for diarrhea and dehydration. He received aggressive fluid hydration which somewhat improved his Cr but resulted in significant fluid gain. Per patient he put on 30lbs. He never felt back to his baseline since discharge. Of note, patient had a blood draw last week after which he subsequently developed arm pain and swelling which has not improved since. Allergies/Medications Allergies: Coded Allergies: shellfish derived (SEAFOOD- NAUSEA AND DIZZINESS 04/27/17) Home Med list Amlodipine Besylate 5 MG TABLET 1 TAB PO DAILY HTN . Clonidine HCl 0.1 MG TABLET 1 TAB PO QHS BP (Reported) Ergocalciferol (Vitamin D2) (Vitamin D2) 50,000 UNIT CAPSULE 1 CAP PO QFRI SUPPLEMENT (Reported) Fenofibrate Nanocrystallized (Fenofibrate) 145 MG TABLET 1 TAB PO DAILY CHOLESTEROL/TRIGLYCERIDES (Reported) Insulin Aspart (Novolog) 100 UNIT/ML VIAL 0 UNITS SC TIDAC BLOOD SUGAR PLEASE TAKE FOLLOW: BLOOD SUGAR 80-150 MG/DL: 6 UNITS 151-200 MG/DL: 7 UNITS 201-250 MG/DL: 8 UNITS 251-300 MG/DL: 9 UNITS 301-350 MG/DL: 10 UNITS 351-400 MG/DL: 11 UNITS MORE THAN 400 MG/DL: 12 UNITS, CALL Insulin Detemir (Levemir) 100 UNIT/ML VIAL 10 UNITS SC QHS DM (Reported) Levothyroxine Sodium 50 MCG TABLET 1 TAB PO DAILY THYROID (Reported) Omeprazole 20 MG CAPSULE.DR 20 MG PO DAILY AC STOMACH HEALTH Rosuvastatin Calcium (Crestor) 5 MG TABLET 1 TAB PO Monday CHOLESTEROL (Reported) Sodium Bicarbonate 325 MG TABLET 650 MG PO TID BONE STRENGTH Tadalafil (Cialis) 5 MG TABLET 1 TAB PO DAILY ED (Reported) Past History Travel History Traveled to [place] past 21 day No Medical History Neurological: neuropathy EENT: NONE Cardiovascular: hypertension Respiratory: NONE Gastrointestinal: NONE Hepatic: NONE Renal: chronic kidney disease Musculoskeletal: NONE Psychiatric: NONE Endocrine: diabetes Blood Disorders: NONE Cancer(s): NONE 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 Denies: chills, fever. EENTM: Reports: visual changes. Cardiovascular: Reports: peripheral edema. Denies: chest pain, palpitations. Respiratory: Reports: cough, short of breath, sputum production. GI: Denies: abdominal pain, constipation, bloody stool. Genitourinary: Reports: no symptoms. Skin: Reports: no symptoms. Neurological/Psychological: Denies: headache, numbness. Exam & Diagnostic Data Last 24 Hrs of Vital Signs/I&O Vital Signs Date Time Temp Pulse Resp B/P B/P Pulse O2 O2 Flow FiO2 Mean Ox Delivery Rate 12/22 1999 97.5 84 16 172/74 99 Room Air 12/21 1918 97.6 78 18 162/74 97 Room Air 12/21 1620 96 Room Air 12/21 1436 97.9 76 18 154/80 95 Room Air Intake & Output 12/21 1600 12/21 0800 12/21 0000 Intake Total Output Total Balance Patient 311 lb Weight Weight Estimated Measurement Method Physical Exam General Appearance Alert, Oriented X3, Cooperative, Mild Distress Skin No Rashes, No Breakdown Skin Temp/Moisture Exam: Warm/Dry Sepsis Skin Exam (color): Normal for Ethnicity HEENT Atraumatic Cardiovascular Normal S1, Normal S2, No Murmurs Lungs decreased air entry in bases. Mild crackles. Abdomen Soft, No Tenderness Neurological Normal Speech, peripheral visual field defects Extremities b/l lower extremity edema up to knees, RUE edema, tenderness to palpation Assessment/Plan Assessment: 52 yo M with PMH of CKD Stage 5, hypertension, hyperlipidemia, diabetes complicated with retinopathy and neuropathy, is sent to the ED by his open hearth furnace operator helper for placement of dialysis catheter and hemodialysis. Assessment: 1. Acute on CKD 2. CKD Stage V 3. RUE Swelling 4. Metobolic Acidosis 5. Hypomagnesemia/Hyperphostemia Plan: * Admit to general medicine floor. * IR consult for AshCath placement in the morning. * U/S Doppler of arm ruled out DVT. * His CXR shows hypoinflated lungs with central vascular congestion. Fluid overload likely in the setting of poor urine output. This should improve with dialysis. * Will hold off magnesium repletion at the moment. * Nephro recs appreciated. * Will send for hepatitis panel * PTH levels - 362; likely suggest secondary hyperparathyroidism * Renal Dialysis diet * DVT Prophylaxis: SC Heparin * Code: Full Code As Ranked By This Provider Problem List: 1. Acute on chronic renal insufficiency Core Measures/Misc (06/25) Acute Coronary Syndrome ACS Diagnosis: No Congestive Heart Failure Congestive Heart Failure Diagnosis No Cerebrovascular Accident CVA/TIA Diagnosis: No VTE (View Protocol) VTE Risk Factors Age>40 No Mechanical VTE Prophylaxis d/t N/A MechProphylax Ordered No VTE Pharm Prophylaxis d/t NA PharmProphylax ordered Sepsis (View protocol) Sepsis Present: No Sarah Mendez [facility] 12/21/17 1837: Resident Review Statement Resident Statement: examined this patient, discussed with lab intern, agreed with lab intern Other Findings: The patient is a 52-year-old man with a past medical hisory of CKD Stage 5, hypertension, hyperlipidemia, and diabetes complicated with retinopathy and neuropathy. He presents with a 2 week history of worsening generalized body swelling, weakness and fatigue after being sent in by his open hearth furnace operator helper for placement of dialysis catheter and hemodialysis. He denied fever, chills, chest pain or shortness of breath. His baseline creatinine is around 5. In the ER he was evaluated and had elevated creatinine of 6.2 with normal K of 4.4. Phos 7.4, mag 1.4, calcium 8.1. WBC was 11.8, INR 1.07. Chest x-ray showed hypoinflation with probable mild CHF and a small right pleural effusion. Doppler USS of right arm showed no DVT. Problem list 1. Acute renal failure on CKD 2. CKD Stage V 3. Right upper extremity swelling/phebitis 4. Type I diabetes mellitus 4. Metobolic Acidosis 5. Hypomagnesemia/Hyperphostemia Plan: * Admit to general medicine floor. * IR consult for AshCath placement in the morning and subsequently patient will have hemodialysis in the AM * Nephrology recommendations appreciated * Will send for hepatitis panel PTH levels - 362; likely suggest secondary hyperparathyroidism * Levemir 10 Units at bedtime * Novolog sliding scale insulin * Renal Dialysis diet * Continue home medications * DVT Prophylaxis: SC Heparin * Code: Full Code
--- NOTE | 2017-12-21 18:31 | PN- Student ---
Kevin Sebastian 12/21/171816: Subjective Subjective: Patient is a 52 y/o caucasion male, who was brought in for the evaluation of arm swelling. Source: Patient, previous medical records Exam Limitions: None History of Present Illness: 52 y/o caucasion male with a history of diabete mellitus with associated retinopathy, chronic kidney disease stage IV. In addition, hypertension, hyperlipidemia, and obesity. Patient sent by his [employer] Mixer Dr. Zambrano for admittance for an [place] cath placeement and dialysis tomorrow. Patient reports having his blood work done roughly a week ago, with subsequent presentation of his symptoms. Patient reports a 30lb weight gain, persistent cough which illicits vomitting and defecation. Patient also reports being bloated, and leg weakness with exertion. Patient is unaware of any blood in his stool, and complained of urinary frequency at night. Patient denies shortness of breath, chest pain, fever and chills. Allergies: Shell Fish Medications: Amlodipine Besylate (5mg) Clonidine HCL (0.1mg) Ergocalciderol (50,000 units) Fenofibrate (145 mg) Insulin Aspart (100 units) Insulin Detemir (100 units) Levothyroxine (50 mcg) Omeprazole (20mg) Rosuvastatin (5mg) Sodium Bicarbonate (325mg) Tadalafil (5mg) Past History Travel History Traveled to [place] past 21 day No Medical History Neurological: neuropathy EENT: NONE Cardiovascular: hypertension Respiratory: NONE Gastrointestinal: NONE Hepatic: NONE Renal: chronic kidney disease Musculoskeletal: NONE Psychiatric: NONE Endocrine: diabetes Blood Disorders: NONE Cancer(s): NONE MANAGER OF APPLICATION DEVELOPMENT/Reproductive: NONE History of MRSA: No History of VRE: No History of CDIFF: No Surgical History Surgical History: non-contributory Past Family/Social History Family History Relations & Conditions if any Relation not specified for: *No pertinent family history Psychosocial History Services at Home: None Review of Systems Review of Systems Constitutional: Reports: weakness. Denies: chills, fever. EENTM: Reports: visual changes. Cardiovascular: Reports: peripheral edema. Denies: chest pain, palpitations. Respiratory: Reports: cough, short of breath, sputum production. GI: Denies: abdominal pain, constipation, bloody stool. Genitourinary: Reports: no symptoms. Skin: Reports: no symptoms. Neurological/Psychological: Denies: headache, numbness. Objective Objective: Vital Signs Date Time Temp Pulse Resp B/P B/P Pulse O2 O2 Flow FiO2 Mean Ox Delivery Rate 12/25 0546 97.6 64 18 169/73 93 Room Air 12/25 0000 Room Air 12/24 2141 75 178/80 12/24 2105 178/80 12/24 2051 97.8 75 18 194/90 94 Room Air 12/24 1422 97.5 72 20 158/70 95 Room Air Physical Exam General Appearance Alert, Oriented X3, Cooperative, Mild Distress Skin No Rashes, No Breakdown Skin Temp/Moisture Exam: Warm/Dry Sepsis Skin Exam (color): Normal for Ethnicity HEENT Atraumatic Cardiovascular Normal S1, Normal S2, No Murmurs Lungs decreased air entry in bases. Mild crackles. Abdomen Soft, No Tenderness Neurological Normal Speech, peripheral visual field defects Extremities b/l lower extremity edema up to knees, RUE edema, tenderness to palpation Assessment/Plan Assessment: 52 y/o caucasion male with a history of diabete mellitus with associated retinopathy, chronic kidney disease stage IV. In addition, hypertension, hyperlipidemia, and obesity. Patient sent by his [employer]er Dr. Zambrano for admittance for an [facility] cath placeement and dialysis Plan: -Admit patient -Cath placement -Rule out DVT by doppler study -Renal Dialysis -Psych & Nephro Consult -DVT prophylaxis: Heparin -Full Code Renay Enciso MD 12/25/17 1038: Resident Review Statement Resident Statement: examined this patient, discussed with senior internal auditor
--- NOTE | 2017-12-21 19:41 | Admission Certification ---
Admission Certification Certification Statement - As attending physician, I certify that at the time of - admission, based on clinical presentation, severity of - symptoms, need for further diagnostic testing and - therapeutic interventions, and risk of adverse outcomes - without in-hospital treatment, in my clinical assessment, - this patient requires an acute hospital stay for a minimum - of two nights or longer. I have also considered psychsocial - factors such as support system, advanced age, financial - issues, cognitive issues, and failed out-patient treatments, - past re-admission history, safety of patient, and lack of - compliance as applicable. Specific rationale supporting this admission is: Fluid overload in a patient with chronic kidney insufficiency IV is mellitus right arm pain rule out DVT, in need of urgent hemodialysis.
--- NOTE | 2017-12-21 19:43 | PN- Att Addend ---
Attending Addendum Attending Brief Note 52-year-old white male diabetic history of acute renal failure on chronic renal failure. Since discharge has been gaining weight retaining fluid a very uncomfortable, even feeling some nausea and he saw his healthcare administration internship Maldonado Zambrano MD today, and was sent to the hospital to have urgent hemodialysis needs ask catheter placed and also checked for phlebitis in the right arm Current Medications Sig/Buddy Start time Last Medication Dose Route Stop Time Status Admin Amlodipine Besylate 5 MG DAILY 12/22 1000 AC PO Atorvastatin Calcium 20 MG 12/22 1000 AC PO Clonidine 0.1 MG AT BEDTIME 12/21 2200 AC PO Clonidine 0.1 MG .[QHS] 12/21 184 DC PO Ergocalciferol 50,000 IU QFRI 12/22 0700 AC PO Fenofibrate 145 MG DAILY 12/22 1000 AC PO Insulin Detemir 10 UNITS AT BEDTIME 12/21 2200 AC SC Insulin Detemir 10 UNITS .[QHS] 12/21 184 DC SC Levothyroxine Sodium 0.05 MG DAILY AC 12/22 0700 AC PO Omeprazole 20 MG DAILY AC 12/22 0700 AC PO Sevelamer Carbonate 800 MG WM 12/22 0800 AC PO Sodium Bicarbonate 650 MG TID 12/21 2200 AC PO Laboratory Tests 12/21/17 1454: Anion Gap 11, Estimated GFR 10 L, BUN/Creatinine Ratio 8.1, Glucose 177 H, Calcium 8.1 L, Phosphorus 7.4 H, Magnesium 1.4 L, Total Bilirubin 0.2, AST 31 , ALT 29, Alkaline Phosphatase 136 H, Troponin I 0.03, Total Protein 5.3 L, Albumin 2.5 L, Globulin 2.8, Albumin/Globulin Ratio 0.9 L, PTH Intact Pending, PT 11.7, INR 1.07, APTT 34, CBC w Diff NO MAN DIFF REQ, RBC 3.64 L, MCV 91.6, MCH 31.0, MCHC 33.9, RDW 15.0 H, MPV 6.5 L, Gran % 74.8, Lymphocytes % 12.6 L , Monocytes % 5.6, Eosinophils % 6.3 H, Basophils % 0.7, Absolute Granulocytes 8.8 H, Absolute Lymphocytes 1.5, Absolute Monocytes 0.7 H, Absolute Eosinophils 0.7, Absolute Basophils 0.1, Hep Bs Antigen Pending, Hep Bs Antibody Pending, Hep B Core IgM Ab Conf Pending Vital Signs Date Time Temp Pulse Resp B/P B/P Pulse O2 O2 Flow FiO2 Mean Ox Delivery Rate 12/21 1917 97.6 78 18 162/74 97 Room Air 12/21 1620 96 Room Air 12/21 1436 97.9 76 18 154/80 95 Room Air Intake & Output 12/21 1600 Intake Total Output Total Balance Patient 311 lb Weight Weight Estimated Measurement Method
[2017-12-21 20:00] VITALS: BP 172/74
--- NOTE | 2017-12-21 20:27 | Event Note ---
Event Note Event Note: Discussed with radiologist Dr. Rajendra Sullivan today at 20:22. He reviewed the patient's doppler ultrasound images. He stated that the correct study was indeed done (Doppler USS of right arm) and there was no DVT in the arm. He did note that the study was incorrectly read and dictated as doppler uss of right leg and that this report would be corrected.
[2017-12-21 23:28] VITALS: BP 170/75
--- NOTE | 2017-12-22 07:19 | PN- Housestaff ---
Subjective Follow-up For: Stage 5 CKD Subjective: Patient was seen and examined at bedside. He reports feeling same as yesterday and that he awaits the procedure. Offers no complaints. No overnight events. Review of Systems Constitutional: Reports: no symptoms. Objective Last 24 Hrs of Vital Signs/I&O Vital Signs Date Time Temp Pulse Resp B/P B/P Pulse O2 O2 Flow FiO2 Mean Ox Delivery Rate 12/22 0919 160/80 12/22 0759 97.7 78 18 169/85 92 Room Air 12/22 0000 Room Air 12/21 2328 83 170/75 12/21 2223 83 170/75 12/22 1999 97.5 84 16 172/74 99 Room Air 12/21 1918 97.6 78 18 162/74 97 Room Air 12/21 1620 96 Room Air 12/21 1436 97.9 76 18 154/80 95 Room Air Intake & Output 12/22 1600 12/22 0800 12/22 0000 Intake Total 60 250 Output Total Balance 60 250 Intake, IV 0 10 Intake, Oral 60 240 Number 0 0 Bowel Movements Patient 316 lb 313 lb Weight Weight Bed scale Bed scale Measurement Method Physical Exam General Appearance: Alert, Oriented X3, Cooperative, No Acute Distress Skin: No Rashes, No Breakdown Skin Temp/Moisture Exam: Warm/Dry Sepsis Skin Exam (color): Normal for Ethnicity Assessment/Plan Assessment: 52 yo M with PMH of CKD Stage 5, hypertension, hyperlipidemia, diabetes complicated with retinopathy and neuropathy, is sent to the ED by his jailer/training officer for placement of dialysis catheter and hemodialysis. Assessment: 1. Acute on CKD 2. CKD Stage V 3. RUE Swelling 4. Metobolic Acidosis 5. Hypomagnesemia/Hyperphostemia Plan: * Had an AshCath placed by IR today. He had a run NSVT during the procedure. * Would replete his electrolytes as needed. * He is scheduled for dialysis later today. * * U/S Doppler of arm ruled out DVT. * His CXR yesterday showed hypoinflated lungs with central vascular congestion. Fluid overload likely in the setting of poor urine output. This should improve with dialysis. * Nephro recs appreciated. * hepatitis panel - negative * PTH levels - 362; likely suggest secondary hyperparathyroidism * Renal Dialysis diet * DVT Prophylaxis: SC Heparin * Code: Full Code Problem List: 1. Acute on chronic renal insufficiency Pain Ratin Pain Location: nne Pain Goal: Remain pain free Pain Plan: none Tomorrow's Labs & Rationales: CBC, BEP, Mg
[2017-12-22 07:59] VITALS: BP 169/85
--- NOTE | 2017-12-22 10:56 | PN- Att Addend ---
Attending Addendum Attending Brief Note Patient resting in bed, at the bedside with waiting to go for his eyes catheter insertion, probably hemodialysis later on this day and continue as per nephrology's recommendations. Vital signs are stable no fever noted no new changes on physical will follow nephrology's recommendations and follow-up labs closely. 24 TOTALS 12/22 0000 12/21 0000 Intake Total 250 Output Total Balance 250 Intake, IV 10 Intake, Oral 240 Number 0 Bowel Movements Patient 313 lb Weight Weight Bed scale Measurement Method Current Medications Sig/Buddy Start time Last Medication Dose Route Stop Time Status Admin Acetaminophen 650 MG Q6P PRN 12/21 2030 AC PO Amlodipine Besylate 5 MG DAILY 12/22 1000 AC 12/22 PO 0919 Atorvastatin Calcium 20 MG 12/22 1000 AC 12/22 PO 0919 Clonidine 0.1 MG AT BEDTIME 12/21 2199 AC 12/21 PO 2223 Clonidine 0.1 MG .[QHS] 12/21 1845 DC PO Ergocalciferol 50,000 IU QFRI 12/22 0700 AC 12/22 PO 0919 Fenofibrate 145 MG DAILY 12/22 1000 AC 12/22 PO 0919 Heparin Sodium 5,000 UNIT Q8 12/21 2200 AC 12/21 (Porcine) SC 2223 Insulin Aspart 0 TIDAC 12/22 0800 AC SC Insulin Detemir 10 UNITS AT BEDTIME 12/210 AC 12/21 SC 2223 Insulin Detemir 10 UNITS .[QHS] 12/21 1845 DC SC Levothyroxine Sodium 0.05 MG DAILY AC 12/22 0700 AC 12/22 PO 0455 Omeprazole 20 MG DAILY AC 12/22 0700 AC 12/22 PO 0455 Sevelamer Carbonate 800 MG WM 12/22 0800 AC PO Sodium Bicarbonate 650 MG TID 12/21 220 AC 12/22 PO 0919 Laboratory Tests 12/22/17 0651: Anion Gap 8, Estimated GFR 9 L, BUN/Creatinine Ratio 7.7 12/21/17 1454: Anion Gap 11, Estimated GFR 10 L, BUN/Creatinine Ratio 8.1, Glucose 177 H, Calcium 8.1 L, Phosphorus 7.4 H, Magnesium 1.4 L, Total Bilirubin 0.2, AST 31 , ALT 29, Alkaline Phosphatase 136 H, Troponin I 0.03, Total Protein 5.3 L, Albumin 2.5 L, Globulin 2.8, Albumin/Globulin Ratio 0.9 L, PTH Intact 362.6 H , PT 11.7, INR 1.07, APTT 34, CBC w Diff NO MAN DIFF REQ, RBC 3.64 L, MCV 91.6, MCH 31.0, MCHC 33.9, RDW 15.0 H, MPV 6.5 L, Gran % 74.8, Lymphocytes % 12.6 L , Monocytes % 5.6, Eosinophils % 6.3 H, Basophils % 0.7, Absolute Granulocytes 8.8 H, Absolute Lymphocytes 1.5, Absolute Monocytes 0.7 H, Absolute Eosinophils 0.7, Absolute Basophils 0.1, Hep Bs Antigen Pending, Hep Bs Antibody Pending, Hep B Core IgM Ab Conf Pending, Hepatitis C Antibody Pending Vital Signs Date Time Temp Pulse Resp B/P B/P Pulse O2 O2 Flow FiO2 Mean Ox Delivery Rate 12/22 0919 160/80 12/22 0759 97.7 78 18 169/85 92 Room Air 12/22 0000 Room Air 12/21 2328 83 170/75 12/21 2223 83 170/75 12/21 2000 97.5 84 16 172/74 99 Room Air 12/21 1918 97.6 78 18 162/74 97 Room Air 12/21 1620 96 Room Air 12/21 1436 97.9 76 18 154/80 95 Room Air
--- NOTE | 2017-12-22 13:58 | PN- Nephrology ---
Assessment/Plan Nephrology Assessment: Stage V CKD - Symptomatically uremic. Agreeable to initiation of dialysis. The patient and his have expressed an interest in PD - can hold off on AVG/AVF consideration for now. R Upper arm swelling - No DVT. Clinically with thrombophlebitis - cannot get NSAID's given current situation. Hyperphos - Above goal. Needs Phos restriction in diet as well as phos binder. Met acidosis - Will be corrected with dialysis - can stop sodium bicarb after 2nd treatment on Monday. Suggestion: -1st HD today -Plan for 2nd HD tomorrow and 3rd HD on Monday -Outpatient coordinator notified -Low Phos diet; increase sevelamer to 2 tabs TIDWM -No activated Vit D until Phos <5.5 -Can stop supplemental sodium bicarb after 2nd HD treatment Please call [phone] with ?'s Subjective Subjective: s/p KENNEDI cath placement Feeling OK otherwise Objective Vital Signs and I&Os Vital Signs Date Time Temp Pulse Resp B/P B/P Pulse O2 O2 Flow FiO2 Mean Ox Delivery Rate 12/23 0600 98.0 77 20 164/80 91 12/22 2350 142/70 12/22 2204 97.8 80 20 186/95 93 Room Air 12/22 2156 80 171/106 12/22 1430 81 18 177/94 94 12/22 0919 160/80 12/22 0759 97.7 78 18 169/85 92 Room Air Intake & Output 12/23 1600 12/23 0400 12/22 1600 12/22 0400 12/21 1600 12/21 0400 Intake Total 350 90 250 Output Total Balance 350 90 250 Intake, IV 0 10 Intake, Oral 350 90 240 Number 0 0 Bowel Movements Patient 299 lb 316 lb 313 lb 311 lb Weight Weight Bed scale Bed scale Bed scale Estimated Measurement Method Physical Exam: Gen - OK appearing HEENT - supple CV - RRR, no m/r/g Chest - clear anteriorly, +R sided KENNEDI cath Abd - soft, NTND Ext - +edema Neuro - AOX3, grossly nonfocal Current Medications: Current Medications Sig/Buddy Start time Last Medication Dose Route Stop Time Status Admin Acetaminophen 650 MG Q6P PRN 12/21 2030 AC PO Amlodipine Besylate 5 MG DAILY 12/22 1000 AC 12/22 PO 918 Atorvastatin Calcium 20 MG 12/22 1000 AC 12/22 PO 0919 Clonidine 0.1 MG AT BEDTIME 12/21 2200 AC 12/22 PO 215 Ergocalciferol 50,000 IU QFRI 12/22 0700 AC 12/22 PO 0919 Fenofibrate 145 MG DAILY 12/22 1000 AC 12/22 PO 0919 Fentanyl Citrate 0 .STK-MED ONE 12/22 1235 DC .ROUTE Heparin Sodium 0 .STK-MED ONE 12/22 1222 DC (Porcine) IV Heparin Sodium 5,000 UNIT Q8 12/21 2200 AC 12/23 (Porcine) SC 0616 Insulin Aspart 0 TIDAC 12/22 0800 AC SC Insulin Detemir 10 UNITS AT BEDTIME 12/21 2200 AC 12/22 SC 215 Levothyroxine Sodium 0.05 MG DAILY AC 12/22 0700 AC 12/23 PO 0616 Lidocaine 0 .STK-MED ONE 12/22 1221 DC .ROUTE Lidocaine/Epinephrine 0 .STK-MED ONE 12/22 1221 DC .ROUTE Midazolam HCl 0 .STK-MED ONE 12/22 1235 DC .ROUTE Omeprazole 20 MG DAILY AC 12/22 0700 AC 12/23 PO 0616 Sevelamer Carbonate 800 MG WM 12/22 0800 AC 12/22 PO 215 Sodium Bicarbonate 650 MG TID 12/21 2200 AC 12/22 PO 215 Results Pertinent Lab Results: Laboratory Tests 12/23 12/22 12/22 0705 1644 0651 Chemistry Sodium (137 - 145 mmol/L) Pending 142 Potassium (3.5 - 5.1 mmol/L) Pending 4.3 Chloride (98 - 107 mmol/L) Pending 115 H Carbon Dioxide (22 - 30 mmol/L) Pending 19 L Anion Gap (5 - 16) Pending 8 BUN (9 - 20 mg/dL) Pending 49 H Creatinine (0.7 - 1.2 mg/dL) Pending 6.4 *H Estimated GFR (>60 ml/min) 9 L BUN/Creatinine Ratio (7 - 25 %) Pending 7.7 Magnesium (1.6 - 2.3 mg/dL) 1.4 L Hematology CBC w Diff Pending NO MAN DIFF REQ WBC (4.8 - 10.8 /CUMM) Pending 9.5 RBC (4.70 - 6.10 /CUMM) Pending 3.33 L Hgb (14.0 - 18.0 G/DL) Pending 10.2 L Hct (42 - 52 %) Pending 30.9 L MCV (80.0 - 94.0 FL) Pending 92.7 MCH (27.0 - 31.0 PG) Pending 30.5 MCHC (33.0 - 37.0 G/DL) Pending 32.9 L RDW (11.5 - 14.5 %) Pending 15.4 H Plt Count (130 - 400 /CUMM) Pending 399 MPV (7.4 - 10.4 FL) Pending 7.0 L Gran % (42.2 - 75.2 %) 68.4 Lymphocytes % (20.5 - 51.1 %) 18.9 L Monocytes % (1.7 - 9.3 %) 5.9 Eosinophils % (0 - 5 %) 6.0 H Basophils % (0.0 - 2.0 %) 0.8 Absolute Granulocytes (1.4 - 6.5 /CUMM) 6.5 Absolute Lymphocytes (1.2 - 3.4 /CUMM) 1.8 Absolute Monocytes (0.10 - 0.60 /CUMM) 0.6 Absolute Eosinophils (0.0 - 0.7 /CUMM) 0.6 Absolute Basophils (0.0 - 0.2 /CUMM) 0.1 12/21 1454 Chemistry Sodium (137 - 145 mmol/L) 141 Potassium (3.5 - 5.1 mmol/L) 4.4 Chloride (98 - 107 mmol/L) 112 H Carbon Dioxide (22 - 30 mmol/L) 18 L Anion Gap (5 - 16) 11 BUN (9 - 20 mg/dL) 50 H Creatinine (0.7 - 1.2 mg/dL) 6.2 *H Estimated GFR (>60 ml/min) 10 L BUN/Creatinine Ratio (7 - 25 %) 8.1 Glucose (65 - 99 mg/dL) 177 H Calcium (8.4 - 10.2 mg/dL) 8.1 L Phosphorus (2.5 - 4.5 mg/dL) 7.4 H Magnesium (1.6 - 2.3 mg/dL) 1.4 L Total Bilirubin (0.2 - 1.3 mg/dL) 0.2 AST (17 - 59 U/L) 31 ALT (21 - 72 U/L) 29 Alkaline Phosphatase (< 127 U/L) 136 H Troponin I (<0.11 ng/ml) 0.03 Total Protein (6.3 - 8.2 g/dL) 5.3 L Albumin (3.5 - 5.0 g/dL) 2.5 L Globulin (1.9 - 4.2 gm/dL) 2.8 Albumin/Globulin Ratio (1.1 - 2.2 %) 0.9 L PTH Intact (18.4 - 80.1 pg/ML) 362.6 H Coagulation PT (9.4 - 12.5 SEC) 11.7 INR (0.90 - 1.17) 1.07 APTT (25 - 37 SEC) 34 Hematology CBC w Diff NO MAN DIFF REQ WBC (4.8 - 10.8 /CUMM) 11.8 H RBC (4.70 - 6.10 /CUMM) 3.64 L Hgb (14.0 - 18.0 G/DL) 11.3 L Hct (42 - 52 %) 33.3 L MCV (80.0 - 94.0 FL) 91.6 MCH (27.0 - 31.0 PG) 31.0 MCHC (33.0 - 37.0 G/DL) 33.9 RDW (11.5 - 14.5 %) 15.0 H Plt Count (130 - 400 /CUMM) 469 H MPV (7.4 - 10.4 FL) 6.5 L Gran % (42.2 - 75.2 %) 74.8 Lymphocytes % (20.5 - 51.1 %) 12.6 L Monocytes % (1.7 - 9.3 %) 5.6 Eosinophils % (0 - 5 %) 6.3 H Basophils % (0.0 - 2.0 %) 0.7 Absolute Granulocytes (1.4 - 6.5 /CUMM) 8.8 H Absolute Lymphocytes (1.2 - 3.4 /CUMM) 1.5 Absolute Monocytes (0.10 - 0.60 /CUMM) 0.7 H Absolute Eosinophils (0.0 - 0.7 /CUMM) 0.7 Absolute Basophils (0.0 - 0.2 /CUMM) 0.1 Serology Hep Bs Antigen (NONREACTIVE) NONREACTIVE Hep Bs Antibody (NONREACTIVE) NONREACTIVE Hep B Core IgM Ab Conf (NONREACTIVE) NONREACTIVE Hepatitis C Antibody (NONREACTIVE) NONREACTIVE
[2017-12-22 14:30] VITALS: BP 177/94
--- NOTE | 2017-12-22 16:36 | ULTRASOUND REPORT ---
PROCEDURE: ULTRASOUND AND FLUOROSCOPICALLY GUIDED RIGHT INTERNAL JUGULAR VEIN TUNNELED PERMACATHETER PLACEMENT Interventional radiologist: Sal Alicia M.D. CLINICAL HISTORY: 52-year-old male with renal failure requiring tunneled dialysis catheter. COMPARISON: Chest x-ray 12/21/2017 SEDATION: Intravenous conscious sedation was performed with full clinical nurse monitoring. An independent third-republican monitor nurse was utilized for full clinical nurse monitoring. The total sedation time was 30 minutes. A total of 1 mg of Versed and 50 mcg of fentanyl was utilized. Total sedation time of 25 minutes. FLUOROSCOPY TIME: 3.2 minutes DOSE AREA PRODUCT: 303 mGy-m2 (milligray-meter squared) TECHNIQUE: Informed consent was obtained from the patient prior to the procedure. During this process, the procedure and potential alternatives were explained along with the intended outcome and benefits. The risks of the procedure, including the possibility of an unsuccessful procedure, as well as the risk of not doing the procedure were discussed. The patient was given the opportunity to ask questions regarding the procedure and appeared competent to make medical decisions. A signed consent form which documents this discussion was placed in the medical record. A timeout procedure was performed. Following informed consent the patient was placed supine on the fluoroscopic table. The right neck and chest were prepped and draped in usual sterile fashion. All elements of maximal sterile barrier technique were followed including use of cap, mask, sterile gown, sterile gloves, a sterile full body drape and hand hygiene. The skin was prepared with 2% chlorhexidine for cutaneous antisepsis and sterile ultrasound preparation with sterile gel and probe cover was performed when applicable. Using ultrasound guidance the right internal jugular vein was localized. Ultrasound was utilized to assess the vascular structures for access. A standard puncture into the right internal jugular vein was performed with a Micro-Stick system. Measurements were taken and the wire advanced down the IVC to confirm venous placement. 1% lidocaine with epinephrine was placed along the anterior chest wall tunneling site. A linear incision was made. The 23 cm tip to cuff tunneled hemodialysis catheter was tunneled in the subcutaneous tissues, exiting at the venotomy site. Serial dilatation was performed over the 0.035 inches wire. A peel-away sheath was placed over the wire and the catheter advanced down the peel-away sheath. The peel-away sheath was removed. Fluoroscopic imaging confirmed location of the catheter tip within the right atrium. Dermabond was utilized to close the venotomy site. Silk suture was utilized for catheter securement. The catheter was flushed with 500 units of heparin split between the 2 lumens for dwell. The patient tolerated the procedure well. The patient was transferred to the recovery room in good condition. ULTRASOUND-GUIDED VASCULAR ACCESS: Ultrasound was used to identify the right internal jugular vein. The right internal jugular vein was confirmed to be patent. Real time imaging confirmed needle access into the right internal jugular vein. An image was saved for permanent recording in PACS. IMPRESSION: Successful placement of 23 cm tip to cuff tunneled hemodialysis catheter using fluoroscopic and ultrasound guidance.
[2017-12-22 19:41] LABS: ABSOLUTE BASOPHIL COUNT 0.1 /CUMM (0.0-0.2); ABSOLUTE EOSINOPHIL COUNT 0.6 /CUMM (0.0-0.7); ABSOLUTE GRANULOCYTE CT 6.5 /CUMM (1.4-6.5); ABSOLUTE LYMPH COUNT 1.8 /CUMM (1.2-3.4); ABSOLUTE MONOCYTE COUNT 0.6 /CUMM (0.10-0.60); BASOPHIL % 0.8 % (0.0-2.0); GRANULOCYTE % 68.4 % (42.2-75.2); HEMATOCRIT 30.9 % (42-52); MEAN CORPUSCULAR HGB 30.5 PG (27.0-31.0); MEAN CORPUSCULAR HGB CONC 32.9 G/DL (33.0-37.0); MEAN CORPUSCULAR VOLUME 92.7 FL (80.0-94.0); PLATELET COUNT 399 /CUMM (130-400); RBC DISTRIBUTION WIDTH 15.4 % (11.5-14.5); RED BLOOD CELL CT 3.33 /CUMM (4.70-6.10); WHITE BLOOD CELL COUNT 9.5 /CUMM (4.8-10.8)
[2017-12-22 22:04] VITALS: BP 186/95
[2017-12-22 23:50] VITALS: BP 142/70
[2017-12-23 06:00] VITALS: BP 164/80
--- NOTE | 2017-12-23 08:14 | PN- Housestaff ---
Subjective Follow-up For: Stage V chronic kidney disease Complaints: no complaints Subjective: Patient was seen and examined at bedside. No overnight events. He offered no complaints. He denies shortness of breath, chest pain, abdominal pain. Review of Systems Constitutional: Reports: no symptoms. Cardiovascular: Reports: no symptoms. Respiratory: Reports: no symptoms. Gastrointestinal: Reports: no symptoms. Genitourinary: Reports: no symptoms. Objective Last 24 Hrs of Vital Signs/I&O Vital Signs Date Time Temp Pulse Resp B/P B/P Pulse O2 O2 Flow FiO2 Mean Ox Delivery Rate 12/23 1600 97.9 80 20 148/88 95 Room Air 12/23 1250 78 163/90 12/23 1240 98.9 78 20 163/90 95 Room Air 12/23 0600 98.0 77 20 164/80 91 12/22 2350 142/70 12/22 2204 97.8 80 20 186/95 93 Room Air 12/22 2156 80 171/106 Intake & Output 12/23 1600 12/23 0800 12/23 0000 Intake Total 360 250 350 Output Total Balance 360 250 350 Intake, Oral 360 250 350 Number 0 Bowel Movements Patient 290 lb 299 lb Weight Weight Bed scale Measurement Method Physical Exam General Appearance: Alert, Oriented X3, Cooperative, No Acute Distress Cardiovascular: Regular Rate, Normal S1, Normal S2, No Murmurs Lungs: Clear to Auscultation Abdomen: Normal Bowel Sounds, Soft, No Tenderness Neurological: Strength at 5/5 X4 Ext, Normal Tone, Sensation Intact Current Medications: Current Medications Sig/Buddy Start time Last Medication Dose Route Stop Time Status Admin Acetaminophen 650 MG Q6P PRN 12/21 2030 AC PO Amlodipine Besylate 5 MG DAILY 12/22 1000 AC 12/23 PO 1250 Atorvastatin Calcium 20 MG 12/22 1000 AC 12/22 PO 0919 Clonidine 0.1 MG AT BEDTIME 12/21 2200 AC 12/22 PO 2156 Ergocalciferol 50,000 IU QFRI 12/22 0700 AC 12/22 PO 0919 Fenofibrate 145 MG DAILY 12/22 1000 AC 12/23 PO 1250 Heparin Sodium 5,000 UNIT Q8 12/210 AC 12/23 (Porcine) SC 1252 Insulin Aspart 0 TIDAC 12/22 0800 AC 12/23 SC 1255 Insulin Detemir 10 UNITS AT BEDTIME 12/21 2199 12/22 SC 2157 Levothyroxine Sodium 0.05 MG DAILY AC 12/22 0700 AC 12/23 PO 0616 Magnesium Oxide 400 MG ONE ONE 12/23 1015 DC 12/23 PO 12/23 1016 1252 Omeprazole 20 MG DAILY AC 12/22 0700 AC 12/23 PO 0616 Sevelamer Carbonate 1,600 MG WM 12/23 1200 AC 12/23 PO 1251 Sevelamer Carbonate 800 MG WM 12/22 0800 DC 12/22 PO 2152 Sodium Bicarbonate 650 MG TID 12/21 2200 NH 12/22 PO 2152 Last 24 Hrs of Lab/Haseeb Results Last 24 Hrs of Labs/Mics: Laboratory Tests 12/23/17 0735: Anion Gap 8, Estimated GFR 11 L, BUN/Creatinine Ratio 7.7, Glucose 120 H, Calcium 7.6 L, Phosphorus 6.8 H, CBC w Diff NO MAN DIFF REQ, RBC 3.39 L, MCV 91.3, MCH 30.1, MCHC 33.0, RDW 14.6 H, MPV 6.8 L, Gran % 63.6, Lymphocytes % 20.2 L, Monocytes % 6.8, Eosinophils % 8.7 H, Basophils % 0.7, Absolute Granulocytes 5.9, Absolute Lymphocytes 1.9, Absolute Monocytes 0.6, Absolute Eosinophils 0.8, Absolute Basophils 0.1 12/23/17 0705: Anion Gap 7, Estimated GFR 11 L, BUN/Creatinine Ratio 7.7, CBC w Diff NO MAN DIFF REQ, RBC 3.27 L, MCV 91.3, MCH 30.3, MCHC 33.2, RDW 14.5, MPV 6.8 L, Gran % 64.0, Lymphocytes % 19.8 L, Monocytes % 7.3, Eosinophils % 8.1 H, Basophils % 0.8, Absolute Granulocytes 5.4, Absolute Lymphocytes 1.7, Absolute Monocytes 0.6, Absolute Eosinophils 0.7, Absolute Basophils 0.1 Assessment/Plan Assessment: 52 yo M with PMH of CKD Stage 5, hypertension, hyperlipidemia, diabetes complicated with retinopathy and neuropathy, is sent to the ED by his saddle tree stitcher for placement of dialysis catheter and hemodialysis. Assessment: 1. Acute on CKD 2. CKD Stage V 3. RUE Swelling 4. Metobolic Acidosis 5. Hypomagnesemia/Hyperphostemia Plan: * Had an AshCath placed by IR yesterday. He had a run NSVT during the procedure. Patient had hemodialysis yesterday and today. Patient was seen by saddle tree stitcher who suggested to repeat hemodialysis on Monday. * Would replete his electrolytes as needed. * hepatitis panel - negative * PTH levels - 362; likely suggest secondary hyperparathyroidism * Renal Dialysis diet * DVT Prophylaxis: SC Heparin * Code: Full Code Problem List: 1. CKD (chronic kidney disease) Pain Ratin Pain Location: none Pain Goal: Remain pain free Pain Plan: tylenol Tomorrow's Labs & Rationales: bep,cbc
[2017-12-23 08:51] LABS: ABSOLUTE BASOPHIL COUNT 0.1 /CUMM (0.0-0.2); ABSOLUTE EOSINOPHIL COUNT 0.8 /CUMM (0.0-0.7); ABSOLUTE GRANULOCYTE CT 5.9 /CUMM (1.4-6.5); ABSOLUTE LYMPH COUNT 1.9 /CUMM (1.2-3.4); ABSOLUTE MONOCYTE COUNT 0.6 /CUMM (0.10-0.60); BASOPHIL % 0.7 % (0.0-2.0); EOSINOPHIL % 8.7 % (0-5); GRANULOCYTE % 63.6 % (42.2-75.2); HEMATOCRIT 30.9 % (42-52); MEAN CORPUSCULAR HGB 30.1 PG (27.0-31.0); MEAN CORPUSCULAR VOLUME 91.3 FL (80.0-94.0); MEAN PLATELET VOLUME 6.8 FL (7.4-10.4); PLATELET COUNT 386 /CUMM (130-400); RBC DISTRIBUTION WIDTH 14.6 % (11.5-14.5); RED BLOOD CELL CT 3.39 /CUMM (4.70-6.10); WHITE BLOOD CELL COUNT 9.2 /CUMM (4.8-10.8)
[2017-12-23 09:21] LABS: ABSOLUTE BASOPHIL COUNT 0.1 /CUMM (0.0-0.2); ABSOLUTE EOSINOPHIL COUNT 0.7 /CUMM (0.0-0.7); ABSOLUTE GRANULOCYTE CT 5.4 /CUMM (1.4-6.5); ABSOLUTE LYMPH COUNT 1.7 /CUMM (1.2-3.4); ABSOLUTE MONOCYTE COUNT 0.6 /CUMM (0.10-0.60); BASOPHIL % 0.8 % (0.0-2.0); EOSINOPHIL % 8.1 % (0-5); HEMATOCRIT 29.9 % (42-52); MEAN CORPUSCULAR HGB 30.3 PG (27.0-31.0); MEAN CORPUSCULAR HGB CONC 33.2 G/DL (33.0-37.0); MEAN CORPUSCULAR VOLUME 91.3 FL (80.0-94.0); MEAN PLATELET VOLUME 6.8 FL (7.4-10.4); PLATELET COUNT 342 /CUMM (130-400); RBC DISTRIBUTION WIDTH 14.5 % (11.5-14.5); RED BLOOD CELL CT 3.27 /CUMM (4.70-6.10); WHITE BLOOD CELL COUNT 8.4 /CUMM (4.8-10.8)
[2017-12-23 12:40] VITALS: BP 163/90
--- NOTE | 2017-12-23 12:45 | PN- Nephrology ---
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 & HTN Suggestion: Next HD Mon Needs decision re chronic HD v PD Subjective Subjective: No uremic sx today HD #2 earlier today w/o problem Objective Vital Signs and I&Os Vital Signs Date Time Temp Pulse Resp B/P B/P Pulse O2 O2 Flow FiO2 Mean Ox Delivery Rate 12/23 0600 98.0 77 20 164/80 91 12/22 2350 142/70 12/22 2204 97.8 80 20 186/95 93 Room Air 12/22 2156 80 171/106 12/22 1430 81 18 177/94 94 Intake & Output 12/23 1600 12/23 0400 12/22 1600 12/22 0400 12/21 1600 12/21 0400 Intake Total 250 350 90 250 Output Total Balance 250 350 90 250 Intake, IV 0 10 Intake, Oral 250 350 90 240 Number 0 0 Bowel Movements Patient 297 lb 316 lb 313 lb 311 lb Weight Weight Bed scale Bed scale Bed scale Estimated Measurement Method Physical Exam General Appearance: well developed/nourished, no apparent distress, alert Head: atraumatic, normal appearance Neck: supple Respiratory: quiet respiration, lungs clear Abdomen: soft, non-tender Extremities: no edema Skin: normal color, warm/dry Current Medications: Current Medications Sig/Buddy Start time Last Medication Dose Route Stop Time Status Admin Acetaminophen 650 MG Q6P PRN 12/21 2030 AC PO Amlodipine Besylate 5 MG DAILY 12/22 1000 AC 12/22 PO 0919 Atorvastatin Calcium 20 MG 12/22 1000 AC 12/22 PO 0919 Clonidine 0.1 MG AT BEDTIME 12/21 2200 AC 12/22 PO 2156 Ergocalciferol 50,000 IU QFRI 12/22 0700 AC 12/22 PO 0919 Fenofibrate 145 MG DAILY 12/22 1000 AC 12/22 PO 0919 Heparin Sodium 5,000 UNIT Q8 12/210 AC 12/23 (Porcine) SC 0616 Insulin Aspart 0 TIDAC 12/22 0800 AC SC Insulin Detemir 10 UNITS AT BEDTIME 12/21 2200 AC 12/22 SC 2157 Levothyroxine Sodium 0.05 MG DAILY AC 12/22 0700 AC 12/23 PO 0616 Magnesium Oxide 400 MG ONE ONE 12/23 1015 DC PO 12/23 1016 Omeprazole 20 MG DAILY AC 12/22 0700 AC 12/23 PO 0616 Sevelamer Carbonate 1,600 MG WM 12/23 1200 AC PO Sevelamer Carbonate 800 MG WM 12/22 0800 DC 12/22 PO 2152 Sodium Bicarbonate 650 MG TID 12/21 2200 DC 12/22 PO 2152 Results Pertinent Lab Results: Laboratory Tests 12/23 12/23 0735 0705 Chemistry Sodium (137 - 145 mmol/L) 141 139 Potassium (3.5 - 5.1 mmol/L) 4.0 4.0 Chloride (98 - 107 mmol/L) 110 H 110 H Carbon Dioxide (22 - 30 mmol/L) 22 22 Anion Gap (5 - 16) 8 7 BUN (9 - 20 mg/dL) 43 H 43 H Creatinine (0.7 - 1.2 mg/dL) 5.6 *H 5.6 *H Estimated GFR (>60 ml/min) 11 L 11 L BUN/Creatinine Ratio (7 - 25 %) 7.7 7.7 Glucose (65 - 99 mg/dL) 120 H Calcium (8.4 - 10.2 mg/dL) 7.6 L Phosphorus (2.5 - 4.5 mg/dL) 6.8 H Hematology CBC w Diff NO MAN DIFF REQ NO MAN DIFF REQ WBC (4.8 - 10.8 /CUMM) 9.2 8.4 RBC (4.70 - 6.10 /CUMM) 3.39 L 3.27 L Hgb (14.0 - 18.0 G/DL) 10.2 L 9.9 L Hct (42 - 52 %) 30.9 L 29.9 L MCV (80.0 - 94.0 FL) 91.3 91.3 MCH (27.0 - 31.0 PG) 30.1 30.3 MCHC (33.0 - 37.0 G/DL) 33.0 33.2 RDW (11.5 - 14.5 %) 14.6 H 14.5 Plt Count (130 - 400 /CUMM) 386 342 MPV (7.4 - 10.4 FL) 6.8 L 6.8 L Gran % (42.2 - 75.2 %) 63.6 64.0 Lymphocytes % (20.5 - 51.1 %) 20.2 L 19.8 L Monocytes % (1.7 - 9.3 %) 6.8 7.3 Eosinophils % (0 - 5 %) 8.7 H 8.1 H Basophils % (0.0 - 2.0 %) 0.7 0.8 Absolute Granulocytes (1.4 - 6.5 /CUMM) 5.9 5.4 Absolute Lymphocytes (1.2 - 3.4 /CUMM) 1.9 1.7 Absolute Monocytes (0.10 - 0.60 /CUMM) 0.6 0.6 Absolute Eosinophils (0.0 - 0.7 /CUMM) 0.8 0.7 Absolute Basophils (0.0 - 0.2 /CUMM) 0.1 0.1 12/22 12/22 1644 0651 Chemistry Sodium (137 - 145 mmol/L) 142 Potassium (3.5 - 5.1 mmol/L) 4.3 Chloride (98 - 107 mmol/L) 115 H Carbon Dioxide (22 - 30 mmol/L) 19 L Anion Gap (5 - 16) 8 BUN (9 - 20 mg/dL) 49 H Creatinine (0.7 - 1.2 mg/dL) 6.4 *H Estimated GFR (>60 ml/min) 9 L BUN/Creatinine Ratio (7 - 25 %) 7.7 Magnesium (1.6 - 2.3 mg/dL) 1.4 L Hematology CBC w Diff NO MAN DIFF REQ WBC (4.8 - 10.8 /CUMM) 9.5 RBC (4.70 - 6.10 /CUMM) 3.33 L Hgb (14.0 - 18.0 G/DL) 10.2 L Hct (42 - 52 %) 30.9 L MCV (80.0 - 94.0 FL) 92.7 MCH (27.0 - 31.0 PG) 30.5 MCHC (33.0 - 37.0 G/DL) 32.9 L RDW (11.5 - 14.5 %) 15.4 H Plt Count (130 - 400 /CUMM) 399 MPV (7.4 - 10.4 FL) 7.0 L Gran % (42.2 - 75.2 %) 68.4 Lymphocytes % (20.5 - 51.1 %) 18.9 L Monocytes % (1.7 - 9.3 %) 5.9 Eosinophils % (0 - 5 %) 6.0 H Basophils % (0.0 - 2.0 %) 0.8 Absolute Granulocytes (1.4 - 6.5 /CUMM) 6.5 Absolute Lymphocytes (1.2 - 3.4 /CUMM) 1.8 Absolute Monocytes (0.10 - 0.60 /CUMM) 0.6 Absolute Eosinophils (0.0 - 0.7 /CUMM) 0.6 Absolute Basophils (0.0 - 0.2 /CUMM) 0.1 12/21 1454 Chemistry Sodium (137 - 145 mmol/L) 141 Potassium (3.5 - 5.1 mmol/L) 4.4 Chloride (98 - 107 mmol/L) 112 H Carbon Dioxide (22 - 30 mmol/L) 18 L Anion Gap (5 - 16) 11 BUN (9 - 20 mg/dL) 50 H Creatinine (0.7 - 1.2 mg/dL) 6.2 *H Estimated GFR (>60 ml/min) 10 L BUN/Creatinine Ratio (7 - 25 %) 8.1 Glucose (65 - 99 mg/dL) 177 H Calcium (8.4 - 10.2 mg/dL) 8.1 L Phosphorus (2.5 - 4.5 mg/dL) 7.4 H Magnesium (1.6 - 2.3 mg/dL) 1.4 L Total Bilirubin (0.2 - 1.3 mg/dL) 0.2 AST (17 - 59 U/L) 31 ALT (21 - 72 U/L) 29 Alkaline Phosphatase (< 127 U/L) 136 H Troponin I (<0.11 ng/ml) 0.03 Total Protein (6.3 - 8.2 g/dL) 5.3 L Albumin (3.5 - 5.0 g/dL) 2.5 L Globulin (1.9 - 4.2 gm/dL) 2.8 Albumin/Globulin Ratio (1.1 - 2.2 %) 0.9 L PTH Intact (18.4 - 80.1 pg/ML) 362.6 H Coagulation PT (9.4 - 12.5 SEC) 11.7 INR (0.90 - 1.17) 1.07 APTT (25 - 37 SEC) 34 Hematology CBC w Diff NO MAN DIFF REQ WBC (4.8 - 10.8 /CUMM) 11.8 H RBC (4.70 - 6.10 /CUMM) 3.64 L Hgb (14.0 - 18.0 G/DL) 11.3 L Hct (42 - 52 %) 33.3 L MCV (80.0 - 94.0 FL) 91.6 MCH (27.0 - 31.0 PG) 31.0 MCHC (33.0 - 37.0 G/DL) 33.9 RDW (11.5 - 14.5 %) 15.0 H Plt Count (130 - 400 /CUMM) 469 H MPV (7.4 - 10.4 FL) 6.5 L Gran % (42.2 - 75.2 %) 74.8 Lymphocytes % (20.5 - 51.1 %) 12.6 L Monocytes % (1.7 - 9.3 %) 5.6 Eosinophils % (0 - 5 %) 6.3 H Basophils % (0.0 - 2.0 %) 0.7 Absolute Granulocytes (1.4 - 6.5 /CUMM) 8.8 H Absolute Lymphocytes (1.2 - 3.4 /CUMM) 1.5 Absolute Monocytes (0.10 - 0.60 /CUMM) 0.7 H Absolute Eosinophils (0.0 - 0.7 /CUMM) 0.7 Absolute Basophils (0.0 - 0.2 /CUMM) 0.1 Serology Hep Bs Antigen (NONREACTIVE) NONREACTIVE Hep Bs Antibody (NONREACTIVE) NONREACTIVE Hep B Core IgM Ab Conf (NONREACTIVE) NONREACTIVE Hepatitis C Antibody (NONREACTIVE) NONREACTIVE Imaging/Other Studies: CXR: Hypoinflation with probable mild CHF and a small right pleural effusion.
[2017-12-23 16:00] VITALS: BP 148/88
--- NOTE | 2017-12-23 16:17 | PN- Att Addend ---
Attending Addendum Attending Brief Note Patient laying in bed, had 2 hemodialysis treatments but has lost some weight but still uncomfortable, his cough is back. He might need his antireflux treatment more often also having some trouble with her sugars would have pin inserter reevaluate in the last the proper coverage with insulin BP slightly elevated but no other changes except maybe a little bit less fluid in his body will continue present treatments Intake & Output 12/23 1600 12/23 0400 12/22 1600 12/22 0400 12/21 1600 12/21 0400 Intake Total 610 350 90 250 Output Total Balance 610 350 90 250 Intake, IV 0 10 Intake, Oral 610 350 90 240 Number 0 0 0 Bowel Movements Patient 290 lb 316 lb 313 lb 311 lb Weight Weight Bed scale Bed scale Bed scale Estimated Measurement Method Current Medications Sig/Buddy Start time Last Medication Dose Route Stop Time Status Admin Acetaminophen 650 MG Q6P PRN 12/21 2030 AC PO Amlodipine Besylate 5 MG DAILY 12/22 1000 AC 12/23 PO 1250 Atorvastatin Calcium 20 MG 12/22 1000 AC 12/22 PO 0919 Clonidine 0.1 MG AT BEDTIME 12/21 2200 AC 12/22 PO 2156 Ergocalciferol 50,000 IU QFRI 12/22 0700 AC 12/22 PO 0919 Fenofibrate 145 MG DAILY 12/22 1000 AC 12/23 PO 1250 Heparin Sodium 5,000 UNIT Q8 12/21 2200 AC 12/23 (Porcine) SC 1252 Insulin Aspart 0 TIDAC 12/22 0800 AC 12/23 SC 1255 Insulin Detemir 10 UNITS AT BEDTIME 12/21 2200 AC 12/22 SC 2157 Levothyroxine Sodium 0.05 MG DAILY AC 12/22 0700 AC 12/23 PO 0616 Magnesium Oxide 400 MG ONE ONE 12/23 1015 DC 12/23 PO 12/23 1016 1252 Omeprazole 20 MG DAILY AC 12/22 0700 AC 12/23 PO 0616 Sevelamer Carbonate 1,600 MG WM 12/23 1200 AC 12/23 PO 1251 Sevelamer Carbonate 800 MG WM 12/22 0800 DC 12/22 PO 2152 Sodium Bicarbonate 650 MG TID 12/21 2200 DC 12/22 PO 2152 Laboratory Tests 12/23/17 0735: Anion Gap 8, Estimated GFR 11 L, BUN/Creatinine Ratio 7.7, Glucose 120 H, Calcium 7.6 L, Phosphorus 6.8 H, CBC w Diff NO MAN DIFF REQ, RBC 3.39 L, MCV 91.3, MCH 30.1, MCHC 33.0, RDW 14.6 H, MPV 6.8 L, Gran % 63.6, Lymphocytes % 20.2 L, Monocytes % 6.8, Eosinophils % 8.7 H, Basophils % 0.7, Absolute Granulocytes 5.9, Absolute Lymphocytes 1.9, Absolute Monocytes 0.6, Absolute Eosinophils 0.8, Absolute Basophils 0.1 12/23/17 0705: Anion Gap 7, Estimated GFR 11 L, BUN/Creatinine Ratio 7.7, CBC w Diff NO MAN DIFF REQ, RBC 3.27 L, MCV 91.3, MCH 30.3, MCHC 33.2, RDW 14.5, MPV 6.8 L, Gran % 64.0, Lymphocytes % 19.8 L, Monocytes % 7.3, Eosinophils % 8.1 H, Basophils % 0.8, Absolute Granulocytes 5.4, Absolute Lymphocytes 1.7, Absolute Monocytes 0.6, Absolute Eosinophils 0.7, Absolute Basophils 0.1 12/22/17 1644: CBC w Diff NO MAN DIFF REQ, RBC 3.33 L, MCV 92.7, MCH 30.5, MCHC 32.9 L, RDW 15.4 H, MPV 7.0 L, Gran % 68.4, Lymphocytes % 18.9 L, Monocytes % 5.9, Eosinophils % 6.0 H, Basophils % 0.8, Absolute Granulocytes 6.5, Absolute Lymphocytes 1.8, Absolute Monocytes 0.6, Absolute Eosinophils 0.6, Absolute Basophils 0.1 12/22/17 0651: Anion Gap 8, Estimated GFR 9 L, BUN/Creatinine Ratio 7.7, Magnesium 1.4 L 12/21/17 1454: Anion Gap 11, Estimated GFR 10 L, BUN/Creatinine Ratio 8.1, Glucose 177 H, Calcium 8.1 L, Phosphorus 7.4 H, Magnesium 1.4 L, Total Bilirubin 0.2, AST 31 , ALT 29, Alkaline Phosphatase 136 H, Troponin I 0.03, Total Protein 5.3 L, Albumin 2.5 L, Globulin 2.8, Albumin/Globulin Ratio 0.9 L, PTH Intact 362.6 H , PT 11.7, INR 1.07, APTT 34, CBC w Diff NO MAN DIFF REQ, RBC 3.64 L, MCV 91.6, MCH 31.0, MCHC 33.9, RDW 15.0 H, MPV 6.5 L, Gran % 74.8, Lymphocytes % 12.6 L , Monocytes % 5.6, Eosinophils % 6.3 H, Basophils % 0.7, Absolute Granulocytes 8.8 H, Absolute Lymphocytes 1.5, Absolute Monocytes 0.7 H, Absolute Eosinophils 0.7, Absolute Basophils 0.1, Hep Bs Antigen NONREACTIVE, Hep Bs Antibody NONREACTIVE, Hep B Core IgM Ab Conf NONREACTIVE, Hepatitis C Antibody NONREACTIVE Vital Signs Date Time Temp Pulse Resp B/P B/P Pulse O2 O2 Flow FiO2 Mean Ox Delivery Rate 12/23 1250 78 163/90 12/23 1240 98.9 78 20 163/90 95 Room Air 12/23 0600 98.0 77 20 164/80 91 12/22 2350 142/70 12/22 2204 97.8 80 20 186/95 93 Room Air 12/22 2156 80 171/106
[2017-12-23 22:18] VITALS: BP 189/82
[2017-12-23 23:58] VITALS: BP 164/72
[2017-12-24 07:30] VITALS: BP 151/81
--- NOTE | 2017-12-24 08:06 | PN- Housestaff ---
Subjective Follow-up For: Stage 5 chronic kidney disease Complaints: no complaints Subjective: Patient was seen and examined at bedside. No overnight events. He offered no complaints. He denies shortness of breath, chest pain, abdominal pain. Review of Systems Constitutional: Reports: no symptoms. Cardiovascular: Reports: no symptoms. Respiratory: Reports: no symptoms. Gastrointestinal: Reports: no symptoms. Genitourinary: Reports: no symptoms. Objective Last 24 Hrs of Vital Signs/I&O Vital Signs Date Time Temp Pulse Resp B/P B/P Pulse O2 O2 Flow FiO2 Mean Ox Delivery Rate 12/24 0854 69 151/81 12/24 0730 97.4 69 20 151/81 92 12/23 2358 164/72 12/23 2218 98.0 76 20 189/82 92 Room Air 12/23 2133 97.9 80 20 148/88 12/23 1600 97.9 80 20 148/88 95 Room Air Intake & Output 12/24 1600 12/24 0800 12/24 0000 Intake Total 350 350 Output Total Balance 350 350 Intake, Oral 350 350 Patient 292 lb Weight Physical Exam General Appearance: Alert, Oriented X3, Cooperative, No Acute Distress Cardiovascular: Normal S1, Normal S2, No Murmurs Lungs: Clear to Auscultation Abdomen: Soft, No Tenderness, No Hepatospenomegaly Neurological: Normal Speech, Strength at 5/5 X4 Ext, Normal Tone, Sensation Intact Current Medications: Current Medications Sig/Buddy Start time Last Medication Dose Route Stop Time Status Admin Acetaminophen 650 MG Q6P PRN 12/21 2030 AC PO Amlodipine Besylate 5 MG DAILY 12/22 1000 AC 12/24 PO 0854 Atorvastatin Calcium 20 MG 12/22 1000 AC 12/22 PO 0919 Clonidine 0.1 MG AT BEDTIME 12/21 2200 AC 12/23 PO 2133 Ergocalciferol 50,000 IU QFRI 12/22 0700 AC 12/22 PO 0919 Fenofibrate 145 MG DAILY 12/22 1000 AC 12/24 PO 0853 Heparin Sodium 5,000 UNIT Q8 12/210 AC 12/24 (Porcine) SC 0530 Insulin Aspart 0 TIDAC 12/22 0800 AC 12/24 SC 0856 Insulin Detemir 10 UNITS AT BEDTIME 12/210 AC 12/23 SC 2133 Levothyroxine Sodium 0.05 MG DAILY AC 12/22 0700 AC 12/24 PO 0530 Omeprazole 20 MG DAILY AC 12/22 0700 AC 12/24 PO 0530 Sevelamer Carbonate 1,600 MG WM 12/23 1200 AC 12/24 PO 0853 Last 24 Hrs of Lab/Haseeb Results Last 24 Hrs of Labs/Mics: Laboratory Tests 12/24/17 0738: Anion Gap 9, Estimated GFR 13 L, BUN/Creatinine Ratio 6.9 L, CBC w Diff NO MAN DIFF REQ, RBC 3.56 L, MCV 91.4, MCH 30.4, MCHC 33.2, RDW 14.8 H, MPV 7.0 L, Gran % 61.6, Lymphocytes % 23.0, Monocytes % 7.0, Eosinophils % 7.7 H, Basophils % 0.7, Absolute Granulocytes 5.9, Absolute Lymphocytes 2.2, Absolute Monocytes 0.7 H, Absolute Eosinophils 0.7, Absolute Basophils 0.1 Assessment/Plan Assessment: 52 yo M with PMH of CKD Stage 5, hypertension, hyperlipidemia, diabetes complicated with retinopathy and neuropathy, is sent to the ED by his sand system operator for placement of dialysis catheter and hemodialysis. Assessment: 1. Acute on CKD 2. CKD Stage V 3. RUE Swelling 4. Metobolic Acidosis 5. Hypomagnesemia/Hyperphostemia Plan: * Had an AshCath placed by IR 2 days ago. He had a run NSVT during the procedure. Patient had hemodialysis yesterday. Patient was seen by sand system operator yesterday who suggested to repeat hemodialysis on Monday. * Would replete his electrolytes as needed. * hepatitis panel - negative * PTH levels - 362; likely suggest secondary hyperparathyroidism * Renal Dialysis diet * DVT Prophylaxis: SC Heparin * Code: Full Code Problem List: 1. Acute on chronic renal insufficiency Pain Ratin Pain Location: none Pain Goal: Remain pain free Pain Plan: tylenol Tomorrow's Labs & Rationales: cbc,bep
[2017-12-24 09:04] LABS: ABSOLUTE BASOPHIL COUNT 0.1 /CUMM (0.0-0.2); ABSOLUTE EOSINOPHIL COUNT 0.7 /CUMM (0.0-0.7); ABSOLUTE GRANULOCYTE CT 5.9 /CUMM (1.4-6.5); ABSOLUTE LYMPH COUNT 2.2 /CUMM (1.2-3.4); ABSOLUTE MONOCYTE COUNT 0.7 /CUMM (0.10-0.60); BASOPHIL % 0.7 % (0.0-2.0); EOSINOPHIL % 7.7 % (0-5); GRANULOCYTE % 61.6 % (42.2-75.2); HEMATOCRIT 32.5 % (42-52); MEAN CORPUSCULAR HGB 30.4 PG (27.0-31.0); MEAN CORPUSCULAR HGB CONC 33.2 G/DL (33.0-37.0); MEAN CORPUSCULAR VOLUME 91.4 FL (80.0-94.0); PLATELET COUNT 401 /CUMM (130-400); RBC DISTRIBUTION WIDTH 14.8 % (11.5-14.5); RED BLOOD CELL CT 3.56 /CUMM (4.70-6.10); WHITE BLOOD CELL COUNT 9.5 /CUMM (4.8-10.8)
[2017-12-24 14:22] VITALS: BP 158/70
--- NOTE | 2017-12-24 15:11 | PN- Att Addend ---
Attending Addendum Attending Brief Note Patient looking and feeling better today, sitting in the chair. Having some trouble with his diet still has some occasional cough Vital signs are stable. Weight is not down today no major changes on physical. Will have blood work and hemodialysis in a.m., after reevaluate to see what's next and the plan of treatment. Intake & Output 12/24 1600 12/24 0400 12/23 1600 12/23 0400 12/22 1600 12/22 0400 Intake Total 350 350 610 350 90 250 Output Total Balance 350 350 610 350 90 250 Intake, IV 0 10 Intake, Oral 350 350 610 350 90 240 Number 0 0 0 Bowel Movements Patient 292 lb 290 lb 316 lb 313 lb Weight Weight Bed scale Bed scale Bed scale Measurement Method Current Medications Sig/Buddy Start time Last Medication Dose Route Stop Time Status Admin Acetaminophen 650 MG Q6P PRN 12/21 2030 AC PO Amlodipine Besylate 5 MG DAILY 12/22 1000 AC 12/24 PO 0854 Atorvastatin Calcium 20 MG 12/22 1000 AC 12/22 PO 0919 Clonidine 0.1 MG AT BEDTIME 12/21 2200 AC 12/23 PO 2133 Ergocalciferol 50,000 IU QFRI 12/22 0700 AC 12/22 PO 0919 Fenofibrate 145 MG DAILY 12/22 1000 AC 12/24 PO 0853 Heparin Sodium 5,000 UNIT Q8 12/21 2200 AC 12/24 (Porcine) SC 1412 Insulin Aspart 0 TIDAC 12/22 0800 AC 12/24 SC 0856 Insulin Detemir 10 UNITS AT BEDTIME 12/21 2200 AC 12/23 SC 2133 Levothyroxine Sodium 0.05 MG DAILY AC 12/22 0700 AC 12/24 PO 0530 Omeprazole 20 MG DAILY AC 12/22 0700 AC 12/24 PO 0530 Sevelamer Carbonate 1,600 MG WM 12/23 1200 AC 12/24 PO 1410 Laboratory Tests 12/24/17 0738: Anion Gap 9, Estimated GFR 13 L, BUN/Creatinine Ratio 6.9 L, CBC w Diff NO MAN DIFF REQ, RBC 3.56 L, MCV 91.4, MCH 30.4, MCHC 33.2, RDW 14.8 H, MPV 7.0 L, Gran % 61.6, Lymphocytes % 23.0, Monocytes % 7.0, Eosinophils % 7.7 H, Basophils % 0.7, Absolute Granulocytes 5.9, Absolute Lymphocytes 2.2, Absolute Monocytes 0.7 H, Absolute Eosinophils 0.7, Absolute Basophils 0.1 12/23/17 0735: Anion Gap 8, Estimated GFR 11 L, BUN/Creatinine Ratio 7.7, Glucose 120 H, Calcium 7.6 L, Phosphorus 6.8 H, CBC w Diff NO MAN DIFF REQ, RBC 3.39 L, MCV 91.3, MCH 30.1, MCHC 33.0, RDW 14.6 H, MPV 6.8 L, Gran % 63.6, Lymphocytes % 20.2 L, Monocytes % 6.8, Eosinophils % 8.7 H, Basophils % 0.7, Absolute Granulocytes 5.9, Absolute Lymphocytes 1.9, Absolute Monocytes 0.6, Absolute Eosinophils 0.8, Absolute Basophils 0.1 12/23/17 0705: Anion Gap 7, Estimated GFR 11 L, BUN/Creatinine Ratio 7.7, CBC w Diff NO MAN DIFF REQ, RBC 3.27 L, MCV 91.3, MCH 30.3, MCHC 33.2, RDW 14.5, MPV 6.8 L, Gran % 64.0, Lymphocytes % 19.8 L, Monocytes % 7.3, Eosinophils % 8.1 H, Basophils % 0.8, Absolute Granulocytes 5.4, Absolute Lymphocytes 1.7, Absolute Monocytes 0.6, Absolute Eosinophils 0.7, Absolute Basophils 0.1 12/22/17 1644: CBC w Diff NO MAN DIFF REQ, RBC 3.33 L, MCV 92.7, MCH 30.5, MCHC 32.9 L, RDW 15.4 H, MPV 7.0 L, Gran % 68.4, Lymphocytes % 18.9 L, Monocytes % 5.9, Eosinophils % 6.0 H, Basophils % 0.8, Absolute Granulocytes 6.5, Absolute Lymphocytes 1.8, Absolute Monocytes 0.6, Absolute Eosinophils 0.6, Absolute Basophils 0.1 12/22/17 0651: Anion Gap 8, Estimated GFR 9 L, BUN/Creatinine Ratio 7.7, Magnesium 1.4 L Vital Signs Date Time Temp Pulse Resp B/P B/P Pulse O2 O2 Flow FiO2 Mean Ox Delivery Rate 12/24 1422 97.5 72 20 158/70 95 Room Air 12/24 0854 69 151/81 12/24 0730 97.4 69 20 151/81 92 12/23 2358 164/72 12/23 2218 98.0 76 20 189/82 92 Room Air 12/23 2133 97.9 80 20 148/88 12/23 1600 97.9 80 20 148/88 95 Room Air Kidney function slightly improved today.
[2017-12-24 20:51] VITALS: BP 194/90
[2017-12-24 21:05] VITALS: BP 178/80
[2017-12-25 05:46] VITALS: BP 169/73
--- NOTE | 2017-12-25 07:03 | PN- Housestaff ---
Subjective Follow-up For: Stage 5 CKD Subjective: Patient was seen and examined at bedside. He states feeling tired. He does not feel the dialysis has helped much. He doesn't have any specific complaints but inquires when he can be discharged. Review of Systems Constitutional: Reports: no symptoms. Objective Last 24 Hrs of Vital Signs/I&O Vital Signs Date Time Temp Pulse Resp B/P B/P Pulse O2 O2 Flow FiO2 Mean Ox Delivery Rate 12/25 0546 97.6 64 18 169/73 93 Room Air 12/25 0000 Room Air 12/24 2141 75 178/80 12/24 2105 178/80 12/24 2050 97.8 75 18 194/90 94 Room Air 12/24 1422 97.5 72 20 158/70 95 Room Air 12/24 0854 69 151/81 Intake & Output 12/25 1600 12/25 0800 12/25 0000 Intake Total 240 250 Output Total Balance 240 250 Intake, IV 0 10 Intake, Oral 240 240 Number 0 0 Bowel Movements Patient 295 lb Weight Physical Exam General Appearance: Alert, Oriented X3, Cooperative, No Acute Distress Skin: No Rashes, No Breakdown Skin Temp/Moisture Exam: Warm/Dry Sepsis Skin Exam (color): Normal for Ethnicity HEENT: Atraumatic Cardiovascular: Normal S1, Normal S2, No Murmurs Lungs: Clear to Auscultation, Normal Air Movement Abdomen: Soft, No Tenderness Neurological: Normal Speech Extremities: No Edema Assessment/Plan Assessment: 52 yo M with PMH of CKD Stage 5, hypertension, hyperlipidemia, diabetes complicated with retinopathy and neuropathy, is sent to the ED by his processing associate for placement of dialysis catheter and hemodialysis. Assessment: 1. Acute on CKD 2. CKD Stage V 3. RUE Swelling 4. Metobolic Acidosis 5. Hypomagnesemia/Hyperphostemia Plan: * He is scheduled for dialysis later today. * Per nephro, due to his fluid overload he will need dialysis daily for the next few days. * U/S Doppler of arm ruled out DVT. * Nephro recs appreciated. * hepatitis panel - negative * PTH levels - 362; likely suggest secondary hyperparathyroidism * Renal Dialysis diet with 1200cc fluid restriction, and 2g Na, 2g K restriction. * DVT Prophylaxis: SC Heparin * Code: Full Code Problem List: 1. Acute on chronic renal insufficiency Pain Ratin Pain Location: none Pain Goal: Remain pain free Pain Plan: none Tomorrow's Labs & Rationales: CBC, BEP
[2017-12-25 08:49] LABS: ABSOLUTE BASOPHIL COUNT 0.1 /CUMM (0.0-0.2); ABSOLUTE EOSINOPHIL COUNT 1.1 /CUMM (0.0-0.7); ABSOLUTE GRANULOCYTE CT 5.6 /CUMM (1.4-6.5); ABSOLUTE LYMPH COUNT 2.6 /CUMM (1.2-3.4); ABSOLUTE MONOCYTE COUNT 0.7 /CUMM (0.10-0.60); BASOPHIL % 0.7 % (0.0-2.0); EOSINOPHIL % 10.4 % (0-5); GRANULOCYTE % 55.4 % (42.2-75.2); HEMATOCRIT 31.6 % (42-52); MEAN CORPUSCULAR HGB 30.4 PG (27.0-31.0); MEAN CORPUSCULAR HGB CONC 33.5 G/DL (33.0-37.0); MEAN CORPUSCULAR VOLUME 90.8 FL (80.0-94.0); PLATELET COUNT 392 /CUMM (130-400); RBC DISTRIBUTION WIDTH 14.5 % (11.5-14.5); RED BLOOD CELL CT 3.49 /CUMM (4.70-6.10); WHITE BLOOD CELL COUNT 10.1 /CUMM (4.8-10.8)
--- NOTE | 2017-12-25 10:45 | PN- Att Addend ---
Attending Addendum Attending Brief Note Hemodialysis in progress. No new complaints. Vital signs are stable. No fever. No new changes on physical. Check with nephrology to see if we can start disposition plans and continue workup as an outpatient ahumada to get a good access line anticipating for chronic hemodialysis. Intake & Output 12/25 1600 12/25 0400 12/24 1600 12/24 0400 12/23 1600 12/23 0400 Intake Total 240 250 970 350 610 350 Output Total Balance 240 250 970 350 610 350 Intake, IV 0 10 Intake, Oral 240 240 970 350 610 350 Number 0 0 0 0 Bowel Movements Patient 295 lb 292 lb 290 lb Weight Weight Bed scale Measurement Method Current Medications Sig/Buddy Start time Last Medication Dose Route Stop Time Status Admin Acetaminophen 650 MG Q6P PRN 12/21 2030 AC PO Amlodipine Besylate 5 MG DAILY 12/22 1000 AC 12/24 PO 0854 Atorvastatin Calcium 20 MG 12/22 1000 AC 12/22 PO 0919 Clonidine 0.1 MG AT BEDTIME 12/21 2200 AC 12/24 PO 2141 Ergocalciferol 50,000 IU QFRI 12/22 0700 AC 12/22 PO 0919 Fenofibrate 145 MG DAILY 12/22 1000 AC 12/24 PO 0853 Heparin Sodium 5,000 UNIT Q8 12/21 2200 AC 12/25 (Porcine) SC 0531 Insulin Aspart 0 TIDAC 12/22 0800 AC 12/24 SC 1715 Insulin Detemir 10 UNITS AT BEDTIME 12/21 2200 AC 12/24 SC 2140 Levothyroxine Sodium 0.05 MG DAILY AC 12/22 0700 AC 12/25 PO 0531 Magnesium Chloride 64 MG TID 12/25 1000 AC PO Omeprazole 20 MG DAILY AC 12/22 0700 AC 12/25 PO 0531 Polyethylene Glycol 17 GM DAILY 12/25 1000 AC PO Senna/Docusate Sodium 1 TAB BID 12/25 1000 AC PO Sevelamer Carbonate 1,600 MG WM 12/23 1200 AC 12/24 PO 1714 Laboratory Tests 12/25/17 0750: Anion Gap 7, Estimated GFR 12 L, BUN/Creatinine Ratio 6.8 L, Calcium 7.9 L, CBC w Diff NO MAN DIFF REQ, RBC 3.49 L, MCV 90.8, MCH 30.4, MCHC 33.5, RDW 14.5 , MPV 7.0 L, Gran % 55.4, Lymphocytes % 26.1, Monocytes % 7.4, Eosinophils % 10.4 H, Basophils % 0.7, Absolute Granulocytes 5.6, Absolute Lymphocytes 2.6, Absolute Monocytes 0.7 H, Absolute Eosinophils 1.1, Absolute Basophils 0.1 12/24/17 0738: Anion Gap 9, Estimated GFR 13 L, BUN/Creatinine Ratio 6.9 L, CBC w Diff NO MAN DIFF REQ, RBC 3.56 L, MCV 91.4, MCH 30.4, MCHC 33.2, RDW 14.8 H, MPV 7.0 L, Gran % 61.6, Lymphocytes % 23.0, Monocytes % 7.0, Eosinophils % 7.7 H, Basophils % 0.7, Absolute Granulocytes 5.9, Absolute Lymphocytes 2.2, Absolute Monocytes 0.7 H, Absolute Eosinophils 0.7, Absolute Basophils 0.1 12/23/17 0735: Anion Gap 8, Estimated GFR 11 L, BUN/Creatinine Ratio 7.7, Glucose 120 H, Calcium 7.6 L, Phosphorus 6.8 H, CBC w Diff NO MAN DIFF REQ, RBC 3.39 L, MCV 91.3, MCH 30.1, MCHC 33.0, RDW 14.6 H, MPV 6.8 L, Gran % 63.6, Lymphocytes % 20.2 L, Monocytes % 6.8, Eosinophils % 8.7 H, Basophils % 0.7, Absolute Granulocytes 5.9, Absolute Lymphocytes 1.9, Absolute Monocytes 0.6, Absolute Eosinophils 0.8, Absolute Basophils 0.1 12/23/17 0705: Anion Gap 7, Estimated GFR 11 L, BUN/Creatinine Ratio 7.7, CBC w Diff NO MAN DIFF REQ, RBC 3.27 L, MCV 91.3, MCH 30.3, MCHC 33.2, RDW 14.5, MPV 6.8 L, Gran % 64.0, Lymphocytes % 19.8 L, Monocytes % 7.3, Eosinophils % 8.1 H, Basophils % 0.8, Absolute Granulocytes 5.4, Absolute Lymphocytes 1.7, Absolute Monocytes 0.6, Absolute Eosinophils 0.7, Absolute Basophils 0.1 12/22/17 1644: CBC w Diff NO MAN DIFF REQ, RBC 3.33 L, MCV 92.7, MCH 30.5, MCHC 32.9 L, RDW 15.4 H, MPV 7.0 L, Gran % 68.4, Lymphocytes % 18.9 L, Monocytes % 5.9, Eosinophils % 6.0 H, Basophils % 0.8, Absolute Granulocytes 6.5, Absolute Lymphocytes 1.8, Absolute Monocytes 0.6, Absolute Eosinophils 0.6, Absolute Basophils 0.1 Vital Signs Date Time Temp Pulse Resp B/P B/P Pulse O2 O2 Flow FiO2 Mean Ox Delivery Rate 12/25 0546 97.6 64 18 169/73 93 Room Air 12/25 0000 Room Air 12/24 2141 75 178/80 12/24 2105 178/80 12/24 2051 97.8 75 18 194/90 94 Room Air 12/24 1422 97.5 72 20 158/70 95 Room Air
--- NOTE | 2017-12-25 11:43 | PN- Nephrology ---
Assessment/Plan Nephrology Assessment: Patient on dialysis now. Comfortable. Still significantly fluid overloaded. Concerned with dietary restrictions with dialysis. Discussed with patient at length about this. Please ask RD to see patient and discuss -1200 cc fluid restriction - 2 g Na 2g K - low phos (600 mg range) diet. I will ask the home dialysis program to see him about modality. He is significantly fluid overloaded. I will plan dialysis tomorrow and daily for next few days Rodriguez Woods MD Suggestion: . Subjective Subjective: Pt on dialysis now. Complains about dietary restriction. Explained that he should have been on this diet for his CKD alone even prior to dialysis (he clearly wasn't following a diet). Pt undecided about modality. Objective Vital Signs and I&Os M COmfortable on dialysis now (3rd Rx) 169 / 73 64 97.4 Wt 290 Lungs clear Cor RRR Abd soft Ext 2+edema Results Pertinent Lab Results: 138 / 105 / 36 / 3.4 / 26 / 5.3\ HG 10.6
[2017-12-25 11:57] VITALS: BP 140/82
--- NOTE | 2017-12-25 13:36 | Patient Discharge Instructions ---
Discharge Instructions General Discharge Information You were seen/treated for: End Stage Renal Failure Special Instructions: Please follow up with your PCP and concession attendant within one week of discharge. Schedule an appointment with vascular surgery for an AVF. Diet Continue normal diet: Yes Recommended Diet: Renal Dialysis Activity Full Activity/No Limits: Yes Acute Coronary Syndrome Inclusion Criteria At DC or during hospital stay patient has or had the following: ACS DIAGNOSIS No Discharge Core Measures Meds if any: Prescribed or Continued at Discharge Meds if any: NOT Prescribed or Continued at Discharge Congestive Heart Failure Inclusion Criteria At DC or during hospital stay patient has or had the following: CHF DIAGNOSIS No Discharge Core Measures Meds if any: Prescribed or Continued at Discharge Meds if any: NOT Prescribed or Continued at Discharge Cerebrovascular accident Inclusion Criteria At DC or during hospital stay patient has or had the following: CVA/TIA Diagnosis No Discharge Core Measures Meds if any: Prescribed or Continued at Discharge Meds if any: NOT Prescribed or Continued at Discharge Venous thromboembolism Inclusion Criteria VTE Diagnosis No VTE Type NONE VTE Confirmed by (Test) NONE Discharge Core Measures - Per Current guidelines, there needs to be overlap - treatment for the first 5 days of Warfarin therapy. - If discharged on Warfarin prior to 5 days of - overlap therapy, the patient will need to be - assessed for post discharge needs including - *Post discharge parental anticoagulation - *Warfarin and/or parental anticoagulation education - *Follow up date to check INR post discharge At least 5 days overlap therapy as Inpatient No Meds if any: Prescribed or Continued at Discharge Note: Overlap Therapy is Warfarin and Anticoagulant Meds if any: NOT Prescribed or Continued at Discharge
[2017-12-25 21:46] VITALS: BP 176/79
[2017-12-26 06:26] VITALS: BP 168/74
--- NOTE | 2017-12-26 07:06 | PN- Housestaff ---
Subjective Follow-up For: ESRD Subjective: Patient was seen and examined at bedside. He is upset that his regular vineyard tender has not seen him yet. He has a lot of questions regarding his prognosis and care home dialysis. He doesn't have any specific complaints. He doesn't feel any different after the dialysis than when he came in. Review of Systems Constitutional: Reports: no symptoms. Objective Last 24 Hrs of Vital Signs/I&O Vital Signs Date Time Temp Pulse Resp B/P B/P Pulse O2 O2 Flow FiO2 Mean Ox Delivery Rate 12/26 1233 97.8 74 18 168/82 98 Room Air Room Air 12/26 1231 80 168/82 12/26 0709 98.1 74 20 94 Room Air 12/26 0626 168/74 12/26 0000 Room Air 12/25 2146 98.4 84 20 176/79 90 Room Air 12/25 2042 84 176/79 Intake & Output 12/26 1600 12/26 0800 12/26 0000 Intake Total 60 540 Output Total 700 Balance 60 -160 Intake, Oral 60 540 Output, Urine 700 Patient 281 lb 286 lb Weight Weight Bed scale Bed scale Measurement Method Physical Exam General Appearance: Alert, Oriented X3, Cooperative, No Acute Distress Skin: No Rashes, No Breakdown Skin Temp/Moisture Exam: Warm/Dry Sepsis Skin Exam (color): Normal for Ethnicity HEENT: Atraumatic Cardiovascular: Normal S1, Normal S2, No Murmurs Lungs: Normal Air Movement, decreased air entry in bases. Abdomen: Soft, No Tenderness Neurological: Normal Speech Extremities: b/l lower extremity edema to thighs Assessment/Plan Assessment: 52 yo M with PMH of CKD Stage 5, hypertension, hyperlipidemia, diabetes complicated with retinopathy and neuropathy, is sent to the ED by his vineyard tender for placement of dialysis catheter and hemodialysis. Assessment: 1. Acute on CKD 2. ESRD 3. RUE Swelling 4. Metobolic Acidosis 5. Hypomagnesemia/Hyperphostemia Plan: * He needs to adhere to his diet. He is upset about the fluid restriction. He is used to drinking a lot more water. * Per nephro, due to his fluid overload he will need dialysis daily for the next few days. * U/S Doppler of arm ruled out DVT. * Would replete magnesium as he had runs of NSVT during AshCath placement. * Nephro recs appreciated. * hepatitis panel - negative * PTH levels - 362; likely suggest secondary hyperparathyroidism * Renal Dialysis diet with 1200cc fluid restriction, and 2g Na, 2g K restriction. * DVT Prophylaxis: SC Heparin x3 * Code: Full Code Problem List: 1. Acute on chronic renal insufficiency Pain Ratin Pain Location: none Pain Goal: Remain pain free Pain Plan: none Tomorrow's Labs & Rationales: CBC, BEP, Mg
[2017-12-26 08:44] LABS: ABSOLUTE BASOPHIL COUNT 0.1 /CUMM (0.0-0.2); ABSOLUTE EOSINOPHIL COUNT 0.9 /CUMM (0.0-0.7); ABSOLUTE GRANULOCYTE CT 7.4 /CUMM (1.4-6.5); ABSOLUTE LYMPH COUNT 1.9 /CUMM (1.2-3.4); ABSOLUTE MONOCYTE COUNT 0.9 /CUMM (0.10-0.60); BASOPHIL % 0.8 % (0.0-2.0); GRANULOCYTE % 65.7 % (42.2-75.2); HEMATOCRIT 32.5 % (42-52); MEAN CORPUSCULAR HGB 30.2 PG (27.0-31.0); MEAN CORPUSCULAR HGB CONC 33.4 G/DL (33.0-37.0); MEAN CORPUSCULAR VOLUME 90.5 FL (80.0-94.0); MEAN PLATELET VOLUME 7.2 FL (7.4-10.4); PLATELET COUNT 386 /CUMM (130-400); RBC DISTRIBUTION WIDTH 14.5 % (11.5-14.5); RED BLOOD CELL CT 3.59 /CUMM (4.70-6.10); WHITE BLOOD CELL COUNT 11.2 /CUMM (4.8-10.8)
--- NOTE | 2017-12-26 10:28 | PN- Att Addend ---
Attending Addendum Attending Brief Note Hemodialysis in progress. Patient a little upset that now he is on a fluid restriction Vital signs are stable no fever. No new changes on physical if his weight is down a little bit hemodialysis trying to get out some extra fluid today. Continue treatment as per nephrology's recommendations. Intake & Output 12/26 1600 12/26 0400 12/25 1600 12/25 0400 12/24 1600 12/24 0400 Intake Total 60 540 840 250 970 350 Output Total 700 Balance 60 -160 840 250 970 350 Intake, IV 0 10 Intake, Oral 60 540 840 240 970 350 Number 1 0 0 Bowel Movements Output, Urine 700 Patient 286 lb 290 lb 292 lb Weight Weight Bed scale Bed scale Measurement Method Current Medications Sig/Buddy Start time Last Medication Dose Route Stop Time Status Admin Acetaminophen 650 MG Q6P PRN 12/21 2030 AC PO Amlodipine Besylate 5 MG DAILY 12/22 1000 AC 12/25 PO 1156 Atorvastatin Calcium 20 MG 12/22 1000 AC 12/25 PO 1155 Clonidine 0.1 MG AT BEDTIME 12/21 2200 AC 12/25 PO 2042 Ergocalciferol 50,000 IU QFRI 12/22 0700 AC 12/22 PO 0919 Fenofibrate 145 MG DAILY 12/22 1000 AC 12/25 PO 1156 Heparin Sodium 5,000 UNIT Q8 12/21 2200 AC 12/26 (Porcine) SC 0620 Insulin Aspart 0 TIDAC 12/22 0800 AC 12/25 SC 1800 Insulin Detemir 10 UNITS AT BEDTIME 12/21 2200 AC 12/25 SC 204 Levothyroxine Sodium 0.05 MG DAILY AC 12/22 0700 AC 12/26 PO 0620 Magnesium Chloride 64 MG TID 12/25 1000 AC 12/25 PO 204 Omeprazole 20 MG DAILY AC 12/22 0700 AC 12/26 PO 0620 Polyethylene Glycol 17 GM DAILY 12/25 1000 AC 12/25 PO 1156 Senna/Docusate Sodium 1 TAB BID 12/25 1000 AC 12/25 PO 204 Sevelamer Carbonate 1,600 MG WM 12/23 1200 AC 12/25 PO 1800 Laboratory Tests 12/26/17 0803: Anion Gap 6, Estimated GFR 15 L, BUN/Creatinine Ratio 5.3 L, Glucose 84, Calcium 8.0 L, Magnesium 1.6, CBC w Diff NO MAN DIFF REQ, RBC 3.59 L, MCV 90.5 , MCH 30.2, MCHC 33.4, RDW 14.5, MPV 7.2 L, Gran % 65.7, Lymphocytes % 17.0 L, Monocytes % 8.5, Eosinophils % 8.0 H, Basophils % 0.8, Absolute Granulocytes 7.4 H, Absolute Lymphocytes 1.9, Absolute Monocytes 0.9 H, Absolute Eosinophils 0.9, Absolute Basophils 0.1 12/26/17 0600: Sodium Cancelled, Potassium Cancelled, Chloride Cancelled, Carbon Dioxide Cancelled, Anion Gap Cancelled, BUN Cancelled, Creatinine Cancelled, BUN/ Creatinine Ratio Cancelled 12/25/17 0750: Anion Gap 7, Estimated GFR 12 L, BUN/Creatinine Ratio 6.8 L, Calcium 7.9 L, CBC w Diff NO MAN DIFF REQ, RBC 3.49 L, MCV 90.8, MCH 30.4, MCHC 33.5, RDW 14.5 , MPV 7.0 L, Gran % 55.4, Lymphocytes % 26.1, Monocytes % 7.4, Eosinophils % 10.4 H, Basophils % 0.7, Absolute Granulocytes 5.6, Absolute Lymphocytes 2.6, Absolute Monocytes 0.7 H, Absolute Eosinophils 1.1, Absolute Basophils 0.1 12/25/17 0600: Sodium Cancelled, Potassium Cancelled, Chloride Cancelled, Carbon Dioxide Cancelled, Anion Gap Cancelled, BUN Cancelled, Creatinine Cancelled, BUN/ Creatinine Ratio Cancelled, CBC w Diff Cancelled, WBC Cancelled, RBC Cancelled, Hgb Cancelled, Hct Cancelled, MCV Cancelled, MCH Cancelled, MCHC Cancelled, RDW Cancelled, Plt Count Cancelled, MPV Cancelled 12/24/17 0738: Anion Gap 9, Estimated GFR 13 L, BUN/Creatinine Ratio 6.9 L, CBC w Diff NO MAN DIFF REQ, RBC 3.56 L, MCV 91.4, MCH 30.4, MCHC 33.2, RDW 14.8 H, MPV 7.0 L, Gran % 61.6, Lymphocytes % 23.0, Monocytes % 7.0, Eosinophils % 7.7 H, Basophils % 0.7, Absolute Granulocytes 5.9, Absolute Lymphocytes 2.2, Absolute Monocytes 0.7 H, Absolute Eosinophils 0.7, Absolute Basophils 0.1 Vital Signs Date Time Temp Pulse Resp B/P B/P Pulse O2 O2 Flow FiO2 Mean Ox Delivery Rate 12/26 0709 98.1 74 20 94 Room Air 12/26 0626 168/74 12/26 0000 Room Air 12/25 2146 98.4 84 20 176/79 90 Room Air 12/25 2042 84 176/79 12/25 1157 98.5 72 20 140/82 93 Room Air 12/25 1156 74 140/82
--- NOTE | 2017-12-26 10:39 | PN- Nephrology ---
Assessment/Plan Nephrology Assessment: ESRD. spoke with RD yesterday (pt not happy with results)> Explained that he does need to adhere to the diet (it is hard). Dialysis underway Will plan 3L UF with HD today and continue fluid removal with dialysis. Home program to see patient to discuss modality. Rodriguez Woods MD. Suggestion: . Subjective Subjective: Pt on dialysis now. Objective Vital Signs and I&Os 98.1 74 168/74 Lungs clear Cor RRR Abd soft N/T Ext 2+ edema Results Pertinent Lab Results: 140 / 106 / 23 / 3.3 / 28 / 4.3\
[2017-12-26 12:33] VITALS: BP 168/82
[2017-12-26 18:31] VITALS: BP 132/82
[2017-12-26 22:58] VITALS: BP 140/50
[2017-12-27 06:29] VITALS: BP 158/64
--- NOTE | 2017-12-27 07:28 | PN- Housestaff ---
Subjective Follow-up For: ESRD Subjective: Patient was seen and examined at bedside. He is unhappy about his hospital course. Wishes to speak to his java lead engineer Dr Zambrano. He states he doesn't feel any different ever since he came in. He doesn't have any specific complaints. Mentions he walked around last night and felt dizzy. He is extremely unhappy about the fluid restriction. Review of Systems Constitutional: Reports: no symptoms. Objective Last 24 Hrs of Vital Signs/I&O Vital Signs Date Time Temp Pulse Resp B/P B/P Pulse O2 O2 Flow FiO2 Mean Ox Delivery Rate 12/27 0629 98.3 74 18 158/64 92 Room Air 12/26 2258 98.4 74 18 140/50 92 Room Air 12/26 2211 74 140/50 12/26 1831 98.7 86 18 132/82 94 Room Air 12/26 1233 97.8 74 18 168/82 98 Room Air Room Air 12/26 1231 80 168/82 Intake & Output 12/27 1600 12/27 0800 12/27 0000 Intake Total 240 300 Output Total 300 525 Balance -60 -225 Intake, Oral 240 300 Output, Urine 300 525 Patient 277 lb Weight Weight Bed scale Measurement Method Physical Exam General Appearance: Alert, Oriented X3, Cooperative, No Acute Distress Skin: No Rashes, No Breakdown Skin Temp/Moisture Exam: Warm/Dry Sepsis Skin Exam (color): Normal for Ethnicity HEENT: Atraumatic Cardiovascular: Normal S1, Normal S2, No Murmurs Lungs: Normal Air Movement, decreased air entry at bases Abdomen: Soft, No Tenderness Neurological: Normal Speech Extremities: b/l lower extremity edema up to knees Assessment/Plan Assessment: 52 yo M with PMH of CKD Stage 5, hypertension, hyperlipidemia, diabetes complicated with retinopathy and neuropathy, is sent to the ED by his java lead engineer for placement of dialysis catheter and hemodialysis. Assessment: 1. Acute on CKD 2. ESRD 3. RUE Swelling 4. Metobolic Acidosis - resolved 5. Hypomagnesemia/Hyperphostemia Plan: * He needs to adhere to his diet. He is upset about the fluid restriction. He is used to drinking a lot more water. I've re-emphazied the importance of staying on fluid restriction. * Dialysis again tomorrow and Monday. * U/S Doppler of arm ruled out DVT. * Labs from today still pending. * Nephro recs appreciated. * hepatitis panel - negative * PTH levels - 362; likely suggest secondary hyperparathyroidism * Renal Dialysis diet with 1200cc fluid restriction, and 2g Na, 2g K restriction. * DVT Prophylaxis: SC Heparin x3 * Code: Full Code Problem List: 1. CHANDANA (acute kidney injury) Pain Ratin Pain Location: none Pain Goal: Remain pain free Pain Plan: none Tomorrow's Labs & Rationales: CBC, BEP, Mg, Ph
--- NOTE | 2017-12-27 08:23 | PN- Nephrology ---
Assessment/Plan Nephrology Assessment: ESRD. fluid overload. Needs dietary salt and fluid restriction. Spoke with Dr. Enciso about this. Will have home program discuss modality with him this week. Dialysis again tomorrow and Monday. Rodriguez Woods MD. Suggestion: . Subjective Subjective: Pt comfortable. Angry about fluid dietary restriction. Not on fluid restriction (pitcher by bedside). Objective Vital Signs and I&Os M NAD 158/64 74 98.3 Lungs clear Cor RRR Abd soft Ext 2+edema Results Pertinent Lab Results: Laboratory Tests 12/26 12/26 0803 0600 Chemistry Sodium (137 - 145 mmol/L) 140 Cancelled Potassium (3.5 - 5.1 mmol/L) 3.3 L Cancelled Chloride (98 - 107 mmol/L) 106 Cancelled Carbon Dioxide (22 - 30 mmol/L) 28 Cancelled Anion Gap (5 - 16) 6 Cancelled BUN (9 - 20 mg/dL) 23 H Cancelled Creatinine (0.7 - 1.2 mg/dL) 4.3 H Cancelled Estimated GFR (>60 ml/min) 15 L BUN/Creatinine Ratio (7 - 25 %) 5.3 L Cancelled Glucose (65 - 99 mg/dL) 84 Calcium (8.4 - 10.2 mg/dL) 8.0 L Magnesium (1.6 - 2.3 mg/dL) 1.6 Hematology CBC w Diff NO MAN DIFF REQ WBC (4.8 - 10.8 /CUMM) 11.2 H RBC (4.70 - 6.10 /CUMM) 3.59 L Hgb (14.0 - 18.0 G/DL) 10.8 L Hct (42 - 52 %) 32.5 L MCV (80.0 - 94.0 FL) 90.5 MCH (27.0 - 31.0 PG) 30.2 MCHC (33.0 - 37.0 G/DL) 33.4 RDW (11.5 - 14.5 %) 14.5 Plt Count (130 - 400 /CUMM) 386 MPV (7.4 - 10.4 FL) 7.2 L Gran % (42.2 - 75.2 %) 65.7 Lymphocytes % (20.5 - 51.1 %) 17.0 L Monocytes % (1.7 - 9.3 %) 8.5 Eosinophils % (0 - 5 %) 8.0 H Basophils % (0.0 - 2.0 %) 0.8 Absolute Granulocytes (1.4 - 6.5 /CUMM) 7.4 H Absolute Lymphocytes (1.2 - 3.4 /CUMM) 1.9 Absolute Monocytes (0.10 - 0.60 /CUMM) 0.9 H Absolute Eosinophils (0.0 - 0.7 /CUMM) 0.9 Absolute Basophils (0.0 - 0.2 /CUMM) 0.1 12/25 12/25 0750 0600 Chemistry Sodium (137 - 145 mmol/L) 138 Cancelled Potassium (3.5 - 5.1 mmol/L) 3.4 L Cancelled Chloride (98 - 107 mmol/L) 105 Cancelled Carbon Dioxide (22 - 30 mmol/L) 26 Cancelled Anion Gap (5 - 16) 7 Cancelled BUN (9 - 20 mg/dL) 36 H Cancelled Creatinine (0.7 - 1.2 mg/dL) 5.3 *H Cancelled Estimated GFR (>60 ml/min) 12 L BUN/Creatinine Ratio (7 - 25 %) 6.8 L Cancelled Calcium (8.4 - 10.2 mg/dL) 7.9 L Hematology CBC w Diff NO MAN DIFF REQ Cancelled WBC (4.8 - 10.8 /CUMM) 10.1 Cancelled RBC (4.70 - 6.10 /CUMM) 3.49 L Cancelled Hgb (14.0 - 18.0 G/DL) 10.6 L Cancelled Hct (42 - 52 %) 31.6 L Cancelled MCV (80.0 - 94.0 FL) 90.8 Cancelled MCH (27.0 - 31.0 PG) 30.4 Cancelled MCHC (33.0 - 37.0 G/DL) 33.5 Cancelled RDW (11.5 - 14.5 %) 14.5 Cancelled Plt Count (130 - 400 /CUMM) 392 Cancelled MPV (7.4 - 10.4 FL) 7.0 L Cancelled Gran % (42.2 - 75.2 %) 55.4 Lymphocytes % (20.5 - 51.1 %) 26.1 Monocytes % (1.7 - 9.3 %) 7.4 Eosinophils % (0 - 5 %) 10.4 H Basophils % (0.0 - 2.0 %) 0.7 Absolute Granulocytes (1.4 - 6.5 /CUMM) 5.6 Absolute Lymphocytes (1.2 - 3.4 /CUMM) 2.6 Absolute Monocytes (0.10 - 0.60 /CUMM) 0.7 H Absolute Eosinophils (0.0 - 0.7 /CUMM) 1.1 Absolute Basophils (0.0 - 0.2 /CUMM) 0.1
[2017-12-27 12:58] LABS: ABSOLUTE BASOPHIL COUNT 0.1 /CUMM (0.0-0.2); ABSOLUTE EOSINOPHIL COUNT 0.5 /CUMM (0.0-0.7); ABSOLUTE GRANULOCYTE CT 7.7 /CUMM (1.4-6.5); ABSOLUTE LYMPH COUNT 1.6 /CUMM (1.2-3.4); ABSOLUTE MONOCYTE COUNT 0.8 /CUMM (0.10-0.60); BASOPHIL % 0.6 % (0.0-2.0); EOSINOPHIL % 4.4 % (0-5); GRANULOCYTE % 72.5 % (42.2-75.2); HEMATOCRIT 31.3 % (42-52); MEAN CORPUSCULAR HGB 30.1 PG (27.0-31.0); MEAN CORPUSCULAR HGB CONC 33.4 G/DL (33.0-37.0); MEAN CORPUSCULAR VOLUME 90.2 FL (80.0-94.0); MEAN PLATELET VOLUME 7.2 FL (7.4-10.4); PLATELET COUNT 299 /CUMM (130-400); RBC DISTRIBUTION WIDTH 14.3 % (11.5-14.5); RED BLOOD CELL CT 3.47 /CUMM (4.70-6.10); WHITE BLOOD CELL COUNT 10.6 /CUMM (4.8-10.8)
[2017-12-27 14:45] VITALS: BP 142/72
--- NOTE | 2017-12-27 16:41 | PN- Att Addend ---
Attending Addendum Attending Brief Note No new issues. Patient still upset about the fluid restriction. Vital signs are stable no fever his weight is down a little bit. No other changes on physical. The patient will continue with hemodialysis and observation. Intake & Output 12/27 1600 12/27 0400 12/26 1600 12/26 0400 12/25 1600 12/25 0400 Intake Total 890 300 540 540 840 250 Output Total 950 525 475 700 Balance -60 -225 65 -160 840 250 Intake, IV 0 0 10 Intake, Oral 890 300 540 540 840 240 Number 0 1 0 Bowel Movements Output, Urine 950 525 475 700 Patient 277 lb 281 lb 290 lb Weight Weight Bed scale Bed scale Bed scale Measurement Method Current Medications Sig/Buddy Start time Last Medication Dose Route Stop Time Status Admin Acetaminophen 650 MG Q6P PRN 12/21 2030 AC PO Amlodipine Besylate 5 MG DAILY 12/22 1000 AC 12/27 PO 0814 Atorvastatin Calcium 20 MG 12/22 1000 AC 12/27 PO 0814 Benzonatate 100 MG TID PRN 12/26 1430 AC 12/27 PO 1314 Clonidine 0.1 MG AT BEDTIME 12/21 2200 AC 12/26 PO 2211 Ergocalciferol 50,000 IU QFRI 12/22 0700 AC 12/22 PO 0919 Fenofibrate 145 MG DAILY 12/22 1000 AC 12/27 PO 0814 Heparin Sodium 5,000 UNIT Q8 12/21 2200 AC 12/27 (Porcine) SC 1308 Insulin Aspart 0 TIDAC 12/22 0800 AC 12/27 SC 1214 Insulin Detemir 10 UNITS AT BEDTIME 12/21 2200 AC 12/26 SC 2213 Levothyroxine Sodium 0.05 MG DAILY AC 12/22 0700 AC 12/27 PO 0604 Magnesium Chloride 64 MG TID 12/25 1000 AC 12/27 PO 0815 Magnesium Sulfate 1 GM ONCE ONE 12/26 1345 DC 12/26 Dextrose/Water 100 ML IV 12/26 1744 1657 Omeprazole 20 MG DAILY AC 12/22 0700 AC 12/27 PO 0604 Patient Medication 1 ED ONE ONE 12/27 1030 DC Teaching ED 12/27 1031 Polyethylene Glycol 17 GM DAILY 12/25 1000 AC 12/25 PO 1156 Senna/Docusate Sodium 1 TAB BID 12/25 1000 AC 12/25 PO 2043 Sevelamer Carbonate 1,600 MG WM 12/23 1200 AC 12/27 PO 1214 Laboratory Tests 12/27/17 1227: Anion Gap 3 L, Estimated GFR 16 L, BUN/Creatinine Ratio 4.6 L, Magnesium 1.8, CBC w Diff NO MAN DIFF REQ, RBC 3.47 L, MCV 90.2, MCH 30.1, MCHC 33.4, RDW 14.3 , MPV 7.2 L, Gran % 72.5, Lymphocytes % 14.7 L, Monocytes % 7.8, Eosinophils % 4.4, Basophils % 0.6, Absolute Granulocytes 7.7 H, Absolute Lymphocytes 1.6, Absolute Monocytes 0.8 H, Absolute Eosinophils 0.5, Absolute Basophils 0.1 12/26/17 0803: Anion Gap 6, Estimated GFR 15 L, BUN/Creatinine Ratio 5.3 L, Glucose 84, Calcium 8.0 L, Magnesium 1.6, CBC w Diff NO MAN DIFF REQ, RBC 3.59 L, MCV 90.5 , MCH 30.2, MCHC 33.4, RDW 14.5, MPV 7.2 L, Gran % 65.7, Lymphocytes % 17.0 L, Monocytes % 8.5, Eosinophils % 8.0 H, Basophils % 0.8, Absolute Granulocytes 7.4 H, Absolute Lymphocytes 1.9, Absolute Monocytes 0.9 H, Absolute Eosinophils 0.9, Absolute Basophils 0.1 12/26/17 0600: Sodium Cancelled, Potassium Cancelled, Chloride Cancelled, Carbon Dioxide Cancelled, Anion Gap Cancelled, BUN Cancelled, Creatinine Cancelled, BUN/ Creatinine Ratio Cancelled 12/25/17 0750: Anion Gap 7, Estimated GFR 12 L, BUN/Creatinine Ratio 6.8 L, Calcium 7.9 L, CBC w Diff NO MAN DIFF REQ, RBC 3.49 L, MCV 90.8, MCH 30.4, MCHC 33.5, RDW 14.5 , MPV 7.0 L, Gran % 55.4, Lymphocytes % 26.1, Monocytes % 7.4, Eosinophils % 10.4 H, Basophils % 0.7, Absolute Granulocytes 5.6, Absolute Lymphocytes 2.6, Absolute Monocytes 0.7 H, Absolute Eosinophils 1.1, Absolute Basophils 0.1 12/25/17 0600: Sodium Cancelled, Potassium Cancelled, Chloride Cancelled, Carbon Dioxide Cancelled, Anion Gap Cancelled, BUN Cancelled, Creatinine Cancelled, BUN/ Creatinine Ratio Cancelled, CBC w Diff Cancelled, WBC Cancelled, RBC Cancelled, Hgb Cancelled, Hct Cancelled, MCV Cancelled, MCH Cancelled, MCHC Cancelled, RDW Cancelled, Plt Count Cancelled, MPV Cancelled Vital Signs Date Time Temp Pulse Resp B/P B/P Pulse O2 O2 Flow FiO2 Mean Ox Delivery Rate 12/27 1600 92 Room Air 12/27 1445 99.3 78 20 142/72 92 12/27 0814 74 158/64 12/27 0629 98.3 74 18 158/64 92 Room Air 12/26 2258 98.4 74 18 140/50 92 Room Air 12/26 2211 74 140/50 12/26 1831 98.7 86 18 132/82 94 Room Air
[2017-12-27 22:03] VITALS: BP 150/90
[2017-12-28 07:13] VITALS: BP 170/64
--- NOTE | 2017-12-28 07:15 | PN- Housestaff ---
Subjective Follow-up For: ESRD Subjective: Patient was seen and examined at bedside. He states that he still doesn't feel any different. He wishes to speak to his chief mechanical officer. Review of Systems Constitutional: Reports: no symptoms. Objective Last 24 Hrs of Vital Signs/I&O Vital Signs Date Time Temp Pulse Resp B/P B/P Pulse O2 O2 Flow FiO2 Mean Ox Delivery Rate 12/28 0713 97.9 74 20 170/64 94 12/28 0000 Room Air 12/27 2203 98.6 84 18 150/90 93 Room Air 12/27 2047 84 150/90 12/27 1600 92 Room Air 12/27 1445 99.3 78 20 142/72 92 Intake & Output 12/28 1600 12/28 0800 12/28 0000 Intake Total 60 610 Output Total 500 350 Balance -440 260 Intake, IV 10 Intake, Oral 60 600 Output, Urine 500 350 Patient 280 lb Weight Weight Bed scale Measurement Method Physical Exam General Appearance: Alert, Oriented X3, Cooperative, No Acute Distress Skin: blister near AshCath, small wound near the area Skin Temp/Moisture Exam: Warm/Dry Sepsis Skin Exam (color): Normal for Ethnicity HEENT: Atraumatic Cardiovascular: Normal S1, Normal S2, No Murmurs Lungs: Clear to Auscultation, Normal Air Movement Abdomen: Soft, No Tenderness Neurological: Normal Speech Extremities: b/l lower extremity edema Assessment/Plan Assessment: 52 yo M with PMH of CKD Stage 5, hypertension, hyperlipidemia, diabetes complicated with retinopathy and neuropathy, is sent to the ED by his chief mechanical officer for placement of dialysis catheter and hemodialysis. Assessment: 1. Acute on CKD 2. ESRD 3. RUE Swelling 4. Metobolic Acidosis - resolved 5. Hypomagnesemia/Hyperphostemia Plan: * His fluid overload appears to be significantly improved today. Noticeable in his arms and lower extremities. * Dialysis again tomorrow. Will likely have outpatient dialysis scheduled after that. * Labs from today still pending. * Nephro recs appreciated. * hepatitis panel - negative * PTH levels - 362; likely suggest secondary hyperparathyroidism * Renal Dialysis diet with 1200cc fluid restriction, and 2g Na, 2g K restriction. Re-emphazied on importance of sticking to the fluid restriction. * DVT Prophylaxis: SC Heparin x3 * Code: Full Code Problem List: 1. Acute on chronic renal insufficiency Pain Ratin Pain Location: none Pain Goal: Remain pain free Pain Plan: none Tomorrow's Labs & Rationales: CBC, BEP
[2017-12-28 08:18] LABS: ABSOLUTE BASOPHIL COUNT 0.1 /CUMM (0.0-0.2); ABSOLUTE EOSINOPHIL COUNT 0.6 /CUMM (0.0-0.7); ABSOLUTE GRANULOCYTE CT 7.3 /CUMM (1.4-6.5); ABSOLUTE MONOCYTE COUNT 1.2 /CUMM (0.10-0.60); BASOPHIL % 0.6 % (0.0-2.0); EOSINOPHIL % 5.6 % (0-5); GRANULOCYTE % 65.3 % (42.2-75.2); HEMATOCRIT 31.8 % (42-52); MEAN CORPUSCULAR HGB 30.5 PG (27.0-31.0); MEAN CORPUSCULAR HGB CONC 33.4 G/DL (33.0-37.0); MEAN CORPUSCULAR VOLUME 91.3 FL (80.0-94.0); MEAN PLATELET VOLUME 7.4 FL (7.4-10.4); PLATELET COUNT 290 /CUMM (130-400); RBC DISTRIBUTION WIDTH 14.4 % (11.5-14.5); RED BLOOD CELL CT 3.48 /CUMM (4.70-6.10); WHITE BLOOD CELL COUNT 11.1 /CUMM (4.8-10.8)
--- NOTE | 2017-12-28 10:06 | PN- Nephrology ---
Assessment/Plan Nephrology Assessment: ESRD on dialysis now. Fluid overloaded. Plan 3L UF today dialysis again tomorrow. Needs strict fluid /salt restriction. Home program to see patient about modality. Rodriguez Woods MD. Suggestion: . Subjective Subjective: Pt on dialysis now. Objective Vital Signs and I&Os M NAD 170/64 74 97 Lungs clear Cor RRR Abd soft Ext 2+edema Results Pertinent Lab Results: Laboratory Tests 12/28 12/28 0820 0654 Chemistry Sodium (137 - 145 mmol/L) 138 Potassium (3.5 - 5.1 mmol/L) 3.5 Chloride (98 - 107 mmol/L) 104 Carbon Dioxide (22 - 30 mmol/L) 26 Anion Gap (5 - 16) 8 BUN (9 - 20 mg/dL) 22 H 21 H Creatinine (0.7 - 1.2 mg/dL) 4.7 H Estimated GFR (>60 ml/min) 13 L BUN/Creatinine Ratio (7 - 25 %) 4.5 L Phosphorus (2.5 - 4.5 mg/dL) 4.0 Magnesium (1.6 - 2.3 mg/dL) 1.8 Hematology CBC w Diff NO MAN DIFF REQ WBC (4.8 - 10.8 /CUMM) 11.1 H RBC (4.70 - 6.10 /CUMM) 3.48 L Hgb (14.0 - 18.0 G/DL) 10.6 L Hct (42 - 52 %) 31.8 L MCV (80.0 - 94.0 FL) 91.3 MCH (27.0 - 31.0 PG) 30.5 MCHC (33.0 - 37.0 G/DL) 33.4 RDW (11.5 - 14.5 %) 14.4 Plt Count (130 - 400 /CUMM) 290 MPV (7.4 - 10.4 FL) 7.4 Gran % (42.2 - 75.2 %) 65.3 Lymphocytes % (20.5 - 51.1 %) 17.9 L Monocytes % (1.7 - 9.3 %) 10.6 H Eosinophils % (0 - 5 %) 5.6 H Basophils % (0.0 - 2.0 %) 0.6 Absolute Granulocytes (1.4 - 6.5 /CUMM) 7.3 H Absolute Lymphocytes (1.2 - 3.4 /CUMM) 2.0 Absolute Monocytes (0.10 - 0.60 /CUMM) 1.2 H Absolute Eosinophils (0.0 - 0.7 /CUMM) 0.6 Absolute Basophils (0.0 - 0.2 /CUMM) 0.1 12/27 12/26 1227 0803 Chemistry Sodium (137 - 145 mmol/L) 136 L 140 Potassium (3.5 - 5.1 mmol/L) 3.5 3.3 L Chloride (98 - 107 mmol/L) 105 106 Carbon Dioxide (22 - 30 mmol/L) 27 28 Anion Gap (5 - 16) 3 L 6 BUN (9 - 20 mg/dL) 18 23 H Creatinine (0.7 - 1.2 mg/dL) 3.9 H 4.3 H Estimated GFR (>60 ml/min) 16 L 15 L BUN/Creatinine Ratio (7 - 25 %) 4.6 L 5.3 L Glucose (65 - 99 mg/dL) 84 Calcium (8.4 - 10.2 mg/dL) 8.0 L Magnesium (1.6 - 2.3 mg/dL) 1.8 1.6 Hematology CBC w Diff NO MAN DIFF REQ NO MAN DIFF REQ WBC (4.8 - 10.8 /CUMM) 10.6 11.2 H RBC (4.70 - 6.10 /CUMM) 3.47 L 3.59 L Hgb (14.0 - 18.0 G/DL) 10.5 L 10.8 L Hct (42 - 52 %) 31.3 L 32.5 L MCV (80.0 - 94.0 FL) 90.2 90.5 MCH (27.0 - 31.0 PG) 30.1 30.2 MCHC (33.0 - 37.0 G/DL) 33.4 33.4 RDW (11.5 - 14.5 %) 14.3 14.5 Plt Count (130 - 400 /CUMM) 299 386 MPV (7.4 - 10.4 FL) 7.2 L 7.2 L Gran % (42.2 - 75.2 %) 72.5 65.7 Lymphocytes % (20.5 - 51.1 %) 14.7 L 17.0 L Monocytes % (1.7 - 9.3 %) 7.8 8.5 Eosinophils % (0 - 5 %) 4.4 8.0 H Basophils % (0.0 - 2.0 %) 0.6 0.8 Absolute Granulocytes (1.4 - 6.5 /CUMM) 7.7 H 7.4 H Absolute Lymphocytes (1.2 - 3.4 /CUMM) 1.6 1.9 Absolute Monocytes (0.10 - 0.60 /CUMM) 0.8 H 0.9 H Absolute Eosinophils (0.0 - 0.7 /CUMM) 0.5 0.9 Absolute Basophils (0.0 - 0.2 /CUMM) 0.1 0.1 /20 0600 Chemistry Sodium Cancelled Potassium Cancelled Chloride Cancelled Carbon Dioxide Cancelled Anion Gap Cancelled BUN Cancelled Creatinine Cancelled BUN/Creatinine Ratio Cancelled
--- NOTE | 2017-12-28 12:48 | PN- Att Addend ---
Attending Addendum Attending Brief Note Hemodialysis just finishing her today will go again tomorrow. His weight was 180 pounds today sugars are still fluctuating. Vital signs are stable with no fever. Major changes on physical Intake & Output 12/28 1600 12/28 0400 12/27 1600 12/27 0400 12/26 1600 12/26 0400 Intake Total 60 610 890 300 540 540 Output Total 500 350 950 525 475 700 Balance -440 260 -60 -225 65 -160 Intake, IV 10 0 Intake, Oral 60 600 890 300 540 540 Number 0 Bowel Movements Output, Urine 500 350 950 525 475 700 Patient 280 lb 277 lb 281 lb Weight Weight Bed scale Bed scale Bed scale Measurement Method Current Medications Sig/Buddy Start time Last Medication Dose Route Stop Time Status Admin Acetaminophen 650 MG Q6P PRN 12/21 2030 AC PO Amlodipine Besylate 5 MG DAILY 12/22 1000 AC 12/27 PO 0814 Atorvastatin Calcium 20 MG 12/22 1000 AC 12/27 PO 0814 Benzonatate 100 MG TID PRN 12/26 1430 AC 12/27 PO 205 Clonidine 0.1 MG AT BEDTIME 12/21 2200 AC 12/27 PO 2047 Ergocalciferol 50,000 IU QFRI 12/22 0700 AC 12/22 PO 0919 Fenofibrate 145 MG DAILY 12/22 1000 AC 12/27 PO 0814 Heparin Sodium 5,000 UNIT Q8 12/21 2200 AC 12/28 (Porcine) SC 0626 Insulin Aspart 0 TIDAC 12/22 0800 AC 12/27 SC 1655 Insulin Detemir 10 UNITS AT BEDTIME 12/21 2200 AC 12/27 SC 204 Levothyroxine Sodium 0.05 MG DAILY AC 12/22 0700 AC 12/28 PO 0626 Magnesium Chloride 64 MG TID 12/25 1000 AC 12/27 PO 2047 Omeprazole 20 MG DAILY AC 12/22 0700 AC 12/28 PO 0626 Polyethylene Glycol 17 GM DAILY 12/25 1000 AC 12/25 PO 1156 Senna/Docusate Sodium 1 TAB BID 12/25 1000 AC 12/25 PO 2043 Sevelamer Carbonate 1,600 MG WM 12/23 1200 AC 12/28 PO 0737 Laboratory Tests 12/28/17 0820: 12/28/17 0654: Anion Gap 8, Estimated GFR 13 L, BUN/Creatinine Ratio 4.5 L, Phosphorus 4.0, Magnesium 1.8, CBC w Diff NO MAN DIFF REQ, RBC 3.48 L, MCV 91.3, MCH 30.5, MCHC 33.4, RDW 14.4, MPV 7.4, Gran % 65.3, Lymphocytes % 17.9 L, Monocytes % 10.6 H , Eosinophils % 5.6 H, Basophils % 0.6, Absolute Granulocytes 7.3 H, Absolute Lymphocytes 2.0, Absolute Monocytes 1.2 H, Absolute Eosinophils 0.6, Absolute Basophils 0.1 12/27/17 1227: Anion Gap 3 L, Estimated GFR 16 L, BUN/Creatinine Ratio 4.6 L, Magnesium 1.8, CBC w Diff NO MAN DIFF REQ, RBC 3.47 L, MCV 90.2, MCH 30.1, MCHC 33.4, RDW 14.3 , MPV 7.2 L, Gran % 72.5, Lymphocytes % 14.7 L, Monocytes % 7.8, Eosinophils % 4.4, Basophils % 0.6, Absolute Granulocytes 7.7 H, Absolute Lymphocytes 1.6, Absolute Monocytes 0.8 H, Absolute Eosinophils 0.5, Absolute Basophils 0.1 12/26/17 0803: Anion Gap 6, Estimated GFR 15 L, BUN/Creatinine Ratio 5.3 L, Glucose 84, Calcium 8.0 L, Magnesium 1.6, CBC w Diff NO MAN DIFF REQ, RBC 3.59 L, MCV 90.5 , MCH 30.2, MCHC 33.4, RDW 14.5, MPV 7.2 L, Gran % 65.7, Lymphocytes % 17.0 L, Monocytes % 8.5, Eosinophils % 8.0 H, Basophils % 0.8, Absolute Granulocytes 7.4 H, Absolute Lymphocytes 1.9, Absolute Monocytes 0.9 H, Absolute Eosinophils 0.9, Absolute Basophils 0.1 12/26/17 0600: Sodium Cancelled, Potassium Cancelled, Chloride Cancelled, Carbon Dioxide Cancelled, Anion Gap Cancelled, BUN Cancelled, Creatinine Cancelled, BUN/ Creatinine Ratio Cancelled Vital Signs Date Time Temp Pulse Resp B/P B/P Pulse O2 O2 Flow FiO2 Mean Ox Delivery Rate 12/28 0713 97.9 74 20 170/64 94 12/28 0000 Room Air 12/27 2203 98.6 84 18 150/90 93 Room Air 12/27 2047 84 150/90 12/27 1600 92 Room Air 12/27 1445 99.3 78 20 142/72 92 The actual weight was 280 pounds.
[2017-12-28 13:28] VITALS: BP 154/88
[2017-12-28 22:28] VITALS: BP 152/60
--- NOTE | 2017-12-29 07:01 | PN- Housestaff ---
See Addendum Subjective Follow-up For: ESRD Subjective: Patient was seen and examined at bedside. He states he feel the same as yesterday. No active complaints. Wishes to know his residential plans for dialysis. Review of Systems Constitutional: Reports: no symptoms. Objective Last 24 Hrs of Vital Signs/I&O Vital Signs Date Time Temp Pulse Resp B/P B/P Pulse O2 O2 Flow FiO2 Mean Ox Delivery Rate 12/29 2227 99.3 78 20 152/60 95 Room Air 12/28 2124 78 152/60 12/28 1328 98.1 77 18 154/88 96 Room Air Intake & Output 12/29 0800 12/29 0000 12/28 1600 Intake Total 300 250 360 Output Total 300 400 600 Balance 0 -150 -240 Intake, Oral 300 250 360 Number 1 Bowel Movements Output, Urine 300 400 600 Patient 273 lb Weight Weight Bed scale Measurement Method Physical Exam General Appearance: Alert, Oriented X3, Cooperative, No Acute Distress Skin: No Rashes, No Breakdown Skin Temp/Moisture Exam: Warm/Dry Sepsis Skin Exam (color): Normal for Ethnicity HEENT: Atraumatic Cardiovascular: Normal S1, Normal S2, No Murmurs Lungs: Clear to Auscultation, Normal Air Movement Abdomen: Soft, No Tenderness Neurological: Normal Speech Extremities: b/l lower extremity edema up to knees Assessment/Plan Assessment: 52 yo M with PMH of CKD Stage 5, hypertension, hyperlipidemia, diabetes complicated with retinopathy and neuropathy, is sent to the ED by his magician/illusionist for placement of dialysis catheter and hemodialysis. Assessment: 1. Acute on CKD 2. ESRD 3. RUE Swelling - resolved 4. Metobolic Acidosis - resolved 5. Hypomagnesemia/Hyperphostemia Plan: * Dialysis again today and tomorrow due to fluid overload. * Patient has been explained his various options. PD vs HD. He is still deciding. If he decides to go with HD will require a AVF. * Will obtain a vascular consult if he wishes to pursue HD. * Chemistries show improved Cr today after dialysis. * Nephro recs appreciated. * hepatitis panel - negative * PTH levels - 362; likely suggest secondary hyperparathyroidism * Renal Dialysis diet with 1200cc fluid restriction, and 2g Na, 2g K restriction. He needs to adhere to fluid restriction. * DVT Prophylaxis: SC Heparin x3 * Code: Full Code Problem List: 1. Acute on chronic renal insufficiency Pain Ratin Pain Location: none Pain Goal: Remain pain free Pain Plan: none Tomorrow's Labs & Rationales: cbc, bep
[2017-12-29 07:30] VITALS: BP 134/62
--- NOTE | 2017-12-29 10:14 | PN- Nephrology ---
Assessment/Plan Nephrology Assessment: ESRD. fluid overloaded. Will plan dialysis today and tomorrow. Pt undecided about modality. I asked him to review the DVD with his and think about modality. Given patients indecision and prior and current f/u with fluids and diet, I am unclear that he would do PD. I told him that if he remains undecided, I think he should continue with HD for now (he is aleady doing it so should be comfortable) and undergo AVF creation. Will plan dialysis today. If he decides on HD would as vascular to see next week for AVF creation. Rodriguez Woods MD Suggestion: . Subjective Subjective: Nurses came out to show patient modality information yesterday. He still has not viewed the DVD and will do so with his . He continues to have a pitcher by his bedside despite my conversation with medical team earlier in the week. Objective Vital Signs and I&Os M NAD 134/62 98 70 Lungs clear Cor RRR Abd soft Ext 2+edema Results Pertinent Lab Results: Laboratory Tests 12/28 12/28 12/28 1220 0820 0654 Chemistry Sodium (137 - 145 mmol/L) 138 Potassium (3.5 - 5.1 mmol/L) 3.5 Chloride (98 - 107 mmol/L) 104 Carbon Dioxide (22 - 30 mmol/L) 26 Anion Gap (5 - 16) 8 BUN (9 - 20 mg/dL) 10 22 H 21 H Creatinine (0.7 - 1.2 mg/dL) 4.7 H Estimated GFR (>60 ml/min) 13 L BUN/Creatinine Ratio (7 - 25 %) 4.5 L Phosphorus (2.5 - 4.5 mg/dL) 4.0 Magnesium (1.6 - 2.3 mg/dL) 1.8 Hematology CBC w Diff NO MAN DIFF REQ WBC (4.8 - 10.8 /CUMM) 11.1 H RBC (4.70 - 6.10 /CUMM) 3.48 L Hgb (14.0 - 18.0 G/DL) 10.6 L Hct (42 - 52 %) 31.8 L MCV (80.0 - 94.0 FL) 91.3 MCH (27.0 - 31.0 PG) 30.5 MCHC (33.0 - 37.0 G/DL) 33.4 RDW (11.5 - 14.5 %) 14.4 Plt Count (130 - 400 /CUMM) 290 MPV (7.4 - 10.4 FL) 7.4 Gran % (42.2 - 75.2 %) 65.3 Lymphocytes % (20.5 - 51.1 %) 17.9 L Monocytes % (1.7 - 9.3 %) 10.6 H Eosinophils % (0 - 5 %) 5.6 H Basophils % (0.0 - 2.0 %) 0.6 Absolute Granulocytes (1.4 - 6.5 /CUMM) 7.3 H Absolute Lymphocytes (1.2 - 3.4 /CUMM) 2.0 Absolute Monocytes (0.10 - 0.60 /CUMM) 1.2 H Absolute Eosinophils (0.0 - 0.7 /CUMM) 0.6 Absolute Basophils (0.0 - 0.2 /CUMM) 0.1 12/27 1227 Chemistry Sodium (137 - 145 mmol/L) 136 L Potassium (3.5 - 5.1 mmol/L) 3.5 Chloride (98 - 107 mmol/L) 105 Carbon Dioxide (22 - 30 mmol/L) 27 Anion Gap (5 - 16) 3 L BUN (9 - 20 mg/dL) 18 Creatinine (0.7 - 1.2 mg/dL) 3.9 H Estimated GFR (>60 ml/min) 16 L BUN/Creatinine Ratio (7 - 25 %) 4.6 L Magnesium (1.6 - 2.3 mg/dL) 1.8 Hematology CBC w Diff NO MAN DIFF REQ WBC (4.8 - 10.8 /CUMM) 10.6 RBC (4.70 - 6.10 /CUMM) 3.47 L Hgb (14.0 - 18.0 G/DL) 10.5 L Hct (42 - 52 %) 31.3 L MCV (80.0 - 94.0 FL) 90.2 MCH (27.0 - 31.0 PG) 30.1 MCHC (33.0 - 37.0 G/DL) 33.4 RDW (11.5 - 14.5 %) 14.3 Plt Count (130 - 400 /CUMM) 299 MPV (7.4 - 10.4 FL) 7.2 L Gran % (42.2 - 75.2 %) 72.5 Lymphocytes % (20.5 - 51.1 %) 14.7 L Monocytes % (1.7 - 9.3 %) 7.8 Eosinophils % (0 - 5 %) 4.4 Basophils % (0.0 - 2.0 %) 0.6 Absolute Granulocytes (1.4 - 6.5 /CUMM) 7.7 H Absolute Lymphocytes (1.2 - 3.4 /CUMM) 1.6 Absolute Monocytes (0.10 - 0.60 /CUMM) 0.8 H Absolute Eosinophils (0.0 - 0.7 /CUMM) 0.5 Absolute Basophils (0.0 - 0.2 /CUMM) 0.1
[2017-12-29 12:41] LABS: ABSOLUTE BASOPHIL COUNT 0.1 /CUMM (0.0-0.2); ABSOLUTE EOSINOPHIL COUNT 0.6 /CUMM (0.0-0.7); ABSOLUTE GRANULOCYTE CT 5.8 /CUMM (1.4-6.5); ABSOLUTE LYMPH COUNT 1.6 /CUMM (1.2-3.4); ABSOLUTE MONOCYTE COUNT 0.9 /CUMM (0.10-0.60); BASOPHIL % 0.9 % (0.0-2.0); EOSINOPHIL % 6.9 % (0-5); GRANULOCYTE % 64.5 % (42.2-75.2); HEMATOCRIT 31.4 % (42-52); MEAN CORPUSCULAR HGB 30.3 PG (27.0-31.0); MEAN CORPUSCULAR HGB CONC 33.3 G/DL (33.0-37.0); MEAN CORPUSCULAR VOLUME 91.2 FL (80.0-94.0); PLATELET COUNT 281 /CUMM (130-400); RBC DISTRIBUTION WIDTH 14.5 % (11.5-14.5); RED BLOOD CELL CT 3.45 /CUMM (4.70-6.10)
[2017-12-29 16:18] VITALS: BP 166/90
[2017-12-29 21:42] VITALS: BP 154/86
--- NOTE | 2017-12-30 05:24 | PN- Housestaff ---
Subjective Follow-up For: ESRD Subjective: Patient was seen and examined at bedside. He is upset that he has to [place] to make a decision for PD vs HD. He wants to wait till Monday until he talks to his Manager Group. Review of Systems Constitutional: Reports: no symptoms. Objective Last 24 Hrs of Vital Signs/I&O Vital Signs Date Time Temp Pulse Resp B/P B/P Pulse O2 O2 Flow FiO2 Mean Ox Delivery Rate 12/30 0743 98.9 64 18 153/85 95 Room Air 12/29 2249 80 156/86 12/29 2142 98.2 80 20 154/86 94 12/29 1631 81 166/90 12/29 1618 98.3 81 18 166/90 93 Intake & Output 12/30 0800 12/30 0000 12/29 1600 Intake Total 690 270 Output Total 3200 Balance -2510 270 Intake, IV 10 Intake, Oral 680 270 Number 1 1 Bowel Movements Output, 3000 Dialysate Output, Urine 200 Physical Exam General Appearance: Alert, Oriented X3, Cooperative, No Acute Distress Skin: blister near AshCath site Skin Temp/Moisture Exam: Warm/Dry Sepsis Skin Exam (color): Normal for Ethnicity HEENT: Atraumatic Cardiovascular: Normal S1, Normal S2, No Murmurs Lungs: Normal Air Movement, decreased at bases Abdomen: Soft, No Tenderness Neurological: Normal Speech Extremities: No Edema Assessment/Plan Assessment: 52 yo M with PMH of CKD Stage 5, hypertension, hyperlipidemia, diabetes complicated with retinopathy and neuropathy, is sent to the ED by his dental office coordinator for placement of dialysis catheter and hemodialysis. Assessment: 1. Acute on CKD 2. ESRD 3. RUE Swelling - resolved 4. Metobolic Acidosis - resolved 5. Hypomagnesemia/Hyperphostemia Plan: * Dialysis again today. * Patient is still deciding for his various options. PD vs HD. If he decides to go with HD will require a AVF. * Will obtain a vascular consult if he wishes to pursue HD. This will have to await until Monday. * BEP today - pending * Nephro recs appreciated. * hepatitis panel - negative * PTH levels - 362; likely suggest secondary hyperparathyroidism * Renal Dialysis diet with 1200cc fluid restriction, and 2g Na, 2g K restriction. He needs to adhere to fluid restriction. * DVT Prophylaxis: SC Heparin x3 * Code: Full Code Problem List: 1. Acute on chronic renal insufficiency Pain Ratin Pain Location: none Pain Goal: Remain pain free Pain Plan: none Tomorrow's Labs & Rationales: CBC, BEP
[2017-12-30 07:43] VITALS: BP 153/85
[2017-12-30 08:42] LABS: ABSOLUTE BASOPHIL COUNT 0.1 /CUMM (0.0-0.2); ABSOLUTE EOSINOPHIL COUNT 0.7 /CUMM (0.0-0.7); ABSOLUTE GRANULOCYTE CT 4.8 /CUMM (1.4-6.5); ABSOLUTE LYMPH COUNT 1.8 /CUMM (1.2-3.4); EOSINOPHIL % 8.7 % (0-5); GRANULOCYTE % 56.4 % (42.2-75.2); HEMATOCRIT 31.8 % (42-52); MEAN CORPUSCULAR HGB 30.7 PG (27.0-31.0); MEAN CORPUSCULAR HGB CONC 33.5 G/DL (33.0-37.0); MEAN CORPUSCULAR VOLUME 91.6 FL (80.0-94.0); PLATELET COUNT 267 /CUMM (130-400); RBC DISTRIBUTION WIDTH 14.3 % (11.5-14.5); RED BLOOD CELL CT 3.47 /CUMM (4.70-6.10); WHITE BLOOD CELL COUNT 8.5 /CUMM (4.8-10.8)
--- NOTE | 2017-12-30 10:00 | PN- Nephrology ---
Assessment/Plan Nephrology Assessment: Stable on dialysis. Suggestion: UF 3 liters today. Next dialysis on 01-01 Subjective Subjective: Patient seen on dialysis. No new complaints. Objective Vital Signs and I&Os Vital Signs Date Time Temp Pulse Resp B/P B/P Pulse O2 O2 Flow FiO2 Mean Ox Delivery Rate 12/30 0743 98.9 64 18 153/85 95 Room Air 12/29 2249 80 156/86 12/29 2142 98.2 80 20 154/86 94 12/29 1631 81 166/90 12/29 1618 98.3 81 18 166/90 93 Intake & Output 12/30 1600 12/30 0400 12/29 1600 12/29 0400 12/28 1600 12/28 0400 Intake Total 100 690 570 250 420 610 Output Total 400 3200 707 011 8460 350 Balance -300 -2510 -105 -150 -680 260 Intake, IV 10 10 Intake, Oral 100 680 570 250 420 600 Number 1 1 1 Bowel Movements Output, 3000 Dialysate Output, Urine 400 200 378 190 5962 350 Patient 267 lb 274 lb 273 lb Weight Weight Bed scale Measurement Method Physical Exam: NAD VS as above Lung: clear CV: no rub Abd: nontender Exts: no edema Neuro: A &O Current Medications: Current Medications Sig/Buddy Start time Last Medication Dose Route Stop Time Status Admin Acetaminophen 650 MG Q6P PRN 12/21 2030 AC PO Amlodipine Besylate 5 MG DAILY 12/22 1000 AC 12/29 PO 1631 Atorvastatin Calcium 20 MG 12/22 1000 AC 12/29 PO 1631 Benzonatate 100 MG TID PRN 12/29 2045 AC 12/29 PO 2309 Benzonatate 100 MG TID PRN 12/26 1430 DC 12/27 PO 2051 Clonidine 0.1 MG AT BEDTIME 12/21 2199 AC 12/29 PO 2249 Ergocalciferol 50,000 IU QFRI 12/22 0700 AC 12/29 PO 0542 Fenofibrate 145 MG DAILY 12/22 1000 AC 12/29 PO 1633 Heparin Sodium 5,000 UNIT Q8 12/21 2199 AC 12/30 (Porcine) SC 0623 Insulin Aspart 0 TIDAC 12/22 0800 AC 12/28 SC 1718 Insulin Detemir 10 UNITS AT BEDTIME 12/21 2199 AC 12/29 SC 2248 Levothyroxine Sodium 0.05 MG DAILY AC 12/22 0700 AC 12/30 PO 0621 Magnesium Chloride 64 MG TID 12/25 1000 AC 12/29 PO 2249 Omeprazole 20 MG DAILY AC 12/22 0700 AC 12/30 PO 0621 Polyethylene Glycol 17 GM DAILY 12/25 1000 AC 12/25 PO 1156 Senna/Docusate Sodium 1 TAB BID 12/25 1000 AC 12/29 PO 224 Sevelamer Carbonate 1,600 MG WM 12/23 1200 AC 12/29 PO 1810 Results Pertinent Lab Results: Laboratory Tests 12/30 12/29 0749 1153 Chemistry Sodium Pending Potassium Pending Chloride Pending Carbon Dioxide Pending Anion Gap Pending BUN Pending Creatinine Pending BUN/Creatinine Ratio Pending Glucose Cancelled Calcium Cancelled Hematology CBC w Diff NO MAN DIFF REQ WBC (4.8 - 10.8 /CUMM) 8.5 RBC (4.70 - 6.10 /CUMM) 3.47 L Hgb (14.0 - 18.0 G/DL) 10.6 L Hct (42 - 52 %) 31.8 L MCV (80.0 - 94.0 FL) 91.6 MCH (27.0 - 31.0 PG) 30.7 MCHC (33.0 - 37.0 G/DL) 33.5 RDW (11.5 - 14.5 %) 14.3 Plt Count (130 - 400 /CUMM) 267 MPV (7.4 - 10.4 FL) 8.0 Gran % (42.2 - 75.2 %) 56.4 Lymphocytes % (20.5 - 51.1 %) 21.6 Monocytes % (1.7 - 9.3 %) 12.3 H Eosinophils % (0 - 5 %) 8.7 H Basophils % (0.0 - 2.0 %) 1.0 Absolute Granulocytes (1.4 - 6.5 /CUMM) 4.8 Absolute Lymphocytes (1.2 - 3.4 /CUMM) 1.8 Absolute Monocytes (0.10 - 0.60 /CUMM) 1.0 H Absolute Eosinophils (0.0 - 0.7 /CUMM) 0.7 Absolute Basophils (0.0 - 0.2 /CUMM) 0.1 12/29 12/29 12/28 12/28 1113 0600 1220 0820 Chemistry Sodium (137 - 145 mmol/L) 136 L Potassium (3.5 - 5.1 mmol/L) 3.9 Chloride (98 - 107 mmol/L) 103 Carbon Dioxide (22 - 30 mmol/L) 28 Anion Gap (5 - 16) 5 BUN (9 - 20 mg/dL) 18 10 22 H Creatinine (0.7 - 1.2 mg/dL) 4.0 H Estimated GFR (>60 ml/min) 16 L BUN/Creatinine Ratio (7 - 25 %) 4.5 L Glucose (65 - 99 mg/dL) 216 H Calcium (8.4 - 10.2 mg/dL) 7.5 L Hematology CBC w Diff NO MAN DIFF REQ WBC (4.8 - 10.8 /CUMM) 9.0 RBC (4.70 - 6.10 /CUMM) 3.45 L Hgb (14.0 - 18.0 G/DL) 10.4 L Hct (42 - 52 %) 31.4 L MCV (80.0 - 94.0 FL) 91.2 MCH (27.0 - 31.0 PG) 30.3 MCHC (33.0 - 37.0 G/DL) 33.3 RDW (11.5 - 14.5 %) 14.5 Plt Count (130 - 400 /CUMM) 281 MPV (7.4 - 10.4 FL) 8.0 Gran % (42.2 - 75.2 %) 64.5 Lymphocytes % (20.5 - 51.1 %) 18.0 L Monocytes % (1.7 - 9.3 %) 9.7 H Eosinophils % (0 - 5 %) 6.9 H Basophils % (0.0 - 2.0 %) 0.9 Absolute Granulocytes (1.4 - 6.5 /CUMM) 5.8 Absolute Lymphocytes (1.2 - 3.4 /CUMM) 1.6 Absolute Monocytes (0.10 - 0.60 /CUMM) 0.9 H Absolute Eosinophils (0.0 - 0.7 /CUMM) 0.6 Absolute Basophils (0.0 - 0.2 /CUMM) 0.1 12/28 12/27 0654 1227 Chemistry Sodium (137 - 145 mmol/L) 138 136 L Potassium (3.5 - 5.1 mmol/L) 3.5 3.5 Chloride (98 - 107 mmol/L) 104 105 Carbon Dioxide (22 - 30 mmol/L) 26 27 Anion Gap (5 - 16) 8 3 L BUN (9 - 20 mg/dL) 21 H 18 Creatinine (0.7 - 1.2 mg/dL) 4.7 H 3.9 H Estimated GFR (>60 ml/min) 13 L 16 L BUN/Creatinine Ratio (7 - 25 %) 4.5 L 4.6 L Phosphorus (2.5 - 4.5 mg/dL) 4.0 Magnesium (1.6 - 2.3 mg/dL) 1.8 1.8 Hematology CBC w Diff NO MAN DIFF REQ NO MAN DIFF REQ WBC (4.8 - 10.8 /CUMM) 11.1 H 10.6 RBC (4.70 - 6.10 /CUMM) 3.48 L 3.47 L Hgb (14.0 - 18.0 G/DL) 10.6 L 10.5 L Hct (42 - 52 %) 31.8 L 31.3 L MCV (80.0 - 94.0 FL) 91.3 90.2 MCH (27.0 - 31.0 PG) 30.5 30.1 MCHC (33.0 - 37.0 G/DL) 33.4 33.4 RDW (11.5 - 14.5 %) 14.4 14.3 Plt Count (130 - 400 /CUMM) 290 299 MPV (7.4 - 10.4 FL) 7.4 7.2 L Gran % (42.2 - 75.2 %) 65.3 72.5 Lymphocytes % (20.5 - 51.1 %) 17.9 L 14.7 L Monocytes % (1.7 - 9.3 %) 10.6 H 7.8 Eosinophils % (0 - 5 %) 5.6 H 4.4 Basophils % (0.0 - 2.0 %) 0.6 0.6 Absolute Granulocytes (1.4 - 6.5 /CUMM) 7.3 H 7.7 H Absolute Lymphocytes (1.2 - 3.4 /CUMM) 2.0 1.6 Absolute Monocytes (0.10 - 0.60 /CUMM) 1.2 H 0.8 H Absolute Eosinophils (0.0 - 0.7 /CUMM) 0.6 0.5 Absolute Basophils (0.0 - 0.2 /CUMM) 0.1 0.1
[2017-12-30 12:48] VITALS: BP 152/86
[2017-12-30 14:46] VITALS: BP 130/62
--- NOTE | 2017-12-30 14:52 | PN- Att Addend ---
Attending Addendum Attending Brief Note Mr. Viera was interviewed and examined. His EMR was reviewed. Noted an episode of dysuria upon returning from hemodialysis today. He remains afebrile with stable heart and respiratory rates. His systolic blood pressures are in the 150s today. He is in no acute distress. His lungs are clear. His heart exam reveals a regular rate and rhythm.. His abdomen is soft and nontender. Laboratory studies are stable. -As to his episode of dysuria we will send a urinalysis. -We are continuing intermittent hemodialysis pending the patient's decision as to the treatment modality for his renal failure. -We are continuing his maintenance medications for his diabetes, hypertension, dyslipidemia, and chronic renal failure stage.
[2017-12-30 22:13] VITALS: BP 140/80
[2017-12-31 06:06] VITALS: BP 148/66
[2017-12-31 08:13] LABS: ABSOLUTE BASOPHIL COUNT 0.1 /CUMM (0.0-0.2); ABSOLUTE EOSINOPHIL COUNT 0.7 /CUMM (0.0-0.7); ABSOLUTE GRANULOCYTE CT 5.5 /CUMM (1.4-6.5); ABSOLUTE LYMPH COUNT 2.4 /CUMM (1.2-3.4); ABSOLUTE MONOCYTE COUNT 1.1 /CUMM (0.10-0.60); BASOPHIL % 0.8 % (0.0-2.0); EOSINOPHIL % 7.2 % (0-5); HEMATOCRIT 33.5 % (42-52); MEAN CORPUSCULAR HGB 30.2 PG (27.0-31.0); MEAN CORPUSCULAR HGB CONC 32.6 G/DL (33.0-37.0); MEAN CORPUSCULAR VOLUME 92.6 FL (80.0-94.0); MEAN PLATELET VOLUME 8.1 FL (7.4-10.4); PLATELET COUNT 282 /CUMM (130-400); RBC DISTRIBUTION WIDTH 14.1 % (11.5-14.5); RED BLOOD CELL CT 3.62 /CUMM (4.70-6.10); WHITE BLOOD CELL COUNT 9.8 /CUMM (4.8-10.8)
--- NOTE | 2017-12-31 08:29 | PN- Housestaff ---
Linnette PALACIOS,Krista 12/31/17 0829: Subjective Follow-up For: End-stage renal disease Complaints: no complaints Subjective: Patient seen and examined at bedside. Patient is sleeping Review of system unobtainable Review of Systems Constitutional: Reports: see HPI. Objective Last 24 Hrs of Vital Signs/I&O Vital Signs Date Time Temp Pulse Resp B/P B/P Pulse O2 O2 Flow FiO2 Mean Ox Delivery Rate 12/31 1449 97.8 76 20 128/72 95 Room Air 12/31 1213 76 132/60 12/31 0606 97.4 76 20 148/66 97 12/30 2213 98.7 67 18 140/80 92 Room Air 12/30 2141 67 140/80 Intake & Output 12/31 1600 12/31 0800 12/31 0000 Intake Total 250 550 Output Total Balance 250 550 Intake, Oral 250 550 Number 1 Bowel Movements Patient 259 lb Weight Weight Bed scale Measurement Method Physical Exam General Appearance: Alert, Oriented X3, Cooperative, No Acute Distress Cardiovascular: Regular Rate, Normal S1, Normal S2, No Murmurs Lungs: Normal Air Movement Abdomen: Soft, No Tenderness, No Hepatospenomegaly Neurological: Strength at 5/5 X4 Ext, Normal Tone, Sensation Intact Extremities: No Cyanosis, No Edema, Normal Pulses Current Medications: Current Medications Sig/Buddy Start time Last Medication Dose Route Stop Time Status Admin Acetaminophen 650 MG .STK-MED ONE 12/31 2139 DC PO 12/30 214 Acetaminophen 650 MG Q6P PRN 12/21 2030 AC 12/30 PO 214 Amlodipine Besylate 5 MG DAILY 12/22 1000 AC 12/31 PO 1213 Atorvastatin Calcium 20 MG 12/22 1000 AC 12/29 PO 1631 Benzonatate 100 MG TID PRN 12/29 2044 AC 12/29 PO 2309 Clonidine 0.1 MG AT BEDTIME 12/21 2199 AC 12/30 PO 2141 Ergocalciferol 50,000 IU QFRI 12/22 07 AC 12/29 PO 0542 Fenofibrate 145 MG DAILY 12/22 1000 AC 12/31 PO 1213 Heparin Sodium 5,000 UNIT Q8 12/21 2199 AC 12/31 (Porcine) SC 1251 Insulin Aspart 0 TIDAC 12/22 0800 AC 12/31 SC 1251 Insulin Detemir 10 UNITS AT BEDTIME 12/21 2200 AC 12/30 SC 2141 Levothyroxine Sodium 0.05 MG DAILY AC 12/22 0700 AC 12/31 PO 0709 Magnesium Chloride 64 MG TID 12/25 1000 AC 12/31 PO 1213 Omeprazole 20 MG DAILY AC 12/22 0700 AC 12/31 PO 0709 Polyethylene Glycol 17 GM DAILY 12/25 1000 AC 12/25 PO 1156 Potassium Chloride 40 MEQ ONCE ONE 12/31 0845 CAN PO 12/31 0846 Senna/Docusate Sodium 1 TAB BID 12/25 1000 AC 12/31 PO 0800 Sevelamer Carbonate 1,600 MG WM 12/23 1200 AC 12/31 PO 1251 Last 24 Hrs of Lab/Haseeb Results Last 24 Hrs of Labs/Mics: Laboratory Tests 12/31/17 0652: Anion Gap 6, Estimated GFR 18 L, BUN/Creatinine Ratio 3.3 L, CBC w Diff NO MAN DIFF REQ, RBC 3.62 L, MCV 92.6, MCH 30.2, MCHC 32.6 L, RDW 14.1, MPV 8.1, Gran % 56.0, Lymphocytes % 24.6, Monocytes % 11.4 H, Eosinophils % 7.2 H, Basophils % 0.8, Absolute Granulocytes 5.5, Absolute Lymphocytes 2.4, Absolute Monocytes 1.1 H, Absolute Eosinophils 0.7, Absolute Basophils 0.1 Assessment/Plan Assessment: 52 yo M with PMH of CKD Stage 5, hypertension, hyperlipidemia, diabetes complicated with retinopathy and neuropathy, is sent to the ED by his senior data warehouse architect for placement of dialysis catheter and hemodialysis. Assessment: 1. Acute on CKD 2. ESRD 3. RUE Swelling - resolved 4. Metobolic Acidosis - resolved 5. Hypomagnesemia/Hyperphostemia Plan: * Dialysis again today. * Patient is still deciding for his various options. PD vs HD. If he decides to go with HD will require a AVF. * Will obtain a vascular consult if he wishes to pursue HD. This will have to await until Monday. * BEP today -sodium 137, potassium 3.2, BUN 12, creatinine 3.6 * Nephro recs appreciated. * hepatitis panel - negative * PTH levels - 362; likely suggest secondary hyperparathyroidism * Renal Dialysis diet with 1200cc fluid restriction, and 2g Na, 2g K restriction. He needs to adhere to fluid restriction. * DVT Prophylaxis: SC Heparin x3 * Code: Full Code Problem List: 1. CKD (chronic kidney disease) Pain Ratin Pain Location: NONE Pain Goal: Remain pain free Pain Plan: TYLENOL Tomorrow's Labs & Rationales: JOSE,BRIEN Rueda MD,Rodriguez 12/31/17 1541: Attending MD Review Statement Attending Statement Attending MD Statement: examined this patient, discuss w/resident/PA/GENERAL ACTIVITIES THERAPIST, agreed w/resident/PA/GENERAL ACTIVITIES THERAPIST, discussed with family, reviewed EMR data (avail), discussed with nursing, amended to note Attending Assessment/Plan: Mr. Viera was interviewed and examined. His EMR was reviewed. He states he was able to void today without dysuria and denied hematuria. He has remained afebrile. His other vital signs are also stable. He is in no acute distress. Pulmonary exam notes diffusely decreased breath sounds. Heart sounds are distant with a 2/6 precordial murmur. Abdomen is benign. Extremities are without edema. CBC remains essentially unchanged. Electrolytes today showed a mild decrease in potassium to 3.2 mEq/dL. UA obtained yesterday showed >300 mg/dL protein, leukocyte esterase, large hemoglobin, greater than glucose >500 mg/dL and packed field of WBC. Urine culture is negative. -The street and is scheduled for hemodialysis tomorrow. We are continuing to follow his electrolytes and renal function. -Or following his urine culture after his abnormal UA of yesterday. -We are continuing sliding-scale insulin coverage for his diabetes. -We are continuing his maintenance medications.
[2017-12-31 14:49] VITALS: BP 128/72
[2017-12-31 21:43] VITALS: BP 140/80
[2018-01-01 06:15] VITALS: BP 140/60
[2018-01-01 06:20] VITALS: BP 140/60
--- NOTE | 2018-01-01 07:53 | PN- Housestaff ---
Subjective Follow-up For: ESRD Subjective: Patient was seen and examined at bedside. Review of Systems Constitutional: Reports: no symptoms. Objective Last 24 Hrs of Vital Signs/I&O Vital Signs Date Time Temp Pulse Resp B/P B/P Pulse O2 O2 Flow FiO2 Mean Ox Delivery Rate 01/01 0620 98.3 62 20 140/60 96 01/01 0615 98.3 62 20 140/60 96 12/31 2143 97.9 73 18 140/80 95 Room Air 12/31 1449 97.8 76 20 128/72 95 Room Air 12/31 1213 76 132/60 Intake & Output 01/01 1600 01/01 0800 01/01 0000 Intake Total 250 350 Output Total Balance 250 350 Intake, Oral 250 350 Number 1 Bowel Movements Patient 259 lb Weight Weight Bed scale Measurement Method Physical Exam General Appearance: Alert, Oriented X3, Cooperative, Mild Distress Skin: No Rashes, No Breakdown Skin Temp/Moisture Exam: Warm/Dry Sepsis Skin Exam (color): Normal for Ethnicity HEENT: Atraumatic Cardiovascular: Normal S1, Normal S2, No Murmurs Lungs: Normal Air Movement, decreased air entry at bases Abdomen: Soft, No Tenderness Neurological: Normal Speech Extremities: b/l lower extremity edema - trace Assessment/Plan Assessment: 52 yo M with PMH of CKD Stage 5, hypertension, hyperlipidemia, diabetes complicated with retinopathy and neuropathy, is sent to the ED by his club concierge for placement of dialysis catheter and hemodialysis. Assessment: 1. Acute on CKD 2. ESRD 3. RUE Swelling - resolved 4. Metobolic Acidosis - resolved 5. Hypomagnesemia/Hyperphostemia Plan: * Dialysis again today. * Patient wishes to go forward with HD with a fistula in his arm. * Will need a vascular consult. * Nephro recs appreciated. * hepatitis panel - negative * PTH levels - 362; likely suggest secondary hyperparathyroidism * Renal Dialysis diet with 1200cc fluid restriction, and 2g Na, 2g K restriction. He needs to adhere to fluid restriction. * DVT Prophylaxis: SC Heparin x3 * Code: Full Code Problem List: 1. Acute on chronic renal insufficiency Pain Ratin Pain Location: none Pain Goal: Remain pain free Pain Plan: none Tomorrow's Labs & Rationales: CBC, BEP
[2018-01-01 08:36] LABS: ABSOLUTE BASOPHIL COUNT 0.1 /CUMM (0.0-0.2); ABSOLUTE EOSINOPHIL COUNT 0.7 /CUMM (0.0-0.7); ABSOLUTE GRANULOCYTE CT 4.5 /CUMM (1.4-6.5); ABSOLUTE LYMPH COUNT 2.5 /CUMM (1.2-3.4); ABSOLUTE MONOCYTE COUNT 0.9 /CUMM (0.10-0.60); BASOPHIL % 0.9 % (0.0-2.0); EOSINOPHIL % 8.4 % (0-5); GRANULOCYTE % 52.1 % (42.2-75.2); HEMATOCRIT 31.5 % (42-52); MEAN CORPUSCULAR HGB CONC 33.3 G/DL (33.0-37.0); MEAN CORPUSCULAR VOLUME 90.1 FL (80.0-94.0); PLATELET COUNT 258 /CUMM (130-400); RBC DISTRIBUTION WIDTH 14.2 % (11.5-14.5); RED BLOOD CELL CT 3.49 /CUMM (4.70-6.10); WHITE BLOOD CELL COUNT 8.6 /CUMM (4.8-10.8)
--- NOTE | 2018-01-01 11:44 | Transfer of Care Summary ---
Hospital Course Course Hospital Course: 52 yo M with PMH of CKD Stage 5, hypertension, hyperlipidemia, diabetes complicated with retinopathy and neuropathy, was sent to the ED by his wharf tender helper for placement of dialysis catheter and hemodialysis. He had been experiencing non specific symptoms of fatigue, malaise, dry heaves, nausea, poor appetite along with significant fluid gain Assessment: 1. Acute on CKD 2. ESRD 3. RUE Swelling - resolved 4. Blurry vision of right eye Hospital Course: On admission, patient was found to have swelling of his RUE. He had blood drawn from that arm a week prior to admission. Per patient he subsequently developed swelling that had persisted. An U/S of RUE r/o DVT in the ED. Patient was scheduled for an urgent AshCath placement by IR on 12/22. He has been receiving daily dialysis since his admission, due to severe volume overload having approximately 3L of UF removed per session. After several session so fluid removal, the patient was provided various options for outpaitent dialysis PD vs HD. As of today, the patient has opted for HD. He will be scheduled for outpatient dialysis M/W/F. He will have an outpatient appointment with vascular greg for a AVF. He is scheduled for discharge sometime this week. Please follow up with nephrology. His complains currently include a persistent cough worse during a conversation. Its chronic persisting for many months now. He is on a 1200cc daily fluid restriction which likely doesn't help. I have tried tessalon pearls with little success. He is reluctant to try cough suppressants or antihistamines for possible post nasal drip. On a few occasions he has informed me that he feels short of breath while walking around the floors. His ambulatory oxygen sats were 93%. Resting were 98% on room air. I was not too thrilled about doing a d-dimer which could be elevated in his condition for several conditions or a CTA chest. His CXR from admission did show central pulmonary vascular congestion but that should have improved with dialysis. Can consider repeat CXR The patient has been complaining of right eye blurriness since 12/29. Apparently this is a chronic issue. He follows up with Dr Del Rosario at [facility] where he receives Aylea injections. Patient states that these injections aid in resolving the blurriness. He was scheduled for an appointment with them last week but was unable to attend as he was admitted to the hospital. I called the office to let the opthalmologist know that the patient is admitted here and if these injections can await until he can follow up with him or if they can be received in the hospital by our eye doctors. After a conversation with the opthalmologist, the patient can have an appointment with his eye doctor next week and receive his injections then. This is nothing urgent. Assessment/Plan: .
[2018-01-01 12:36] VITALS: BP 132/68
[2018-01-01 13:49] VITALS: BP 112/62
--- NOTE | 2018-01-01 14:16 | PN- Nephrology ---
Assessment/Plan Nephrology Assessment: 1. ESRD secondary to diabetic nephropathy 2. Volume overload - improved 3. Hypertension 4. Peripheral neuropathy Suggestion: 1. Hemodialysis today with 2-3 L ultrafiltration as tolerated over 4 hours 2. Will change to a Monday, Monday, Monday schedule for now as long as he is able to maintain reasonable fluid restriction with only modest inter-dialytic weight gains 3. As he has decided to proceed with hemodialysis as his mode of renal replacement, will obtain an outpatient dialysis slot for this week (hopefully) and arrange for vascular surgery consultation as an outpatient 4. Discontinue fenofibrate 5. Decrease magnesium chloride to once daily and repeat serum magnesium later this week 6. Nephro-Frandy 1 by mouth daily Subjective Subjective: Patient seems to be feeling better today with no specific complaints. He gained less than 2 kg since his last dialysis 2 days ago. Seen with hemodialysis. He had his have decided on hemodialysis as his mode of renal replacement. Objective Vital Signs and I&Os Vital Signs Date Time Temp Pulse Resp B/P B/P Pulse O2 O2 Flow FiO2 Mean Ox Delivery Rate 01/01 1349 77 18 112/62 98 Room Air Room Air 01/01 1236 98.0 72 18 132/68 97 Room Air Room Air 01/01 1232 72 132/68 01/01 0620 98.3 62 20 140/60 96 01/01 0615 98.3 62 20 140/60 96 12/31 2143 97.9 73 18 140/80 95 Room Air 12/31 1449 97.8 76 20 128/72 95 Room Air Intake & Output 01/01 1600 01/01 0400 12/31 1600 12/31 0400 12/30 1600 12/30 0400 Intake Total 250 250 870 550 460 690 Output Total 570 270 8014 Balance 250 250 445 550 -500 -2510 Intake, IV 10 Intake, Oral 250 250 870 550 460 680 Number 1 1 1 Bowel Movements Output, 3000 Dialysate Output, Urine 425 960 200 Patient 250 lb 259 lb 262 lb Weight Weight Standing Scale Bed scale Bed scale Measurement Method Physical Exam: General: Well-developed, obese white male in NAD Skin: No rash or jaundice HEENT: Conjunctivae pink, sclerae anicteric, mucous membranes moist Neck: Without masses or thyromegaly, no supraclavicular or cervical adenopathy Chest: Clear to P&A Heart: Regular rate and rhythm without S3 or rub Abdomen: Soft and nontender without palpable masses or organomegaly Extremities: Trace edema without cyanosis Neuro: No focal findings, no asterixis or myoclonus Current Medications: Current Medications Sig/Buddy Start time Last Medication Dose Route Stop Time Status Admin Acetaminophen 650 MG .STK-MED ONE 12/31 2026 DC PO 01/01 2028 Acetaminophen 650 MG Q6P PRN 12/21 2029 AC 12/31 PO 203 Amlodipine Besylate 5 MG DAILY 12/22 1000 AC 01/01 PO 1232 Atorvastatin Calcium 20 MG 12/22 1000 AC 01/01 PO 1232 Benzonatate 100 MG TID PRN 12/29 2044 AC 12/29 PO 2309 Clonidine 0.1 MG AT BEDTIME 12/21 2199 AC 12/31 PO 203 Ergocalciferol 50,000 IU QFRI 12/22 0700 AC 12/29 PO 0542 Fenofibrate 145 MG DAILY 12/22 1000 AC 01/01 PO 1232 Heparin Sodium 5,000 UNIT Q8 12/21 2199 AC 01/01 (Porcine) SC 0653 Insulin Aspart 0 TIDAC 12/22 0800 AC 12/31 SC 1729 Insulin Detemir 10 UNITS AT BEDTIME 12/21 2199 AC 12/31 SC 2035 Levothyroxine Sodium 0.05 MG DAILY AC 12/22 0700 AC 01/01 PO 0653 Magnesium Chloride 64 MG TID 12/25 1000 AC 01/01 PO 1232 Omeprazole 20 MG DAILY AC 12/22 0700 AC 01/01 PO 0653 Polyethylene Glycol 17 GM DAILY 12/25 1000 AC 12/25 PO 1156 Senna/Docusate Sodium 1 TAB BID 12/25 1000 AC 12/31 PO 0800 Sevelamer Carbonate 1,600 MG WM 12/23 1200 AC 01/01 PO 1232 Results Pertinent Lab Results: Laboratory Tests 01/01 01/01 0735 0600 Chemistry Sodium (137 - 145 mmol/L) 138 Potassium (3.5 - 5.1 mmol/L) 3.4 L Chloride (98 - 107 mmol/L) 102 Carbon Dioxide (22 - 30 mmol/L) 28 Anion Gap (5 - 16) 8 BUN (9 - 20 mg/dL) 20 Creatinine (0.7 - 1.2 mg/dL) 4.9 H Estimated GFR (>60 ml/min) 13 L BUN/Creatinine Ratio (7 - 25 %) 4.1 L Calcium (8.4 - 10.2 mg/dL) 7.7 L Hematology CBC w Diff NO MAN DIFF REQ Cancelled WBC (4.8 - 10.8 /CUMM) 8.6 Cancelled RBC (4.70 - 6.10 /CUMM) 3.49 L Cancelled Hgb (14.0 - 18.0 G/DL) 10.5 L Cancelled Hct (42 - 52 %) 31.5 L Cancelled MCV (80.0 - 94.0 FL) 90.1 Cancelled MCH (27.0 - 31.0 PG) 30.0 Cancelled MCHC (33.0 - 37.0 G/DL) 33.3 Cancelled RDW (11.5 - 14.5 %) 14.2 Cancelled Plt Count (130 - 400 /CUMM) 258 Cancelled MPV (7.4 - 10.4 FL) 8.0 Cancelled Gran % (42.2 - 75.2 %) 52.1 Lymphocytes % (20.5 - 51.1 %) 28.6 Monocytes % (1.7 - 9.3 %) 10.0 H Eosinophils % (0 - 5 %) 8.4 H Basophils % (0.0 - 2.0 %) 0.9 Absolute Granulocytes (1.4 - 6.5 /CUMM) 4.5 Absolute Lymphocytes (1.2 - 3.4 /CUMM) 2.5 Absolute Monocytes (0.10 - 0.60 /CUMM) 0.9 H Absolute Eosinophils (0.0 - 0.7 /CUMM) 0.7 Absolute Basophils (0.0 - 0.2 /CUMM) 0.1 12/31 12/30 0652 1513 Chemistry Sodium (137 - 145 mmol/L) 137 Potassium (3.5 - 5.1 mmol/L) 3.2 L Chloride (98 - 107 mmol/L) 100 Carbon Dioxide (22 - 30 mmol/L) 30 Anion Gap (5 - 16) 6 BUN (9 - 20 mg/dL) 12 Creatinine (0.7 - 1.2 mg/dL) 3.6 H Estimated GFR (>60 ml/min) 18 L BUN/Creatinine Ratio (7 - 25 %) 3.3 L Hematology CBC w Diff NO MAN DIFF REQ WBC (4.8 - 10.8 /CUMM) 9.8 RBC (4.70 - 6.10 /CUMM) 3.62 L Hgb (14.0 - 18.0 G/DL) 10.9 L Hct (42 - 52 %) 33.5 L MCV (80.0 - 94.0 FL) 92.6 MCH (27.0 - 31.0 PG) 30.2 MCHC (33.0 - 37.0 G/DL) 32.6 L RDW (11.5 - 14.5 %) 14.1 Plt Count (130 - 400 /CUMM) 282 MPV (7.4 - 10.4 FL) 8.1 Gran % (42.2 - 75.2 %) 56.0 Lymphocytes % (20.5 - 51.1 %) 24.6 Monocytes % (1.7 - 9.3 %) 11.4 H Eosinophils % (0 - 5 %) 7.2 H Basophils % (0.0 - 2.0 %) 0.8 Absolute Granulocytes (1.4 - 6.5 /CUMM) 5.5 Absolute Lymphocytes (1.2 - 3.4 /CUMM) 2.4 Absolute Monocytes (0.10 - 0.60 /CUMM) 1.1 H Absolute Eosinophils (0.0 - 0.7 /CUMM) 0.7 Absolute Basophils (0.0 - 0.2 /CUMM) 0.1 Urines Urine Color (YEL,AMB,STR) YEL Urine Clarity (CLEAR) TURBD H Urine pH (5.0 - 8.0) 7.0 Ur Specific [place] (1.001 - 1.035) 1.020 Urine Protein (NEG,<30 MG/DL) >=300 H Urine Ketones (NEG) NEG Urine Nitrite (NEG) NEG Urine Bilirubin (NEG) NEG Urine Urobilinogen (0.1 - 1.0 EU/dl) 0.2 Ur Leukocyte Esterase (NEG) MOD H Ur Microscopic SEDIMENT EXAMINED Urine WBC (0 - 2 /HPF) PACKD H Micro UA Comment MORE INFO: H Urine Hemoglobin (NEG) LARGE H Urine Glucose (N MG/DL) 500 H 12/30 0749 Chemistry Sodium (137 - 145 mmol/L) 138 Potassium (3.5 - 5.1 mmol/L) 3.5 Chloride (98 - 107 mmol/L) 104 Carbon Dioxide (22 - 30 mmol/L) 29 Anion Gap (5 - 16) 4 L BUN (9 - 20 mg/dL) 14 Creatinine (0.7 - 1.2 mg/dL) 3.4 H Estimated GFR (>60 ml/min) 19 L BUN/Creatinine Ratio (7 - 25 %) 4.1 L Hematology CBC w Diff NO MAN DIFF REQ WBC (4.8 - 10.8 /CUMM) 8.5 RBC (4.70 - 6.10 /CUMM) 3.47 L Hgb (14.0 - 18.0 G/DL) 10.6 L Hct (42 - 52 %) 31.8 L MCV (80.0 - 94.0 FL) 91.6 MCH (27.0 - 31.0 PG) 30.7 MCHC (33.0 - 37.0 G/DL) 33.5 RDW (11.5 - 14.5 %) 14.3 Plt Count (130 - 400 /CUMM) 267 MPV (7.4 - 10.4 FL) 8.0 Gran % (42.2 - 75.2 %) 56.4 Lymphocytes % (20.5 - 51.1 %) 21.6 Monocytes % (1.7 - 9.3 %) 12.3 H Eosinophils % (0 - 5 %) 8.7 H Basophils % (0.0 - 2.0 %) 1.0 Absolute Granulocytes (1.4 - 6.5 /CUMM) 4.8 Absolute Lymphocytes (1.2 - 3.4 /CUMM) 1.8 Absolute Monocytes (0.10 - 0.60 /CUMM) 1.0 H Absolute Eosinophils (0.0 - 0.7 /CUMM) 0.7 Absolute Basophils (0.0 - 0.2 /CUMM) 0.1
[2018-01-01 21:38] VITALS: BP 140/70
[2018-01-02 06:27] VITALS: BP 120/78
--- NOTE | 2018-01-02 06:56 | PN- Housestaff ---
Subjective Follow-up For: ESRD, fluid overload Subjective: No overnight events. Patient had dislysis yesterday and felt very tired afterwards. He took a walk and had some mild SOB but no CP. He then took a 3 hour nap. Last night, he slept about 4 hours but otherwise feels ok. No current SOB, CP, abd pain, dysuria, or other issues. He is still producing urine though small amounts. Review of Systems Constitutional: Reports: see HPI. EENTM: Reports: no symptoms. Cardiovascular: Reports: no symptoms. Respiratory: Reports: see HPI. Gastrointestinal: Reports: no symptoms. Genitourinary: Reports: see HPI. Musculoskeletal: Reports: no symptoms. Skin: Reports: no symptoms. Neurological/Psychological: Reports: no symptoms. Hematologic/Endocrine: Reports: no symptoms. Immunologic/Allergic: Reports: no symptoms. Objective Last 24 Hrs of Vital Signs/I&O Vital Signs Date Time Temp Pulse Resp B/P B/P Pulse O2 O2 Flow FiO2 Mean Ox Delivery Rate 01/02 627 98.2 66 18 120/78 94 01/01 2243 140/70 01/01 2138 98.5 69 20 140/70 95 01/01 1349 77 18 112/62 98 Room Air Room Air 01/01 1236 98.0 72 18 132/68 97 Room Air Room Air 01/01 1232 72 132/68 Intake & Output 01/02 0800 01/02 0000 01/01 1600 Intake Total 240 240 480 Output Total 300 650 Balance -60 240 -170 Intake, Oral 240 240 480 Output, Urine 300 650 Patient 116.12 kg 113.568 kg Weight Weight Standing Scale Measurement Method Physical Exam General Appearance: Alert, Oriented X3, Cooperative, No Acute Distress Cardiovascular: Regular Rate, Normal S1, Normal S2 Lungs: mild crackles at base Abdomen: Normal Bowel Sounds, Soft, No Tenderness Extremities: No Clubbing, No Cyanosis, mild pitting edema Current Medications: Current Medications Sig/Buddy Start time Last Medication Dose Route Stop Time Status Admin Acetaminophen 650 MG .STK-MED ONE 01/02 2244 DC PO 01/01 2245 Acetaminophen 650 MG Q6P PRN 12/21 2029 AC 01/01 PO 224 Amlodipine Besylate 5 MG DAILY 12/22 1000 AC 01/01 PO 123 Atorvastatin Calcium 20 MG 12/22 1000 AC 01/01 PO 1232 Benzonatate 100 MG TID PRN 12/29 2045 AC 12/29 PO 2309 Clonidine 0.1 MG AT BEDTIME 12/21 2200 AC 01/01 PO 2243 Ergocalciferol 50,000 IU QFRI 12/22 0700 AC 12/29 PO 0542 Fenofibrate 145 MG DAILY 12/22 1000 DC 01/01 PO 1232 Heparin Sodium 5,000 UNIT Q8 12/21 2200 AC 01/02 (Porcine) SC 0516 Insulin Aspart 0 TIDAC 12/22 0800 AC 01/01 SC 1730 Insulin Detemir 10 UNITS AT BEDTIME 12/21 2200 AC 01/01 SC 2242 Levothyroxine Sodium 0.05 MG DAILY AC 12/22 0700 AC 01/02 PO 0517 Magnesium Chloride 64 MG DAILY 01/02 1000 AC PO Magnesium Chloride 64 MG TID 12/25 1000 DC 01/01 PO 1600 Multivitamins 1 TAB DAILY 01/01 1414 AC 01/01 PO 1600 Omeprazole 20 MG DAILY AC 12/22 0700 AC 01/02 PO 0517 Polyethylene Glycol 17 GM DAILY 12/25 1000 AC 12/25 PO 1156 Senna/Docusate Sodium 1 TAB BID 12/25 1000 AC 12/31 PO 0800 Sevelamer Carbonate 1,600 MG WM 12/23 1200 AC 01/01 PO 1700 Last 24 Hrs of Lab/Haseeb Results Last 24 Hrs of Labs/Mics: Laboratory Tests 01/01/18 0735: Anion Gap 8, Estimated GFR 13 L, BUN/Creatinine Ratio 4.1 L, Calcium 7.7 L, CBC w Diff NO MAN DIFF REQ, RBC 3.49 L, MCV 90.1, MCH 30.0, MCHC 33.3, RDW 14.2 , MPV 8.0, Gran % 52.1, Lymphocytes % 28.6, Monocytes % 10.0 H, Eosinophils % 8.4 H, Basophils % 0.9, Absolute Granulocytes 4.5, Absolute Lymphocytes 2.5, Absolute Monocytes 0.9 H, Absolute Eosinophils 0.7, Absolute Basophils 0.1 Assessment/Plan Assessment: 52 yo M with PMH of CKD Stage 5, hypertension, hyperlipidemia, diabetes complicated with retinopathy and neuropathy, is sent to the ED by his commercial decorator for placement of dialysis catheter and hemodialysis. Problem List: 1. Fluid overload secondary to end-stage renal disease 2. RUE Swelling - resolved 3. Metobolic Acidosis - resolved 4. Secondary hyperparathyroidism 6. Normocytic anemia #Fluid overload secondary to end-stage renal disease: Patient presented with fluid overload. He is feeling better status post dialysis. Nephrology has been consulted and the patient was presented with options for renal replacement therapy. Patient has opted for hemodialysis at this time. We are waiting for dialysis slot for discharge. -Hemodialysis Monday -Outpatient vascular follow-up -Appreciate nephrology recommendations. #Secondary hyperparathyroidism: Calcium has been low, PTH is elevated, suggesting secondary hyperparathyroidism likely related to end-stage renal disease. Goal is to reduce phosphate and keep parathyroid hormone 2-9 times upper limits of normal. Calcium should be maintained between 7.5 and 9.5. -Decrease sevelamer to 800 mg 3 times a day -Follow-up vitamin D #Normocytic anemia: Likely related to ESRD. -CTM -Can consider epogen treatment #Chronic medical problems: -Continue home medications DVT prophylaxis with heparin Renal dialysis diet with 1200 mL fluid restriction Full code Problem List: 1. Fluid overload Pain Ratin Pain Location: no Pain Goal: Remain pain free Pain Plan: see a/p Tomorrow's Labs & Rationales: [email or web address]
[2018-01-02 08:15] LABS: ABSOLUTE BASOPHIL COUNT 0.1 /CUMM (0.0-0.2); ABSOLUTE EOSINOPHIL COUNT 0.7 /CUMM (0.0-0.7); ABSOLUTE GRANULOCYTE CT 5.5 /CUMM (1.4-6.5); ABSOLUTE LYMPH COUNT 2.6 /CUMM (1.2-3.4); ABSOLUTE MONOCYTE COUNT 0.9 /CUMM (0.10-0.60); BASOPHIL % 0.9 % (0.0-2.0); GRANULOCYTE % 56.4 % (42.2-75.2); HEMATOCRIT 33.3 % (42-52); MEAN CORPUSCULAR HGB 30.5 PG (27.0-31.0); MEAN CORPUSCULAR HGB CONC 33.4 G/DL (33.0-37.0); MEAN CORPUSCULAR VOLUME 91.2 FL (80.0-94.0); PLATELET COUNT 293 /CUMM (130-400); RED BLOOD CELL CT 3.65 /CUMM (4.70-6.10); WHITE BLOOD CELL COUNT 9.8 /CUMM (4.8-10.8)
--- NOTE | 2018-01-02 10:16 | PN- Att Addend ---
Attending Addendum Attending Brief Note Patient ambulating, looks much thinner compared to admission. His vital signs are stable no fever and no other changes on physical if continuing hemodialysis as per nephrology waiting for a spot to open at the outpatient dialysis center but as soon as this is available and we'll start disposition plans, also start disposition plans to start a shunt for the future dialysis. Intake & Output 01/02 1600 01/02 0400 01/01 1600 01/01 0400 12/31 1600 12/31 0400 Intake Total 240 240 730 250 870 550 Output Total 300 650 425 Balance -60 240 80 250 445 550 Intake, Oral 240 240 730 250 870 550 Number 1 1 Bowel Movements Output, Urine 300 650 425 Patient 256 lb 250 lb 259 lb Weight Weight Standing Scale Bed scale Measurement Method Current Medications Sig/Buddy Start time Last Medication Dose Route Stop Time Status Admin Acetaminophen 650 MG .STK-MED ONE 01/02 2244 DC PO 01/01 2245 Acetaminophen 650 MG Q6P PRN 12/21 2030 AC 01/01 PO 2245 Amlodipine Besylate 5 MG DAILY 12/22 1000 AC 01/02 PO 0903 Atorvastatin Calcium 20 MG 12/22 1000 AC 01/01 PO 1232 Benzonatate 100 MG TID PRN 12/29 2045 AC 12/29 PO 2309 Clonidine 0.1 MG AT BEDTIME 12/21 2199 AC 01/01 PO 2243 Ergocalciferol 50,000 IU QFRI 12/22 07 AC 12/29 PO 0542 Fenofibrate 145 MG DAILY 12/22 1000 DC 01/01 PO 1232 Heparin Sodium 5,000 UNIT Q8 12/21 2199 AC 01/02 (Porcine) SC 0516 Insulin Aspart 0 TIDAC 12/22 08 AC 01/02 SC 0749 Insulin Detemir 10 UNITS AT BEDTIME 12/21 2199 AC 01/01 SC 2242 Levothyroxine Sodium 0.05 MG DAILY AC 12/22 07 AC 01/02 PO 0517 Magnesium Chloride 64 MG DAILY 01/02 1000 AC 01/02 PO 0903 Magnesium Chloride 64 MG TID 12/25 1000 DC 01/01 PO 1600 Multivitamins 1 TAB DAILY 01/01 1414 AC 01/02 PO 0903 Omeprazole 20 MG DAILY AC 12/22 0700 AC 01/02 PO 0517 Polyethylene Glycol 17 GM DAILY 12/25 1000 AC 12/25 PO 1156 Senna/Docusate Sodium 1 TAB BID 12/25 1000 AC 12/31 PO 0800 Sevelamer Carbonate 1,600 MG WM 12/23 1200 AC 01/02 PO 0747 Laboratory Tests 01/02/18 0705: Anion Gap 8, Estimated GFR 14 L, BUN/Creatinine Ratio 2.9 L, Calcium 8.1 L, Phosphorus 3.3, Iron Pending, TIBC Pending, Ferritin Pending, Albumin 2.2 L, Vitamin B12 Pending, 25-OH Vitamin D Total Pending, Folate Pending, CBC w Diff NO MAN DIFF REQ, RBC 3.65 L, MCV 91.2, MCH 30.5, MCHC 33.4, RDW 14.0, MPV 8.0, Gran % 56.4, Lymphocytes % 26.3, Monocytes % 9.4 H, Eosinophils % 7.0 H, Basophils % 0.9, Absolute Granulocytes 5.5, Absolute Lymphocytes 2.6, Absolute Monocytes 0.9 H, Absolute Eosinophils 0.7, Absolute Basophils 0.1 01/01/18 0735: Anion Gap 8, Estimated GFR 13 L, BUN/Creatinine Ratio 4.1 L, Calcium 7.7 L, CBC w Diff NO MAN DIFF REQ, RBC 3.49 L, MCV 90.1, MCH 30.0, MCHC 33.3, RDW 14.2 , MPV 8.0, Gran % 52.1, Lymphocytes % 28.6, Monocytes % 10.0 H, Eosinophils % 8.4 H, Basophils % 0.9, Absolute Granulocytes 4.5, Absolute Lymphocytes 2.5, Absolute Monocytes 0.9 H, Absolute Eosinophils 0.7, Absolute Basophils 0.1 01/01/18 0600: Sodium Cancelled, Potassium Cancelled, Chloride Cancelled, Carbon Dioxide Cancelled, Anion Gap Cancelled, BUN Cancelled, Creatinine Cancelled, BUN/ Creatinine Ratio Cancelled, CBC w Diff Cancelled, WBC Cancelled, RBC Cancelled, Hgb Cancelled, Hct Cancelled, MCV Cancelled, MCH Cancelled, MCHC Cancelled, RDW Cancelled, Plt Count Cancelled, MPV Cancelled 12/31/17 0652: Anion Gap 6, Estimated GFR 18 L, BUN/Creatinine Ratio 3.3 L, CBC w Diff NO MAN DIFF REQ, RBC 3.62 L, MCV 92.6, MCH 30.2, MCHC 32.6 L, RDW 14.1, MPV 8.1, Gran % 56.0, Lymphocytes % 24.6, Monocytes % 11.4 H, Eosinophils % 7.2 H, Basophils % 0.8, Absolute Granulocytes 5.5, Absolute Lymphocytes 2.4, Absolute Monocytes 1.1 H, Absolute Eosinophils 0.7, Absolute Basophils 0.1 12/30/17 1513: Urine Color YEL, Urine Clarity TURBD H, Urine pH 7.0, Ur Specific [place] 1.020 , Urine Protein >=300 H, Urine Ketones NEG, Urine Nitrite NEG, Urine Bilirubin NEG, Urine Urobilinogen 0.2, Ur Leukocyte Esterase MOD H, Ur Microscopic SEDIMENT EXAMINED, Urine WBC PACKD H, Micro UA Comment MORE INFO: H, Urine Hemoglobin LARGE H, Urine Glucose 500 H Microbiology 12/30 1514 URINE ROUT: Urine Culture - COMP Microbiology 12/30 1514 URINE ROUT: Urine Culture - COMP Vital Signs Date Time Temp Pulse Resp B/P B/P Pulse O2 O2 Flow FiO2 Mean Ox Delivery Rate 01/02 0903 72 120/78 01/02 0627 98.2 66 18 120/78 94 01/01 2243 140/70 01/01 2138 98.5 69 20 140/70 95 01/01 1349 77 18 112/62 98 Room Air Room Air 01/01 1236 98.0 72 18 132/68 97 Room Air Room Air 01/01 1232 72 132/68
[2018-01-02 14:58] VITALS: BP 122/70
--- NOTE | 2018-01-02 15:42 | PN- Nephrology ---
Assessment/Plan Nephrology Assessment: 1. ESRD secondary to diabetic nephropathy 2. Volume overload - improved 3. Hypertension 4. Peripheral neuropathy Suggestion: 1. Can decrease sevelamer to 800 mg by mouth 3 times a day with meals 2. Hemodialysis tomorrow 3. Discontinue daily phlebotomies and save left upper extremity for possible access site in the future - no IVs, injections or blood samples from that arm 4. Patient can be discharged on 01/04 - he has an outpatient dialysis slot at [facility] for Friday 01/05 at 6:30 AM Subjective Subjective: Patient in relatively good spirits today with no specific complaints. He is afebrile with stable vital signs. Serum phosphorus noted to be 3.3 and sevelamer dose to be decreased. He is due for dialysis tomorrow and has an outpatient slot available to him at [facility] for Friday 01/05 at 6:30 AM. Patient is aware. Objective Vital Signs and I&Os Vital Signs Date Time Temp Pulse Resp B/P B/P Pulse O2 O2 Flow FiO2 Mean Ox Delivery Rate 01/02 1458 98.0 73 18 122/70 97 Room Air 01/02 0903 72 120/78 01/02 0627 98.2 66 18 120/78 94 01/01 2243 140/70 01/01 2138 98.5 69 20 140/70 95 Intake & Output 01/02 1600 01/02 0400 01/01 1600 01/01 0400 12/31 1600 12/31 0400 Intake Total 440 240 730 250 870 550 Output Total 300 650 425 Balance 140 240 80 250 445 550 Intake, Oral 440 240 730 250 870 550 Number 1 1 Bowel Movements Output, Urine 300 650 425 Patient 256 lb 250 lb 259 lb Weight Weight Standing Scale Bed scale Measurement Method Physical Exam: General: Well-developed, obese white male in NAD Skin: No rash or jaundice HEENT: Conjunctivae pink, sclerae anicteric, mucous membranes moist Neck: Without masses or thyromegaly, no supraclavicular or cervical adenopathy Chest: Clear to P&A Heart: Regular rate and rhythm without S3 or rub Abdomen: Soft and nontender without palpable masses or organomegaly Extremities: Trace edema without cyanosis Neuro: No focal findings, no asterixis or myoclonus Results Pertinent Lab Results: Laboratory Tests 01/02 01/01 0705 0735 Chemistry Sodium (137 - 145 mmol/L) 140 138 Potassium (3.5 - 5.1 mmol/L) 3.6 3.4 L Chloride (98 - 107 mmol/L) 104 102 Carbon Dioxide (22 - 30 mmol/L) 28 28 Anion Gap (5 - 16) 8 8 BUN (9 - 20 mg/dL) 13 20 Creatinine (0.7 - 1.2 mg/dL) 4.5 H 4.9 H Estimated GFR (>60 ml/min) 14 L 13 L BUN/Creatinine Ratio (7 - 25 %) 2.9 L 4.1 L Calcium (8.4 - 10.2 mg/dL) 8.1 L 7.7 L Phosphorus (2.5 - 4.5 mg/dL) 3.3 Magnesium (1.6 - 2.3 mg/dL) 1.9 Iron (49 - 181 ug/dL) 65 TIBC (261 - 462 ug/dL) 227 L Ferritin (17.9 - 464 ng/mL) 203.0 Albumin (3.5 - 5.0 g/dL) 2.2 L Vitamin B12 (239 - 931 pg/mL) > 1000 H 25-OH Vitamin D Total (30 - 100 ng/ml) 21.2 L Folate (2.76 - 20.0 ng/mL) 13.5 Hematology CBC w Diff NO MAN DIFF REQ NO MAN DIFF REQ WBC (4.8 - 10.8 /CUMM) 9.8 8.6 RBC (4.70 - 6.10 /CUMM) 3.65 L 3.49 L Hgb (14.0 - 18.0 G/DL) 11.1 L 10.5 L Hct (42 - 52 %) 33.3 L 31.5 L MCV (80.0 - 94.0 FL) 91.2 90.1 MCH (27.0 - 31.0 PG) 30.5 30.0 MCHC (33.0 - 37.0 G/DL) 33.4 33.3 RDW (11.5 - 14.5 %) 14.0 14.2 Plt Count (130 - 400 /CUMM) 293 258 MPV (7.4 - 10.4 FL) 8.0 8.0 Gran % (42.2 - 75.2 %) 56.4 52.1 Lymphocytes % (20.5 - 51.1 %) 26.3 28.6 Monocytes % (1.7 - 9.3 %) 9.4 H 10.0 H Eosinophils % (0 - 5 %) 7.0 H 8.4 H Basophils % (0.0 - 2.0 %) 0.9 0.9 Absolute Granulocytes (1.4 - 6.5 /CUMM) 5.5 4.5 Absolute Lymphocytes (1.2 - 3.4 /CUMM) 2.6 2.5 Absolute Monocytes (0.10 - 0.60 /CUMM) 0.9 H 0.9 H Absolute Eosinophils (0.0 - 0.7 /CUMM) 0.7 0.7 Absolute Basophils (0.0 - 0.2 /CUMM) 0.1 0.1 01/01 12/31 0600 0652 Chemistry Sodium (137 - 145 mmol/L) Cancelled 137 Potassium (3.5 - 5.1 mmol/L) Cancelled 3.2 L Chloride (98 - 107 mmol/L) Cancelled 100 Carbon Dioxide (22 - 30 mmol/L) Cancelled 30 Anion Gap (5 - 16) Cancelled 6 BUN (9 - 20 mg/dL) Cancelled 12 Creatinine (0.7 - 1.2 mg/dL) Cancelled 3.6 H Estimated GFR (>60 ml/min) 18 L BUN/Creatinine Ratio (7 - 25 %) Cancelled 3.3 L Hematology CBC w Diff Cancelled NO MAN DIFF REQ WBC (4.8 - 10.8 /CUMM) Cancelled 9.8 RBC (4.70 - 6.10 /CUMM) Cancelled 3.62 L Hgb (14.0 - 18.0 G/DL) Cancelled 10.9 L Hct (42 - 52 %) Cancelled 33.5 L MCV (80.0 - 94.0 FL) Cancelled 92.6 MCH (27.0 - 31.0 PG) Cancelled 30.2 MCHC (33.0 - 37.0 G/DL) Cancelled 32.6 L RDW (11.5 - 14.5 %) Cancelled 14.1 Plt Count (130 - 400 /CUMM) Cancelled 282 MPV (7.4 - 10.4 FL) Cancelled 8.1 Gran % (42.2 - 75.2 %) 56.0 Lymphocytes % (20.5 - 51.1 %) 24.6 Monocytes % (1.7 - 9.3 %) 11.4 H Eosinophils % (0 - 5 %) 7.2 H Basophils % (0.0 - 2.0 %) 0.8 Absolute Granulocytes (1.4 - 6.5 /CUMM) 5.5 Absolute Lymphocytes (1.2 - 3.4 /CUMM) 2.4 Absolute Monocytes (0.10 - 0.60 /CUMM) 1.1 H Absolute Eosinophils (0.0 - 0.7 /CUMM) 0.7 Absolute Basophils (0.0 - 0.2 /CUMM) 0.1
[2018-01-02 21:57] VITALS: BP 150/60
[2018-01-03 07:05] VITALS: BP 143/78
--- NOTE | 2018-01-03 07:07 | PN- Housestaff ---
Subjective Follow-up For: ESRD Subjective: No overnight events. He feels well this morning without complaints. Review of Systems Constitutional: Reports: no symptoms. EENTM: Reports: no symptoms. Cardiovascular: Reports: no symptoms. Respiratory: Reports: no symptoms. Gastrointestinal: Reports: no symptoms. Genitourinary: Reports: no symptoms. Musculoskeletal: Reports: no symptoms. Skin: Reports: no symptoms. Neurological/Psychological: Reports: no symptoms. Hematologic/Endocrine: Reports: no symptoms. Immunologic/Allergic: Reports: no symptoms. Objective Last 24 Hrs of Vital Signs/I&O Vital Signs Date Time Temp Pulse Resp B/P B/P Pulse O2 O2 Flow FiO2 Mean Ox Delivery Rate 01/02 2157 98.1 78 18 150/60 95 01/02 2149 150/60 01/02 1458 98.0 73 18 122/70 97 Room Air 01/02 0903 72 120/78 Intake & Output 01/03 0800 01/03 0000 01/02 1600 Intake Total 240 240 710 Output Total 400 Balance 240 240 310 Intake, Oral 240 240 710 Output, Urine 400 Patient 116.261 kg Weight Physical Exam General Appearance: Alert, Oriented X3, Cooperative, No Acute Distress Cardiovascular: Regular Rate, Normal S1, Normal S2 Lungs: Clear to Auscultation Abdomen: Normal Bowel Sounds, Soft, No Tenderness Extremities: No Tenderness/Swelling Current Medications: Current Medications Sig/Buddy Start time Last Medication Dose Route Stop Time Status Admin Acetaminophen 650 MG Q6P PRN 12/21 2030 AC 01/03 PO 0017 Amlodipine Besylate 5 MG DAILY 12/22 1000 AC 01/02 PO 0903 Atorvastatin Calcium 20 MG 12/22 1000 AC 01/01 PO 1232 Benzonatate 100 MG TID PRN 12/29 2045 AC 12/29 PO 2309 Clonidine 0.1 MG AT BEDTIME 12/21 2199 AC 01/02 PO 2149 Ergocalciferol 50,000 IU QFRI 12/22 07 AC 12/29 PO 0542 Heparin Sodium 5,000 UNIT Q8 12/21 2199 AC 01/03 (Porcine) SC 0611 Insulin Aspart 0 TIDAC 12/22 0800 AC 01/02 SC 1152 Insulin Detemir 10 UNITS AT BEDTIME 12/21 2199 AC 01/02 SC 2149 Levothyroxine Sodium 0.05 MG DAILY AC 12/22 0700 AC 01/03 PO 0611 Magnesium Chloride 64 MG DAILY 01/02 1000 AC 01/02 PO 0903 Multivitamins 1 TAB DAILY 01/01 1414 AC 01/02 PO 0903 Omeprazole 20 MG DAILY AC 12/22 0700 AC 01/03 PO 0611 Patient Medication 1 ED ONE ONE 01/02 1600 DC 01/02 Teaching ED 01/02 1601 2149 Polyethylene Glycol 17 GM DAILY 12/25 1000 AC 12/25 PO 1156 Senna/Docusate Sodium 1 TAB BID 12/25 1000 AC 01/02 PO 2150 Sevelamer Carbonate 800 MG WM 01/02 1200 AC 01/02 PO 1811 Sevelamer Carbonate 1,600 MG WM 12/23 1200 DC 01/02 PO 0747 Assessment/Plan Assessment: 52 yo M with PMH of CKD Stage 5, hypertension, hyperlipidemia, diabetes complicated with retinopathy and neuropathy, is sent to the ED by his filling hauler for placement of dialysis catheter and hemodialysis. Problem List: 1. Fluid overload secondary to end-stage renal disease 2. RUE Swelling - resolved 3. Metobolic Acidosis - resolved 4. Secondary hyperparathyroidism 6. Normocytic anemia #Fluid overload secondary to end-stage renal disease: Patient presented with fluid overload. He is feeling better status post dialysis. Nephrology has been consulted and the patient was presented with options for renal replacement therapy. Patient has opted for hemodialysis at this time. He is scheduled for dialysis on Monday. He'll be discharged tomorrow and can follow up there. -Hemodialysis Monday -Outpatient vascular follow-up -Appreciate nephrology recommendations. #Secondary hyperparathyroidism: Calcium has been low, PTH is elevated, suggesting secondary hyperparathyroidism likely related to end-stage renal disease. Goal is to reduce phosphate and keep parathyroid hormone 2-9 times upper limits of normal. Calcium should be maintained between 7.5 and 9.5. -sevelamer to 800 mg 3 times a day #Normocytic anemia: Likely related to ESRD. -CTM -Can consider epogen treatment #Chronic medical problems: -Continue home medications DVT prophylaxis with heparin Renal dialysis diet with 1200 mL fluid restriction Full code Problem List: 1. CKD (chronic kidney disease) Pain Ratin Pain Location: no Pain Goal: Remain pain free Pain Plan: see a/p Tomorrow's Labs & Rationales: no
--- NOTE | 2018-01-03 09:04 | PN- Att Addend ---
Attending Addendum Attending Brief Note Patient in bed comfortable, vital signs are stable no fever. No major changes on physical, will have hemodialysis today after disposition plans underway seems to have dialysis spot has signed as an outpatient, also will need to follow with human service technician, mobility engineer and myself, also need to make an appointment with a vascular specialist to create a fistula for the future hemodialysis Intake & Output 01/03 1600 01/03 0400 01/02 1600 01/02 0400 01/01 1600 01/01 0400 Intake Total 240 240 950 240 730 350 Output Total 700 650 Balance 240 240 250 240 80 350 Intake, Oral 240 240 950 240 730 350 Number 1 Bowel Movements Output, Urine 700 650 Patient 256 lb 256 lb 250 lb Weight Weight Standing Scale Measurement Method Current Medications Sig/Buddy Start time Last Medication Dose Route Stop Time Status Admin Acetaminophen 650 MG .STK-MED ONE 01/03 001 DC PO 01/03 0018 Acetaminophen 650 MG Q6P PRN 12/21 2030 AC 01/03 PO 0017 Amlodipine Besylate 5 MG DAILY 12/22 1000 AC 01/02 PO 0903 Atorvastatin Calcium 20 MG 12/22 1000 AC 01/01 PO 1232 Benzonatate 100 MG TID PRN 12/29 2045 AC 12/29 PO 2309 Clonidine 0.1 MG AT BEDTIME 12/21 220 AC 01/02 PO 2149 Ergocalciferol 50,000 IU QFRI 12/22 0700 AC 12/29 PO 0542 Heparin Sodium 5,000 UNIT Q8 12/21 2200 AC 01/03 (Porcine) SC 0611 Insulin Aspart 0 TIDAC 12/22 0800 AC 01/03 SC 0827 Insulin Detemir 10 UNITS AT BEDTIME 12/21 2200 AC 01/02 SC 2149 Levothyroxine Sodium 0.05 MG DAILY AC 12/22 0700 AC 01/03 PO 0611 Magnesium Chloride 64 MG DAILY 01/02 1000 AC 01/02 PO 0903 Multivitamins 1 TAB DAILY 01/01 1414 AC 01/02 PO 0903 Omeprazole 20 MG DAILY AC 12/22 0700 AC 01/03 PO 0611 Patient Medication 1 ED ONE ONE 01/02 1600 DC 01/02 Teaching ED 01/02 1601 2149 Polyethylene Glycol 17 GM DAILY 12/25 1000 AC 12/25 PO 1156 Senna/Docusate Sodium 1 TAB BID 12/25 1000 AC 01/02 PO 2150 Sevelamer Carbonate 800 MG WM 01/02 1200 AC 01/03 PO 0828 Sevelamer Carbonate 1,600 MG WM 12/23 1200 DC 01/02 PO 0747 Laboratory Tests 01/03/18 0600: Phosphorus Cancelled 01/02/18 0705: Anion Gap 8, Estimated GFR 14 L, BUN/Creatinine Ratio 2.9 L, Calcium 8.1 L, Phosphorus 3.3, Magnesium 1.9, Iron 65, TIBC 227 L, Ferritin 203.0, Albumin 2.2 L, Vitamin B12 > 1000 H, 25-OH Vitamin D Total 21.2 L, Folate 13.5, CBC w Diff NO MAN DIFF REQ, RBC 3.65 L, MCV 91.2, MCH 30.5, MCHC 33.4, RDW 14.0, MPV 8.0, Gran % 56.4, Lymphocytes % 26.3, Monocytes % 9.4 H, Eosinophils % 7.0 H, Basophils % 0.9, Absolute Granulocytes 5.5, Absolute Lymphocytes 2.6, Absolute Monocytes 0.9 H, Absolute Eosinophils 0.7, Absolute Basophils 0.1 01/01/18 0735: Anion Gap 8, Estimated GFR 13 L, BUN/Creatinine Ratio 4.1 L, Calcium 7.7 L, CBC w Diff NO MAN DIFF REQ, RBC 3.49 L, MCV 90.1, MCH 30.0, MCHC 33.3, RDW 14.2 , MPV 8.0, Gran % 52.1, Lymphocytes % 28.6, Monocytes % 10.0 H, Eosinophils % 8.4 H, Basophils % 0.9, Absolute Granulocytes 4.5, Absolute Lymphocytes 2.5, Absolute Monocytes 0.9 H, Absolute Eosinophils 0.7, Absolute Basophils 0.1 01/01/18 0600: Sodium Cancelled, Potassium Cancelled, Chloride Cancelled, Carbon Dioxide Cancelled, Anion Gap Cancelled, BUN Cancelled, Creatinine Cancelled, BUN/ Creatinine Ratio Cancelled, CBC w Diff Cancelled, WBC Cancelled, RBC Cancelled, Hgb Cancelled, Hct Cancelled, MCV Cancelled, MCH Cancelled, MCHC Cancelled, RDW Cancelled, Plt Count Cancelled, MPV Cancelled Vital Signs Date Time Temp Pulse Resp B/P B/P Pulse O2 O2 Flow FiO2 Mean Ox Delivery Rate 03/28 0705 98.4 61 18 143/78 97 Room Air 01/02 2157 98.1 78 18 150/60 95 01/029 150/60 01/02 1458 98.0 73 18 122/70 97 Room Air
--- NOTE | 2018-01-03 13:19 | PN- Nephrology ---
Assessment/Plan Nephrology Assessment: 1. ESRD secondary to diabetic nephropathy 2. Volume overload - improved 3. Hypertension 4. Peripheral neuropathy Suggestion: 1. Hemodialysis today in progress with 2 L ultrafiltration goal over 4 hours. We will check URR today. 2. Okay for discharge tomorrow to his outpatient dialysis slot at [facility] for Friday 01/05 at 6:30 am. Subjective Subjective: No complaints. Feeling relatively well. Seen with hemodialysis. Objective Vital Signs and I&Os Vital Signs Date Time Temp Pulse Resp B/P B/P Pulse O2 O2 Flow FiO2 Mean Ox Delivery Rate 01/03 0705 98.4 61 18 143/78 97 Room Air 01/02 2157 98.1 78 18 150/60 95 01/02 2149 150/60 01/02 1458 98.0 73 18 122/70 97 Room Air Intake & Output 01/03 1600 01/03 0400 01/02 1600 01/02 0400 01/01 1600 01/01 0400 Intake Total 240 240 950 240 730 350 Output Total 700 650 Balance 240 240 250 240 80 350 Intake, Oral 240 240 950 240 730 350 Number 1 Bowel Movements Output, Urine 700 650 Patient 256 lb 256 lb 250 lb Weight Weight Standing Scale Measurement Method Physical Exam: General: Well-developed, obese white male in NAD Skin: No rash or jaundice HEENT: Conjunctivae pink, sclerae anicteric, mucous membranes moist Neck: Without masses or thyromegaly, no supraclavicular or cervical adenopathy Chest: Clear to P&A Heart: Regular rate and rhythm without S3 or rub Abdomen: Soft and nontender without palpable masses or organomegaly Extremities: Trace edema without cyanosis Neuro: No focal findings, no asterixis or myoclonus Results Pertinent Lab Results: Laboratory Tests 01/03 01/02 0600 0705 Chemistry Sodium (137 - 145 mmol/L) 140 Potassium (3.5 - 5.1 mmol/L) 3.6 Chloride (98 - 107 mmol/L) 104 Carbon Dioxide (22 - 30 mmol/L) 28 Anion Gap (5 - 16) 8 BUN (9 - 20 mg/dL) 13 Creatinine (0.7 - 1.2 mg/dL) 4.5 H Estimated GFR (>60 ml/min) 14 L BUN/Creatinine Ratio (7 - 25 %) 2.9 L Calcium (8.4 - 10.2 mg/dL) 8.1 L Phosphorus (2.5 - 4.5 mg/dL) Cancelled 3.3 Magnesium (1.6 - 2.3 mg/dL) 1.9 Iron (49 - 181 ug/dL) 65 TIBC (261 - 462 ug/dL) 227 L Ferritin (17.9 - 464 ng/mL) 203.0 Albumin (3.5 - 5.0 g/dL) 2.2 L Vitamin B12 (239 - 931 pg/mL) > 1000 H 25-OH Vitamin D Total (30 - 100 ng/ml) 21.2 L Folate (2.76 - 20.0 ng/mL) 13.5 Hematology CBC w Diff NO MAN DIFF REQ WBC (4.8 - 10.8 /CUMM) 9.8 RBC (4.70 - 6.10 /CUMM) 3.65 L Hgb (14.0 - 18.0 G/DL) 11.1 L Hct (42 - 52 %) 33.3 L MCV (80.0 - 94.0 FL) 91.2 MCH (27.0 - 31.0 PG) 30.5 MCHC (33.0 - 37.0 G/DL) 33.4 RDW (11.5 - 14.5 %) 14.0 Plt Count (130 - 400 /CUMM) 293 MPV (7.4 - 10.4 FL) 8.0 Gran % (42.2 - 75.2 %) 56.4 Lymphocytes % (20.5 - 51.1 %) 26.3 Monocytes % (1.7 - 9.3 %) 9.4 H Eosinophils % (0 - 5 %) 7.0 H Basophils % (0.0 - 2.0 %) 0.9 Absolute Granulocytes (1.4 - 6.5 /CUMM) 5.5 Absolute Lymphocytes (1.2 - 3.4 /CUMM) 2.6 Absolute Monocytes (0.10 - 0.60 /CUMM) 0.9 H Absolute Eosinophils (0.0 - 0.7 /CUMM) 0.7 Absolute Basophils (0.0 - 0.2 /CUMM) 0.1 01/01 01/01 0735 0600 Chemistry Sodium (137 - 145 mmol/L) 138 Cancelled Potassium (3.5 - 5.1 mmol/L) 3.4 L Cancelled Chloride (98 - 107 mmol/L) 102 Cancelled Carbon Dioxide (22 - 30 mmol/L) 28 Cancelled Anion Gap (5 - 16) 8 Cancelled BUN (9 - 20 mg/dL) 20 Cancelled Creatinine (0.7 - 1.2 mg/dL) 4.9 H Cancelled Estimated GFR (>60 ml/min) 13 L BUN/Creatinine Ratio (7 - 25 %) 4.1 L Cancelled Calcium (8.4 - 10.2 mg/dL) 7.7 L Hematology CBC w Diff NO MAN DIFF REQ Cancelled WBC (4.8 - 10.8 /CUMM) 8.6 Cancelled RBC (4.70 - 6.10 /CUMM) 3.49 L Cancelled Hgb (14.0 - 18.0 G/DL) 10.5 L Cancelled Hct (42 - 52 %) 31.5 L Cancelled MCV (80.0 - 94.0 FL) 90.1 Cancelled MCH (27.0 - 31.0 PG) 30.0 Cancelled MCHC (33.0 - 37.0 G/DL) 33.3 Cancelled RDW (11.5 - 14.5 %) 14.2 Cancelled Plt Count (130 - 400 /CUMM) 258 Cancelled MPV (7.4 - 10.4 FL) 8.0 Cancelled Gran % (42.2 - 75.2 %) 52.1 Lymphocytes % (20.5 - 51.1 %) 28.6 Monocytes % (1.7 - 9.3 %) 10.0 H Eosinophils % (0 - 5 %) 8.4 H Basophils % (0.0 - 2.0 %) 0.9 Absolute Granulocytes (1.4 - 6.5 /CUMM) 4.5 Absolute Lymphocytes (1.2 - 3.4 /CUMM) 2.5 Absolute Monocytes (0.10 - 0.60 /CUMM) 0.9 H Absolute Eosinophils (0.0 - 0.7 /CUMM) 0.7 Absolute Basophils (0.0 - 0.2 /CUMM) 0.1
[2018-01-03 15:48] LABS: ABSOLUTE BASOPHIL COUNT 0.1 /CUMM (0.0-0.2); ABSOLUTE EOSINOPHIL COUNT 0.8 /CUMM (0.0-0.7); ABSOLUTE GRANULOCYTE CT 6.9 /CUMM (1.4-6.5); ABSOLUTE LYMPH COUNT 2.5 /CUMM (1.2-3.4); ABSOLUTE MONOCYTE COUNT 0.8 /CUMM (0.10-0.60); BASOPHIL % 0.7 % (0.0-2.0); EOSINOPHIL % 7.4 % (0-5); GRANULOCYTE % 62.4 % (42.2-75.2); HEMATOCRIT 33.8 % (42-52); MEAN CORPUSCULAR HGB 30.4 PG (27.0-31.0); MEAN CORPUSCULAR HGB CONC 33.3 G/DL (33.0-37.0); MEAN CORPUSCULAR VOLUME 91.5 FL (80.0-94.0); MEAN PLATELET VOLUME 8.3 FL (7.4-10.4); PLATELET COUNT 327 /CUMM (130-400); RBC DISTRIBUTION WIDTH 14.3 % (11.5-14.5); RED BLOOD CELL CT 3.69 /CUMM (4.70-6.10); WHITE BLOOD CELL COUNT 11.1 /CUMM (4.8-10.8)
[2018-01-03 16:00] VITALS: BP 134/76
[2018-01-03 21:14] VITALS: BP 160/84
[2018-01-04 06:13] VITALS: BP 112/76
--- NOTE | 2018-01-04 07:09 | PN- Housestaff ---
Subjective Follow-up For: ESRD Subjective: No overnight events. Patient received dialysis yesterday, was tired afterward. He was also woken up at 2AM for blood work. He is now tired. He would also like to speak to the dietian about his renal diet because he is concerned it will be bad for his diabetes. Otherwise, no other complaints. Review of Systems Constitutional: Reports: see HPI. EENTM: Reports: no symptoms. Cardiovascular: Reports: no symptoms. Respiratory: Reports: no symptoms. Gastrointestinal: Reports: no symptoms. Genitourinary: Reports: no symptoms. Musculoskeletal: Reports: no symptoms. Skin: Reports: no symptoms. Neurological/Psychological: Reports: no symptoms. Hematologic/Endocrine: Reports: no symptoms. Immunologic/Allergic: Reports: no symptoms. Objective Last 24 Hrs of Vital Signs/I&O Vital Signs Date Time Temp Pulse Resp B/P B/P Pulse O2 O2 Flow FiO2 Mean Ox Delivery Rate 01/04 0613 98.1 62 20 112/76 94 01/03 2340 99.1 77 20 97 Room Air 01/03 2118 160/84 01/03 2114 160/84 01/03 1744 61 134/76 01/03 1600 98.9 61 18 134/76 97 Room Air Intake & Output 01/04 0800 01/04 0000 01/03 1600 Intake Total 240 480 Output Total 500 300 Balance -260 180 Intake, Oral 240 480 Number 1 1 Bowel Movements Output, Urine 500 300 Patient 115.212 kg Weight Weight Standing Scale Measurement Method Physical Exam General Appearance: Alert, Oriented X3, Cooperative, No Acute Distress Cardiovascular: Regular Rate Lungs: Clear to Auscultation Current Medications: Current Medications Sig/Buddy Start time Last Medication Dose Route Stop Time Status Admin Acetaminophen 650 MG .STK-MED ONE 01/04 2124 DC PO 01/03 2125 Acetaminophen 650 MG .STK-MED ONE 01/03 1154 DC PO 01/03 1155 Acetaminophen 650 MG Q6P PRN 12/21 2030 AC 01/04 PO 0414 Amlodipine Besylate 5 MG DAILY 12/22 1000 AC 01/03 PO 174 Atorvastatin Calcium 20 MG 12/22 1000 AC 01/03 PO 174 Benzonatate 100 MG TID PRN 12/29 2044 AC 12/29 PO 230 Clonidine 0.1 MG AT BEDTIME 12/21 2199 AC 01/03 PO 211 Ergocalciferol 50,000 IU QFRI 12/22 0700 AC 12/29 PO 0542 Heparin Sodium 5,000 UNIT Q8 12/21 220 AC 01/03 (Porcine) SC 211 Insulin Aspart 0 TIDAC 12/22 0800 AC 01/03 SC 1152 Insulin Detemir 10 UNITS AT BEDTIME 12/21 2200 AC 01/03 SC 2119 Levothyroxine Sodium 0.05 MG DAILY AC 12/22 0700 AC 01/04 PO 0619 Magnesium Chloride 64 MG DAILY 01/02 1000 AC 01/03 PO 1744 Multivitamins 1 TAB DAILY 01/01 1414 AC 01/03 PO 1742 Omeprazole 20 MG DAILY AC 12/22 0700 AC 01/04 PO 0618 Patient Medication 1 ED ONE ONE 01/03 1100 DC 01/03 Teaching ED 01/03 1101 1746 Polyethylene Glycol 17 GM DAILY 12/25 1000 AC 12/25 PO 1156 Senna/Docusate Sodium 1 TAB BID 12/25 1000 AC 01/03 PO 2118 Sevelamer Carbonate 800 MG WM 01/02 1200 AC 01/03 PO 1743 Last 24 Hrs of Lab/Haseeb Results Last 24 Hrs of Labs/Mics: Laboratory Tests 01/04/18 0140: 01/03/18 1230: Anion Gap 9, Estimated GFR 10 L, BUN/Creatinine Ratio 3.8 L, Glucose 208 H, Calcium 7.9 L, Phosphorus 3.5, Magnesium 2.0, Albumin 2.6 L, CBC w Diff NO MAN DIFF REQ, RBC 3.69 L, MCV 91.5, MCH 30.4, MCHC 33.3, RDW 14.3, MPV 8.3, Gran % 62.4, Lymphocytes % 22.3, Monocytes % 7.2, Eosinophils % 7.4 H, Basophils % 0.7 , Absolute Granulocytes 6.9 H, Absolute Lymphocytes 2.5, Absolute Monocytes 0.8 H, Absolute Eosinophils 0.8, Absolute Basophils 0.1 Assessment/Plan Assessment: 52 yo M with PMH of CKD Stage 5, hypertension, hyperlipidemia, diabetes complicated with retinopathy and neuropathy, is sent to the ED by his guest request runner for placement of dialysis catheter and hemodialysis. Problem List: 1. Fluid overload secondary to end-stage renal disease 2. RUE Swelling - resolved 3. Metobolic Acidosis - resolved 4. Secondary hyperparathyroidism 6. Normocytic anemia #Fluid overload secondary to end-stage renal disease: Patient presented with fluid overload. He is feeling better status post dialysis. Nephrology has been consulted and the patient was presented with options for renal replacement therapy. Patient has opted for hemodialysis at this time. He is scheduled for dialysis on Monday. He'll be discharged today and can follow up at [facility] for Friday 01/05 at 6:30 am. -Hemodialysis Monday -Outpatient vascular follow-up -Appreciate nephrology recommendations. -Dietary counseling #Secondary hyperparathyroidism: Calcium has been low, PTH is elevated, suggesting secondary hyperparathyroidism likely related to end-stage renal disease. -sevelamer to 800 mg 3 times a day #Normocytic anemia: Likely related to ESRD. -CTM #Chronic medical problems: -Continue home medications DVT prophylaxis with heparin Renal dialysis diet with 1200 mL fluid restriction Full code Problem List: 1. CKD (chronic kidney disease) Pain Ratin Pain Location: no Pain Goal: Remain pain free Pain Plan: see a/p Tomorrow's Labs & Rationales: none
[2018-01-04 09:45] VITALS: BP 112/76
[2018-01-04] MEDS ORDERED: RENVELA800 M1 PO ×2 (11:04→11:27)
[2018-01-04] MEDS ORDERED: SLOW-MAG71.5 MG PO (11:04)
[2018-01-04] MEDS ORDERED: NEPHRO-VITE TA0.8 MG PO ×2 (11:04→11:27)
--- NOTE | 2018-01-04 11:21 | Discharge Summary ---
Visit Information Visit Dates Admission Date: 12/21/17 Discharge Date: 01/04/18 Hospital Course Course Attending Physician: Ar Tijerina MD Primary Care Physician: Ar Tijerina MD Hospital Course: 52 yo M with PMH of CKD Stage 5, hypertension, hyperlipidemia, diabetes complicated with retinopathy and neuropathy, is sent to the ED by his auto rental clerk for placement of dialysis catheter and hemodialysis. Admission Data: Labs: creatinine of 6.2 with normal K of 4.4. Phos 7.4, mag 1.4, calcium 8.1. WBC was 11.8, INR 1.07. Chest x-ray showed hypoinflation with probable mild CHF and a small right pleural effusion. Doppler USS of right arm showed no DVT. He was admitted to general medicine and treated for the following problems: 1. Fluid overload secondary to end-stage renal disease 2. RUE Swelling 3. Metobolic Acidosis 4. Secondary hyperparathyroidism 6. Normocytic anemia 7. Blurry vision #Fluid overload secondary to end-stage renal disease with metabolic acidosis: The patient was sent to the emergency room by his auto rental clerk for urgent dialysis. He had a 2 week history of worsening generalized body swelling, weakness and fatigue. Nephrology was consulted. Patient was scheduled for an urgent AshCath placement by IR on 12/22. He received daily dialysis due to severe volume overload having approximately 3L of UF removed per session for about a week. After this, the patient was provided with various options for outpaitent dialysis PD vs HD. The patient has opted for HD. He will be scheduled for outpatient dialysis M//. He will have an outpatient appointment with vascular greg for a AVF. He'll be discharged today and can follow up at [facility] [place] for Friday 01/05 at 6:30 am. He will also follow up with nephrology and primary care. #Blurry vision: The patient complained of right eye blurriness. Apparently this is a chronic issue. He follows up with Dr Varma at [facility] [phone] where he receives Aylea injections. Patient states that these injections aid in resolving the blurriness. He was scheduled for an appointment with them last week but was unable to attend as he was admitted to the hospital. The opthalmologist was called to know that the patient is admitted here and if these injections can await until he can follow up with him or if they can be received in the hospital by our eye doctors. After a conversation with the opthalmologist , the patient can have an appointment with his eye doctor next week and receive his injections then as the injections are not urgent. He will follow-up with ophthalmology as an outpatient. #Secondary hyperparathyroidism: Calcium has been low, PTH is elevated, suggesting secondary hyperparathyroidism likely related to end-stage renal disease. He was started on several Imuran should continue this along with his nephro vitamins #RUE swelling: On admission, patient was found to have swelling of his RUE. He had blood drawn from that arm a week prior to admission. Per patient he subsequently developed swelling that had persisted. An U/S of RUE r/o DVT in the ED. #Normocytic anemia: He was asymptomatic and there is no evidence of bleeding. This was likely related to ESRD. #Chronic medical problems: His other home medications were continued except as above. Allergies: Coded Allergies: fish derived (Intermediate, UNKNOWN 12/25/17) shellfish derived (SEAFOOD- NAUSEA AND DIZZINESS 04/27/17) Disposition Summary Disposition Principal Diagnosis: 1. Fluid overload secondary to end-stage renal disease Additional Diagnosis: 2. RUE Swelling 3. Metobolic Acidosis 4. Secondary hyperparathyroidism 6. Normocytic anemia 7. Blurry vision Discharge Disposition: home or self care Discharge Instructions General Discharge Information Code Status: Full Code Patient's Diet: Renal dialysis diet Patient's Activity: As tolerated Follow-Up Instructions/Appts: Please take all medications as directed. Please follow-up with primary care, nephrology, endocrinology, vascular surgery, and ophthalmology. Medications at Discharge Discharge Medications: Stop taking the following medications: Fenofibrate Nanocrystallized (Fenofibrate) 145 MG TABLET ORAL DAILY Qty = 30 Sodium Bicarbonate (Sodium Bicarbonate) 325 MG TABLET ORAL THREE TIMES DAILY Qty = 60 Continue taking these medications: Clonidine HCl (Clonidine HCl) 0.1 MG TABLET 1 Tablet ORAL TAKE AT BEDTIME Qty = 30 Comments: Last Taken: 01/03/18 Time: 9:15 PM Tadalafil (Cialis) 5 MG TABLET 1 Tablet ORAL DAILY Qty = 30 Comments: NOT GIVEN IN HOSPITAL Ergocalciferol (Vitamin D2) (Vitamin D2) 50,000 UNIT CAPSULE 1 Capsule ORAL EVERY MONDAY Qty = 12 Comments: Last Taken: 12/29/17 Time: 12:00 PM Levothyroxine Sodium (Levothyroxine Sodium) 50 MCG TABLET 1 Tablet ORAL DAILY Qty = 30 Comments: Last Taken: 01/04/18 Time: 6:00 AM Rosuvastatin Calcium (Crestor) 5 MG TABLET 1 Tablet ORAL MONDAY, MONDAY AND MONDAY Qty = 30 Comments: Last Taken: 01/03/18 Time: 6:00 PM (LIPITOR 20MG PO GIVEN) Insulin Detemir (Levemir) 100 UNIT/ML VIAL 10 Units Inject into fatty tissue TAKE AT BEDTIME Comments: Last Taken: 01/03/18 Time: 9:15 PM Omeprazole (Omeprazole) 20 MG CAPSULE.DR 20 Milligram ORAL DAILY BEFORE BREAKFAST Qty = 30 Comments: Last Taken: 01/04/18 Time: 6:00 AM Insulin Aspart (Novolog) 100 UNIT/ML VIAL 0 Units Inject into fatty tissue 3 TIMES DAILY BEFORE MEALS Qty = 10 Instructions: PLEASE TAKE FOLLOW: BLOOD SUGAR 80-150 MG/DL: 6 UNITS 151-200 MG/DL: 7 UNITS 201-250 MG/DL: 8 UNITS 251-300 MG/DL: 9 UNITS 301-350 MG/DL: 10 UNITS 351-400 MG/DL: 11 UNITS MORE THAN 400 MG/DL: 12 UNITS, NICK PALACIOS Comments: Last Taken: 01/04/18 Time: 11:30 AM Amlodipine Besylate (Amlodipine Besylate) 5 MG TABLET 1 Tablet ORAL DAILY Qty = 30 Instructions: . Comments: Last Taken: 01/04/18 Time: 10:00 AM Start taking the following new medications: Sevelamer Carbonate (Renvela) 800 MG TABLET 800 Milligram ORAL WITH MEALS as needed for Phosphate binder Qty = 90 No Refills Instructions: . Comments: Last Taken: 01/04/18 Time: 11:30 AM Nephro-Vitamins (Nephro-Frandy Tablet) 0.8 MG TABLET 1 Tablet ORAL DAILY Qty = 30 No Refills Instructions: . Comments: Last Taken: 01/04/18 Time: 10:00 AM Copies To: Avani PALACIOS,Dave; Juan Manuel PALACIOS,Maldonado Tello; Ar Tijerina MD; Nayeli PALACIOS, Tj; Joshua PALACIOS,Mio
--- NOTE | 2018-01-04 12:43 | PN- Att Addend ---
Attending Addendum Attending Brief Note Patient has no new complaints sitting in the chair. Was stable no fever, no new changes on physical patient will be able to be discharged today, continue hemodialysis as an outpatient 3 times a week. 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 Intake & Output 01/04 1600 01/04 0400 01/03 1600 01/03 0400 01/02 1600 01/02 0400 Intake Total 240 240 720 240 950 240 Output Total 500 300 700 Balance 240 -260 420 240 250 240 Intake, Oral 240 240 720 240 950 240 Number 1 1 Bowel Movements Output, Urine 500 300 700 Patient 254 lb 256 lb 256 lb Weight Weight Standing Scale Measurement Method Current Medications Sig/Buddy Start time Last Medication Dose Route Stop Time Status Admin Acetaminophen 650 MG .STK-MED ONE 01/04 413 DC PO 01/04 041 Acetaminophen 650 MG .STK-MED ONE 01/04 2124 DC PO 01/03 2125 Acetaminophen 650 MG Q6P PRN 12/21 2030 AC 01/04 PO 0414 Amlodipine Besylate 5 MG DAILY 12/22 1000 AC 01/04 PO 0945 Atorvastatin Calcium 20 MG 12/22 1000 AC 01/03 PO 1747 Benzonatate 100 MG TID PRN 12/29 2044 AC 12/29 PO 2309 Clonidine 0.1 MG AT BEDTIME 12/21 2199 AC 01/03 PO 2118 Ergocalciferol 50,000 IU QFRI 12/22 07 AC 12/29 PO 0542 Heparin Sodium 5,000 UNIT Q8 12/21 2199 AC 01/03 (Porcine) SC 211 Insulin Aspart 0 TIDAC 12/22 08 AC 01/04 SC 1131 Insulin Detemir 10 UNITS AT BEDTIME 12/21 2199 AC 01/03 SC 2119 Levothyroxine Sodium 0.05 MG DAILY AC 12/22 07 AC 01/04 PO 0619 Magnesium Chloride 64 MG DAILY 01/02 1000 AC 01/04 PO 0945 Multivitamins 1 TAB DAILY 01/01 1414 AC 01/04 PO 0945 Omeprazole 20 MG DAILY AC 12/22 0700 AC 01/04 PO 0618 Polyethylene Glycol 17 GM DAILY 12/25 1000 AC 12/25 PO 1156 Senna/Docusate Sodium 1 TAB BID 12/25 1000 AC 01/03 PO 2118 Sevelamer Carbonate 800 MG WM 01/02 1200 AC 01/04 PO 1131 Laboratory Tests 01/04/18 0140: 01/03/18 1230: Anion Gap 9, Estimated GFR 10 L, BUN/Creatinine Ratio 3.8 L, Glucose 208 H, Calcium 7.9 L, Phosphorus 3.5, Magnesium 2.0, Albumin 2.6 L, CBC w Diff NO MAN DIFF REQ, RBC 3.69 L, MCV 91.5, MCH 30.4, MCHC 33.3, RDW 14.3, MPV 8.3, Gran % 62.4, Lymphocytes % 22.3, Monocytes % 7.2, Eosinophils % 7.4 H, Basophils % 0.7 , Absolute Granulocytes 6.9 H, Absolute Lymphocytes 2.5, Absolute Monocytes 0.8 H, Absolute Eosinophils 0.8, Absolute Basophils 0.1 01/03/18 0600: Phosphorus Cancelled 01/02/18 0705: Anion Gap 8, Estimated GFR 14 L, BUN/Creatinine Ratio 2.9 L, Calcium 8.1 L, Phosphorus 3.3, Magnesium 1.9, Iron 65, TIBC 227 L, Ferritin 203.0, Albumin 2.2 L, Vitamin B12 > 1000 H, 25-OH Vitamin D Total 21.2 L, Folate 13.5, CBC w Diff NO MAN DIFF REQ, RBC 3.65 L, MCV 91.2, MCH 30.5, MCHC 33.4, RDW 14.0, MPV 8.0, Gran % 56.4, Lymphocytes % 26.3, Monocytes % 9.4 H, Eosinophils % 7.0 H, Basophils % 0.9, Absolute Granulocytes 5.5, Absolute Lymphocytes 2.6, Absolute Monocytes 0.9 H, Absolute Eosinophils 0.7, Absolute Basophils 0.1 Vital Signs Date Time Temp Pulse Resp B/P B/P Pulse O2 O2 Flow FiO2 Mean Ox Delivery Rate 01/04 0945 62 112/76 01/04 0613 98.1 62 20 112/76 94 01/03 2340 99.1 77 20 97 Room Air 01/03 2118 160/84 01/03 2114 160/84 01/03 1744 61 134/76 01/03 1600 98.9 61 18 134/76 97 Room Air
== END 2018-01-04 13:18 | DRG 683 ==
LOC: ERH 13:08 → ERHI 15:30 → 2NB 15:30 → ENRESERV 18:41 → ENTRNSPT 19:20 → EDTRNSPTSTS 19:22 → 2NB 19:34 → CMPTRNSPT 19:35 → ENPENDDIS 01-04 11:52 → ENTRNSPT 01-04 12:55 → EDTRNSPT 01-04 13:15 → EDTRNSPTSTS 01-04 13:15 → 2NB 01-04 13:18 → CMPTRNSPT 01-04 13:26
PROVIDERS: Internal Medicine; Internal Medicine Nephrology; Physician Assistant Medical; Student in an Organized Health Care Education/Training Program
DX: I12.0 Hypertensive chronic kidney disease with stage 5 chronic kidney disease or end stage renal disease (principal); N18.5 Chronic kidney disease, stage 5; N17.9 Acute kidney failure, unspecified; E11.22 Type 2 diabetes mellitus with diabetic chronic kidney disease; E11.319 Type 2 diabetes mellitus with unspecified diabetic retinopathy without macular edema; E87.2 Acidosis; Z68.42 Body mass index [BMI] 45.0-49.9, adult; E11.40 Type 2 diabetes mellitus with diabetic neuropathy, unspecified; Z79.4 Long term (current) use of insulin; E83.42 Hypomagnesemia; E83.39 Other disorders of phosphorus metabolism; E66.01 Morbid (severe) obesity due to excess calories; R30.0 Dysuria; E87.70 Fluid overload, unspecified; R60.9 Edema, unspecified
CPT/HCPCS: 04007; 2NBP; 36415; 36592; 71045; 77001; 81001; 82436; 86803; 87086; 93005; 93010; C1752; C1769; J1644